=== PATIENT | female | born 1950 | race Caucasian/White ===

== ENCOUNTER → 2016-03-29 | Outpatient (CLI) | payer BC, OTHER ==
[~2016-03-29] MED LIST: ASPI325T39 PO; ATV/1 PO; CHOL200010 PO; CYAN3INJ IM; ERGO500037 PO; ESCI1TAB6 PO; FOLI1TAB7 PO; LANS15CA24 PO; MULTTAB58 PO; SUCR1TAB29 PO; VALS160T58 PO
--- NOTE | 2016-03-29 10:06 | DIAGNOSTIC IMAGING REPORT ---
RIGHT HIP 2 VIEWS CLINICAL HISTORY: Right hip pain. FINDINGS: AP and frog-leg views of the right hip are correlated with pelvic CT dated 05/29/2012. The skeletal structures are osteopenic. No fracture is identified in the right hip or the imaged right hemipelvis. The joint space of the right hip is well maintained. Small enthesophytes arise from the greater trochanter of the right femur. Minimal sclerotic change is noted in the right sacroiliac joint. There are pelvic phleboliths. The soft tissues of the right thigh are normal as visualized. IMPRESSION: No acute bony abnormality is seen in the right hip. Electronically signed by: Matias Monroe M.D. 03/29/2016 10:04 AM Dictated Date/Time: 03/29/2016 10:03 AM
== END | disposition home or self-care (01) ==
LOC: C.RADBC 09:47
PROVIDERS: ATTEND Anesthesiology
DX: M25.551 Pain in right hip (principal)

== ENCOUNTER → 2016-08-29 | Outpatient (CLI) | payer BC, OTHER ==
[~2016-08-29] MED LIST changes: -MULTTAB58 PO; -SUCR1TAB29 PO
--- NOTE | 2016-08-29 12:49 | DIAGNOSTIC IMAGING REPORT ---
RIGHT WRIST 4 VIEWS CLINICAL HISTORY: Cervicalgia. Right wrist pain. FINDINGS: 4 views the right wrist are obtained No prior studies are available for comparison at the time of dictation. The skeletal structures are osteopenic. There is no radiographic evidence of fracture. Mild arthritic change is present the first carpometacarpal articulation. The joint spaces are otherwise preserved. The overlying soft tissues are within normal limits. IMPRESSION: No acute bony abnormality is seen in the right wrist. Electronically signed by: Matias Monroe M.D. 08/29/2016 12:47 PM Dictated Date/Time: 08/29/2016 12:46 PM
--- NOTE | 2016-08-29 13:19 | DIAGNOSTIC IMAGING REPORT ---
CERVICAL SPINE 3 VIEWS CLINICAL HISTORY: Cervicalgia. Right arm pain. FINDINGS: AP, lateral, and odontoid views of the cervical spine are obtained. No prior studies are available for comparison at the time of dictation. Skeletal structures are osteopenic. There is no radiographic evidence of fracture or subluxation. Vertebral body height is maintained throughout the cervical spine. Minimal anterolisthesis is seen at C3-C4 and C4-C5. Minimal retrolisthesis is noted at C5-C6. There is straightening of the cervical lordosis with the reversal centered at C4-C5. The odontoid process and lateral masses are intact on the open-mouth view. The spinolaminar line is preserved. Anterior osteophytes are seen from C4 through C7. The spinous processes appear intact. There is moderate degenerative disc space narrowing at C5-C6. Mild disc space narrowing is seen at C6-C7. A posterior disc osteophyte complex at C5-C6 likely contributes to acquired compromise of the central canal. There is mild endplate sclerosis at this level. Productive degenerative change is noted at the atlantodental articulation with narrowing of the interval. The prevertebral soft tissues are within normal limits. The patient is edentulous. The imaged upper lobe lung parenchyma appears clear. IMPRESSION: 1. No acute bony abnormality is seen involving the cervical spine. 2. Osteopenia and spondylotic change as above, greatest at C5-C6. Dictated: 08/29/2016 12:48 PM Transcribed: 08/29/2016 1:18 PM Christian Electronically signed by: Matias Monroe M.D. 08/29/2016 1:35 PM Dictated Date/Time: 08/29/2016 12:48 PM
== END | disposition home or self-care (01) ==
LOC: C.RADBC 12:12
PROVIDERS: ATTEND Physician Assistant Medical
DX: M54.2 Cervicalgia (principal); M79.603 Pain in arm, unspecified; M85.88 Other specified disorders of bone density and structure, other site

== ENCOUNTER → 2016-09-23 | Outpatient (CLI) | payer BC | END | disposition home or self-care (01) | LOC: C.MAMM 07:46 | PROVIDERS: ATTEND Physician Assistant Medical | DX: M85.851 Other specified disorders of bone density and structure, right thigh (principal); M85.852 Other specified disorders of bone density and structure, left thigh; M85.88 Other specified disorders of bone density and structure, other site ==

== ENCOUNTER → 2017-04-14 | Outpatient (CLI) | payer BC, MEDICARE ==
[~2017-04-14] MED LIST changes: -FOLI1TAB7 PO; +FOLI1TAB8 PO
== END | disposition home or self-care (01) ==
LOC: C.RDSM 14:32
PROVIDERS: ATTEND Physical Medicine & Rehabilitation Sports Medicine
DX: M25.511 Pain in right shoulder (principal)

== ENCOUNTER → 2017-05-12 | Outpatient (CLI) | payer MEDICARE ==
[2017-05-12 10:16] LABS: ALKALINE PHOSPHATASE 117 U/L (45-117); ALT/SGPT 22 U/L (12-78); BLOOD UREA NITROGEN 20 mg/dl (7-18); CALCIUM 8.4 mg/dl (8.5-10.1); CARBON DIOXIDE 27 mmol/L (21-32); CHOLESTEROL 216 mg/dl (0-200); GLUCOSE 99 mg/dl (70-99); POTASSIUM 4.2 mmol/L (3.5-5.1); SODIUM 139 mmol/L (136-145)
[2017-05-12 10:23] LABS: AST/SGOT 21 U/L (15-37); HEMOGLOBIN A1C 6.2 % (4.5-5.6)
== END | disposition home or self-care (01) ==
LOC: C.LAB 09:04
PROVIDERS: ATTEND Internal Medicine
DX: R09.89 Other specified symptoms and signs involving the circulatory and respiratory systems (principal)

== ENCOUNTER → 2017-07-08 | Outpatient (CLI) | payer MEDICARE ==
--- NOTE | 2017-07-08 11:49 | DIAGNOSTIC IMAGING REPORT ---
CHEST 2 VIEWS ROUTINE HISTORY: Cough. COMPARISON: None. FINDINGS: The lungs are clear. Cardiac silhouette is normal in size. No pleural effusions. No pneumothorax. Upper abdominal surgical clips. IMPRESSION: No acute process. Electronically signed by: González Alvarez M.D. 07/08/2017 11:48 AM Dictated Date/Time: 07/08/2017 11:44 AM
== END | disposition home or self-care (01) ==
LOC: C.RADBC 11:16
PROVIDERS: ATTEND Nurse Practitioner Adult Health
DX: R05 Cough (principal); R09.89 Other specified symptoms and signs involving the circulatory and respiratory systems

== ENCOUNTER → 2017-10-17 | Outpatient (CLI) | payer MEDICARE ==
--- NOTE | 2017-10-17 11:31 | DIAGNOSTIC IMAGING REPORT ---
CT LUNG SCREENING CHEST, LOW DOSE WITH COMPUTER-AIDED DETECTION (CAD) CLINICAL HISTORY: 66 years-old Female with CURRENT SMOKER , LOW DOSE SCREENING. Screening study in a patient with history of tobacco abuse COMPARISON STUDY: Chest radiographs 07/08/2017. CT DOSE: 72.52 mGycm TECHNIQUE: Low-dose helical CT was acquired without intravenous contrast from lung apices to bases and reconstructed at 2.5 mm every 2 mm. CAD was utilized for this study. A dose lowering technique was utilized adhering to the principles of ALARA. FINDINGS: Homogeneous appearance of the thyroid. No pathologically enlarged lymph nodes are identified. Heart is normal in size without pericardial effusion. Coronary arterial calcifications are noted. Moderate upper lobe predominant centrilobular emphysema. Minimal subsegmental pleural-parenchymal scarring of the lung apices. No pneumothorax or pleural effusion. No focal airspace consolidation to suggest pneumonia. There are no suspicious pulmonary nodules or masses identified. 2 mm solid nodule of the left upper lobe, image 95 series 3. Central airways are patent. No acute process of the imaged upper abdomen. Postoperative changes about the distal esophagus and proximal stomach. Soft tissues are within normal limits. Bones appear intact. IMPRESSION: 1. No acute intrathoracic abnormality identified. 2. Emphysema. 3. 2 mm solid nodule of the left upper lobe, likely benign. CAD FINDINGS: Overall Lung RADS Category: 1 Lung RADS Management Recommendation: Continue annual lung cancer screening. Lung RADS Follow Up Date: 2018-10-17 The above report was generated using voice recognition software. It may contain grammatical, syntax or spelling errors. Electronically signed by: Jose Armando Penny M.D. 10/17/2017 11:29 AM Dictated Date/Time: 10/17/2017 11:09 AM
== END | disposition home or self-care (01) ==
LOC: C.CTS 09:42
PROVIDERS: ATTEND Internal Medicine
DX: J43.9 Emphysema, unspecified (principal); R91.1 Solitary pulmonary nodule; Z87.891 Personal history of nicotine dependence

== ENCOUNTER 2019-05-19 05:21 | Inpatient (IN) ==
--- NOTE | 2019-05-11 14:00 | PAT Medication Instructions ---
Medication Instructions Date of Service May 11, 2019 Home Medications Medication Instructions Recorded omeprazole 20 mg capsule,delayed 20 mg PO DAILY PRN #30 cap 01/27/19 release cyanocobalamin (vitamin B-12) 1,000 mcg IM MONTHLY aspirin 325 mg tablet 325 mg PO QAM omeprazole 20 mg capsule,delayed release 20 mg PO DAILY PRN prednisone 10 mg tablet 6 mg PO DAILY valsartan 160 mg tablet 80 mg PO DAILY PRN Medical Marijuana Card 1 dose PO UD PRN acetaminophen [Tylenol] 650 mg PO Q4H PRN ezetimibe [Zetia] 10 mg PO QAM ASK your prescriber and surgeon aspirin 325 mg tablet 325 mg PO QAM DO NOT take the morning of surgery cyanocobalamin (vitamin B-12) 1,000 mcg IM MONTHLY valsartan 160 mg tablet 80 mg PO DAILY PRN Medical Marijuana 1 dose PO UD PRN Take morning of surgery With a small sip of water, OTHERWISE NOTHING TO EAT OR DRINK AFTER MIDNIGHT: omeprazole 20 mg capsule,delayed release 20 mg PO DAILY PRN (if needed) prednisone 10 mg tablet 6 mg PO DAILY acetaminophen [Tylenol] 650 mg PO Q4H PRN (okay to take up to 4 hours prior to surgery if needed) ezetimibe [Zetia] 10 mg PO QAM Take evening before surgery omeprazole 20 mg capsule,delayed release 20 mg PO DAILY PRN (if needed) valsartan 160 mg tablet 80 mg PO DAILY PRN (if needed) acetaminophen [Tylenol] 650 mg PO Q4H PRN (if needed) Other Notes If you have any questions please call us at [phone] or [phone] or [phone] or [phone]
--- NOTE | 2019-05-12 09:11 | Anesthesiology Consultation ---
Date of Service May 12, 2019 Assessment & Plan (1) Encounter for pre-operative examination: Chart Review Chart Review: Acceptable Risk for Surgery and Patient seen in Pre Admission Testing Teaching & Discussion Instructed NPO after midnight before surgery, except medications with 15 cc of water. Medication instructions provided according to the PAT guidelines. History Surgery Operation Date: 05/19/19 09:05 Proposed Procedures p Left Carotid to Subclavian Artery Bovine Bypass - Tony Oliveira MD Height/Weight Height: 5 ft 3 in Weight: 64 kg Allergies Allergy/AdvReac Type Severity Reaction Status Date / Time amoxicillin Allergy Unknown HIVES Verified 05/11/19 16:26 atenolol Allergy Unknown GI Verified 05/11/19 16:26 SYMPTOMS/light headed clavulanic acid Allergy Unknown Hives Verified 05/11/19 16:26 [From Augmentin] fluoxetine Allergy Unknown RASH/leg Verified 05/11/19 16:26 cramps lisinopril Allergy Unknown CAUSED BP Verified 05/11/19 16:26 TO DROP TOO LOW propranolol Allergy Unknown HIVES/body Verified 05/11/19 16:26 aches atorvastatin AdvReac Unknown myalgia Verified 05/11/19 16:26 meloxicam AdvReac Unknown Diarrhea Verified 05/11/19 16:26 rosuvastatin [From Crestor] AdvReac Unknown Muscle Pain Verified 05/11/19 16:26 Medications Home Medications Medication Instructions Recorded Confirmed Last Taken cyanocobalamin (vitamin B-12) 1,000 mcg IM MONTHLY 12/07/18 05/11/19 04/26/19 aspirin 325 mg tablet 325 mg PO QAM tab 01/05/19 05/11/19 Unknown omeprazole 20 mg capsule,delayed 20 mg PO DAILY PRN #30 cap 01/27/19 05/11/19 Unknown release prednisone 10 mg tablet 6 mg PO DAILY tab 02/02/19 05/11/19 Unknown valsartan 160 mg tablet 80 mg PO DAILY PRN tab 03/29/19 05/11/19 Unknown Medical Marijuana Card 1 dose PO UD PRN 05/06/19 05/11/19 Unknown acetaminophen [Tylenol] 650 mg PO Q4H PRN 05/06/19 05/11/19 Unknown ezetimibe [Zetia] 10 mg PO QAM 05/06/19 05/11/19 Unknown Past Medical History Medical History Anxiety Elevated sed rate follows with rheumatology (Dr. Fay/[facility]) Generalized pain Medical marijuana prn GERD (gastroesophageal reflux disease) High cholesterol History of blood transfusion History of iron deficiency anemia hx iron infusions (most recent approximately 02/2019) History of migraine headaches History of stomach ulcers History of stroke S/P intracranial aneurysm repair (01/2019)- no residual effects Hypertension (Chronic) per patient, systolic BP goal currently between 150-180 Intracranial aneurysm 01/2019 s/p stent and/or coil (Dr. Simpson/[facility]) Osteoarthritis per records Osteopenia per records Pulmonary nodule Seasonal allergies Social anxiety disorder Subclavian artery stenosis, right (Chronic) Exercise / Class Metabolic Activity III < 4 Walking/Shop/Light housework (+mild SOB with 1 FOS, denies any chest pain, patient is generally inactive) Past Family History Family History Father Acute myocardial infarction Cardiovascular disease Stroke syndrome Mother Hypertension Brother Acute myocardial infarction Other Patient's brother is Stroke Past Surgical History Surgical History Family history of reaction to anesthesia Daughter- "quit breathing" with anesthesia emergence after use of fentanyl- needed to reintubate H/O abdominal surgery STOMACH ULCERS REMOVED (3 TOTAL SURGERIES) History of breast biopsy RT/LEFT (BENIGN) History of cholecystectomy History of colonoscopy History of esophagogastroduodenoscopy (EGD) History of temporal artery biopsy (12/09/18) Left Temporal Artery Biopsy (11/2018) History of tooth extraction Intracranial aneurysm 01/2019 - STENT AND/OR COIL PLACED, SEVERINO PONV (postoperative nausea and vomiting) Past Anesthesia History No Hx of Anesthesia Complications (other than PONV episode) Daughter had possible fentanyl overdose betty-operatively, required reintubation. History of PONV No Hx of Motion Sickness and History of PONV (single episode) Social History Smoking Status: Current every day smoker tobacco type: cigarettes Smoking cigarettes per day: 20 Do You Dip or Chew Tobacco: No Hx Alcohol Use: No Hx Substance Use: No substance use type: other Substance Use Type Other:: MEDICAL MARIJUANA CARD - INSTRUCTED TO BRING CARD DAY OF PAT Review of Systems Pt denies any recent chest pain, shortness of breath, palpitations, fever or URI. +cough/post nasal drip Physical Exam Vital Signs BP: 209/81, rpt manual 10 mins later 190/78 -- pt will take PRN valsartan when she gets home. BP is supposed to be elevated d/t subclavian artery stenosis. P: 78bpm SPO2: 98% RA T: 98.7 F R: 18 ENMT Mouth: + edentulous and + macroglossia Thyromental Distance: < 3.5 Finger Breadths (3) Mallampati Class: I Neck normal visual inspection; neck extension not limited Respiratory normal respiratory effort Auscultation: lungs clear to auscultation bilaterally Cardiovascular Rate/Rhythm: regular rate and regular rhythm Heart Sounds: + murmur (systolic, possibly radiation from bruit) Vessels: + carotid bruit (R>L) Extremities: no edema Testing Laboratory Results 05/12/19 09:12 05/12/19 09:12 PT 9.6 Seconds (9.0-12.0) 05/12/19 09:12 INR 0.9 (0.9-1.1) 05/12/19 09:12 APTT 27.1 Seconds (21.0-31.0) 05/12/19 09:12 Blood Type O Positive 05/12/19 09:12 Antibody Screen NEGATIVE 05/12/19 09:12 Thrombocytosis -- pt was on high dose steroids, taped down gradually, now 6mg daily, for elevated sed rate (temporal artery bx negative) Chronic anemia -- 2/2 peptic ulcer disease, has had Fe infusions, most recently 02/2019. S/P embol[place] of R ICA [place] [facility] [place], req'd 3 units PRBC due to HGB of 6.4. Electrocardiogram Date: 12/07/18 SR @ 74bpm with marked sinus arrhythmia. Otherwise normal EKG. Chest X-Ray Date: 11/26/18 FINDINGS: PA and lateral chest radiographs are compared to study dated 07/08/2017 and correlated with chest CT dated 10/21/2018. The heart is mildly enlarged. The pulmonary vasculature is noncongested. Emphysema and chronic interstitial thickening are similar to previous. No airspace consolidation or pleural effusion is identified. There is no pneumothorax. The skeletal structures are osteopenic. The bony thorax appears intact. Surgical clips are noted in the upper abdomen IMPRESSION: Emphysematous change with no acute cardiopulmonary abnormality. Echocardiogram Date: 04/20/19 EF: 50-55% Normal LV size with low normal systolic function. Basal inferior wall appears mildly hypokinetic. Moderate concentric LVH. Mild left atrial dilation. Sclerotic aortic valve without significant stenosis. Mild to moderate mitral regurgitation.
[2019-05-12 10:55] LABS: Basophils # (auto) 0.02 K/uL (0-0.2); Basophils % (auto) 0.2 %; Eosinophils # (auto) 0.12 K/uL (0-0.5); Eosinophils % (auto) 1.5 %; Hematocrit (blood only) 31.4 % (37-47); Hemoglobin 9.3 g/dL (12.0-16.0); Immature Granulocytes # (auto) 0.02 K/uL (0.00-0.02); Immature Granulocytes % (auto) 0.2 %; Lymphocytes # (auto) 1.82 K/uL (1.2-3.4); Lymphocytes % (auto) 22.6 %; Mean Corpuscular Hemoglobin 28.9 pg (25-34); Mean Corpuscular Hgb Conc 29.6 g/dL (32-36); Mean Corpuscular Volume 97.5 fL (80-100); Mean Platelet Volume 9.2 fL (7.4-10.4); Monocytes % (auto) 6.2 %; Neutrophils # (auto) 5.59 K/uL (1.4-6.5); Neutrophils % (auto) 69.3 %; Platelet Count 596 K/uL (130-400); RDW Coefficient of Variation 16.9 % (11.5-14.5); Red Blood Count 3.22 M/uL (4.2-5.4); White Blood Count 8.07 K/uL (4.8-10.8)
[2019-05-12 11:04] LABS: BUN Creatinine Ratio 14.6 (10-20); Creatinine Clr Calc Pharmacy 51.7 ml/min; Est GFR (African American) 71.8; Potassium 3.5 mmol/L (3.5-5.1)
[2019-05-12 11:06] LABS: INR 0.9 (0.9-1.1); Partial Thromboplastin Time 27.1 Seconds (21.0-31.0); Prothrombin Time 9.6 Seconds (9.0-12.0)
[2019-05-19] MEDS ORDERED: HYDROCORTISONE SOD SUCCINATE 100 MG/2 ML VIAL IV SCH (06:00)
[2019-05-19] MEDS ORDERED: CLINDAMYCIN 600 MG/54 ML BAG IV SCH (06:00)
[2019-05-19] MEDS ORDERED: SODIUM CHLORIDE 0.9% 1000ML IV SCH (06:00)
[2019-05-19 06:28] LABS: BUN Creatinine Ratio 13.2 (10-20); Calcium 8.5 mg/dl (8.5-10.1); Creatinine Clr Calc Pharmacy 58.5 ml/min; Est GFR (African American) 83.4; Est GFR (Non-African American) 71.9; Potassium 3.4 mmol/L (3.5-5.1)
--- NOTE | 2019-05-19 06:29 | History & Physical Report ---
Date of Service May 19, 2019 Assessment & Plan (1) Carotid artery occlusion syndrome: Patient is admitted for a left subclavian to carotid bypass. I have discussed the risks options and benefits of the procedure with the patient. The patient understands the risks options and benefits and agrees to the procedure. History of Present Illness Chief Complaint: Left common carotid artery occlusion Primary Care Provider: Anjel Eid MD Ms. Kilgore is a 68-year-old female who was first seen back in December 2018 regarding her carotid artery disease. The patient had previously been found to have an intracranial right internal carotid artery aneurysm which is being managed by Dr. Attila Simpson at [facility]. Since her visit here in December, the patient had undergone coiling of the distal right ICA aneurysm. Testing done around that time continues to indicate a left common carotid artery occlusion as well as a severely stenotic left vertebral artery and occluded right vertebral artery and stenosis of her right proximal carotid artery as well as an occluded right subclavian. The patient's imaging appears to demonstrate decreased perfusion of the left hemisphere. The patient herself denies any new concerns or symptoms. She states that she is easily fatigued, but that that has been an ongoing problem which is managed by iron infusions performed by her field operations manager. She denies any new symptoms of amaurosis, unilateral extremity weakness, numbness or tingling, difficulty speaking or swallowing, confusion, facial droop or other concerns The patient had an MRA of the head and neck which revealed an occluded left common carotid artery, a severely stenotic left vertebral artery, a patent left subclavian artery, an occluded right subclavian artery, a stenotic proximal right carotid artery and an occluded right vertebral artery. Allergies Allergy/AdvReac Type Severity Reaction Status Date / Time amoxicillin Allergy Unknown HIVES Verified 05/19/19 05:45 atenolol Allergy Unknown GI Verified 05/19/19 05:45 SYMPTOMS/light headed clavulanic acid Allergy Unknown Hives Verified 05/19/19 05:45 [From Augmentin] fluoxetine Allergy Unknown RASH/leg Verified 05/19/19 05:45 cramps lisinopril Allergy Unknown CAUSED BP Verified 05/19/19 05:45 TO DROP TOO LOW propranolol Allergy Unknown HIVES/body Verified 05/19/19 05:45 aches atorvastatin AdvReac Unknown myalgia Verified 05/19/19 05:45 meloxicam AdvReac Unknown Diarrhea Verified 02/26/20 05:45 rosuvastatin [From Crestor] AdvReac Unknown Muscle Pain Verified 05/19/19 05:45 Home Medications Home Medications Medication Instructions Recorded Confirmed Type cyanocobalamin (vitamin B-12) 1,000 mcg IM MONTHLY 12/07/18 05/19/19 History aspirin 325 mg tablet 325 mg PO QAM tab 01/05/19 05/19/19 History omeprazole 20 mg capsule,delayed 20 mg PO DAILY PRN #30 cap 01/27/19 05/19/19 Rx release prednisone 10 mg tablet 6 mg PO DAILY tab 02/02/19 05/19/19 History valsartan 160 mg tablet 80 mg PO DAILY PRN tab 03/29/19 05/19/19 History Medical Marijuana Card 1 dose PO UD PRN 05/06/19 05/19/19 History acetaminophen [Tylenol] 650 mg PO Q4H PRN 05/06/19 05/19/19 History ezetimibe [Zetia] 10 mg PO QAM 05/06/19 05/19/19 History Past Med/Surg History Medical History Anxiety Elevated sed rate follows with rheumatology (Dr. Fay/[facility]) Generalized pain Medical marijuana prn GERD (gastroesophageal reflux disease) High cholesterol History of blood transfusion History of iron deficiency anemia hx iron infusions (most recent approximately 02/2019) History of migraine headaches History of stomach ulcers History of stroke S/P intracranial aneurysm repair (01/2019)- no residual effects Hypertension (Chronic) per patient, systolic BP goal currently between 150-180 Intracranial aneurysm 01/2019 s/p stent and/or coil (Dr. Simpson/[place] [facility]) Osteoarthritis per records Osteopenia per records Pulmonary nodule Seasonal allergies Social anxiety disorder Subclavian artery stenosis, right (Chronic) Surgical History Family history of reaction to anesthesia Daughter- "quit breathing" with anesthesia emergence after use of fentanyl- needed to reintubate H/O abdominal surgery STOMACH ULCERS REMOVED (3 TOTAL SURGERIES) History of breast biopsy RT/LEFT (BENIGN) History of cholecystectomy History of colonoscopy History of esophagogastroduodenoscopy (EGD) History of temporal artery biopsy (12/09/18) Left Temporal Artery Biopsy (11/2018) History of tooth extraction Intracranial aneurysm 01/2019 - STENT AND/OR COIL PLACED, SEVERINO PONV (postoperative nausea and vomiting) Family History Father Acute myocardial infarction Cardiovascular disease Stroke syndrome Mother Hypertension Brother Acute myocardial infarction Other Patient's brother is Stroke Social History Preferred Language: Hebrew Communication Ability: Effective Visual Impairment: No Limitations Hearing Ability: Normal Sql Tech Required: No Beliefs That Will Affect Care: None marital status: Current Living Situation: Spouse current occupation: [employer] Other Information That Helps Us Care for You: No Feels Safe at Home: Yes Smoking Status: Current every day smoker Tobacco Type: cigarettes ; Cigarettes Per Day: 20 ; Do You Dip or Chew Tobacco: No ; Second Hand Exposure: No ; Hx Alcohol Use: No Hx Substance Use: No Childhood Exposure to Second-Hand Smoke: Yes caffeine: No Dental Care, Regularly: No Physical Activity Frequency: Does not Exercise Seatbelt Use: always Sunscreen Use: No Review of Systems All systems reviewed & are unremarkable except as noted in HPI & below Physical Exam Constitutional: WD/WN, vitals as above Neck: trachea midline, no thyromegaly Respiratory: normal respiratory effort, lungs clear to auscultation Cardiovascular: Rate/Rhythm: regular rate and regular rhythm Vessels: femoral pulses present, radial pulses present (none on left) and + temporal artery tenderness (right was biopsied) Extremities: normal capillary refill Gastrointestinal (Abdomen): Inspection/Auscultation: abdomen normal to inspection Percussion/Palpation: abdomen soft; abdomen nontender Skin: no rashes, warm and dry Neurologic: PERRL, EOMI, accommodation nl, no face palsy, no dysarthria CN's II-XI intact bilaterally and moves all extremities; no focal motor deficits Motor/Sensory: no sensory deficit Psychiatric: Orientation: alert and oriented x 3 Results & Data Vital Signs (Past 12 Hours) Vital Signs Temp Pulse Resp BP Pulse Ox 05/19/19 05:54 36.8 C 87 20 209/75 H 96
[2019-05-19] MEDS ORDERED: LARYING-O-JET KIT (LTA) ONE (06:42)
[2019-05-19] MEDS ORDERED: PROPOFOL IV EMULSION 10 MG/ML 20 ML VIAL IV ONE (06:51)
[2019-05-19] MEDS ORDERED: DEXAMETHASONE SOD INJ 4 MG/ML VIAL ONE (06:51)
[2019-05-19] MEDS ORDERED: MIDAZOLAM HCL 1 MG/ML 2ML VIAL ONE (06:51)
[2019-05-19] MEDS ORDERED: LIDOCAINE HCL 2% 2 ML VIAL/AMP(20MG/ML) INFIL ONE (06:51)
[2019-05-19] MEDS ORDERED: ROCURONIUM BROMIDE 10 MG/ML 5 ML VIAL ONE (06:51)
[2019-05-19] MEDS ORDERED: fentaNYL citrate 100 MCG/2 ML VIAL ONE ×2 (06:51→10:08)
[2019-05-19] MEDS ORDERED: HYDROmorphone INJ 2 MG/ML SYR/VIAL ONE (06:51)
[2019-05-19] MEDS ORDERED: ONDANSETRON INJ 2 MG/ML 2 ML VIAL ONE (06:51)
[2019-05-19] MEDS ORDERED: ACETAMINOPHEN 1000 MG/100 ML IV IV ONE (07:01)
[2019-05-19] MEDS ORDERED: ALBUMIN HUMAN 5% 12.5 GM/250 ML VIAL IV ONE (07:01)
[2019-05-19] MEDS ORDERED: LIDOCAINE HCL 1% 20 ML VIAL ONE (07:11)
[2019-05-19] MEDS ORDERED: CEFAZOLIN 250 MG/ML 1 GM VIAL ONE (07:11)
[2019-05-19] MEDS ORDERED: HEPARIN (PORCINE) 1000 UNIT/ML 10 ML (CATH LAB USE ONLY) ONE (07:11)
[2019-05-19] MEDS ORDERED: THROMBIN FOR SOLN 20000 UNIT KIT ONE (07:12)
[2019-05-19] MEDS ORDERED: BUPIVACAINE/EPINEPHRINE 0.5% MPF 1:200,000 10 ML VIAL ONE (07:12)
[2019-05-19] MEDS ORDERED: GELATIN SPONGE SZ 100 ONE (07:12)
--- NOTE | 2019-05-19 07:17 | History & Physical Bridge Note ---
Date of Service May 19, 2019 History & Physical Bridge Note I have examined the patient, reviewed the History & Physical and in the interval since the performance of the History & Physical I have noted the following changes of clinical significance: no changes noted
[2019-05-19] MEDS ORDERED: NITROGLYCERIN 5 MG/ML 10 ML VIAL ONE (08:36)
[2019-05-19] MEDS ORDERED: BACITRACIN INJ 50,000 UNIT VIAL ONE (09:07)
[2019-05-19] MEDS ORDERED: LABETALOL HCL IV 5 MG/ML 20ML IV ONE (09:21)
[2019-05-19] MEDS ORDERED: ePHEDrine sulfate 50 MG/ML SYR ONE (09:45)
[2019-05-19] MEDS ORDERED: raNITIdine HCl 25 MG/ML VIAL IV ONE (09:49)
[2019-05-19] MEDS ORDERED: HYDROmorphone INJ 1 MG/ML SYRINGE IV PRN (10:05)
[2019-05-19] MEDS ORDERED: FLUMAZENIL 0.1 MG/1 ML 10 ML VIAL IV PRN (10:05)
[2019-05-19] MEDS ORDERED: ATROPINE SULFATE 0.1 MG/ML 10ML SYR IV PRN (10:05)
[2019-05-19] MEDS ORDERED: ONDANSETRON INJ 2 MG/ML 2 ML VIAL IV PRN ×2 (10:05→14:40)
[2019-05-19] MEDS ORDERED: PROMETHAZINE HCL 12.5 MG in SODIUM CHLORIDE 0.9% 50 ML IV PRN (10:05)
[2019-05-19] MEDS ORDERED: LABETALOL HCL IV 5 MG/ML 20ML IV PRN (10:05)
[2019-05-19] MEDS ORDERED: ePHEDrine sulfate 50 MG/ML AMP IV PRN (10:05)
[2019-05-19] MEDS ORDERED: fentaNYL citrate 100 MCG/2 ML VIAL IV PRN (10:05)
[2019-05-19] MEDS ORDERED: NALOXONE HCL 0.4 MG/1 ML VIAL/CARP IV PRN (10:05)
--- NOTE | 2019-05-19 10:51 | Post Operative Brief Note ---
Immediate Post Op Note v1 Date of Surgery May 19, 2019 Pre & Post Diagnosis Operation Date: 05/19/19 07:30 Pre-Op Diagnosis: Left Common Carotid Artery Occlusion Post-Op Diagnosis: Left Common Carotid Artery Occlusion I identified the patient and participated in the time-out.: Yes Procedure Operation Date: 05/19/19 07:30 Actual Procedures p Left Subclavian to Carotid Artery Prosthetic Bypass(Left) - Tony Oliveira MD Surgeon Tony Oliveira MD Community Service Aide MD Lyndsay LRituMinarchick,PAC Estimated Blood Loss 80 Findings Consistent with Post-Op Diagnosis Anesthesia Type General Complications none Disposition Accompanied Patient To Recovery: No Disposition: Recovery Room
--- NOTE | 2019-05-19 12:13 | Operative Report ---
Post Operative Report Pre & Post Diagnosis Operation Date: 05/19/19 07:30 Pre-Op Diagnosis: Left Carotid Artery Occlusion Post-Op Diagnosis: Left Carotid Artery Occlusion I identified the patient and participated in the time-out.: Yes Procedure Operation Date: 05/19/19 07:30 Actual Procedures p Left Subclavian Artery to Carotid Prosthetic Bypass(Left) - Tony Oliveira MD Surgeon Dr. Oliveira Dressmaker Garment Fitter MD Alicia UmanaMinarchick,PAC Estimated Blood Loss 80 Findings Consistent with Post-Op Diagnosis Specimens None Anesthesia Type General Complications none Disposition Accompanied Patient To Recovery: No Disposition: Recovery Room Indications 68 year old woman with symptoms of malperfusion secondary to L CCA occlusion Description of Procedure The patient was taken to the operating room and placed in supine position. After general anesthesia was accomplished the left-side of the neck was prepped and draped in a sterile manner. The patient was identified and a timeout performed. A longitudinal neck incision was then made coursing along the medial border of the sternocleidomastoid muscle and 2cm superior to the clavicle, the incision was angled laterally for 5cm. The incision was taken down through the platysmal layer. The external jugular and facial veins was identified, ligated, and divided. The common carotid artery was then seen. The dissection was carried upward until the external carotid artery and superior thyroid artery was seen. The superior thyroid artery was slung with a 2-0 silk suture. The external carotid was slung with a red rubber vessel loop. Next the dissection was carried up along the internal carotid artery. The hypoglossal nerve was not seen. Attention was then turned to the subclavian dissection. The subclavian fat pad was divided and the subclavian vein and thoracic duct not visualized. The anterior scalene was divided carefully to avoid injury to the phrenic nerve. The subclavian artery and its branches were then dissected. The patient was heparinized. After adequate heparinization was accomplished, the subclavian artery was clamped proximally and distally. A longitudinal arteriotomy was made and cut to length of the beveled 6mm Clifton graft. Using a 6-0 prolene, the posterior wall of the graft was parachuted into place and the anastomosis completed in an end-to-side fashion. The clamps were then removed from the subclavian artery. The graft was then tunneled under the sternocleidomastoid and attention was turned to the carotid exposure. The internal and external carotid arteries were clamped. The common carotid artery was transected 1cm proximal to the bifurcation. The graft was then cut to length and sewn end-to-end to the common carotid bifurcation. The common carotid proximally was oversewn with 5-0 prolene. Prior to completing the closure of the bypass, backbleeding and forward bleeding was allowed to occur. The flow surface was irrigated with heparinized saline. The final few sutures were then placed and securely tied. Clamps were then removed off the external and bypass graft. After multiple cardiac cycles, the clamp was then removed the internal carotid artery. Good distal flow was seen and heard with Doppler. Adequate hemostasis was seen. The wound was inspected and adequate hemostasis was obtained. The wound was irrigated with antibiotic solution. It was then closed with a running 2-0 to reapproximate the anterior scalene, 3-0 Vicryl suture for the platysmal layer, and a 4-0 subcuticular Vicryl suture for the skin edges. Dermabond was used for dressing. The patient left the operating room in satisfactory condition and tolerated the procedure well. Dr. Oliveira was present and scrubbed for the entire procedure. Helena Fofana Pac assisted due to lack of resident availability and was necessary for prepping, draping, retraction, wound closure defects, subQ and skin closure and was necessary for the case. I attest to the content of the Intraoperative Record and any orders documented therein. Any exceptions are noted below.
--- NOTE | 2019-05-19 12:47 | CT Scan Report ---
HEAD CT NONCONTRAST CT DOSE: 912.23 mGycm HISTORY: confusion, post carotid endarterectomy TECHNIQUE: Multiaxial CT images of the head were performed without the use of intravenous contrast. A utomated exposure control was utilized for this study. A dose lowering technique was utilized adheri ng to the principles of ALARA. Comparison: None. Findings: Small fluid level within the left maxillary sinus and mild mucosal thickening within the le ft ethmoid air cells. The mastoid air cells are clear. The calvarium and skull base are intact. The v entricles and sulci are within normal limits. There is no mass, hematoma, midline shift, or acute inf arct. A few old small right cerebellar infarcts. Impression: 1. No acute intracranial abnormality. 2. A few old small right cerebellar infarcts. 3. Small fluid level within the left maxillary sinus consistent with acute sinusitis. ACT 112: Negative or not required by law. Electronically signed by: González Alvarez M.D. 05/19/2019 12:46 PM
--- NOTE | 2019-05-19 13:22 | Anesthesiology Progress Note ---
Date of Service May 19, 2019 Anesthesia Post Procedure Vital Signs Vital Signs: Temp Pulse Pulse Resp BP BP BP 05/19/19 13:16 88 15 158/58 H 136/59 L 05/19/19 13:06 36.9 C 87 13 161/59 H 133/58 L 05/19/19 12:56 85 13 166/62 H 160/60 H 05/19/19 12:47 85 14 173/66 H 157/61 H 05/19/19 12:16 85 22 186/73 H 146/69 H 05/19/19 12:10 84 18 178/66 H 146/63 H 05/19/19 12:00 81 14 151/60 H 150/51 H 05/19/19 11:50 80 15 147/61 H 123/58 L 05/19/19 11:44 36.7 C 80 12 165/55 H 05/19/19 05:54 36.8 C 87 20 209/75 H Pulse Ox 05/19/19 13:16 95 05/19/19 13:06 95 05/19/19 12:56 95 05/19/19 12:47 93 05/19/19 12:16 97 05/19/19 12:10 97 05/19/19 12:00 96 05/19/19 11:50 97 05/19/19 11:44 98 05/19/19 05:54 96 Transfer of Care Handoff Completed per policy Notes Mental Status: alert / awake / arousable and participated in evaluation Patient Amnestic to Procedure: Yes Nausea / Vomiting: adequately controlled Pain: adequately controlled Airway Patency, RR, SpO2: stable & adequate BP & HR: stable & adequate Hydration State: stable & adequate Anesthetic Complications: no major complications apparent
[2019-05-19] MEDS ORDERED: SODIUM CHLORIDE 0.9% 1000ML 1,000 ML IV SCH (14:36)
[2019-05-19] MEDS ORDERED: VALSARTAN 80 MG TAB PO PRN (14:36)
[2019-05-19] MEDS ORDERED: MoRPHine SULFATE 4 MG/ML 1 ML CARP\\VIAL IV PRN (14:36)
[2019-05-19] MEDS ORDERED: PANTOprazole 40 MG TAB PO PRN (14:45)
[2019-05-19] MEDS ORDERED: HYDROCORTISONE SOD 100 MG in SYRINGE 0 ML IV ONE (15:00)
[2019-05-19] MEDS: HYDROCODONE/ACETAMOPHEN 5/325MG TAB PO PRN ×3 (15:15→19:45)
[2019-05-19] MEDS: CLINDAMYCIN 600 MG in DEXTROSE 5% 50 ML IV SCH ×2 (15:15→23:34)
[2019-05-19] MEDS: NITROGLYCERIN/D5W 100MCG/ML 250 ML IV PRN ×2 (15:28→21:35)
[2019-05-19] MEDS ORDERED: HydrALAZINE HCL 20 MG/ML VIAL IV STA (17:31)
--- NOTE | 2019-05-19 19:33 | Critical Care Consultation ---
Date of Consultation May 19, 2019 Assessment & Plan (1) Admitted to intensive care unit: Reason Critically Ill: 68-year-old female with significant past medical history of vasculopathic issues requiring close hemodynamic monitoring status post LEFT subclavian to carotid prosthetic bypass grafting. NEURO - * CAM ICU: NEGATIVE * Pain: Morphine, [place], Tylenol * Monitor closely for neurological changes status post carotid intervention in the patient with prior history of CVA as well as repaired cerebral aneurysm. CARDIAC/VASCULAR - * Status post LEFT-sided subclavian to carotid prosthetic bypass secondary to LEFT common carotid artery occlusion: * Judicious blood pressure control. * Monitor for signs symptoms of bleeding. * In discussion with patient, she reports that her neurosurgeon prefers her to remain with permissive hypertension with blood pressures in the 160s to 180s. Will aim for slightly lower than the status post vascular intervention. * Monitor on telemetry. RESPIRATORY - * Saturating well on room air. * Supplemental O2 as needed. GI/NUTRITION - * Progress diet as tolerated. RENAL/LYTES - * Hypokalemia: * Replace as needed. - * No concerns at this time. ENDO - * Prediabetes. * BSGs per unit protocol. ISS --> gtt per unit policy. HEME - * Trend H&H status post vascular intervention. ID - * No concerns for infectious contribution at this time. * Received appropriate perioperative antibiotic dosing. LINES/IV ACCESS - * PIVs x2 * RIGHT femoral arterial line DVT PROPHYLAXIS - * Per vascular service team. * SCDs I have personally spent 35 minutes of critical care time in the direct management of this patient. This is a life/limb threatening event. This includes time spent evaluating patient, direct bedside care, chart review, placing orders, interpretation of diagnostic studies, discussion with consultants, patient, and family members, as well as other required patient management activities. This time is exclusive of all separately billable procedures, and teaching time and separate from and in addition to any other critical care service time. Thank you for allowing us to participate in the care of this patient. Please refer to my attending physician's documentation for any further recommendations. (2) S/P vascular bypass: (3) Left carotid artery occlusion: (4) Cerebral arterial aneurysm: (5) Carotid artery occlusion syndrome: (6) Dyspnea on exertion: (7) Hypertension: History of Present Illness Attending Physician: Tony Oliveira MD History of Present Illness Patient is a 52-year-old female with complicated medical history including hypertension, hyperlipidemia, cerebral artery aneurysm status post coiling, CVA status post neurologic intervention, giant cell arteritis, peripheral arterial disease, amongst others who is postop day 0 status post LEFT subclavian to carotid prosthetic bypass secondary to LEFT common carotid occlusion. No reported intraprocedural issues noted. The patient has been hypertensive postoperatively, however this appears to be the patient's baseline. Upon evaluation in the ICU, the patient is awake, alert, and oriented. She denies any complaints of pain at this time. She denies any headaches, dizziness, lightheadedness, blurry vision, double vision, slurred speech, facial droop, unilateral weakness/numbness, chest pain, palpitations, shortness of breath, nausea, or vomiting. The patient reports that her neurosurgeon at [facility] prefers that her blood pressure remains permissively hypertensive in the 150s to 180s range systolically. Otherwise, patient reports that she has been feeling well and is only complaining of a sore throat after intubation. Allergies Allergy/AdvReac Type Severity Reaction Status Date / Time amoxicillin Allergy Unknown HIVES Verified 05/19/19 05:45 atenolol Allergy Unknown GI Verified 05/19/19 05:45 SYMPTOMS/light headed clavulanic acid Allergy Unknown Hives Verified 05/19/19 05:45 [From Augmentin] fluoxetine Allergy Unknown RASH/leg Verified 05/19/19 05:45 cramps lisinopril Allergy Unknown CAUSED BP Verified 05/19/19 05:45 TO DROP TOO LOW propranolol Allergy Unknown HIVES/body Verified 05/19/19 05:45 aches atorvastatin AdvReac Unknown myalgia Verified 05/19/19 05:45 meloxicam AdvReac Unknown Diarrhea Verified 05/19/19 05:45 rosuvastatin [From Crestor] AdvReac Unknown Muscle Pain Verified 05/19/19 05:45 Home Medications Home Medications Medication Instructions Recorded Confirmed Type cyanocobalamin (vitamin B-12) 1,000 mcg IM MONTHLY 12/07/18 05/19/19 History aspirin 325 mg tablet 325 mg PO QAM tab 01/05/19 05/19/19 History omeprazole 20 mg capsule,delayed 20 mg PO DAILY PRN #30 cap 01/27/19 05/19/19 Rx release prednisone 10 mg tablet 6 mg PO DAILY tab 02/02/19 05/19/19 History valsartan 160 mg tablet 80 mg PO DAILY PRN tab 03/29/19 05/19/19 History Medical Marijuana Card 1 dose PO UD PRN 05/06/19 05/19/19 History acetaminophen [Tylenol] 650 mg PO Q4H PRN 05/06/19 05/19/19 History ezetimibe [Zetia] 10 mg PO QAM 05/06/19 05/19/19 History Patient History Medical History Anxiety CVA (cerebral vascular accident) Elevated sed rate follows with rheumatology (Dr. Fay/[facility]) Generalized pain Medical marijuana prn GERD (gastroesophageal reflux disease) High cholesterol History of blood transfusion History of iron deficiency anemia hx iron infusions (most recent approximately 02/2019) History of migraine headaches History of stomach ulcers History of stroke S/P intracranial aneurysm repair (01/2019)- no residual effects Hypertension (Chronic) per patient, systolic BP goal currently between 150-180 Intracranial aneurysm 01/2019 s/p stent and/or coil (Dr. [facility]) Osteoarthritis per records Osteopenia per records Pulmonary nodule Seasonal allergies Social anxiety disorder Subclavian artery stenosis, right (Chronic) Surgical History Family history of reaction to anesthesia Daughter- "quit breathing" with anesthesia emergence after use of fentanyl- needed to reintubate H/O abdominal surgery STOMACH ULCERS REMOVED (3 TOTAL SURGERIES) History of breast biopsy RT/LEFT (BENIGN) History of cholecystectomy History of colonoscopy History of esophagogastroduodenoscopy (EGD) History of temporal artery biopsy (12/09/18) Left Temporal Artery Biopsy (11/2018) History of tooth extraction Intracranial aneurysm 01/2019 - STENT AND/OR COIL PLACED, JUNE PONV (postoperative nausea and vomiting) Family History Father Acute myocardial infarction Cardiovascular disease Stroke syndrome Mother Hypertension Brother Acute myocardial infarction Other Patient's brother is Stroke Social History Preferred Language: Liberian Communication Ability: Effective Visual Impairment: No Limitations Hearing Ability: Normal Acupressurist Required: No Beliefs That Will Affect Care: Amish Amish Beliefs: DRUZE marital status: Current Living Situation: Spouse 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 Other Information That Helps Us Care for You: No Feels Safe at Home: Yes Safety Concerns: Feels Safe At This Time Smoking Status: Current every day smoker Tobacco Type: cigarettes ; Cigarettes Per Day: 20 ; Do You Dip or Chew Tobacco: No ; Second Hand Exposure: No ; Tobacco Cessation Education Requested by Patient: No Hx Alcohol Use: No Hx Substance Use: No Childhood Exposure to Second-Hand Smoke: Yes caffeine: No Dental Care, Regularly: No Physical Activity Frequency: Does not Exercise Seatbelt Use: always Sunscreen Use: No Review of Systems Review of Systems: A complete 10 point review of systems was reviewed with the patient with pertinent positives and negatives as per history of present illness. All else were negative. Physical Exam Physical Exam: VITAL SIGNS - Vital signs and nursing notes were reviewed. GENERAL - 68-year-old female appearing her stated age who is in no acute distress. Communicates well with provider and answers questions appropriately. SKIN - Without rashes. Surgical scar noted to the LEFT sided neck which is clean, dry, and intact. HEAD - NC/AT. EYES - PERRL with EOMI bilaterally. Sclera anicteric. Palpebral conjunctiva pink and moist with no injection noted. EARS - No deformities of external structures noted on gross examination bilaterally. NOSE - Midline and without cyanosis. No epistaxis or purulent drainage noted. MOUTH/OROPHARYNX - Without perioral cyanosis. Buccal mucosa pink and moist and without leukoplakia. Tongue midline with equal elevation of palate bilaterally. NECK - LEFT sided incision site clean, dry, and intact with mild edema. No ecchymosis or large hematoma noted. Neck with FROM. Supple to palpation. No nuchal rigidity. LUNGS - Chest wall symmetric without accessory muscle use, intercostals retractions, or central cyanosis. Normal vesicular breath sounds CTA B/L. No wheezes, rales, or rhonchi appreciated. CARDIAC - RRR with S1/S2. No murmur, rubs, or gallops appreciated. ABDOMEN - Abdominal contour flat without pulsations or visible masses. BS normoactive all four quadrants. No tenderness, palpable masses, hepatosplenomegaly, or ascites noted. EXTREMITIES - No clubbing or peripheral cyanosis. No pretibial edema present. +5/5 strength noted in UE/LE bilaterally. NEUROLOGIC - Cranial nerves II through XII grossly intact. Sensory intact to light touch throughout. PSYCH - A&Ox3 and cooperates fully with examiner. Pt is very pleasant and interacts well with examiner. Results & Data ([facility]) Vital Signs (Past 12 Hours) Vital Signs Temp Pulse Pulse Resp BP BP BP 05/19/19 17:54 87 17 153/73 H 05/19/19 17:40 80 16 173/72 H 05/19/19 17:30 81 18 05/19/19 17:29 80 16 173/77 H 05/19/19 17:26 81 16 184/74 H 05/19/19 17:24 80 19 192/73 H 05/19/19 17:15 80 24 05/19/19 17:09 79 12 167/81 H 05/19/19 17:08 80 18 179/76 H 05/19/19 17:04 81 18 168/73 H 05/19/19 17:00 79 14 05/19/19 16:45 80 14 165/70 H 05/19/19 16:30 80 22 05/19/19 16:00 36.7 C 80 17 143/61 H 05/19/19 14:45 84 16 05/19/19 14:31 37.1 C 88 17 05/19/19 13:45 89 20 153/53 H 140/57 L 05/19/19 13:35 89 17 154/55 H 151/55 H 05/19/19 13:26 90 16 153/52 H 150/55 H 05/19/19 13:16 88 15 158/58 H 136/59 L 05/19/19 13:06 36.9 C 87 13 161/59 H 133/58 L 05/19/19 12:56 85 13 166/62 H 160/60 H 05/19/19 12:47 85 14 173/66 H 157/61 H 05/19/19 12:16 85 22 186/73 H 146/69 H 05/19/19 12:10 84 18 178/66 H 146/63 H 05/19/19 12:00 81 14 151/60 H 150/51 H 05/19/19 11:50 80 15 147/61 H 123/58 L 05/19/19 11:44 36.7 C 80 12 165/55 H Pulse Ox 05/19/19 17:54 98 05/19/19 17:40 96 05/19/19 17:30 98 05/19/19 17:29 98 05/19/19 17:26 98 05/19/19 17:24 96 05/19/19 17:15 92 05/19/19 17:09 95 05/19/19 17:08 96 05/19/19 17:04 97 05/19/19 17:00 96 05/19/19 16:45 88 L 05/19/19 16:30 90 05/19/19 16:00 95 05/19/19 14:45 99 05/19/19 14:31 98 05/19/19 13:45 97 05/19/19 13:35 95 05/19/19 13:26 95 05/19/19 13:16 95 05/19/19 13:06 95 05/19/19 12:56 95 05/19/19 12:47 93 05/19/19 12:16 97 05/19/19 12:10 97 05/19/19 12:00 96 05/19/19 11:50 97 05/19/19 11:44 98 Coding Level of Care Code Critical Care 1st 30-74 mins Diagnoses Admitted to intensive care unit Z78.9 S/P vascular bypass Z95.828 Left carotid artery occlusion I65.22 Cerebral arterial aneurysm I67.1 Carotid artery occlusion syndrome G45.1 Dyspnea on exertion R06.09 Hypertension I10 Hypertension type: essential hypertension Time Spent (min) 35 (1) Hypertension Hypertension type: essential hypertension Qualified Code(s): I10 - Essential (primary) hypertension
[2019-05-19] MEDS ORDERED: HydrALAZINE HCL 20 MG/ML VIAL IV ONE (19:37)
[2019-05-19] MEDS ORDERED: CHLORASEPTIC 1.4% SOLN 180 ML BTL MT PRN (19:51)
[2019-05-20] MEDS: NITROGLYCERIN/D5W 100MCG/ML 250 ML IV PRN ×5 (01:40→22:37)
[2019-05-20] MEDS: HYDROCODONE/ACETAMOPHEN 5/325MG TAB PO PRN ×4 (01:45→16:59)
[2019-05-20 05:23] LABS: Basophils # (auto) 0.01 K/uL (0-0.2); Basophils % (auto) 0.1 %; Eosinophils # (auto) 0.01 K/uL (0-0.5); Eosinophils % (auto) 0.1 %; Hematocrit (blood only) 23.2 % (37-47); Immature Granulocytes # (auto) 0.03 K/uL (0.00-0.02); Immature Granulocytes % (auto) 0.4 %; Lymphocytes % (auto) 18.5 %; Mean Corpuscular Hemoglobin 28.8 pg (25-34); Mean Corpuscular Hgb Conc 30.2 g/dL (32-36); Mean Corpuscular Volume 95.5 fL (80-100); Mean Platelet Volume 8.4 fL (7.4-10.4); Monocytes # (auto) 0.68 K/uL (0.11-0.59); Monocytes % (auto) 8.4 %; Neutrophils # (auto) 5.89 K/uL (1.4-6.5); Neutrophils % (auto) 72.5 %; Platelet Count 483 K/uL (130-400); RDW Coefficient of Variation 17.7 % (11.5-14.5); RDW Standard Deviation 61.9 fL (36.4-46.3); Red Blood Count 2.43 M/uL (4.2-5.4); White Blood Count 8.12 K/uL (4.8-10.8)
[2019-05-20] MEDS ORDERED: SODIUM CHLORIDE 0.9% 250 ML IV PRN (05:31)
[2019-05-20 05:58] LABS: BUN Creatinine Ratio 16.1 (10-20); Creatinine Clr Calc Pharmacy 63.8 ml/min; Est GFR (African American) 92.6; Est GFR (Non-African American) 79.9; Magnesium 1.8 mg/dl (1.8-2.4)
[2019-05-20 05:59] LABS: Phosphorus 2.9 mg/dl (2.5-4.9)
[2019-05-20 06:15] LABS: Hypochromasia Present; Polychromasia 1+
[2019-05-20] MEDS: EZETIMIBE 10 MG TABLET PO SCH (07:34)
[2019-05-20] MEDS: ASPIRIN 325 MG ECTAB PO SCH (07:34)
[2019-05-20] MEDS: predniSONE 1 MG TAB PO SCH (07:34)
--- NOTE | 2019-05-20 07:56 | Anesthesiology Progress Note ---
Date of Service May 20, 2019 Anesthesia Post Procedure Vital Signs Vital Signs: Temp Pulse Pulse Resp BP BP BP 05/20/19 06:40 99 H 16 157/79 H 05/20/19 06:20 37.0 C 92 H 16 160/82 H 05/20/19 06:05 37.2 C 93 H 16 151/67 H 05/20/19 06:01 97 H 16 155/56 H 156/52 H 05/20/19 05:54 37.2 C 98 H 16 155/56 H 05/20/19 05:00 81 16 165/55 H 05/20/19 04:00 92 H 16 149/62 H 165/55 H 05/20/19 03:00 90 16 156/69 H 168/70 H 05/20/19 02:00 97 H 16 154/65 H 168/62 H 05/20/19 01:00 98 H 16 154/65 H 170/68 H 05/20/19 00:00 36.7 C 96 H 16 163/72 H 164/56 H 05/19/19 20:41 95 H 16 148/62 H 05/19/19 20:40 92 H 17 05/19/19 20:36 98 H 21 146/64 H 05/19/19 20:31 95 H 18 144/61 H 05/19/19 20:30 95 H 18 05/19/19 20:26 95 H 18 148/63 H 05/19/19 20:21 96 H 16 153/61 H 05/19/19 20:16 36.8 C 93 H 19 149/67 H 05/19/19 20:11 97 H 18 145/67 H 05/19/19 20:06 97 H 18 154/59 H 05/19/19 20:00 95 H 20 152/66 H 05/19/19 19:56 97 H 23 153/63 H 05/19/19 19:51 95 H 23 153/66 H 05/19/19 19:46 96 H 21 165/80 H 05/19/19 19:40 90 18 174/71 H 05/19/19 19:36 93 H 15 171/75 H 05/19/19 19:30 90 20 167/83 H 05/19/19 19:26 90 18 172/73 H 05/19/19 19:21 91 H 18 172/74 H 05/19/19 19:16 92 H 18 175/78 H 05/19/19 19:11 91 H 16 175/70 H 05/19/19 19:06 98 H 21 147/67 H 05/19/19 19:00 104 H 19 153/72 H 05/19/19 18:56 91 H 18 163/68 H 05/19/19 18:51 90 20 161/70 H 05/19/19 18:50 91 H 19 05/19/19 18:46 90 16 164/71 H 05/19/19 18:41 87 18 162/68 H 05/19/19 18:36 91 H 17 160/68 H 05/19/19 18:30 90 17 165/64 H 05/19/19 18:24 86 19 164/71 H 05/19/19 18:12 88 17 165/66 H 05/19/19 18:00 85 17 159/73 H 05/19/19 17:54 87 17 153/73 H 05/19/19 17:40 80 16 173/72 H 05/19/19 17:30 81 18 05/19/19 17:29 80 16 173/77 H 05/19/19 17:26 81 16 184/74 H 05/19/19 17:24 80 19 192/73 H 05/19/19 17:15 80 24 05/19/19 17:09 79 12 167/81 H 05/19/19 17:08 80 18 179/76 H 05/19/19 17:04 81 18 168/73 H 05/19/19 17:00 79 14 05/19/19 16:45 80 14 165/70 H 05/19/19 16:30 80 22 05/19/19 16:00 36.7 C 80 17 143/61 H 05/19/19 14:45 84 16 05/19/19 14:31 37.1 C 88 17 05/19/19 13:45 89 20 153/53 H 140/57 L 05/19/19 13:35 89 17 154/55 H 151/55 H 05/19/19 13:26 90 16 153/52 H 150/55 H 05/19/19 13:16 88 15 158/58 H 136/59 L 05/19/19 13:06 36.9 C 87 13 161/59 H 133/58 L 05/19/19 12:56 85 13 166/62 H 160/60 H 05/19/19 12:47 85 14 173/66 H 157/61 H 05/19/19 12:16 85 22 186/73 H 146/69 H 05/19/19 12:10 84 18 178/66 H 146/63 H 05/19/19 12:00 81 14 151/60 H 150/51 H 05/19/19 11:50 80 15 147/61 H 123/58 L 05/19/19 11:44 36.7 C 80 12 165/55 H Pulse Ox 05/20/19 06:40 98 05/20/19 06:20 98 05/20/19 06:05 98 05/20/19 06:01 98 05/20/19 05:54 98 05/20/19 05:00 98 05/20/19 04:00 98 05/20/19 03:00 98 05/20/19 02:00 98 05/20/19 01:00 98 05/20/19 00:00 95 05/19/19 20:41 95 05/19/19 20:40 95 05/19/19 20:36 95 05/19/19 20:31 95 05/19/19 20:30 05/19/19 20:26 96 05/19/19 20:21 96 05/19/19 20:16 96 05/19/19 20:11 96 05/19/19 20:06 96 05/19/19 20:00 96 05/19/19 19:56 96 05/19/19 19:51 95 05/19/19 19:46 97 05/19/19 19:40 96 05/19/19 19:36 95 05/19/19 19:30 05/19/19 19:26 94 05/19/19 19:21 93 05/19/19 19:16 93 05/19/19 19:11 93 05/19/19 19:06 97 05/19/19 19:00 95 05/19/19 18:56 95 05/19/19 18:51 96 05/19/19 18:50 97 05/19/19 18:46 96 05/19/19 18:41 96 05/19/19 18:36 95 05/19/19 18:30 96 05/19/19 18:24 96 02/26/20 18:12 96 05/19/19 18:00 95 05/19/19 17:54 98 05/19/19 17:40 96 05/19/19 17:30 98 05/19/19 17:29 98 05/19/19 17:26 98 05/19/19 17:24 96 05/19/19 17:15 92 05/19/19 17:09 95 05/19/19 17:08 96 05/19/19 17:04 97 05/19/19 17:00 96 05/19/19 16:45 88 L 05/19/19 16:30 90 05/19/19 16:00 95 05/19/19 14:45 99 05/19/19 14:31 98 05/19/19 13:45 97 05/19/19 13:35 95 05/19/19 13:26 95 05/19/19 13:16 95 05/19/19 13:06 95 05/19/19 12:56 95 05/19/19 12:47 93 05/19/19 12:16 97 05/19/19 12:10 97 05/19/19 12:00 96 05/19/19 11:50 97 05/19/19 11:44 98 Pain Intensity Other: Pain Intensity: 10 (c/o stomach pain (nausea)) Notes Mental Status: alert / awake / arousable Patient Amnestic to Procedure: Yes Nausea / Vomiting: see Notes below (pt c/o severe nausea;) Pain: improving with treatment Airway Patency, RR, SpO2: stable & adequate BP & HR: stable & adequate Hydration State: stable & adequate Anesthetic Complications: no major complications apparent
--- NOTE | 2019-05-20 08:23 | Surgery Progress Note ---
Date of Service May 20, 2019 Assessment & Plan (1) S/P vascular bypass: Doing well from carotid bypass. Still hypertensive but she is not well controlled pre op. Will consult hospitalist service for blood pressure management. (2) Acute blood loss anemia: Hgb today was 7. Only lost approximately 80cc of blood yesterday. May be a combination of blood loss and hydration. No evidence of active bleeding. Will re check after unit is in. Subjective Patient claims to be sore all over. Still complains of slight numbness of left hand. No complaints of swallowing problems or extremity weakness. Physical Exam Constitutional: WD/WN, vitals as above ENMT: Mouth: no tongue abnormality Neck: trachea midline Incision dry and clean. Minimal edema of incision Respiratory: normal respiratory effort, lungs clear to auscultation Cardiovascular: Rate/Rhythm: regular rate and regular rhythm Musculoskeletal: Extremities: extremities normal to inspection and strength 5/5 throughout Neurologic: CN's II-XI intact bilaterally and moves all extremities; no focal motor deficits Speech / Cognition: normal speech Results & Data Vital Signs (Past 12 Hours) Vital Signs Temp Pulse Pulse Resp BP BP BP 05/20/19 07:50 36.9 C 102 H 16 170/58 H 05/20/19 06:50 36.9 C 98 H 16 134/56 L 05/20/19 06:40 99 H 16 157/79 H 05/20/19 06:20 37.0 C 92 H 16 160/82 H 05/20/19 06:05 37.2 C 93 H 16 151/67 H 05/20/19 06:01 97 H 16 155/56 H 156/52 H 05/20/19 05:54 37.2 C 98 H 16 155/56 H 05/20/19 05:00 81 16 165/55 H 05/20/19 04:00 92 H 16 149/62 H 165/55 H 05/20/19 03:00 90 16 156/69 H 168/70 H 05/20/19 02:00 97 H 16 154/65 H 168/62 H 05/20/19 01:00 98 H 16 154/65 H 170/68 H 05/20/19 00:00 36.7 C 96 H 16 163/72 H 164/56 H 05/19/19 20:41 95 H 16 148/62 H 05/19/19 20:40 92 H 17 02/26/20 20:36 98 H 21 146/64 H 05/19/19 20:31 95 H 18 144/61 H 05/19/19 20:30 95 H 18 05/19/19 20:26 95 H 18 148/63 H 05/19/19 20:21 96 H 16 153/61 H Pulse Ox 05/20/19 07:50 95 05/20/19 06:50 93 05/20/19 06:40 98 05/20/19 06:20 98 05/20/19 06:05 98 05/20/19 06:01 98 05/20/19 05:54 98 05/20/19 05:00 98 05/20/19 04:00 98 05/20/19 03:00 98 05/20/19 02:00 98 05/20/19 01:00 98 05/20/19 00:00 95 05/19/19 20:41 95 05/19/19 20:40 95 05/19/19 20:36 95 05/19/19 20:31 95 05/19/19 20:30 05/19/19 20:26 96 05/19/19 20:21 96
--- NOTE | 2019-05-20 09:06 | Critical Care Progress Note ---
Date of Service May 20, 2019 Assessment & Plan (1) S/P vascular bypass: Reason Critically Ill: 68-year-old female with significant past medical history of vasculopathic issues, status post left subclavian to carotid prosthetic bypass grafting; in ICU for post-operative hemodynamic and n eurological monitoring. 24 hr events: Patient had some confusion in the post-operative period. Head CT was negative. Her mental status has since returned to baseline. BP has been elevated, with systolics >190. Nitro drip has been turned off and valsartan and amlodipine have been added. Blood pressure currently at goal. Electronic health records from [facility] reviewed via [employer] system. Neuro: [facility] ICU: negative - Analgesia per Surgery team - Post-operative confusion: resolved. Head CT negative for acute intracranial process/bleed. continue neuro checks q4h Cardiac: * S/p Left Carotid Artery bypass graft - surgery indication was L common carotid artery occlusion. subclavian vein was used as bypass graft. 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 Attila Simpson in 01/2019. 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 She will have a catheter angiogram in 3 months at [facility] to surveil residual aneurysm. patient reports neurosurgeon directed her to have target systolic BPs 150-180. However in the setting of acute post-operative vascular surgery, target SBP will be <160. - continue daily aspirin 325mg * Hypertension: BP currently at 147/65. Nitro drop has been turned off. Continue Diovan 80mg qam; start Amlodipine 5mg Qam, and Metoprolol 5mg IV prn for SBP > 160 and DBP > 80. In the acute post-operative setting, goal SBP < 160. * HLD - continue Zetia * Hx of Giant Cell Arteritis - continue prednisone 6mg daily Respiratory: - satting well on 3L via NC; wean O2 as tolerated - incentive spirometry q2h GI: - diet - heart healthy, DM II - continue home pantoprazole RENAL/LYTES: * Hypokalemia- K at 3.0. replacement ordered * Hypocalcemia - Ca at 8.0. replacement ordered -repeat BMP with AM labs (05/21) : * no issues identified ENDO: * Hx prediabetes. ICU protocol for hyperglycemia HEME: * Acute blood loss anemia - hgb dropped from 9.3 on 05/12 to 7.0 today; currently being transfused 1 unit of pRBCs. continue to trend. ID: - Nasal MRSA negative - patient received prophylactic pre-operative clindamycin dose - WBC count normal. Patient afebrile LINES/IV ACCESS: * 3 PIVs * R femoral arterial line CODE STATUS: Full DVT PROPHYLAXIS: per vascular surgery; bilateral SCDs ordered. Thank you for allowing us to participate in the care of this patient. Please refer to my attending physician's documentation for any further recommendations. Admission and Anticipated Discharge Date Admission Date: May 19, 2019 Supervising Physician Co-Signing Physician Notes Dr. Jay was resident physician during care of patient. I separately evaluated patient for sanchez portions of the history and the exam. I was present during the critical portion of medical decision making, and I discussed the case with the resident. I generally agree with the findings and plan. After review of [facility] documentation patient had flow dependent lesion which is now been successfully bypassed. We will slowly introduce antihypertensives goal to decrease by 10 to 20%, will allow permissive hypertension if patient's neuro exam changes. Subjective Patient in ICU. Reports improvement in her general weakness after unit of blood was transfused. no new complaints. Review of Systems Constitutional: + weakness Physical Exam Constitutional: WD/WN, vitals as above Eyes: + anicteric sclerae ENMT: external ear and nose normal, oropharynx normal Neck: trachea midline Incision on L side of neck. No surrounding erythema or warmth. Respiratory: normal respiratory effort, lungs clear to auscultation Auscultation: no crackles, no rales, no rhonchi and no wheezes Cardiovascular: RRR, no murmur, no edema Heart Sounds: normal S1 and normal S2 Extremities: no pedal edema Gastrointestinal (Abdomen): Inspection/Auscultation: abdomen normal to inspection and normal bowel sounds Percussion/Palpation: abdomen soft; abdomen nontender Skin: no rashes, warm and dry Psychiatric: A+Ox3, euthymic affect Results & Data ([facility]) Vital Signs (Past 12 Hours) Vital Signs Temp Pulse Pulse Resp BP BP BP 05/20/19 08:50 36.9 C 96 H 16 193/80 H 05/20/19 07:50 36.9 C 102 H 16 170/58 H 05/20/19 06:50 36.9 C 98 H 16 134/56 L 05/20/19 06:40 99 H 16 157/79 H 05/20/19 06:20 37.0 C 92 H 16 160/82 H 05/20/19 06:05 37.2 C 93 H 16 151/67 H 05/20/19 06:01 97 H 16 155/56 H 156/52 H 05/20/19 05:54 37.2 C 98 H 16 155/56 H 05/20/19 05:00 81 16 165/55 H 05/20/19 04:00 92 H 16 149/62 H 165/55 H 05/20/19 03:00 90 16 156/69 H 168/70 H 05/20/19 02:00 97 H 16 154/65 H 168/62 H 05/20/19 01:00 98 H 16 154/65 H 170/68 H 05/20/19 00:00 36.7 C 96 H 16 163/72 H 164/56 H Pulse Ox 05/20/19 08:50 98 05/20/19 07:50 95 05/20/19 06:50 93 05/20/19 06:40 98 05/20/19 06:20 98 05/20/19 06:05 98 05/20/19 06:01 98 05/20/19 05:54 98 05/20/19 05:00 98 05/20/19 04:00 98 05/20/19 03:00 98 05/20/19 02:00 98 05/20/19 01:00 98 05/20/19 00:00 95 Critical Care Time Critical Care Time: Yes Total Critical Care Time: 40 I have personally spent 40 minutes of critical care time in the direct management of this patient. This is a life/limb threatening event. This includes time spent evaluating patient, direct bedside care, chart review, kalen cing orders, interpretation of diagnostic studies, discussion with consultants, patient, and/or family members regarding treatment decisions, as well as other required patient management activities. This time is exclusive of all separately billable procedures, and teaching time and separate from and in addition to any other critical care service time. Resident Activity Tracking Resident Involvement: Resident Care Provided Care Provided: Adult Hospital Medicine
[2019-05-20] MEDS ORDERED: METOPROLOL TARTRATE 1 MG/ML VIAL IV ONE (10:00)
[2019-05-20] MEDS: POTASSIUM CHLORIDE / WTR 10 MEQ/100 ML PLCT IV SCH ×2 (10:20→11:30)
--- NOTE | 2019-05-20 10:25 | Hospitalist Consultation ---
Date of Consultation May 20, 2019 Assessment & Plan (1) Hypertension: - Medicine was consulted for blood pressure control - Continue diovan 80 mg QAM as scheduled starting today, add amlodipine 5 mg QAM, metoprolol tartrate 5 mg IV prn for SBP > 160 and DBP > 80. - Goal SBP of 160 and more ideally 140 if the patient can tolerate - Hgb dropped to 7 today, compared to baseline of 9, possibly contributing to acute elevation of BP - Wean off nitro gtt per ICU (2) Intracranial aneurysm: - Hx of RMCA aneurysm measuring 3.5 mm on most recent imaging. This appears to be increased in size as per [place] records from Mar 2019 by neurosurgery, Dr. Simpson, on repeat follow up imaging the aneurysm was not seen. Procedure in Jan 2019 was a pipeline embolization, no coil was placed. With increase in size, it is critical that the patients BP be more controlled. She will require close follow up with neurosurgery after her hospitalization here. - BP as above - CM to assist with dc planning (3) S/P vascular bypass: - Dr. Oliveira's team as primary - left carotid was chronically occluded prior to procedure - s/p left subclavian to carotid prosthetic bypass grafting in the ICY for post operative hemodynamic and neurological monitoring (4) Acute blood loss anemia: - 1 PRBCs ordered, monitor H&H, repeat after unit complete today (5) Iron deficiency anemia: (6) Vitamin B12 deficiency: - noted, contributing to anemia (7) Dyslipidemia: - Continue ezetimibe 10 mg QAM Supervising Physician Co-Signing Physician Notes I have seen and examined pt with Susan Marquez PA-C and agree with her asses sment and plan. History of Present Illness Attending Physician: Tony Oliveira MD History of Present Illness This is a 68 yo F with PMHx s/p left subclavian to carotid prosthetic bypass grafting, hx of vasculopathic disease including stroke, s/p RMCA aneurysm s/p embolization of pipeline artery proximally to the aneurysm in January [address] Simpson in [place] (neurosurgery), right subclavian artery stenosis, HTN, HLD, iron deficiency anemia, migraine headaches, stomach ulcers, osteoarthritis, osteopenia, pulmonary nodule, anxiety, generalized pain, rheumatoid arthritis on chronic prednisone 5 mg daily since September 2018, who was admitted to the ICU after vascular intervention by Dr. Oliveira on 05/19/2023 for blood pressure control. The patient had uncontrolled BP prior to surgical procedure, and had been placed on nitroglycerine gtt in the ICU for tightened control after surgery. This morning the gtt is running at 95 mcg. She was administered a dose of Diovan 80 mg last evening as she had this medication at home prn which showed improvement, therefore was started routinely with AM meds today. She has also been started on amlodipine 5 mg QAM, and IV metoprolol prn, with a dose given this morning. Goal SBP = <169, and ideally 140 if she can tolerate. Also noted to have a Hgb of 7 today, compared to baseline of 9 even with iron deficiency anemia preoperatively. The patient notes she had some headaches overnight, but reports no headache currently. She has no appetite, and has not really eaten in the past day. She is able to drink fluids however has been somewhat nauseous. She denies any other acute complaints. Her is present at bedside. Allergies Allergy/AdvReac Type Severity Reaction Status Date / Time amoxicillin Allergy Unknown HIVES Verified 05/19/19 05:45 atenolol Allergy Unknown GI Verified 05/19/19 05:45 SYMPTOMS/light headed clavulanic acid Allergy Unknown Hives Verified 05/19/19 05:45 [From Augmentin] fluoxetine Allergy Unknown RASH/leg Verified 05/19/19 05:45 cramps lisinopril Allergy Unknown CAUSED BP Verified 05/19/19 05:45 TO DROP TOO LOW propranolol Allergy Unknown HIVES/body Verified 05/19/19 05:45 aches atorvastatin AdvReac Unknown myalgia Verified 05/19/19 05:45 meloxicam AdvReac Unknown Diarrhea Verified 05/19/19 05:45 rosuvastatin [From Crestor] AdvReac Unknown Muscle Pain Verified 05/19/19 05:45 Home Medications Home Medications Medication Instructions Recorded Confirmed Type cyanocobalamin (vitamin B-12) 1,000 mcg IM MONTHLY 12/07/18 05/19/19 History aspirin 325 mg tablet 325 mg PO QAM tab 01/05/19 05/19/19 History omeprazole 20 mg capsule,delayed 20 mg PO DAILY PRN #30 cap 01/27/19 05/19/19 Rx release prednisone 10 mg tablet 6 mg PO DAILY tab 02/02/19 05/19/19 History valsartan 160 mg tablet 80 mg PO DAILY PRN tab 03/29/19 05/19/19 History Medical Marijuana Card 1 dose PO UD PRN 05/06/19 05/19/19 History acetaminophen [Tylenol] 650 mg PO Q4H PRN 05/06/19 05/19/19 History ezetimibe [Zetia] 10 mg PO QAM 05/06/19 05/19/19 History Patient History Medical History Anxiety Elevated sed rate follows with rheumatology (Dr. Fay/[facility]) Generalized pain Medical marijuana prn GERD (gastroesophageal reflux disease) High cholesterol History of blood transfusion History of iron deficiency anemia hx iron infusions (most recent approximately 02/2019) History of migraine headaches History of stomach ulcers History of stroke S/P intracranial aneurysm repair (01/2019)- no residual effects Hypertension (Chronic) per patient, systolic BP goal currently between 150-180 Intracranial aneurysm 01/2019 s/p stent and/or coil (Dr. Simpson/[facility]) Osteoarthritis per records Osteopenia per records Pulmonary nodule Seasonal allergies Social anxiety disorder Subclavian artery stenosis, right (Chronic) Surgical History Family history of reaction to anesthesia Daughter- "quit breathing" with anesthesia emergence after use of fentanyl- needed to reintubate H/O abdominal surgery STOMACH ULCERS REMOVED (3 TOTAL SURGERIES) History of breast biopsy RT/LEFT (BENIGN) History of cholecystectomy History of colonoscopy History of esophagogastroduodenoscopy (EGD) History of temporal artery biopsy (12/09/18) Left Temporal Artery Biopsy (11/2018) History of tooth extraction Intracranial aneurysm 01/2019 - STENT AND/OR COIL PLACED, SEVERINO PONV (postoperative nausea and vomiting) Family History Father Acute myocardial infarction Cardiovascular disease Stroke syndrome Mother Hypertension Brother Acute myocardial infarction Other Patient's brother is Stroke Social History Preferred Language: Latvian Communication Ability: Effective Visual Impairment: No Limitations Hearing Ability: Normal Oracle 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 Required: No Beliefs That Will Affect Care: Taoism Taoism Beliefs: BUDDHIST marital status: Current Living Situation: Spouse current occupation: [employer] Other Information That Helps Us Care for You: No Feels Safe at Home: Yes Safety Concerns: Feels Safe At This Time Smoking Status: Current every day smoker Tobacco Type: cigarettes ; Cigarettes Per Day: 20 ; Do You Dip or Chew Tobacco: No ; Second Hand Exposure: No ; Tobacco Cessation Education Requested by Patient: No Hx Alcohol Use: No Hx Substance Use: No Childhood Exposure to Second-Hand Smoke: Yes caffeine: No Dental Care, Regularly: No Physical Activity Frequency: Does not Exercise Seatbelt Use: always Sunscreen Use: No Review of Systems Review of Systems: Constitutional: No fever, sweats or chills Eyes: No diplopia, no worsening or blurred vision, does not have glasses on currently but states no changes otherwise. ENT: normal hearing, no trouble swallowing Respiratory: No cough, sputum, dyspnea at rest or on exertion Cardiovascular: No chest pain, tightness or palpitations Abdomen: No pain, + occasional nausea, no vomiting, diarrhea or constipation. Last BM was two days ago. Musculoskeletal: No joint pain, calf pain, swelling Neurologic: No weakness, numbness/tingling, or balance problems Psychiatric: No anxiety or depression Skin: No rash or itch Physical Exam Physical Exam: General: awake, alert, no apparent distress, sitting up in bed Head: Normocephalic, atraumatic ENT: PERRL, EOMI, no pharyngeal exudate, mucous membranes moist Chest: On 2 L via NC, clear to auscultation, on room air, no adventitious breath sounds Cardiac: + incision overlying left neck c/d/i, NSR, no murmur, no JVD, normal peripheral pulses, good capillary refill Abdominal: NABS x 4 quadrants, soft, nondistended, nontender to palpation, no rebound, guarding or tenderness Extremities: Normal inspection, no peripheral edema or erythema, calfs nontender to palpation Psych: Normal mood and affect Neuro: AAO x 3, strength intact bilaterally and related 5/5, no motor deficits, speech is clear, no peripheral sensory deficits Results & Data ([facility]) Vital Signs (Past 12 Hours) Vital Signs Temp Pulse Pulse Resp BP BP BP 05/20/19 07:50 36.9 C 102 H 16 170/58 H 05/20/19 06:50 36.9 C 98 H 16 134/56 L 05/20/19 06:40 99 H 16 157/79 H 05/20/19 06:20 37.0 C 92 H 16 160/82 H 05/20/19 06:05 37.2 C 93 H 16 151/67 H 05/20/19 06:01 97 H 16 155/56 H 156/52 H 05/20/19 05:54 37.2 C 98 H 16 155/56 H 05/20/19 05:00 81 16 165/55 H 05/20/19 04:00 92 H 16 149/62 H 165/55 H 05/20/19 03:00 90 16 156/69 H 168/70 H 05/20/19 02:00 97 H 16 154/65 H 168/62 H 05/20/19 01:00 98 H 16 154/65 H 170/68 H 05/20/19 00:00 36.7 C 96 H 16 163/72 H 164/56 H Pulse Ox 05/20/19 07:50 95 05/20/19 06:50 93 05/20/19 06:40 98 05/20/19 06:20 98 05/20/19 06:05 98 05/20/19 06:01 98 05/20/19 05:54 98 05/20/19 05:00 98 05/20/19 04:00 98 05/20/19 03:00 98 05/20/19 02:00 98 05/20/19 01:00 98 05/20/19 00:00 95 PG Care Time/CCT Total # of Minutes Spent Total Time Spent with Patient: Total time spent is greater than 50% in coordination of care (as documented) at patient's floor/unit and/or counseling patient: Coding Level of Care Code 94608 Inpt Consult Level 4 Diagnoses Hypertension I10 Hypertension type: essential hypertension Intracranial aneurysm I67.1 S/P vascular bypass Z95.828 Acute blood loss anemia D62 Iron deficiency anemia D50.9 Vitamin B12 deficiency E53.8 Dyslipidemia E78.5 (1) Hypertension Hypertension type: essential hypertension Qualified Code(s): I10 - Essential (primary) hypertension
[2019-05-20] MEDS: AMLODIPINE BESYLATE 5 MG TAB PO SCH (11:30)
[2019-05-20] MEDS ORDERED: METOPROLOL TARTRATE 25 MG TAB PO STA (17:27)
[2019-05-20] MEDS ORDERED: LABETALOL HCL IV 5 MG/ML 20ML IV STA (19:39)
[2019-05-20] MEDS: METOPROLOL TARTRATE 1 MG/ML VIAL IV PRN (20:40)
[2019-05-20] MEDS ORDERED: METOPROLOL TARTRATE 25 MG TAB PO SCH (21:00)
[2019-05-20] MEDS ORDERED: HydrALAZINE HCL 20 MG/ML VIAL IV STA (22:01)
[2019-05-21] MEDS: METOPROLOL TARTRATE 1 MG/ML VIAL IV PRN (00:48)
[2019-05-21] MEDS ORDERED: LABETALOL HCL IV 5 MG/ML 20ML IV STA (01:40)
[2019-05-21] MEDS ORDERED: OPTIRAY 320 125ml IV PRN (03:16)
[2019-05-21 03:43] LABS: Hematocrit (blood only) 28.9 % (37-47); Hemoglobin 8.9 g/dL (12.0-16.0); Mean Corpuscular Hemoglobin 28.8 pg (25-34); Mean Corpuscular Volume 93.5 fL (80-100); Mean Platelet Volume 8.8 fL (7.4-10.4); Platelet Count 413 K/uL (130-400); RDW Coefficient of Variation 17.5 % (11.5-14.5); Red Blood Count 3.09 M/uL (4.2-5.4); White Blood Count 7.09 K/uL (4.8-10.8)
[2019-05-21 03:47] LABS: Mean Corpuscular Hgb Conc 30.8 g/dL (32-36)
[2019-05-21 03:53] LABS: Partial Thromboplastin Time 26.5 Seconds (21.0-31.0); Prothrombin Time 10.2 Seconds (9.0-12.0)
[2019-05-21 04:09] LABS: Calcium 8.1 mg/dl (8.5-10.1); Creatinine Clr Calc Pharmacy 69.1 ml/min; Est GFR (African American) 100.4; Est GFR (Non-African American) 86.7; Phosphorus 2.5 mg/dl (2.5-4.9); Potassium 3.6 mmol/L (3.5-5.1)
--- NOTE | 2019-05-21 04:24 | Communication Note ---
Date of Service: May 21, 2019 It was brought to my attention by the bedside nurse at nv 1:50 AM that the patient was having trouble moving her right upper extremity. I went to the bedside and evaluated the patient who appeared to have expressive aphasia, confusion, right upper extremity weakness and neglect. Code stroke was initiated and Dr. Sin and Dr. Oliveira were contacted. I spoke with the neurologist from [facility] and at that time received the preliminary of the CT head Noncon showed left frontoparietal transcortical infarct. Neurologist recommended CTA of the head and neck to evaluate for LVO, patient not candidate for TPA. The preliminary read on the CTA neck revealed "left common carotid/internal carotid artery occlusion status post left rivera bclavian carotid bypass. The bypass vessel was occluded just beyond the origin and there is attenuated reconstitution of the left external carotid artery". Dr. Oliveira was contacted with these results and will be taking the patient back to the OR. I have personally spent 45 minutes of critical care time in the direct management of this patient. This is a life/limb threatening event. This includes time spent evaluating patient, direct bedside care, chart review, placing orders, interpretation of diagnostic studies, discussion with consultants, patient, and family members, as well as other required patient management activities. This time is exclusive of all separately billable procedures, and teaching time and separate from and in addition to any other critical care service time. Thank you for allowing us to participate in the care of this patient. Please refer to my attending physician's documentation for any further recommendations. I was advised of this patient via telephone. Recommended stroke alert in discussion with stroke neurology who should have access to neurosurgical notes. Ana Luisa ALLEN also notified Tee of events. Please refer to residents documentation for follow-up management. Coding Level of Care Code Critical Care 1st 30-74 mins
--- NOTE | 2019-05-21 06:37 | CT Scan Report ---
CT angio neck with con CLINICAL HISTORY: AMS NUMBNESS. POSSIBLE STROKE. COMPARISON STUDY: MR angiography dated 12/10/2018, TECHNIQUE: CT angiography was performed from the aortic arch to the skull base. MIP imaging was perfo rmed. The patient was scanned in a dynamic helical fashion during intravenous administration of 119 c c of Optiray 320. A dose lowering technique was utilized adhering to the principles of ALARA. CT DOSE: Technique: CT angiogram of the carotid and vertebral arteries was obtained using intravenous contrast and 3-D reconstruction. NASCET criteria was utilized. Findings: Images to the lung apices reveal severe pulmonary emphysema. There are small pleural effusions. There are prominent atheromatous plaques within the aortic arch. There is moderate circumferential plaque within the proximal common carotid. There is moderate plaque at the level of carotid bulb. There is no evidence of hemodynamically significant bifurcation stenos is. There is a moderate atherosclerotic disease the level of the cavernous carotid. There is no disse ction. The left internal carotid artery is occluded at its origin. There is an occluded carotid subclavian g raft. There is reconstitution of the carotid at the level of the distal carotid canal. There is a high-grade stenosis of the right vertebral artery origin. There is a moderate stenosis of the left vertebral artery origin. There is no vertebral artery dissection or occlusion. There is a moderate stenosis of the proximal right subclavian artery. IMPRESSION: 1. Occluded left common and internal carotid artery. 2. Occluded left subclavian carotid artery bypass graft. 3. Extensive atherosclerotic vascular disease 4. Moderate stenosis of the proximal right subclavian artery 5. Severe stenosis of the right vertebral artery origin. 6. Emphysema 6. Moderate stenosis of the left vertebral artery origin ACT 112: Negative or not required by law. Electronically signed by: Harmeet Izquierdo M.D. 05/21/2019 6:36 AM
--- NOTE | 2019-05-21 06:40 | CT Scan Report ---
CT OF THE HEAD WITHOUT CONTRAST CLINICAL HISTORY: Confusion. COMPARISON STUDY: MRI of the brain December 10, 2018. Head CT T May 19, 2019. CT DOSE: 537.48 mGy.cm TECHNIQUE: Helical axial images of the head were obtained without IV contrast. Automated exposure con trol was utilized for the study. A dose lowering technique was utilized adhering to the principles o f ALARA. FINDINGS: Several old lacunar infarcts within the right cerebellar hemisphere are noted. These are un changed. Interval development of a 1.6 cm hypodensity within the left frontoparietal region is noted since head CT of May 19, 2019. Several additional smaller suspected infarcts within the left fro ntal and parietal lobes is noted. Ventricular system is stable. Basilar cisterns are patent. There ar e no extra-axial collections. An old lacunar infarct within the right caudate nucleus is noted. There are no findings to suggest dural sinus thrombosis. There are no significant calvarial abnormalities. Small amount of bubbly secretions within the left maxillary sinus are present. IMPRESSION: 1. Interval development of several small acute infarcts within the left frontal and parietal lobes. N o hemorrhage. No significant mass effect. 2. Multiple old infarcts within the right cerebellar hemisphere and an old infarct within the right c audate nucleus. ACT 112: Negative or not required by law. Electronically signed by: Terrence Kenney M.D. 05/21/2019 6:39 AM
--- NOTE | 2019-05-21 06:45 | CT Scan Report ---
CT angio head w con HISTORY: Mental status change AMS TECHNIQUE: Multiaxial CT angiography of the head was performed IV contrast: 100 cc nonionic Maximu m intensity projection images were also obtained. A dose lowering technique was utilized adhering to the principles of ALARA. COMPARISON: 12/09/2018 FINDINGS: Interval occlusion of the petrous aspect left internal carotid artery. Partial collateral r econstitution within the cavernous and supraclinoid aspects of the left internal carotid artery. There is a right internal carotid artery stent which is patent. The intracranial aspects of the anterior middle and posterior cerebral circulations appear intact. Evaluation of the intracranial vasculature does confirm the presence of multifocal areas of mild athe rosclerotic narrowing. A critical stenosis is not appreciated within limitations of moderate motion a rtifact. Left vertebral artery is dominant. 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 The basilar is within normal limits. IMPRESSION: 1. 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 Collateral reconstitution of the intracranial vasculature, which is patent. 3. Interval placement of a right internal carotid artery stent. This is patent. 4. Scattered atherosclerotic narrowing of the intracranial vasculature considered [id number]. ACT 112: Negative or not required by law. The above report was generated using voice recognition software. It may contain grammatical, syntax or spelling errors. Electronically signed by: Arvin Guillen M.D. 05/21/2019 6:44 AM
--- NOTE | 2019-05-21 08:59 | Communication Note ---
Date of Service: May 21, 2019 April 06, 2019 Name: MELL KILGORE [facility] Number: [id number] : 1950 Date of Service: 04/06/2019 Matias Fay MD [address] [place], [place] [id number] Dr. Fay: This is Dr. Attila Simpson, media relations associate of Neurosurgery at [facility] with subspecialization in cerebrovascular and endovascular neurosurgery. I am writing regarding Mell Kilgore. 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 She did have some symptoms of left hemisphere ischemia during her hospitalization. She was discharged home with instructions to let her blood pressure ride high a nd she has not had any repeat symptoms. She subsequently had a CT perfusion with Diamox challenge, which confirmed that she had borderline adequate flow with no reserve. She has seen Dr. Tony Oliveira of our Vascular Surgery Department who is considering a bypass to provide blood flow to the left internal carotid artery, which is now receiving some retrograde flow through the external. Today, she had routine followup as well as an MRA to look at her treated aneurysm. On physical exam she is awake and alert. She moves all extremities well. RADIOLOGY: The patient had an MRA with contrast today at [facility] with special 4D dynamic sequences to look at flow through the stent. There is no radiology read, but I reviewed these images myself and I feel it shows no sign of the right ICA aneurysm. IMPRESSION: A 68-year-old female status post right pipeline embolization of right ICA aneurysm as well as left carotid occlusion and left cerebral ischemia, so far without infarction. PLAN: I told the patient that I was very encouraged by her MRA. I told her she could stop her Brilinta but continue aspirin. I said that I would like to perform a catheter angiogram in 3 months to confirm that there was no residual aneurysm. I let her know my office would contact her to schedule this. With regard to her ischemia, I let her know the fact that her blood pressure has to be as high as it is and the fact that she has no reserve on her CT perfusion with Diamox challenge and we think that something should be done. We again reviewed the 2 options of bypass in the neck or bypass on the scalp. I let her know that I took the liberty of discussing this with my partner, Dr. Waller, who specializes in intercerebral bypass and we did have some concerns that her external carotid artery branches are quite small and that they already seem to be providing some internal carotid artery flow in a retrograde fashion. Both of these facts made both the potential risk of stroke during a bypass surgery slightly higher than normal as well as the risk of failure of the procedure slightly higher than normal. Therefore, I let her know if Dr. Oliveira was willing to perform a bypass into the internal, I felt this had both a higher chance of success and lower risk of stroke. The patient and her told me that they have an appointment with Dr. Oliveira in a few weeks and I let them know that I would share this information with him which I have done via our instant messaging application. If there are any questions or concerns about Ms. Kilgore or any other patient, please do not hesitate to contact me. Sincerely, Signature Line Electronic Signature on File CC: Matias Fay MD [address] [id number] * CC: Tony Oliveira MD [address] [place] [id number] Attila Simpson MD Author Signature Dt/Tm: 04/07/2019 12:36 PM Department of Neurosurgery SDS /CO Result Type: .Outpt Ltr Date of Service: April 06, 2019 00:00 EST Authorization Status: Final Author or Import Date: MD Simpson Scott D on April 06, 2019 09:52 EST Verified By: MD Simpson Scott D on April 07, 2019 12:36 EST Encounter info: [id number], [facility] HD06, [facility], 04/06/2019 - 04/06/2019 Contributor system: [id number]
[2019-05-21] MEDS ORDERED: VALSARTAN 80 MG TAB PO SCH (09:00)
--- NOTE | 2019-05-21 09:01 | Billing Data ---
Date of Service May 21, 2019 Coding Level of Care Code 38002 Subseq Hosp Care Lvl 3
--- NOTE | 2019-05-21 09:01 | Billing Data ---
Date of Service May 20, 2019 Coding Level of Care Code Critical Care 1st - mins
--- NOTE | 2019-05-21 09:05 | Surgery Progress Note ---
Date of Service May 21, 2019 Assessment & Plan (1) S/P vascular bypass: S/P L subclavian to carotid prosthetic BPG. Now with occluded BPG and improving, but acute, L hemispheric neurological deficits. L hemispheric infarct noted on CT. Continue permissive HTN as previously advised to increase perfusion. Transfer to PCU. Continue to monitor (2) Acute blood loss anemia: Hgb today was 8.9 after transfusion of 1 U PRBC yesterday. No indications for transfusion today. (3) CVA (cerebral vascular accident): Pt with acute L hemispheric CVA after occlusion of BPG. See above. Subjective 68 yo f s/p L subclavian to carotid prosthetic BPG, seen in f/u today. Pt noted by staff to have decreasing strength in RUE as well as increasing confusion over night, so imaging ordered that indicates L hemispheric infarct, as well as occluded bypass. Pt today states she is feeling tired. Denies other new complaints. Per staff, pt with RUE weakness and aphasia/dysarthria last night. This is improved this morning. Review of Systems Review of Systems: All systems reviewed & are unremarkable except as noted in HPI & below Physical Exam Constitutional: WD/WN, vitals as above Neck: trachea midline, no thyromegaly L neck incision C/D/I, mold local edema, tenderness, and soft ecchymosis. Respiratory: normal respiratory effort, lungs clear to auscultation Cardiovascular: RRR, no murmur, no edema Gastrointestinal (Abdomen): normal bowel sounds, soft, nontender, no hepatosplenomegaly Musculoskeletal: Extremities: extremities normal to inspection and + abnormal strength (5/5 except RUE and RLE 4/5) Skin: no rashes, warm and dry Neurologic: moves all extremities, + focal motor deficit (RUE weakness) and awake; not confused Speech / Cognition: normal speech Psychiatric: A+Ox3, euthymic affect Results & Data Vital Signs (Past 12 Hours) Vital Signs Temp Pulse Pulse Resp BP BP BP 05/21/19 06:00 96 H 16 184/81 H 05/21/19 05:00 98 H 19 199/75 H 05/21/19 04:30 92 H 17 05/21/19 04:29 95 H 17 197/82 H 05/21/19 04:19 88 16 200/73 H 05/21/19 04:16 91 H 17 05/21/19 04:09 98 H 19 203/78 H 05/21/19 04:00 105 H 21 05/21/19 03:59 95 H 18 242/82 H 05/21/19 03:49 96 H 17 222/83 H 05/21/19 03:45 94 H 17 05/21/19 03:39 97 H 17 197/85 H 05/21/19 03:30 97 H 17 05/21/19 03:29 99 H 20 176/81 H 05/21/19 03:20 102 H 24 193/81 H 05/21/19 03:15 100 H 17 05/21/19 03:13 100 H 21 05/21/19 02:45 94 H 17 05/21/19 02:39 37.5 C 91 H 19 174/76 H 05/21/19 02:33 05/21/19 02:15 89 17 05/21/19 02:00 89 18 139/48 L 05/21/19 01:00 86 17 169/72 H 05/21/19 00:48 101 H 182/72 H 05/21/19 00:30 100 H 19 187/81 H 05/21/19 00:00 37.8 C H 98 H 17 143/60 H 05/20/19 23:32 98 H 18 143/60 H 05/20/19 23:00 95 H 17 133/59 L 05/20/19 22:30 91 H 20 151/60 H 05/20/19 22:00 85 16 187/79 H 05/20/19 21:30 85 17 164/78 H 05/20/19 21:00 82 17 171/79 H Pulse Ox 05/21/19 06:00 98 05/21/19 05:00 96 05/21/19 04:30 95 05/21/19 04:29 96 05/21/19 04:19 95 05/21/19 04:16 94 05/21/19 04:09 94 05/21/19 04:00 92 05/21/19 03:59 94 05/21/19 03:49 92 05/21/19 03:45 91 05/21/19 03:39 92 05/21/19 03:30 94 05/21/19 03:29 94 05/21/19 03:20 92 05/21/19 03:15 05/21/19 03:13 91 05/21/19 02:45 97 05/21/19 02:39 97 05/21/19 02:33 96 05/21/19 02:15 97 05/21/19 02:00 94 05/21/19 01:00 97 05/21/19 00:48 05/21/19 00:30 95 05/21/19 00:00 98 05/20/19 23:32 97 05/20/19 23:00 97 05/20/19 22:30 96 05/20/19 22:00 96 05/20/19 21:30 97 05/20/19 21:00 98
[2019-05-21] MEDS ORDERED: Nursing to Pharmacy Communication ONE (09:11)
[2019-05-21] MEDS: AMLODIPINE BESYLATE 5 MG TAB PO SCH (10:02)
[2019-05-21] MEDS: predniSONE 1 MG TAB PO SCH (10:10)
[2019-05-21] MEDS: EZETIMIBE 10 MG TABLET PO SCH (10:11)
[2019-05-21] MEDS: ASPIRIN 325 MG ECTAB PO SCH (10:11)
--- NOTE | 2019-05-21 14:16 | Critical Care Progress Note ---
Date of Service May 21, 2019 Assessment & Plan (1) S/P vascular bypass: Reason Critically Ill: 68-year-old female with significant past medical history of vasculopathic issues, status post left subclavian to carotid prosthetic bypass grafting; in ICU for post-operative hemodynamic and n eurological monitoring. 24 hr events: Post-op day 1 after subclavian bypass grafting of L common carotid. Unfortunately, subclavian graft occluded overnight, leading to an ischemic stroke in L frontoparietal region. Vascular surgery informed; risks of hemorrhagic transformation felt to outweigh benefits of thrombectomy. Heparin contraindicated in the setting of recent procedure and risk of hemorrhage. Recommend permissive hypertension, per vascular surgery, sys >160. Right femoral line removed. Stable for downgrade. Neuro: [facility] ICU: negative * Ischemic stroke to L fronto-parietal region secondary to occlusion of recently placed subclavian graft. Permissive HTN, goals outlined by vascular surgery. PT/OT when on medical floor. Cardiac: * S/p Left Carotid Artery bypass graft - surgery indication was L common carotid artery occlusion. complicated by post-operative occlusion of subclavian bypass graft and subsequent ischemic stroke. management per vascular surgery - continue supervisor heading on telemetry floor * Hx of intracranial aneurysm repair: Patient had right ICA pipeline embolization device placed (not a coil) at [facility] by Dr. Attila Simpson in 01/2019. MRA with 4D dynamic sequences done at [facility] 04/06/2019 showed patent stent placement in the R ICA and residual right internal carotid artery ophthalmic segment aneurysm measuring 2.5mm. She will have a catheter angiogram in 3 jennifer hs at [facility] to surveil residual aneurysm. patient reports neurosurgeon directed her to have target systolic BPs 150-180. However in the setting of acute post- operative vascular surgery, target SBP will be <160. - continue daily aspirin 325mg * Hypertension: in the setting of acute ischemic stroke, allow for permissive HTN. Goal Systolic > 160. hold all home anti-hypertensives. 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 replacement ordered * Hypocalcemia - Ca at 8.0. replacement ordered - repeat levels WNL. : * no issues identified ENDO: * Hx prediabetes. ICU protocol for hyperglycemia HEME: * Acute blood loss anemia - hgb dropped from 9.3 on 05/12 to 7.0 today; currently being transfused 1 unit of pRBCs. continue to trend. ID: - Nasal MRSA negative - patient received prophylactic pre-operative clindamycin dose - WBC count normal. Patient afebrile LINES/IV ACCESS: * 3 PIVs CODE STATUS: Full DVT PROPHYLAXIS: per vascular surgery; bilateral SCDs ordered. Thank you for allowing us to participate in the care of this patient. Please refer to my attending physician's documentation for any further recommendations. Admission and Anticipated Discharge Date Admission Date: May 19, 2019 Supervising Physician Co-Signing Physician Notes Dr. Jay was resident physician during care of patient. I separately evaluated patient for sanchez portions of the history and the exam. I was present during the critical portion of medical decision making, and I discussed the case with the resident. I generally agree with the findings and plan. In reviewing prior documents it was noted that the patient had high risk of stroke for potential intracranial bypass, still carried stroke risk with extracranial bypass. Discussed with vascular surgery, no indication for urgent procedures, I have discontinued her antihypertensive medications as indicated in prior documentation the patient has no reserve for decreased blood pressure (hypertensive at baseline) due to intra-and extracranial stenoses. No critical interventions to be undertaken at this time, stable for downgrade out of ICU. Subjective Patient in ICU. present at bedside. Night nurse noted focal deficits in patient - head and neck imaging revealed occlusion of recently placed subclavian graft and L frontoparietal ischemic infarct. Review of Systems Review of Systems: Unobtainable due to cognitive status Physical Exam Constitutional: WD/WN, vitals as above Eyes: + anicteric sclerae ENMT: external ear and nose normal, oropharynx normal Neck: trachea midline Respiratory: normal respiratory effort, lungs clear to auscultation Auscultation: no crackles, no rales, no rhonchi and no wheezes Cardiovascular: RRR, no murmur, no edema Heart Sounds: normal S1 and normal S2 Extremities: no pedal edema Gastrointestinal (Abdomen): Inspection/Auscultation: abdomen normal to inspection and normal bowel sounds Percussion/Palpation: abdomen soft; abdomen nontender Skin: no rashes, warm and dry Neurologic: CN's II-XI intact bilaterally and + focal motor deficit (R upper extremity) Speech / Cognition: + expressive aphasia Motor/Sensory: no tremor Follows one step, but not multi-step commands. Expressive aphasia Psychiatric: A+Ox3, euthymic affect Results & Data ([facility]) Vital Signs (Past 12 Hours) Vital Signs Temp Pulse Pulse Resp BP BP BP 05/21/19 12:40 36.6 C 98 H 19 185/73 H 05/21/19 11:19 95 H 17 170/90 H 05/21/19 10:19 101 H 17 186/85 H 05/21/19 09:19 106 H 17 187/83 H 05/21/19 08:19 95 H 23 189/89 H 05/21/19 08:01 97 H 18 186/91 H 05/21/19 08:00 92 H 05/21/19 07:19 99 H 19 201/80 H 05/21/19 07:15 102 H 24 05/21/19 07:00 36.8 C 98 H 20 05/21/19 06:45 96 H 21 05/21/19 06:41 101 H 29 H 05/21/19 06:00 96 H 16 184/81 H 05/21/19 05:00 98 H 19 199/75 H 05/21/19 04:30 92 H 17 05/21/19 04:29 95 H 17 197/82 H 05/21/19 04:19 88 16 200/73 H 05/21/19 04:16 91 H 17 05/21/19 04:09 98 H 19 203/78 H 05/21/19 04:00 105 H 21 05/21/19 03:59 95 H 18 242/82 H 05/21/19 03:49 96 H 17 222/83 H 05/21/19 03:45 94 H 17 05/21/19 03:39 97 H 17 197/85 H 05/21/19 03:30 97 H 17 05/21/19 03:29 99 H 20 176/81 H 05/21/19 03:20 102 H 24 193/81 H 05/21/19 03:15 100 H 17 05/21/19 03:13 100 H 21 05/21/19 02:45 94 H 17 05/21/19 02:39 37.5 C 91 H 19 174/76 H 05/21/19 02:33 05/21/19 02:15 89 17 Pulse Ox 05/21/19 12:40 94 05/21/19 11:19 95 05/21/19 10:19 95 05/21/19 09:19 93 05/21/19 08:19 94 05/21/19 08:01 94 05/21/19 08:00 05/21/19 07:19 94 05/21/19 07:15 95 05/21/19 07:00 95 05/21/19 06:45 89 L 05/21/19 06:41 96 05/21/19 06:00 98 05/21/19 05:00 96 05/21/19 04:30 95 05/21/19 04:29 96 05/21/19 04:19 95 05/21/19 04:16 94 05/21/19 04:09 94 05/21/19 04:00 92 05/21/19 03:59 94 05/21/19 03:49 92 05/21/19 03:45 91 05/21/19 03:39 92 05/21/19 03:30 94 05/21/19 03:29 94 05/21/19 03:20 92 05/21/19 03:15 05/21/19 03:13 91 05/21/19 02:45 97 05/21/19 02:39 97 05/21/19 02:33 96 05/21/19 02:15 97 Resident Activity Tracking Resident Involvement: Resident Care Provided Care Provided: Adult Hospital Medicine
--- NOTE | 2019-05-21 17:24 | Cardiology Consultation ---
Date of Consultation May 21, 2019 Assessment & Plan (1) Atrial fibrillation: Patient's EKG does confirm atrial fibrillation. Her telemetry is difficult to interpret and she does have frequent atrial ectopy, but there are clearly periods of atrial fibrillation as well. The chronicity of this problem is unclear. It is very possible she has had atrial fibrillation for some time and remained relatively asymptomatic. Overall rate control does not appear to be poor, although she does have periods of higher ventricular rates. Given her known hypertension and significant peripheral vascular disease he would seem reasonable to treat her with a beta-salvador. She has had some reaction to atenolol propranolol in the past, but this appears to been minor. I think his to metoprolol would be a good option for her. The timing of institution can be deferred to her primary team and based primarily on her risk of hypotension in the setting of acute stroke. Additionally, she should undergo systemic anticoagulation for stroke risk reduction. Again, the timing of anticoagulation will need to be deferred to the primary team in the setting of her current stroke, surgery and taking into account the risk of hemorrhagic transition. (2) Mitral regurgitation: Mild to moderate. No clinical concern. This can be followed over time. History of Present Illness Reason for Consultation: Atrial fibrillation Requesting Physician: Tee Attending Physician: Tony Oliveira MD History of Present Illness The patient is a 68-year-old woman with a history stroke who recently underwent left subclavian to left carotid artery bypass. Patient also has a history of cerebral aneurysm status post embolization. In the postoperative period she was noted to have new neurologic deficits consistent with a cerebral vascular accident. She had occlusion of the bypass graft. Postoperative monitoring which included telemetry suggested the presence of atrial fibrillation. Patient states that she has noted some irregular heartbeat on occasion. This has been true for several years. He states that these episodes are infrequent and generally fleeting in nature. There did not appear to be associated with other symptoms. She is not currently aware of any palpitations. She denies symptoms of chest discomfort or pain at the operative site. She is not having breathing difficulty. Prior to surgery she admits to being very sedentary. Lot of her aversion to activity centered around back discomfort. Allergies Allergy/AdvReac Type Severity Reaction Status Date / Time amoxicillin Allergy Unknown HIVES Verified 05/19/19 05:45 atenolol Allergy Unknown GI Verified 05/19/19 05:45 SYMPTOMS/light headed clavulanic acid Allergy Unknown Hives Verified 05/19/19 05:45 [From Augmentin] fluoxetine Allergy Unknown RASH/leg Verified 05/19/19 05:45 cramps lisinopril Allergy Unknown CAUSED BP Verified 05/19/19 05:45 TO DROP TOO LOW propranolol Allergy Unknown HIVES/body Verified 05/19/19 05:45 aches atorvastatin AdvReac Unknown myalgia Verified 05/19/19 05:45 meloxicam AdvReac Unknown Diarrhea Verified 05/19/19 05:45 rosuvastatin [From Crestor] AdvReac Unknown Muscle Pain Verified 05/19/19 05:45 Home Medications Home Medications Medication Instructions Recorded Confirmed Type cyanocobalamin (vitamin B-12) 1,000 mcg IM MONTHLY 12/07/18 05/19/19 History aspirin 325 mg tablet 325 mg PO QAM tab 01/05/19 05/19/19 History omeprazole 20 mg capsule,delayed 20 mg PO DAILY PRN #30 cap 01/27/19 05/19/19 Rx release prednisone 10 mg tablet 6 mg PO DAILY tab 02/02/19 05/19/19 History valsartan 160 mg tablet 80 mg PO DAILY PRN tab 03/29/19 05/19/19 History Medical Marijuana Card 1 dose PO UD PRN 05/06/19 05/19/19 History acetaminophen [Tylenol] 650 mg PO Q4H PRN 05/06/19 05/19/19 History ezetimibe [Zetia] 10 mg PO QAM 05/06/19 05/19/19 History Patient History Medical History Anxiety CVA (cerebral vascular accident) Elevated sed rate follows with rheumatology (Dr. Fay/[facility]) Generalized pain Medical marijuana prn GERD (gastroesophageal reflux disease) High cholesterol History of blood transfusion History of iron deficiency anemia hx iron infusions (most recent approximately 02/2019) History of migraine headaches History of stomach ulcers History of stroke S/P intracranial aneurysm repair (01/2019)- no residual effects Hypertension (Chronic) per patient, systolic BP goal currently between 150-180 Intracranial aneurysm 01/2019 s/p stent and/or coil (Dr. Simpson/[place]) Osteoarthritis per records Osteopenia per records Pulmonary nodule Seasonal allergies Social anxiety disorder Subclavian artery stenosis, right (Chronic) Surgical History Family history of reaction to anesthesia Daughter- "quit breathing" with anesthesia emergence after use of fentanyl- needed to reintubate H/O abdominal surgery STOMACH ULCERS REMOVED (3 TOTAL SURGERIES) History of breast biopsy RT/LEFT (BENIGN) History of cholecystectomy History of colonoscopy History of esophagogastroduodenoscopy (EGD) History of temporal artery biopsy (12/09/18) Left Temporal Artery Biopsy (11/2018) History of tooth extraction Intracranial aneurysm 01/2019 - STENT AND/OR COIL PLACED, SEVERINO PONV (postoperative nausea and vomiting) Family History Father Acute myocardial infarction Cardiovascular disease Stroke syndrome Mother Hypertension Brother Acute myocardial infarction Other Patient's brother is Stroke Social History Preferred Language: Maori Communication Ability: Effective Visual Impairment: No Limitations Hearing Ability: Normal Brush Machine Setter Required: No Beliefs That Will Affect Care: Druze Druze Beliefs: CONFUCIANIST marital status: Current Living Situation: Spouse current occupation: [employer] Other Information That Helps Us Care for You: No Feels Safe at Home: Yes Safety Concerns: Feels Safe At This Time Smoking Status: Current every day smoker Tobacco Type: cigarettes ; Cigarettes Per Day: 20 ; Do You Dip or Chew Tobacco: No ; Second Hand Exposure: No ; Tobacco Cessation Education Requested by Patient: No Hx Alcohol Use: No Hx Substance Use: No Childhood Exposure to Second-Hand Smoke: Yes caffeine: No Dental Care, Regularly: No Physical Activity Frequency: Does not Exercise Seatbelt Use: always Sunscreen Use: No Review of Systems Review of Systems: All systems reviewed & are unremarkable except as noted in HPI & below Per HPI. Some weakness in the right arm. Physical Exam Physical Exam: She is alert and oriented x3. Mood affect appear normal. She answered all questions appropriately. HEENT: Sclerae are anicteric. Neuro: Mild right facial droop. Weakness and ataxia involving the right upper extremity. Neck: Some erythema around the left subclavian and neck operative site. Lungs: Poor air movement overall. Some expiratory wheezing in upper respiratory sounds. Cardiac: The rhythm was regular occasional ectopy. S1 and S2 were normal. There are no murmurs on examination. The PMI was not markedly displaced on palpation. Abdomen: The abdomen was soft and nontender. Extremities: Patient has bilateral radial pulses that are equal in intensity. There is no evidence cyanosis. There was no evidence of significant peripheral edema bilaterally. Skin: There are no rashes noted on examination today. Results & Data ([facility]) Vital Signs (Past 12 Hours) Vital Signs Temp Pulse Pulse Resp BP BP Pulse Ox 05/21/19 15:37 36.4 C L 120 H 20 183/75 H 91 05/21/19 12:40 36.6 C 98 H 19 185/73 H 94 05/21/19 11:19 95 H 17 170/90 H 95 05/21/19 10:19 101 H 17 186/85 H 95 05/21/19 09:19 106 H 17 187/83 H 93 05/21/19 08:19 95 H 23 189/89 H 94 05/21/19 08:01 97 H 18 186/91 H 94 05/21/19 08:00 92 H 05/21/19 07:19 99 H 19 201/80 H 94 05/21/19 07:15 102 H 24 95 05/21/19 07:00 36.8 C 98 H 20 95 05/21/19 06:45 96 H 21 89 L 05/21/19 06:41 101 H 29 H 96 05/21/19 06:00 96 H 16 184/81 H 98 Laboratory Results Abnormal Lab Results 05/20/19 05/21/19 05/21/19 20:03 02:20 03:21 WBC 7.09 RBC 3.09 L Hgb 8.9 L Hct 28.9 L MCV 93.5 MCH 28.8 MCHC 30.8 L RDW Std Deviation 60.0 H RDW Coeff of Sly 17.5 H Plt Count 413 H MPV 8.8 PT INR APTT PTT Ratio Sodium Potassium Chloride Carbon Dioxide Anion Gap BUN Creatinine Est Cr Clr Drug Dosing Est GFR ( Amer) Est GFR (Non-Af Amer) BUN/Creatinine Ratio Glucose POC Glucose 125 H 134 H Calcium Phosphorus Magnesium 05/21/19 05/21/19 03:21 03:21 WBC RBC Hgb Hct MCV MCH MCHC RDW Std Deviation RDW Coeff of Sly Plt Count MPV PT 10.2 INR 1.0 APTT 26.5 PTT Ratio 1.0 Sodium 135 L Potassium 3.6 D Chloride 103 Carbon Dioxide 29 Anion Gap 3.0 BUN 9 Creatinine 0.72 Est Cr Clr Drug Dosing 69.1 Est GFR ( Amer) 100.4 Est GFR (Non-Af Amer) 86.7 BUN/Creatinine Ratio 13.0 Glucose 123 H POC Glucose Calcium 8.1 L Phosphorus 2.5 Magnesium 2.0 Diagnostic Findings Echocardiogram performed 04/12/2019: Normal LV systolic function a possible basal inferior wall motion abnormality. Mild left atrial dilation. Mild to moderate mitral regurgitation. ECG Additional Comments: Atrial fibrillation controlled ventricular response. PG Care Time/CCT Total # of Minutes Spent Total Time Spent with Patient: Total time spent is greater than 50% in coordination of care (as documented) at patient's floor/unit and/or counseling patient: Coding Level of Care Code 64771 Initial Inpt Care Lvl 3 Diagnoses Atrial fibrillation I48.91 Mitral regurgitation I34.0
--- NOTE | 2019-05-21 18:36 | Electrocardiogram Report ---
Test Reason : Blood Pressure : / mmHG Vent. Rate : 098 BPM Atrial Rate : 000 BPM P-R Int : 000 ms QRS Dur : 082 ms QT Int : 360 ms P-R-T Axes : 000 050 043 degrees QTc Int : 459 ms Atrial fibrillation Abnormal ECG When compared with ECG of 07-DEC-2018 14:00, Atrial fibrillation has replaced Sinus rhythm Confirmed by Lenard Schafer ([id number]) on 05/21/2019 6:36:45 PM Referred By: Tony Oliveira Confirmed By:Leland Schafer
[2019-05-21] MEDS: ACETAMINOPHEN 325 MG TAB PO PRN (20:49)
--- NOTE | 2019-05-22 06:59 | Hospitalist Progress Note ---
Date of Service May 22, 2019 Assessment & Plan (1) Hypertension: - Medicine was consulted for blood pressure control - Patient had a occlusion of recently placed subclavian graft and L frontoparietal ischemic infarct noted on 05/21. -Will cut back on BP medicine. Will place one time dose of amlodpione as BP is above 200 systolic. Will contiue with permisive hypertension for now. Cardio is also on board. (2) Intracranial aneurysm: - Hx of RMCA aneurysm measuring 3.5 mm on most recent imaging. This appears to be increased in size as per [place] records from Mar 2019 by neurosurgery, Dr. Simpson, on repeat follow up imaging the aneurysm was not seen. Procedure in Jan 2019 was a pipeline embolization, no coil was placed. With increase in size, it is critical that the patients BP be more controlled. She will require close follow up with neurosurgery after her hospitalization here. - BP as above - CM to assist with dc planning (3) S/P vascular bypass: - Dr. Oliveira's team as primary - left carotid was chronically occluded prior to procedure - s/p left subclavian to carotid prosthetic bypass grafting in the [facility] for post operative hemodynamic and neurological monitoring (4) Acute blood loss anemia: - 1 PRBCs ordered, hemoglobin improved. (5) Iron deficiency anemia: (6) Vitamin B12 deficiency: - noted, contributing to anemia (7) Dyslipidemia: - Continue ezetimibe 10 mg QAM Admission and Anticipated Discharge Date Admission Date: May 19, 2019 Subjective Patient reports that her symptoms of weakness on her right side has improved. She does state feelign "depressed" about having a stroke due to her vascular compromise. Patient denies any nausea, or vomiting, chest pain, palpitations. Review of Systems Review of Systems: Constitutional: No fever, sweats or chills Eyes: No diplopia, no worsening or blurred vision, does not have glasses on currently but states no changes otherwise. ENT: normal hearing, no trouble swallowing Respiratory: No cough, sputum, dyspnea at rest or on exertion Cardiovascular: No chest pain, tightness or palpitations Abdomen: No pain, + occasional nausea, no vomiting, diarrhea or constipation. Last BM was two days ago. Musculoskeletal: No joint pain, calf pain, swelling Neurologic: No weakness, numbness/tingling, or balance problems Psychiatric: No anxiety or depression Skin: No rash or itch Physical Exam Physical Exam: General: awake, alert, no apparent distress, sitting up in bed Head: Normocephalic, atraumatic ENT: PERRL, EOMI, no pharyngeal exudate, mucous membranes moist Chest: On 2 L via NC, clear to auscultation, on room air, no adventitious breath sounds Cardiac: + incision overlying left neck c/d/i, NSR, no murmur, no JVD, normal peripheral pulses, good capillary refill Abdominal: NABS x 4 quadrants, soft, nondistended, nontender to palpation, no rebound, guarding or tenderness Extremities: Normal inspection, no peripheral edema or erythema, calfs nontender to palpation Psych: Normal mood and affect Neuro: AAO x 3, strength intact bilaterally: 5/5, speech is clear, no peripheral sensory deficits except for sensory defect on right hand Results & Data ([facility]) Vital Signs (Past 12 Hours) Vital Signs Temp Pulse Pulse Resp BP Pulse Ox 05/22/19 02:57 36.6 C 90 20 150/81 H 97 05/22/19 00:00 90 05/21/19 23:32 37 C 96 H 16 143/70 H 98 PG Care Time/CCT Total # of Minutes Spent Total Time Spent with Patient: Total time spent is greater than 50% in coordination of care (as documented) at patient's floor/unit and/or counseling patient: Coding Level of Care Code 75595 Subseq Hosp Care Lvl 3 Diagnoses Hypertension I10 Hypertension type: essential hypertension Intracranial aneurysm I67.1 S/P vascular bypass Z95.828 Acute blood loss anemia D62 Iron deficiency anemia D50.9 Vitamin B12 deficiency E53.8 Dyslipidemia E78.5 Time Spent (min) 35 (1) Hypertension Hypertension type: essential hypertension Qualified Code(s): I10 - Essential (primary) hypertension
[2019-05-22] MEDS: EZETIMIBE 10 MG TABLET PO SCH (07:27)
[2019-05-22] MEDS: predniSONE 1 MG TAB PO SCH (07:27)
[2019-05-22] MEDS: ASPIRIN 325 MG ECTAB PO SCH (07:28)
[2019-05-22] MEDS ORDERED: AMLODIPINE BESYLATE 5 MG TAB PO SCH (09:00)
--- NOTE | 2019-05-22 09:37 | Surgery Progress Note ---
Date of Service May 22, 2019 Assessment & Plan (1) S/P vascular bypass: S/P L subclavian to carotid prosthetic BPG which has occluded. She is recovering nicely. Symptoms that she had when the graft occluded were similar with the symptoms she had at [facility] when she was admitted there for her stroke and cerebral aneurysm. At this point she is my opinion ready for rehab. (2) Atrial fibrillation: She has been found to have atrial fibrillation. This may or may not be new. Her rate is fairly well controlled on its own. Cardiology recommended to add a beta-salvador however we need to keep her systolic pressures in the 180 r tolu due to the need for cerebral perfusion. Subjective Patient in PCU. present at bedside. She is sitting up in bed at this time. She has no complaints she does claim that her hand still slightly numb but otherwise everything is back to baseline. Physical Exam Constitutional: WD/WN, vitals as above Neck: trachea midline Respiratory: normal respiratory effort, lungs clear to auscultation Cardiovascular: At this point she has a regular rate and rhythm. But she does have more runs of atrial fibrillation. Musculoskeletal: Extremities: extremities normal to inspection and strength 5/5 throughout Neurologic: PERRL, EOMI, accommodation nl, no face palsy, no dysarthria CN's II-XI intact bilaterally and moves all extremities Speech / Cognition: normal speech (slightly sluggish) Motor/Sensory: + sensory deficit (slight numb feeling of right hand) Psychiatric: Orientation: alert and oriented x 3 Results & Data Vital Signs (Past 12 Hours) Vital Signs Temp Pulse Pulse Pulse Resp BP Pulse Ox 05/22/19 07:17 36.7 C 94 H 20 186/69 H 95 05/22/19 02:57 36.6 C 90 20 150/81 H 97 05/22/19 00:00 90 05/21/19 23:32 37 C 96 H 16 143/70 H 98
[2019-05-22] MEDS: ACETAMINOPHEN 325 MG TAB PO PRN (14:56)
[2019-05-22] MEDS ORDERED: AMLODIPINE BESYLATE 5 MG TAB PO ONE (15:59)
[2019-05-22] MEDS ORDERED: METOPROLOL SUCC 50MG EXT REL TAB PO STA (16:00)
[2019-05-23] MEDS: ACETAMINOPHEN 325 MG TAB PO PRN ×2 (06:03→12:15)
[2019-05-23] MEDS: ASPIRIN 325 MG ECTAB PO SCH (08:51)
[2019-05-23] MEDS: EZETIMIBE 10 MG TABLET PO SCH (08:51)
[2019-05-23] MEDS: predniSONE 1 MG TAB PO SCH (08:51)
--- NOTE | 2019-05-23 09:50 | Surgery Progress Note ---
Date of Service May 23, 2019 Assessment & Plan (1) S/P vascular bypass: S/P L subclavian to carotid prosthetic BPG which has occluded. Neurologic condition markedly improved. Patient is ready for rehab. (2) Atrial fibrillation: Cardiology note appreciated. From vascular standpoint can start anticoagulation at this time. Can also start beta blockers but need to keep systolic above 170 systolic in left arm Subjective Patient in PCU. She claims to be feeling much better today. She is talking more fluently without any hesitation. She also claims that her hand is starting to feel much better. Physical Exam Constitutional: WD/WN, vitals as above Neck: Neck incision is dry and clean. Cardiovascular: Rate/Rhythm: regular rate and regular rhythm Gastrointestinal (Abdomen): Percussion/Palpation: abdomen soft; abdomen nontender Musculoskeletal: Extremities: strength 5/5 throughout Skin: no rashes, warm and dry Neurologic: PERRL, EOMI, accommodation nl, no face palsy, no dysarthria CN's II-XI intact bilaterally and moves all extremities Speech / Cognition: normal speech Motor/Sensory: + sensory deficit (numbness of right hand improving) Psychiatric: Orientation: alert and oriented x 3 Results & Data Vital Signs (Past 12 Hours) Vital Signs Temp Pulse Pulse Pulse Resp BP Pulse Ox 05/23/19 07:20 36.9 C 79 16 173/74 H 94 05/23/19 03:26 36.7 C 85 16 187/68 H 92 05/22/19 23:15 36.6 C 88 16 193/70 H 98 05/22/19 23:06 83
--- NOTE | 2019-05-23 13:40 | Psychiatric Consultation ---
Date of Consultation May 23, 2019 Impression / Recommendations Impression 68 yo female with multiple medical problems overlapping symptoms with possible depression, mainly adjustment disorder with depressed mood on top of longstanding social anxiety. There is no indication of SI or need for inpatient mental health treatment. Continue to address medical/anemia/etc and is providing support. She does not want medication at this time and reviewed that given past reaction to SSRI and risk of bleeding with SSRIs, if wanted to try an agent in the future would likely recommend an SRNI such as Cymbalta. They are not interested in therapy services at this time and I feel that is appropriate given taxing nature of her medical recovery. Reviewed symptoms that would suggest need for medication (depressive symptoms clearly interfering with rehab/eating, etc). and were thankful for the visit. Risk Factors Assessment Do You Have Access To A Gun?: Yes ( has in home, she doesn't use, never been suicidal or a concern) Psych History Identifying Data 68 yo female from [place], seen with at bedside. Admit 05/19 for left subclavian carotid bypass. Consult is by Dr. Chaudhary for new onset depression. Chief Complaint "I don't think I need medication". states that he asked for her to be seen as worries about her. History of Present Illness History of anxiety with occasional panic since age 31, mostly in social situations. Feels that "manageable". Tried Prozac at some time in past and had allergic reaction (rash/leg cramps) and hasn't really wanted to retry anything. She reports decrease in sleep, energy, concentration, appetite recently as in/out of appointments and medical problems for a few weeks. Complicated post op course here with worsening of dexterity in right hand and expressive aphasia, s/p CVA. Fatigue likely factor of anemia. Past Psychiatric History Previous Psych History: none Previous Psych Admissions: none Do You Have Access To A Gun?: Yes ( has in home, she doesn't use, never been suicidal or a concern) History of Previous Suicide Attempt: No Past Medication Trials: Prozac Allergies Allergy/AdvReac Type Severity Reaction Status Date / Time amoxicillin Allergy Unknown HIVES Verified 05/19/19 05:45 atenolol Allergy Unknown GI Verified 05/19/19 05:45 SYMPTOMS/light headed clavulanic acid Allergy Unknown Hives Verified 05/19/19 05:45 [From Augmentin] fluoxetine Allergy Unknown RASH/leg Verified 05/19/19 05:45 cramps lisinopril Allergy Unknown CAUSED BP Verified 05/19/19 05:45 TO DROP TOO LOW propranolol Allergy Unknown HIVES/body Verified 05/19/19 05:45 aches atorvastatin AdvReac Unknown myalgia Verified 05/19/19 05:45 meloxicam AdvReac Unknown Diarrhea Verified 05/19/19 05:45 rosuvastatin [From Crestor] AdvReac Unknown Muscle Pain Verified 05/19/19 05:45 Home Medications Home Medications Medication Instructions Recorded Confirmed Type cyanocobalamin (vitamin B-12) 1,000 mcg IM MONTHLY 12/07/18 05/19/19 History aspirin 325 mg tablet 325 mg PO QAM tab 01/05/19 05/19/19 History omeprazole 20 mg capsule,delayed 20 mg PO DAILY PRN #30 cap 01/27/19 05/19/19 Rx release prednisone 10 mg tablet 6 mg PO DAILY tab 02/02/19 05/19/19 History valsartan 160 mg tablet 80 mg PO DAILY PRN tab 03/29/19 05/19/19 History Medical Marijuana Card 1 dose PO UD PRN 05/06/19 05/19/19 History acetaminophen [Tylenol] 650 mg PO Q4H PRN 05/06/19 05/19/19 History ezetimibe [Zetia] 10 mg PO QAM 05/06/19 05/19/19 History Family History brother with depression, father with ETOHism Substance Abuse History none Personal History Living Arrangements: Home (with ) Highest Grade Completed: G.E.D. 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 Fay/[facility]) Generalized pain Medical marijuana prn GERD (gastroesophageal reflux disease) High cholesterol History of blood transfusion History of iron deficiency anemia hx iron infusions (most recent approximately 02/2019) History of migraine headaches History of stomach ulcers History of stroke S/P intracranial aneurysm repair (01/2019)- no residual effects Hypertension (Chronic) per patient, systolic BP goal currently between 150-180 Intracranial aneurysm 01/2019 s/p stent and/or coil (Dr. Simpson/[facility]) Osteoarthritis per records Osteopenia per records Pulmonary nodule Seasonal allergies Social anxiety disorder Subclavian artery stenosis, right (Chronic) Surgical History Family history of reaction to anesthesia Daughter- "quit breathing" with anesthesia emergence after use of fentanyl- needed to reintubate H/O abdominal surgery STOMACH ULCERS REMOVED (3 TOTAL SURGERIES) History of breast biopsy RT/LEFT (BENIGN) History of cholecystectomy History of colonoscopy History of esophagogastroduodenoscopy (EGD) History of temporal artery biopsy (12/09/18) Left Temporal Artery Biopsy (11/2018) History of tooth extraction Intracranial aneurysm 01/2019 - STENT AND/OR COIL PLACED, SEVERINO PONV (postoperative nausea and vomiting) Family History Father Acute myocardial infarction Cardiovascular disease Stroke syndrome Mother Hypertension Brother Acute myocardial infarction Other Patient's brother is Stroke Social History Preferred Language: Greek Communication Ability: Effective Visual Impairment: No Limitations Hearing Ability: Normal Smoking Pipe Driller And Threader Required: No Beliefs That Will Affect Care: Mu-Ism Mu-Ism Beliefs: CATHOLIC marital status: Current Living Situation: Spouse 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 Other Information That Helps Us Care for You: No Feels Safe at Home: Yes Safety Concerns: Feels Safe At This Time Smoking Status: Current every day smoker Tobacco Type: cigarettes ; Cigarettes Per Day: 20 ; Do You Dip or Chew Tobacco: No ; Second Hand Exposure: No ; Tobacco Cessation Education Requested by Patient: No Hx Alcohol Use: No Hx Substance Use: No Childhood Exposure to Second-Hand Smoke: Yes caffeine: No Dental Care, Regularly: No Physical Activity Frequency: Does not Exercise Seatbelt Use: always Sunscreen Use: No Physical Exam Psychiatric: Orientation: alert Apperance: appropriately groomed Eye Contact: good eye contact Motor Behavior: no abnormal motor movements one word answers, non-spontaneous but good receptive language Affect: euthymic affect "I'm fine" Thought Process: + concrete thought process Thought Content: no delusions Suicidal Thoughts: denies suicidal thoughts Homicidal Thoughts: denies homicidal thoughts Hallucinations: no auditory hallucinations and no visual hallucinations Cognition: attention grossly intact Insight: + fair insight Judgement: + fair judgement Vital Signs (Past 24 Hours): Last Vital Signs Temp 36.7 C 05/23/19 11:08 Pulse 86 05/23/19 11:52 Resp 16 05/23/19 11:08 BP 189/67 H 05/23/19 11:08 Pulse Ox 91 05/23/19 11:08 Review of Systems All systems reviewed & are unremarkable except as noted in HPI & below Results & Data (PSY) Medications Administered Acetaminophen (Tylenol) 650 mg PO Q4H PRN PRN Reason: Pain Stop: 06/18/19 14:35 Last Admin: 05/23/19 12:15 Dose: 650 mg Documented by: [id number] Admin: 05/23/19 06:03 Dose: 650 mg Documented by: [id number] Admin: 05/22/19 14:56 Dose: 650 mg Documented by: [id number] Admin: 05/21/19 20:49 Dose: 650 mg Documented by: [id number] Hydrocodone Bitart/Acetaminophen ([place] 5/325) 1 - 2 tab PO Q4H PRN PRN Reason: Moderate Pain Stop: 06/02/19 14:35 Last Admin: 05/20/19 16:59 Dose: 2 tab Documented by: [id number] Admin: 05/20/19 12:12 Dose: 2 tab Documented by: [id number] Admin: 05/20/19 07:32 Dose: 2 tab Documented by: [id number] Admin: 05/20/19 01:45 Dose: 2 tab Documented by: [id number] Admin: 05/19/19 19:45 Dose: 2 tab Documented by: [id number] Admin: 05/19/19 15:22 Dose: 1 tab Documented by: [id number] Aspirin (Ecotrin) 325 mg PO QAM [facility] Stop: 06/19/19 08:59 Last Admin: 05/23/19 08:51 Dose: 325 mg Documented by: [id number] Cosigned by: [id number] Admin: 05/22/19 07:28 Dose: 325 mg Documented by: [id number] Admin: 05/21/19 10:11 Dose: 325 mg Documented by: [id number] Admin: 05/20/19 07:34 Dose: 325 mg Documented by: [id number] Ezetimibe (Zetia) 10 mg PO QAM [facility] Stop: 06/19/19 08:59 Last Admin: 05/23/19 08:51 Dose: 10 mg Documented by: [id number] Cosigned by: [id number] Admin: 05/22/19 07:27 Dose: 10 mg Documented by: [id number] Admin: 05/21/19 10:11 Dose: 10 mg Documented by: [id number] Admin: 05/20/19 07:34 Dose: 10 mg Documented by: [id number] Ioversol (Optiray 320 125ml) 125 ml IV ONCE PRN PRN Reason: Interaction Checking Stop: 05/25/19 03:15 Last Admin: 05/21/19 03:17 Dose: 119 ml Documented by: [id number] Ondansetron HCl (Zofran) 4 mg IV Q6H PRN PRN Reason: Nausea Stop: 06/18/19 14:39 Last Admin: 05/19/19 15:15 Dose: 4 mg Documented by: [id number] Prednisone (Prednisone) 6 mg PO DAILY [facility] Stop: 06/19/19 08:59 Last Admin: 05/23/19 08:51 Dose: 6 mg Documented by: [id number] Cosigned by: [id number] Admin: 05/22/19 07:27 Dose: 6 mg Documented by: [id number] Admin: 05/21/19 10:10 Dose: 6 mg Documented by: [id number] Admin: 05/20/19 07:34 Dose: 6 mg Documented by: [id number] Coding Level of Care Code 95722 [facility] Intl Hosp Care Lvl 2
[2019-05-23] MEDS ORDERED: TRAMADOL HCL 50 MG TABLET PO STA (17:08)
[2019-05-23] MEDS: METOPROLOL TARTRATE 25 MG TAB PO SCH (21:37)
--- NOTE | 2019-05-23 22:27 | Hospitalist Progress Note ---
Date of Service May 23, 2019 Assessment & Plan (1) Hypertension: - Medicine was consulted for blood pressure control - Patient had an occlusion of recently placed subclavian graft and L frontoparietal ischemic infarct noted on 05/21. -Will need to maintain permissive hypertension with a sytolic goal at the moment of 180 systolic -BP meds will need to be cut back due to the above occlusion. -Received a one time dose of amlodipine on ; transitioned to metoprolol tartrate in 05/22 12.5mg PO BID -Can titrate up as needed. Will continue with permissive hypertension for now. Clinically patient is also doing better Cardio is also on board. (2) Intracranial aneurysm: - Hx of RMCA aneurysm measuring 3.5 mm on most recent imaging. This appears to be increased in size as per [facility] records from Mar 2019 by neurosurgery, Dr. Simpson, on repeat follow up imaging the aneurysm was not seen. Procedure in Jan 2019 was a pipeline embolization, no coil was placed. With increase in size, it is critical that the patients BP be more controlled. She will require close follow up with neurosurgery after her hospitalization here. - BP as above - CM to assist with dc planning (3) S/P vascular bypass: - Dr. Oliveira's team as primary - left carotid was chronically occluded prior to procedure - s/p left subclavian to carotid prosthetic bypass grafting in the [facility] for post operative hemodynamic and neurological monitoring (4) Acute blood loss anemia: - 1 PRBCs ordered, hemoglobin improved. (5) Iron deficiency anemia: (6) Vitamin B12 deficiency: - noted, contributing to anemia (7) Dyslipidemia: - Continue ezetimibe 10 mg QAM Admission and Anticipated Discharge Date Admission Date: May 19, 2019 Subjective Patient reports feeling well. Her hand feels better today. She has no new complaints. Review of Systems Review of Systems: All systems reviewed & are unremarkable except as noted in HPI & below Physical Exam Physical Exam: General: awake, alert, no apparent distress, sitting up in bed, holding a sandwich in both hands Head: Normocephalic, atraumatic ENT: PERRL, EOMI, no pharyngeal exudate, mucous membranes moist Chest: On room air, clear to auscultation, no adventitious breath sounds Cardiac: + incision overlying left neck c/d/i, NSR, no murmur, no JVD, normal peripheral pulses, good capillary refill Abdominal: NABS x 4 quadrants, soft, nondistended, nontender to palpation, no rebound, guarding or tenderness Extremities: Normal inspection, no peripheral edema or erythema, calfs nontender to palpation Psych: Normal mood and affect Neuro: AAO x 3, strength intact bilaterally: 5/5, speech is clear, no peripheral sensory deficits except for mild sensory defect on right hand Results & Data ([facility]) Vital Signs (Past 12 Hours) Vital Signs Temp Pulse Pulse Resp BP BP Pulse Ox 05/23/19 18:09 36.6 C 82 20 204/73 H 91 05/23/19 15:52 88 05/23/19 15:22 37.1 C 86 20 187/74 H 91 05/23/19 11:52 86 05/23/19 11:08 36.7 C 83 16 189/67 H 91 PG Care Time/CCT Total # of Minutes Spent Total Time Spent with Patient: Total time spent is greater than 50% in coordination of care (as documented) at patient's floor/unit and/or counseling patient: Coding Level of Care Code 15953 Subseq Hosp Care Lvl 2 Diagnoses Hypertension I10 Hypertension type: essential hypertension Intracranial aneurysm I67.1 S/P vascular bypass Z95.828 Acute blood loss anemia D62 Iron deficiency anemia D50.9 Vitamin B12 deficiency E53.8 Dyslipidemia E78.5 Time Spent (min) 25 (1) Hypertension Hypertension type: essential hypertension Qualified Code(s): I10 - Essential (primary) hypertension
[2019-05-24] MEDS: ACETAMINOPHEN 325 MG TAB PO PRN ×2 (03:03→20:48)
[2019-05-24 07:35] LABS: Hematocrit (blood only) 36.6 % (37-47); Hemoglobin 11.3 g/dL (12.0-16.0); Mean Corpuscular Hemoglobin 28.7 pg (25-34); Mean Corpuscular Hgb Conc 30.9 g/dL (32-36); Mean Corpuscular Volume 92.9 fL (80-100); Mean Platelet Volume 8.9 fL (7.4-10.4); Platelet Count 603 K/uL (130-400); RDW Coefficient of Variation 16.3 % (11.5-14.5); RDW Standard Deviation 55.5 fL (36.4-46.3); Red Blood Count 3.94 M/uL (4.2-5.4); White Blood Count 7.73 K/uL (4.8-10.8)
[2019-05-24 08:05] LABS: BUN Creatinine Ratio 22.4 (10-20); Calcium 9.6 mg/dl (8.5-10.1); Creatinine Clr Calc Pharmacy 59.4 ml/min; Est GFR (African American) 94.1; Est GFR (Non-African American) 81.2; Potassium 3.7 mmol/L (3.5-5.1)
--- NOTE | 2019-05-24 09:01 | Surgery Progress Note ---
Date of Service May 24, 2019 Assessment & Plan (1) S/P vascular bypass: S/P L subclavian to carotid prosthetic BPG which has occluded. Neurologic condition markedly improved. From vascular standpoint, patient is ready for rehab. (2) Atrial fibrillation: Cardiology note appreciated. From vascular standpoint can start anticoagulation at this time. Can also start beta blockers but need to keep systolic above 170 systolic in left arm (3) CVA (cerebral vascular accident): Pt with acute CVA as of 05/[address] Had RUE and RLE weakness and dysarthria, now resolved. Per pt, has appt with her neurologist, Dr Simpson, on 06/02 at [facility]. Subjective 68 yo f s/p L subclavian-carotid prosthetic BPG, seen in f/u today. Pt states feeling better overall. No new sx. Review of Systems Review of Systems: All systems reviewed & are unremarkable except as noted in HPI & below Physical Exam Constitutional: WD/WN, vitals as above Neck: trachea midline, no thyromegaly Respiratory: normal respiratory effort, lungs clear to auscultation Cardiovascular: RRR, no murmur, no edema Gastrointestinal (Abdomen): normal bowel sounds, soft, nontender, no hepatosplenomegaly Musculoskeletal: Extremities: extremities normal to inspection and strength 5/5 throughout Skin: no rashes, warm and dry + incision (L neck incision C/D/I, minally tender, no swelling. ) Neurologic: moves all extremities and awake; no focal motor deficits and not confused Speech / Cognition: normal speech Psychiatric: A+Ox3, euthymic affect Results & Data Vital Signs (Past 12 Hours) Vital Signs Temp Pulse Pulse Pulse Resp BP Pulse Ox 05/24/19 07:56 37.2 C 82 18 153/65 H 90 05/24/19 04:00 37.1 C 81 16 157/69 H 96 05/24/19 00:00 84 05/23/19 23:01 37 C 80 16 186/72 H 92
[2019-05-24] MEDS: METOPROLOL TARTRATE 25 MG TAB PO SCH ×2 (09:15→20:53)
[2019-05-24] MEDS: predniSONE 1 MG TAB PO SCH (09:16)
[2019-05-24] MEDS: EZETIMIBE 10 MG TABLET PO SCH (09:16)
[2019-05-24] MEDS: APIXABAN 5 MG TABLET PO SCH ×2 (09:19→20:52)
[2019-05-24 09:25] LABS: Chol HDL Ratio 7; Cholesterol 200 mg/dl (0-200); HDL Cholesterol 29 mg/dl; Iron 23 mcg/dl (35-150); LDL Cholesterol Calculated 108 mg/dl; Transferrin 206 mg/dl (200-360); Transferrin Percent Saturation 8 % (15-50); Triglycerides 316 mg/dl (0-150); VLDL Cholesterol 63 mg/dl
[2019-05-24 10:02] LABS: Estimated Average Glucose 120 mg/dl; Hemoglobin A1C 5.8 % (4.5-5.6)
[2019-05-24] MEDS: DOCUSATE SODIUM 100 MG CAP PO SCH ×2 (10:25→20:52)
[2019-05-24] MEDS: POLYETHYLENE (MIRALAX) 17 GM PACK PO SCH (10:25)
--- NOTE | 2019-05-24 10:29 | Hospitalist Progress Note ---
Date of Service May 24, 2019 Assessment & Plan (1) Left carotid artery occlusion: Main reason for admission for bypass of chronic occlusion s/p left subclavian-carotid prosthetic graft on 05/20, occluded post operatively but not for further intervention at this time as per vascular surgery. (2) S/P vascular bypass: as above (3) CVA (cerebral vascular accident): Acute CVA on this admission as confirmed on serial CT heads. MRI would not global director air and climate change. Several small strokes therefore risk of hemorrhagic transformation very small. Initially consulted Dr Gomes however on discussion with Dr Oliveira I understand this is not recommended by the primary vascular team therefore cancelled. Expressive aphasia no longer appears to be an issue and patient notes no choking/coughing with eating therefore will defer speech consult at this stage since she is now three days out without issues. Likely secondary to bypass surgery vs. less likely atrial fibrillation. Will change ASA to 325mg -> 81mg and add Eliquis for anticoagulation. Ok for anticoagulation from vascular op standpoint. Pt to continue on Eliquis indefinitely. Aim BP as below. Lipids as below. (4) Paroxysmal atrial fibrillation: Noted post operatively. Currently in NSR. Reviewed by cardiology. Ok to start anticoagulation from vascular and neurology standpoint. Eliquis called into her pharmacy and costs $19.50/month. Continue metoprolol 12.5mg PO BID as per cardio recommendations as BP stable. (5) Hypertension: Medicine mainly consulted for BP control, which is currently acceptable: now aiming for chronic goal of sBP 150-180. Continue on metoprolol 12.5mg BID (rate and BP control) (6) Dyslipidemia: Continue ezetimibe 10 mg QAM Intolerant to atorvastatin and rosuvastatin. Will defer PCSK-9 inhibitor to her [place] neurologist (7) Acute blood loss anemia: Hgb 7.0 post operatively. Possibly contributed towards stroke symptoms. Currently 11.2 s/p 1 units PRBCs this admission. (Noted transfused 2 units during [place] hospitalization in + iron transfusion at that time) (8) Iron deficiency anemia: Iron sats 8%. Will defer starting iron supplementation to PCP given current lack of BM and non-urgent to start this. No prior GI bleeds as per patient but apparently had right leg hematoma on Brilinta previously. CBC 1 week after discharge given we are starting Eliquis 05/23. (9) Intracranial aneurysm: Hx of RMCA aneurysm measuring 3.5 mm on most recent imaging. This appears to be increased in size as per June records from Mar 2019 by neurosurgery, Dr. Simpson, on repeat follow up imaging the aneurysm was not seen. Procedure in Jan 2019 was a pipeline embolization, no coil was placed. With increase in size, it is critical that the patients BP be more controlled. She will require close follow up with neurosurgery after her hospitalization here. (10) Vitamin B12 deficiency: Continue supplementation as outpatient. B12 WNL in August 2018. (11) Chronic steroid use: (12) Giant cell arteritis: I presume this is the reason for her chronic prednisone use. Patient notes she is on it for elevated sedimentation rate. Noted prior biopsies inconclusive/negative. No PMR noted by patient or chart review but she does have myalgias to atorvastatin and rosuvastatin therefore unclear if these episode were PMR rather than statin-induced myalgias. ESR post operatively not reflective of underlying disease. Admission and Anticipated Discharge Date Admission Date: May 19, 2019 She is medically stable for discharge at this time. Subjective Patient reports improving strength since Friday. No concerns or questions at this time. She still feels her right upper extremity weaker than left upper extremity. Educated patient about atrial fibrillation as additional risk factor for her already high risks of strokes. Reports on chronic prednisone for elevated sedimentation rate. No prior GI bleed as per patient but she notes prior right thigh hematoma/bruising on Brilinta - I assume this was from the groin sheath for her right ICA aneurysm pipeline embolization. Review of Systems Review of Systems: All systems reviewed & are unremarkable except as noted in HPI & below Physical Exam Constitutional: WD/WN, vitals as above Eyes: PERRL, conjunctivae normal, anicteric sclerae ENMT: external ear and nose normal, oropharynx normal Neck: trachea midline, no thyromegaly Respiratory: normal respiratory effort, lungs clear to auscultation Cardiovascular: RRR, no murmur, no edema Gastrointestinal (Abdomen): normal bowel sounds, soft, nontender, no hepatosplenomegaly Skin: no rashes, warm and dry Neurologic: moves all extremities, + focal motor deficit (mild facial droop on right at rest) and awake; not confused Speech / Cognition: normal speech, no expressive aphasia and no receptive aphasia Motor/Sensory: no tremor, no pronator drift and no sensory deficit Coordination: normal [id number]-[id number] test Results & Data ([facility]) Vital Signs (Past 12 Hours) Vital Signs Temp Pulse Pulse Pulse Resp BP Pulse Ox 05/24/19 07:56 37.2 C 82 18 153/65 H 90 05/24/19 04:00 37.1 C 81 16 157/69 H 96 05/24/19 00:00 84 05/23/19 23:01 37 C 80 16 186/72 H 92 PG Care Time/CCT Total # of Minutes Spent Total Time Spent with Patient: Total time spent is greater than 50% in coordination of care (as documented) at patient's floor/unit and/or counseling patient: Coding Level of Care Code 89651 Subseq Hosp Care Lvl 3 Diagnoses Left carotid artery occlusion I65.22 S/P vascular bypass Z95.828 CVA (cerebral vascular accident) I63.10 CVA mechanism: embolism Precerebral and cerebral artery: unspecified precerebral artery Paroxysmal atrial fibrillation I48.0 Hypertension I10 Hypertension type: essential hypertension Dyslipidemia E78.5 Acute blood loss anemia D62 Iron deficiency anemia D50.9 Iron deficiency anemia type: unspecified iron deficiency Intracranial aneurysm I67.1 Vitamin B12 deficiency E53.8 Chronic steroid use Giant cell arteritis M31.6 (1) Iron deficiency anemia Iron deficiency anemia type: unspecified iron deficiency Qualified Code(s): D50.9 - Iron deficiency anemia, unspecified (2) Hypertension Hypertension type: essential hypertension Qualified Code(s): I10 - Essential (primary) hypertension (3) CVA (cerebral vascular accident) CVA mechanism: embolism Precerebral and cerebral artery: unspecified precerebral artery Qualified Code(s): I63.10 - Cerebral infarction due to embolism of unspecified precerebral artery
[2019-05-24] MEDS: ASPIRIN 81 MG ECTAB PO SCH (11:07)
[2019-05-24] MEDS ORDERED: VALSARTAN 80 MG TAB PO PRN (22:41)
[2019-05-25] MEDS: ACETAMINOPHEN 325 MG TAB PO PRN ×2 (07:11→13:27)
[2019-05-25 08:04] LABS: Hematocrit (blood only) 37.8 % (37-47); Hemoglobin 11.5 g/dL (12.0-16.0); Mean Corpuscular Hemoglobin 27.7 pg (25-34); Mean Corpuscular Hgb Conc 30.4 g/dL (32-36); Mean Corpuscular Volume 91.1 fL (80-100); Mean Platelet Volume 9.2 fL (7.4-10.4); Platelet Count 546 K/uL (130-400); RDW Coefficient of Variation 16.3 % (11.5-14.5); RDW Standard Deviation 54.3 fL (36.4-46.3); Red Blood Count 4.15 M/uL (4.2-5.4); White Blood Count 7.49 K/uL (4.8-10.8)
[2019-05-25 08:39] LABS: BUN Creatinine Ratio 21.5 (10-20); Calcium 9.1 mg/dl (8.5-10.1); Creatinine Clr Calc Pharmacy 54.4 ml/min; Est GFR (African American) 84.6; Potassium 3.2 mmol/L (3.5-5.1)
[2019-05-25] MEDS: ASPIRIN 81 MG ECTAB PO SCH (09:16)
[2019-05-25] MEDS: DOCUSATE SODIUM 100 MG CAP PO SCH ×2 (09:16→09:28)
[2019-05-25] MEDS: METOPROLOL TARTRATE 25 MG TAB PO SCH (09:16)
[2019-05-25] MEDS: predniSONE 1 MG TAB PO SCH (09:16)
[2019-05-25] MEDS: APIXABAN 5 MG TABLET PO SCH (09:16)
[2019-05-25] MEDS: EZETIMIBE 10 MG TABLET PO SCH (09:16)
[2019-05-25] MEDS: POLYETHYLENE (MIRALAX) 17 GM PACK PO SCH ×2 (09:17→09:28)
[2019-05-25] MEDS ORDERED: POTASSIUM CHLORIDE 20 MEQ TABCR PO STA (09:38)
--- NOTE | 2019-05-25 09:41 | Surgery Progress Note ---
Date of Service May 25, 2019 Assessment & Plan (1) S/P vascular bypass: S/P L subclavian to carotid prosthetic BPG which has occluded. Neurologic condition markedly improved. From vascular standpoint, patient is ready for rehab vs home with PT. (2) Atrial fibrillation: Cardiology note appreciated. From vascular standpoint can start anticoagulation at this time. Can also start beta blockers but need to keep systolic above 170 systolic in left arm (3) CVA (cerebral vascular accident): Pt with acute CVA as of 05/[address] Had RUE and RLE weakness and dysarthria, now resolved. Per pt, has appt with her neurologist, Dr Simpson, on 06/02 at [facility]. Subjective 68 yo f s/p L subclavian to carotid art BPG(now occluded), seen in f/u today. Pt states overall feeling just tired. Was a little dizzy when standing to do PT this AM and noted blurry vision in L eye only which has resolved. Denies any other new complaints. Review of Systems Review of Systems: All systems reviewed & are unremarkable except as noted in HPI & below Physical Exam Constitutional: WD/WN, vitals as above Neck: trachea midline, no thyromegaly Respiratory: normal respiratory effort, lungs clear to auscultation Cardiovascular: RRR, no murmur, no edema Gastrointestinal (Abdomen): normal bowel sounds, soft, nontender, no hepatosplenomegaly Musculoskeletal: Extremities: extremities normal to inspection and strength 5/5 throughout Skin: no rashes, warm and dry + incision (L neck incision C/D/I, minally tender, no swelling. ) Neurologic: moves all extremities and awake; no focal motor deficits and not confused Speech / Cognition: normal speech Psychiatric: A+Ox3, euthymic affect Results & Data Vital Signs (Past 12 Hours) Vital Signs Temp Pulse Pulse Pulse Resp BP BP 05/25/19 07:31 36.9 C 76 18 161/71 H 05/25/19 04:24 37.1 C 79 16 136/69 05/25/19 00:17 37.0 C 75 16 172/77 H 05/25/19 00:00 79 05/24/19 23:51 168/74 H 05/24/19 22:58 36.8 C 74 16 177/71 H Pulse Ox 05/25/19 07:31 92 05/25/19 04:24 92 05/25/19 00:17 92 05/25/19 00:00 05/24/19 23:51 05/24/19 22:58 92 (1) CVA (cerebral vascular accident) CVA mechanism: embolism Precerebral and cerebral artery: unspecified precerebral artery Qualified Code(s): I63.10 - Cerebral infarction due to embolism of unspecified precerebral artery
[2019-05-25 11:01] VITALS: BP 156/67; PULSE 77; TEMP 98.1; O2SAT 93
--- NOTE | 2019-05-26 11:21 | Discharge Summary ---
Date of Service May 26, 2019 Admission HPI Per Admitting Provider Ms. Kilgore is a 68-year-old female who was first seen back in December 2018 regarding her carotid artery disease. The patient had previously been found to have an intracranial right internal carotid artery aneurysm which is being managed by Dr. Attila Simpson at [facility]. Since her visit here in December, the patient had undergone coiling of the distal right ICA aneurysm. Testing done around that time continues to indicate a left common carotid artery occlusion as well as a severely stenotic left vertebral artery and occluded right vertebral artery and stenosis of her right proximal carotid artery as well as an occluded right subclavian. The patient's imaging appears to demonstrate decreased perfusion of the left hemisphere. The patient herself denies any new concerns or symptoms. She states that she is easily fatigued, but that that has been an ongoing problem which is managed by iron infusions performed by her db2 systems programmer. She denies any new symptoms of amaurosis, unilateral extremity w eakness, numbness or tingling, difficulty speaking or swallowing, confusion, facial droop or other concerns The patient had an MRA of the head and neck which revealed an occluded left common carotid artery, a severely stenotic left vertebral artery, a patent left subclavian artery, an occluded right subclavian artery, a stenotic proximal right carotid artery and an occluded right vertebral artery. Admission Exam Per Admitting Provider Constitutional: WD/WN, vitals as above Neck: trachea midline, no thyromegaly Respiratory: normal respiratory effort, lungs clear to auscultation Cardiovascular: Rate/Rhythm: regular rate and regular rhythm Vessels: femoral pulses present, radial pulses present (none on left) and + temporal artery tenderness (right was biopsied) Extremities: normal capillary refill Gastrointestinal (Abdomen): Inspection/Auscultation: abdomen normal to inspection Percussion/Palpation: abdomen soft; abdomen nontender Skin: no rashes, warm and dry Neurologic: PERRL, EOMI, accommodation nl, no face palsy, no dysarthria CN's II-XI intact bilaterally and moves all extremities; no focal motor deficits Motor/Sensory: no sensory deficit Psychiatric: Orientation: alert and oriente Principal Diagnosis 1. s/p L subclavian to carotid artery prosthetic bypass, occluded 2. Acute L hemispheric CVA 3. New onset atrial fibrillation 4. Cerebral ischemia Discharge Exam Constitutional WD/WN, vitals as above Neck trachea midline, no thyromegaly Respiratory normal respiratory effort, lungs clear to auscultation Cardiovascular RRR, no murmur, no edema Gastrointestinal (Abdomen) normal bowel sounds, soft, nontender, no hepatosplenomegaly Musculoskeletal Extremities: extremities normal to inspection and strength 5/5 throughout Skin no rashes, warm and dry + incision (L neck incision C/D/I, minally tender, no swelling. ) Neurologic moves all extremities and awake; no focal motor deficits and not confused Speech / Cognition: normal speech Psychiatric A+Ox3, euthymic affect Discharge Data Allergies Allergy/AdvReac Type Severity Reaction Status Date / Time amoxicillin Allergy Unknown HIVES Verified 05/19/19 05:45 atenolol Allergy Unknown GI Verified 05/19/19 05:45 SYMPTOMS/light headed clavulanic acid Allergy Unknown Hives Verified 05/19/19 05:45 [From Augmentin] fluoxetine Allergy Unknown RASH/leg Verified 05/19/19 05:45 cramps lisinopril Allergy Unknown CAUSED BP Verified 05/19/19 05:45 TO DROP TOO LOW propranolol Allergy Unknown HIVES/body Verified 05/19/19 05:45 aches atorvastatin AdvReac Unknown myalgia Verified 05/19/19 05:45 meloxicam AdvReac Unknown Diarrhea Verified 05/19/19 05:45 rosuvastatin [From Crestor] AdvReac Unknown Muscle Pain Verified 05/19/19 05:45 Consultations 05/20/19 08:14 Consult Hospitalist Routine 05/21/19 07:40 Consult Wire Rope Fabrication Supervisor Routine 05/21/19 07:42 Consult Case Management - Discharge Planning Routine 05/21/19 12:36 Consult Case Management - Discharge Planning Routine 05/21/19 13:36 Consult Cardiology Routine 05/22/19 15:54 Consult Psychiatry Routine Procedures Performed Operation Date: 05/19/19 07:30 Actual Procedures p Left Subclavian Artery to Carotid Prosthetic Bypass(Left) - Tony Oliveira MD Ordered Studies 05/19/19 12:18 CT head/brain wo con Stat 05/21/19 02:12 CT head/brain wo con Urgent 05/21/19 02:45 CT angio head w con Urgent CT angio neck with con Urgent Hospital Course (1) S/P vascular bypass: S/P L subclavian to carotid prosthetic BPG which occluded within 48 hrs post op. Neurologic condition markedly improved. From vascular standpoint, patient is ready for discharge home with PT. (2) Atrial fibrillation: Pt seen by Cardiology. From vascular standpoint can start anticoagulation at this time. Recommend keep systolic above 170 systolic in left arm d/t severe R subclavian stenosis vs occlusion. (3) CVA (cerebral vascular accident): Pt with acute CVA as of 05/[address] Had RUE and RLE weakness and dysarthria, now resolved. Per pt, has appt with her neurologist, Dr Simpson, on 06/02 at [facility] [place]. Total Time Total Time Spent Total Time Spent (In Minutes): 0 Discharge Plan Discharge Items Patient Disposition: Home - Self-Care Reason For Visit: Cerebral Ischemia Discharge Diagnosis: 1. s/p Left subclavian to carotid artery prosthetic bypass graft - occluded 2. Acute ischemic stroke 3. Paroxysmal atrial fibrillation 4. Cerebral Ischemia Condition on Discharge: Good Activity: Per Instructions section Non-emergency contact: Primary Care Provider and Surgeon Call non-emergency contact if: you have any medication questions, your pain is not controlled, your pain is concerning for you, your temperature is above 101, your wound has increased redness and your wound has increased drainage Follow-up/Referrals: Anjel Eid MD [Primary Care Provider] - 05/27/19 2:00 pm (APPT WITH [facility]. IF YOU NEED TO CHANGE PLEASE CALL [phone]) Tony Oliveira MD [Physician] - 06/03/19 1:15 pm (Pt needs follow up appt with Dr Oliveira or Helena Fofana PA-C in 2 weeks.) Diet: Heart Healthy Ambulatory Orders: Complete Blood Count no Diff (Routine) Timeframe: 1 Week Location: Determined by Patient Ordered By: Zenon Vaz Attending Provider Instructions: 1. Keep your appt with Dr Simpson at [facility] [place] as scheduled. 2. No lifting more than 10 lbs x 2 weeks for left arm, then activity as tolerated. 3. May shower and dry wound gently. 4. Call [phone] for a follow up appt with Dr Oliveira or Helena Vaz Commercial Producer Provider Instructions: Medicine consult: Atrial fibrillation: During your admission you were noted to have paroxysmal atrial fibrillation post operatively on campus monitor. For this you were started on low dose metoprolol for rate control and Eliquis (apixaban) to reduce your risk of a further stroke. Acute ischemic stroke: you were also noted to have expressive aphasia (difficulty talking) and right hemiparesis (right sided weakness) the night after the operation. CT head showed several left sided small acute infarcts which explain your exam findings and confirming an acute stroke. Subsequent imaging confirmed occluded subclavian to carotid bypass. Post operative anemia: your hemoglobin was 7.0 post operatively. This may have contributed towards your stroke symptoms. Your iron saturations were 8% and recommend discussing starting iron supplementation with your primary care pro vider. Not started during your hospitalization due to constipation. Constipation: take docusate as needed to aim for a bowel movement at least every other day. Pending Studies at Discharge: No Stand-Alone Forms: My [facility], Smoking Cessation Medications and DC Order Prescriptions: New aspirin 81 mg tablet,delayed release (DR/EC) 81 mg PO DAILY Qty: 30 RF: 0 apixaban 5 mg tablet 5 mg PO BID Qty: 60 RF: 0 metoprolol tartrate 25 mg Tablet 12.5 mg PO BID Qty: 30 RF: 0 docusate sodium 100 mg Capsule 100 mg PO BID Qty: 60 RF: 0 Continued valsartan 160 mg tablet 80 mg PO DAILY PRN (Reason: SBP > 180) RF: 0 prednisone 10 mg tablet 6 mg PO DAILY RF: 0 omeprazole 20 mg capsule,delayed release(DR/EC) 20 mg PO DAILY PRN (Reason: gerd) Qty: 30 RF: 2 cyanocobalamin (vitamin B-12) 1,000 mcg/mL Kit 1,000 mcg IM MONTHLY RF: 0 acetaminophen [Tylenol] 325 mg tablet 650 mg PO Q4H PRN (Reason: Pain) RF: 0 ezetimibe [Zetia] 10 mg tablet 10 mg PO QAM RF: 0 Medical Marijuana Card 1 dose PO UD PRN (Reason: Pain) RF: 0 Discontinued aspirin 325 mg tablet 325 mg PO QAM RF: 0 Discharge Orders: Discharge Order (Routine); Ordered 05/25/19 Ordered By: Helena Lan/Other Patient Handouts: Stroke Sx, Blockage Carotid Artery Admission Data Admit Date/Time: 05/19/19 07:17 Attending Provider: Tony Oliveira Admit Provider: Tony Oliveira Primary Care Provider: Anjel Eid Other Providers: Reggie Pope ; Jasmin Ag ; Annie Burns ; Zenon Quach Robert R. ; Lisa Colon ; Hayder Rangel ; Walker Quevedo ; Buck Singletary ; Idania Abdalla ; Lacey Mathias ; Kina Marquez ; Eliseo Aleman ; Sandra Portillo ; Remi Urban ; Bert Alanis ; Jasmin Jiang ; Enrike Case ; Jessica Eid ; Vito Cassidy ; Basim Bruce ; Zenon Rahman ; Anand Noland ; Tabby Monge ; Mahesh Chaudhary ; Keyur Alvarado ; Deanna Pugh ; Tommy Ann ; Ab Abebe ; Valerie Peck ; Donell Castro ; Matias Hu ; Curt Sin ; Roland Fulton ; Kee Barriga ; Larry Webster ; Luis Kurtz ; Bigg Yu ; Pavel Yost ; He [place] ; Royce Wiley ; Narinder Forbes ; Chavez Bai ; Antonio Hou Jr ; Pablito Lynch ; Shy Garsia ; Josefina Avila ; Basim Loco ; Basim Schafer ; Jeffrey Ayala ; Iker Asencio ; Lori Gaston ; Kelsi Hills ; Demetris Lay ; Lita Rodriguez Other Interventions: Discharge Summary Assessment (RN) Last Done: 05/25/19 14:31 DC Date/Time DO NOT enter until pt leaves facility: 05/25/19 15:30
[2019-05-29] MEDS ORDERED: CYANOCOBALAMIN 1000 MCG/ML VIAL IM SCH (09:00)
== END 2019-05-25 15:30 | disposition home or self-care (01) | DRG 981 ==
LOC: ASU 05:21 → 1E 07:17 → 2S 05-21 12:35 → 3N 05-25 00:16

== ENCOUNTER 2020-07-15 19:52 | Inpatient (IN) ==
[2020-07-15] MEDS ORDERED: diphenhydrAMINE 50 MG/ML VIAL IV STA (20:13)
[2020-07-15] MEDS ORDERED: METOCLOPRAMIDE HCL INJ 5 MG/ML 2 ML VIAL IV ONE (20:13)
[2020-07-15] MEDS ORDERED: SODIUM CHLORIDE 0.9% 1000ML 1,000 ML IV ONE (20:13)
--- NOTE | 2020-07-15 20:24 | Emergency Department Note ---
History of Present Illness General Chief Complaint: Nausea Stated Complaint: NAUSEA,VOMITING Time Seen by Provider: 07/15/20 20:05 History of Present Illness Provider Complaint: abdominal pain Onset (ago): 2 week(s) Pain Consistency: intermittent Location: epigastric Radiation: none Migration to: no migration Severity: moderate Maximum Pain Intensity: 8 Current Pain Intensity: 8 Quality: + aching Relieved By: + nothing Exacerbated By: + nothing Context: no foreign travel, no possible food poisoning, no sick contacts, no recent antibiotic use, no recent surgery/procedure and no recent injury Associated Symptoms: + nausea and + vomiting; no diarrhea, no fever, no chills, no constipation, no dysuria, no hematemesis, no hematochezia, no melena, no hematuria, no syncope, no headache, no neck pain, no back pain, no chest pain, no weakness and no numbness Home Medications Medication Instructions Recorded Confirmed Type cyanocobalamin (vitamin B-12) 1,000 mcg IM MONTHLY 12/07/18 07/15/20 History acetaminophen [Tylenol] 1,000 mg PO Q4H PRN 05/06/19 07/15/20 History aspirin 325 mg tablet 325 mg PO QAM 08/26/19 07/15/20 History iron dextran 50 mg/mL injection 50 mg IM PRN ml 06/06/20 07/15/20 History solution budesonide-formoterol HFA 160 2 puff INHALATION BID #10.2 g 06/29/20 07/15/20 Rx mcg-4.5 mcg/actuation aerosol inhaler inhalational spacing device #1 ea 06/29/20 07/04/20 Rx Allergies Allergy/AdvReac Type Severity Reaction Status Date / Time amoxicillin Allergy Intermediate HIVES Verified 07/15/20 21:04 clavulanic acid Allergy Intermediate Hives Verified 07/15/20 21:04 [From Augmentin] lisinopril Allergy Intermediate CAUSED BP Verified 07/15/20 21:04 TO DROP TOO LOW atenolol Allergy Mild GI Verified 07/15/20 21:04 SYMPTOMS/light headed atorvastatin Allergy Mild myalgia Verified 07/15/20 21:04 fluoxetine Allergy Mild RASH/leg Verified 07/15/20 21:04 cramps propranolol Allergy Mild HIVES/body Verified 07/15/20 21:04 aches meloxicam AdvReac Mild Diarrhea Verified 07/15/20 21:04 rosuvastatin [From Crestor] AdvReac Mild Muscle Pain Verified 07/15/20 21:04 Past Med/Surg History Medical History Anxiety Elevated sed rate follows with rheumatology (Dr. Fay/[facility]) Generalized pain Medical marijuana prn GERD (gastroesophageal reflux disease) High cholesterol History of anemia Hx of blood transfusion 11/2019 Iron deficient- most recent iron infusion 02/2019 History of migraine headaches History of stroke last one was 04/2019 after left subclavian artery bypass--no deficits afterwards, no neurologist S/P intracranial aneurysm repair (01/2019)- no residual effects Hypertension per patient, systolic BP goal currently between 150-180 Intracranial aneurysm 01/2019 s/p stent and/or coil (Dr. Simpson/[facility]) Left carotid artery occlusion S/p left subclavian/left carotid bypass 04/2019 - graft occluded 48 hours post op PAD (peripheral artery disease) Paroxysmal atrial fibrillation F/U DR MCALLISTER Pulmonary nodule Seasonal allergies Surgical History H/O abdominal surgery STOMACH ULCERS REMOVED (3 TOTAL SURGERIES) History of brain surgery indirect bypass History of breast biopsy RT/LEFT (BENIGN) History of cholecystectomy History of colonoscopy History of esophagogastroduodenoscopy (EGD) MULTIPLE History of temporal artery biopsy (12/09/18) Left Temporal Artery Biopsy (11/2018) and right History of tooth extraction Intracranial aneurysm 01/2019 - STENT AND/OR COIL PLACED, [facility] S/P cholecystectomy S/P vascular bypass left subclavian carotid artery bypass 05/19/2019 Family History Father Acute myocardial infarction Cardiovascular disease Stroke syndrome Myocardial infarction Mother Hypertension Brother Acute myocardial infarction Daughter Family history of reaction to anesthesia Daughter- "quit breathing" with anesthesia emergence after use of fentanyl- needed to reintubate Other Patient's brother is Stroke Denies family history of Ovarian cancer Prostate cancer Breast cancer Lung cancer Colorectal cancer Social History Smoking Status: Current every day smoker Tobacco Type: Cigarettes Cigarettes Per Day: 10; Second Hand Exposure: Yes (FATHER SMOKED); Hx Alcohol Use: No Hx Substance Use: No Preferred Language: Peruvian Communication Ability: Effective Visual Impairment: No Limitations Hearing Ability: Normal Staff Psychologist Required: No Beliefs That Will Affect Care: None marital status: Current Living Situation: Spouse and Family Current Living Situation Comment: Lives with and daughter 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 Feels Safe at Home: Yes Childhood Exposure to Second-Hand Smoke: Yes caffeine: No Dental Care, Regularly: No Physical Activity Frequency: Does not Exercise Seatbelt Use: always Sunscreen Use: No Assistive Devices: Glasses Review of Systems A total of 10 systems reviewed and were otherwise negative Physical Exam Vital Signs: Vital Signs - 24 hr 07/15/20 19:52 07/15/20 20:30 07/15/20 20:38 Temperature 36.7 C Temperature Source Temporal Artery Sc an Pulse Rate 98 H 101 H 100 H Pulse Rate from Sp O2 Sensor 102 H 100 H Pulse Rhythm Regular Respiratory Rate 18 19 18 Respiratory Effort / Characteristics Non-Labored Sponta neous Respiratory Depth Normal Respiratory Patter n Regular Blood Pressure 148/91 H 186/114 H Blood Pressure Roxi n 110 138 Blood Pressure Pos ition Sitting Pulse Oximetry 95 98 96 Oxygen Delivery Me thod Room Air Sepsis Recent Feve r Within 48 Hours No Sepsis New/Unexpla ined Change in Men lenan Status No Sepsis Action Take n by Nursing No Action Required 07/15/20 20:49 07/15/20 21:00 07/15/20 21:30 Temperature Temperature Source Pulse Rate 101 H 97 H Pulse Rate from Sp O2 Sensor 100 H 99 H Pulse Rhythm Respiratory Rate 23 19 Respiratory Effort / Characteristics Respiratory Depth Respiratory Patter n Blood Pressure 170/108 H Blood Pressure Roxi n 128 Blood Pressure Pos ition Pulse Oximetry 94 85 L 96 Oxygen Delivery Me thod Room Air Sepsis Recent Feve r Within 48 Hours Sepsis New/Unexpla ined Change in Men leann Status Sepsis Action Take n by Nursing 07/15/20 22:00 07/15/20 22:36 07/15/20 22:48 Temperature Temperature Source Pulse Rate 96 H 94 H Pulse Rate from Sp O2 Sensor 97 H 94 H Pulse Rhythm Respiratory Rate 19 16 Respiratory Effort / Characteristics Respiratory Depth Respiratory Patter n Blood Pressure 184/110 H 176/123 H Blood Pressure Roxi n 134 140 Blood Pressure Pos ition Pulse Oximetry 98 97 Oxygen Delivery Me thod Sepsis Recent Feve r Within 48 Hours Sepsis New/Unexpla ined Change in Men leann Status Sepsis Action Take n by Nursing 07/15/20 23:00 07/15/20 23:30 07/15/20 23:31 Temperature Temperature Source Pulse Rate 95 H 93 H 95 H Pulse Rate from Sp O2 Sensor 95 H 94 H 96 H Pulse Rhythm Respiratory Rate 19 17 15 Respiratory Effort / Characteristics Respiratory Depth Respiratory Patter n Blood Pressure 185/123 H Blood Pressure Roxi n 143 Blood Pressure Pos ition Pulse Oximetry 97 99 97 Oxygen Delivery Me thod Sepsis Recent Feve r Within 48 Hours Sepsis New/Unexpla ined Change in Men leann Status Sepsis Action Take n by Nursing Physical Exam: Physical Exam GENERAL: She is oriented to person, place, and time. She appears well-developed and well-nourished. She does not appear distressed. HENT: Exam performed. -Head: Normocephalic and atraumatic. -Right Ear: External ear normal. No mastoid tenderness. -Left Ear: External ear normal. No mastoid tenderness. -Mouth/Throat: The oropharynx is clear and moist. No trismus in the jaw. No dental abscesses or uvula swelling. No oropharyngeal exudate or tonsillar abscesses. EYES: Conjunctivae and EOM are normal. Pupils are equal, round, and reactive to light. Right eye exhibits no discharge. Left eye exhibits no discharge. No scleral icterus. NECK: Normal range of motion. Neck supple. No JVD present. No spinous process tenderness present. No carotid bruit present. No rigidity. No tracheal deviation and normal range of motion present. No Brudzinski's sign and no Kernig's sign noted. CV: Normal rate, regular rhythm, normal heart sounds and intact distal pulses. There is no peripheral edema. Palpable radial pulses bue. PULM/CHEST: Effort normal and breath sounds normal. No respiratory distress. No stridor. She has no wheezes. She has no rales. -Chest Wall: She exhibits no tenderness. ABD: The abdomen is soft. Bowel sounds are normal. She has no distension. No mass is present. There is tenderness to palpation of the epigastric area. There is no rebound, no guarding, no Carlos's sign and no tenderness at McBurney's point. Rovsig negative MUSC/SKEL: Normal range of motion. There is no peripheral edema, tenderness or deformity. LYMPH: No cervical adenopathy. NEURO: She is alert and oriented to person, place, and time. She has normal strength. No cranial nerve deficit or sensory deficit. Coordination and gait normal. GCS eye subscore is 4. GCS verbal subscore is 5. GCS motor subscore is 6. Cerebellar tests wnl. SKIN: Skin is warm and dry. She is not diaphoretic. PSYCH: She has a normal mood and affect. Behavior is normal. Judgment and thought content normal. Course Course 2005: The patient was evaluated in room B3. A complete history and physical exam was performed Cardiac monitoring: An order was placed for continuous cardiac monitoring. The monitor shows a rate of 90 with sinus rhythm 2352: Vital signs stable. Labs show platelets of 129. Lactic acid of 3.1, improved to 2.2 status post fluids. Total bilirubin is 1.5. Last month her total bilirubin was 0.2. AST and ALT are 267 and 339 respectively last month they were 8 and 13 respectively late. Alkaline phosphatase elevated 519. T roponin elevated 0.089. Patient reports no chest pain. Lipase is 80. Covid negative. Imaging of the brain is within normal limits.chest x-ray shows cardiomegaly with congestive failure. Patient not reporting any chest pain difficulty breathing at this time. CT of the abdomen shows periportal edema and engorgement of the IVC and hepatic veins. Pancreas is atrophied and there is nonspecific peripancreatic fluid. Given the patient's elevated liver enzymes, elevated bilirubin level, lactic acidemia, and elevated troponin [facility] Portillo has been notified. Administered Medications Discontinued Medications Diphenhydramine HCl (Diphenhydramine 50 Mg/Ml Vial) 25 mg IV NOW STA Stop: 07/15/20 20:14 Last Admin: 07/15/20 20:27 Dose: 25 mg Documented by: [id number] Sodium Chloride (Nss 1000ml) 1,000 mls @ 999 mls/hr IV .Q1H1M ONE Stop: 07/15/20 21:13 Last Infusion: 07/15/20 21:34 Dose: 0 mls/hr Documented by: [id number] Admin: 07/15/20 20:26 Dose: 999 mls/hr Documented by: [id number] Ioversol (Optiray 350 500ml) 119 ml IV ONCE ONE Stop: 07/15/20 22:24 Last Admin: 07/15/20 22:24 Dose: 119 ml Documented by: [id number] Metoclopramide HCl (Metoclopramide Hcl Inj 5 Mg/Ml 2 Ml Vial) 5 mg IV ONE ONE Stop: 07/15/20 20:14 Last Admin: 07/15/20 20:26 Dose: 5 mg Documented by: [id number] Medical Decision Making Laboratory Data Result diagrams: 07/15/20 Unknown 07/15/20 Unknown Lab Results 07/15/20 07/15/20 07/15/20 Range/Units 22:54 Unknown Unknown WBC 5.71 (4.8-10.8) K/uL RBC 3.84 L (4.2-5.4) M/uL Hgb 11.6 L (12.0-16.0) g/dL Hct 35.6 L (37-47) % MCV 92.7 (80-100) fL MCH 30.2 (25-34) pg MCHC 32.6 (32-36) g/dL RDW Std Deviation 77.8 H (36.4-46.3) fL RDW Coeff of Sly 23.9 H (11.5-14.5) % Plt Count 129 L (130-400) K/uL MPV 11.0 H (7.4-10.4) fL Immature Gran % (Auto) 0.2 % Neut % (Auto) 66.0 % Lymph % (Auto) 22.9 % [place] % (Auto) 10.7 % Eos % (Auto) 0.2 % Baso % (Auto) 0.0 % Neut # (Auto) 3.77 (1.4-6.5) K/uL Lymph # (Auto) 1.31 (1.2-3.4) K/uL [place] # (Auto) 0.61 H (0.11-0.59) K/uL Eos # (Auto) 0.01 (0-0.5) K/uL Baso # (Auto) 0.00 (0-0.2) K/uL Immature Gran # (Auto) 0.01 (0.00-0.02) K/uL Absolute Nucleated RBC 0.03 H (0-0) K/uL Nucleated RBC % (auto) 0.5 % Platelet Estimate Decreased L (Normal) Anisocytosis Present Target Cells 1+ [place] Bodies 1+ Echinocytes 1+ Acanthocytes (Spur) 1+ Schistocytes 1+ PT (9.0-12.0) Seconds INR (0.9-1.1) APTT (21.0-31.0) Seconds PTT Ratio Sodium 133 L (136-145) mmol/L Potassium 4.0 (3.5-5.1) mmol/L Chloride 105 (98-107) mmol/L Carbon Dioxide 18 L (21-32) mmol/L Anion Gap 10.0 (3-11) BUN 29 H (7-18) mg/dl Creatinine 1.33 H (0.6-1.2) mg/dl Est Cr Clr Drug Dosing 32.0 ml/min Est GFR ( Amer) 47.5 Est GFR (Non-Af Amer) 41.0 BUN/Creatinine Ratio 21.7 H (10-20) Glucose 122 H (70-99) mg/dl Lactate 3.1 H* (0.4-2.0) mmol/L Calcium 8.2 L (8.5-10.1) mg/dl Magnesium 2.3 (1.8-2.4) mg/dl Total Bilirubin 1.5 H (0.2-1) mg/dl Direct Bilirubin 0.8 H (0-0.2) mg/dl AST 267 H (15-37) U/L ALT 339 H (12-78) U/L Alkaline Phosphatase 519 H (45-117) U/L Troponin I 0.089 H* (0-0.045) ng/ml Total Protein 6.6 (6.4-8.2) gm/dl Albumin 2.8 L (3.4-5.0) gm/dl Lipase 80 (73-393) U/L COVID-19 Eval Order SARS-CoV-2 (PCR) (Negative) Influenza Type A (PCR) (Neg) Influenza Type B (PCR) (Neg) RSV (RT-PCR) (Neg) 07/15/20 07/15/20 07/15/20 Range/Units Unknown Unknown Unknown WBC (4.8-10.8) K/uL RBC (4.2-5.4) M/uL Hgb (12.0-16.0) g/dL Hct (37-47) % MCV (80-100) fL MCH (25-34) pg MCHC (32-36) g/dL RDW Std Deviation (36.4-46.3) fL RDW Coeff of Sly (11.5-14.5) % Plt Count (130-400) K/uL MPV (7.4-10.4) fL Immature Gran % (Auto) % Neut % (Auto) % Lymph % (Auto) % [place] % (Auto) % Eos % (Auto) % Baso % (Auto) % Neut # (Auto) (1.4-6.5) K/uL Lymph # (Auto) (1.2-3.4) K/uL [place] # (Auto) (0.11-0.59) K/uL Eos # (Auto) (0-0.5) K/uL Baso # (Auto) (0-0.2) K/uL Immature Gran # (Auto) (0.00-0.02) K/uL Absolute Nucleated RBC (0-0) K/uL Nucleated RBC % (auto) % Platelet Estimate (Normal) Anisocytosis Target Cells [place] Bodies Echinocytes Acanthocytes (Spur) Schistocytes PT 13.3 H (9.0-12.0) Seconds INR 1.3 H (0.9-1.1) APTT 29.5 (21.0-31.0) Seconds PTT Ratio 1.1 Sodium (136-145) mmol/L Potassium (3.5-5.1) mmol/L Chloride (98-107) mmol/L Carbon Dioxide (21-32) mmol/L Anion Gap (3-11) BUN (7-18) mg/dl Creatinine (0.6-1.2) mg/dl Est Cr Clr Drug Dosing ml/min Est GFR ( Amer) Est GFR (Non-Af Amer) BUN/Creatinine Ratio (10-20) Glucose (70-99) mg/dl Lactate 2.2 H* (0.4-2.0) mmol/L Calcium (8.5-10.1) mg/dl Magnesium (1.8-2.4) mg/dl Total Bilirubin (0.2-1) mg/dl Direct Bilirubin (0-0.2) mg/dl AST (15-37) U/L ALT (12-78) U/L Alkaline Phosphatase (45-117) U/L Troponin I (0-0.045) ng/ml Total Protein (6.4-8.2) gm/dl Albumin (3.4-5.0) gm/dl Lipase (73-393) U/L COVID-19 Eval Order [facility]FluRsv at [facility] SARS-CoV-2 (PCR) (Negative) Influenza Type A (PCR) (Neg) Influenza Type B (PCR) (Neg) RSV (RT-PCR) (Neg) 07/15/20 Range/Units Unknown WBC (4.8-10.8) K/uL RBC (4.2-5.4) M/uL Hgb (12.0-16.0) g/dL Hct (37-47) % MCV (80-100) fL MCH (25-34) pg MCHC (32-36) g/dL RDW Std Deviation (36.4-46.3) fL RDW Coeff of Sly (11.5-14.5) % Plt Count (130-400) K/uL MPV (7.4-10.4) fL Immature Gran % (Auto) % Neut % (Auto) % Lymph % (Auto) % [place] % (Auto) % Eos % (Auto) % Baso % (Auto) % Neut # (Auto) (1.4-6.5) K/uL Lymph # (Auto) (1.2-3.4) K/uL [place] # (Auto) (0.11-0.59) K/uL Eos # (Auto) (0-0.5) K/uL Baso # (Auto) (0-0.2) K/uL Immature Gran # (Auto) (0.00-0.02) K/uL Absolute Nucleated RBC (0-0) K/uL Nucleated RBC % (auto) % Platelet Estimate (Normal) Anisocytosis Target Cells [place] Bodies Echinocytes Acanthocytes (Spur) Schistocytes PT (9.0-12.0) Seconds INR (0.9-1.1) APTT (21.0-31.0) Seconds PTT Ratio Sodium (136-145) mmol/L Potassium (3.5-5.1) mmol/L Chloride (98-107) mmol/L Carbon Dioxide (21-32) mmol/L Anion Gap (3-11) BUN (7-18) mg/dl Creatinine (0.6-1.2) mg/dl Est Cr Clr Drug Dosing ml/min Est GFR ( Amer) Est GFR (Non-Af Amer) BUN/Creatinine Ratio (10-20) Glucose (70-99) mg/dl Lactate (0.4-2.0) mmol/L Calcium (8.5-10.1) mg/dl Magnesium (1.8-2.4) mg/dl Total Bilirubin (0.2-1) mg/dl Direct Bilirubin (0-0.2) mg/dl AST (15-37) U/L ALT (12-78) U/L Alkaline Phosphatase (45-117) U/L Troponin I (0-0.045) ng/ml Total Protein (6.4-8.2) gm/dl Albumin (3.4-5.0) gm/dl Lipase (73-393) U/L COVID-19 Eval Order SARS-CoV-2 (PCR) NEGATIVE (Negative) Influenza Type A (PCR) Negative (Neg) Influenza Type B (PCR) Negative (Neg) RSV (RT-PCR) Negative (Neg) Imaging Data Radiologist's Impression: Abdomen/Pelvis CT 07/15/20 20:13 CT SCAN OF THE ABDOMEN AND PELVIS WITH IV CONTRAST CLINICAL HISTORY: Vomiting. COMPARISON STUDY: Abdominal CT dated 05/29/2012. TECHNIQUE: Following the IV administration of 119 cc of Optiray 350, CT scan of the abdomen and pelvis is performed from the lung bases to the proximal femora. Images are reviewed in the axial, sagittal, and coronal planes. IV contrast was administered without complication. A dose lowering technique was utilized adhering to the principles of ALARA. FINDINGS: Lung bases: The heart is enlarged and and without pericardial effusion. Emphysematous change is noted. There are left larger than right pleural effusions with bibasilar atelectasis. Liver: The contrast-enhanced liver is enlarged, measuring 21.6 cm in length. The liver is markedly heterogeneous in attenuation. There is no intrahepatic biliary ductal dilatation. The hepatic veins and portal veins are patent. There is periportal edema. Engorgement of the IVC and hepatic veins suggests right-sided heart failure. Gallbladder: Not identified and presumed surgically absent. Spleen: Diminutive. Pancreas: Unenhanced pancreas is atrophic and heterogeneous. There is nonspecific peripancreatic fluid. Adrenal glands: The adrenal glands appear hyperemic. Kidneys: The contrast enhanced kidneys are atrophic and without hydronephrosis. The kidneys enhance symmetrically. Foci of cortical scarring are noted in both kidneys, left greater than right. Scattered subcentimeter cortical hypodensities likely represent cysts but are too small for definitive characterization. Abdominal vasculature: The abdominal aorta is normal in course and caliber noting advanced atherosclerotic plaque and irregularity. Stomach and bowel: Postoperative change is noted involving the stomach, consis tent with distal gastrectomy and gastrojejunostomy. There is moderate sigmoid diverticulosis without CT evidence of acute diverticulitis. No bowel obstruction is seen. The appendix is not visualized. Peritoneum: There is a small volume of abdominopelvic ascites. No intraperitoneal free air is seen. Lymphadenopathy: None. Pelvic viscera: The bladder, uterus, and adnexa are normal as visualized. Skeletal structures: The skeletal structures are osteopenic. There is mild lumbosacral spondylosis. No lytic or blastic lesions are seen. Soft tissues: There is body wall edema. IMPRESSION: 1. Cardiomegaly and emphysema. 2. Bilateral pleural effusions, a small volume of abdominopelvic ascites, and body wall edema indicate fluid overload. 3. The liver is enlarged and heterogeneous. There is periportal edema as well as engorgement of the IVC and hepatic veins. These findings are nonspecific and could represent congestive hepatopathy. 4. The pancreas is atrophic and there is nonspecific peripancreatic fluid. This may simply represent abdominal ascites. Correlate clinically and with serum lipase levels for evidence of superimposed pancreatitis. 5. Postoperative change is noted involving the stomach. No bowel obstruction is identified. 6. Colonic diverticulosis without CT evidence of acute diverticulitis. 7. The adrenal glands appear hyperemic, which is nonspecific and can be seen with hypotension. Correlate clinically. 8. Additional findings as above. ACT 112: Negative or not required by law. Electronically signed by: Matias Monroe M.D. 07/15/2020 11:21 PM Chest X-Ray 07/15/20 20:13 SINGLE VIEW CHEST CLINICAL HISTORY: Vomiting FINDINGS: An AP, portable, upright chest radiograph is compared to study dated 11/26/2018 and correlated with chest CT dated 04/21/2020. The heart is enlarged noting atherosclerotic calcification of the thoracic aorta. The pulmonary vasculature is noncongested. Emphysema and chronic interstitial thickening are similar to previous. There is a small left pleural effusion with left basilar consolidation. The right lung appears clear. No pneumothorax is seen. The skeletal structures are osteopenic. The bony thorax is grossly intact. IMPRESSION: 1. Cardiomegaly and emphysema without radiographic evidence of congestive failure. 2. Left pleural effusion with associated left basilar consolidation. Correlate clinically for evidence of pneumonia/aspiration pneumonitis. Radiographic follow-up to resolution is recommended. ACT 112: Negative or not required by law. Electronically signed by: Matias Monroe M.D. 07/15/2020 8:[address] 07/15/20 20:[address] OF THE BRAIN; CT ANGIOGRAM OF THE BRAIN; CT ANGIOGRAM OF THE NECK CLINICAL HISTORY: Vomiting. COMPARISON STUDY: CT angiogram of the head and neck dated 05/21/2019. TECHNIQUE: Unenhanced axial CT scan of the brain is performed. Subsequently, following the IV administration of 119 of Optiray 350, CT angiogram of the head and neck was performed from the aortic arch to the vertex. Images are reviewed in the axial, sagittal, and coronal planes. 3-D MIPS images are created and assessed. IV contrast was administered without complication. All measurements were calculated based on NASCET criteria. A dose lowering technique was utilized adhering to the principles of ALARA. CT DOSE: 1240.97 mGy.cm FINDINGS: Brain parenchyma: Foci of left frontal, parietal, and occipital encephalomalacia as well as right cerebellar encephalomalacia are unchanged and consistent with remote insult. The brain parenchyma is normal in appearance. There is no hemorrhage, mass effect, or evidence of acute territorial ischemia by CT criteria. A chronic lacunar infarct is noted in the right caudate head. There is minimal microangiopathic change. There is no evidence of enhancing mass lesion on the angiogram phase images. The ventricles, sulci, and cisterns prominent secondary to involutional change. Blood-white matter differentiation is preserved. No extra-axial fluid collection is seen. Thoracic aorta: There is advanced atherosclerotic calcification of the thoracic aorta. Visualized portions of the thoracic aorta are normal in caliber. Right carotid arterial system: There is atherosclerotic plaque with less than 50% stenosis of the right innominate artery. The right common carotid artery is patent. Atherosclerotic plaque causes less than 50% luminal narrowing distally. Atherosclerotic plaque in the carotid bulb and proximal internal carotid artery contributing less than 50% luminal narrowing. The distal right internal carotid artery demonstrate a beaded appearance suggesting fibromuscular dysplasia. The right external carotid artery is patent. 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 There is an occluded left subclavian to internal carotid artery bypass graft. The left internal carotid artery in the neck is occluded. There is reconstitution of flow within the external carotid artery seen on image #[id number]. Vertebral arteries: There is high-grade stenosis at the origin of the right vertebral artery. The vertebral arteries are otherwise patent in the neck noting left-sided dominance. Subclavian arteries: There is atherosclerotic plaque with minimal luminal narrowing of the left subclavian artery. The right subclavian artery is widely patent. Intracranial vasculature: There is atherosclerotic calcification of the cavernous carotid arteries. A stent is noted in the right cavernous carotid artery. The right internal carotid artery is patent at the skull base. A right internal carotid artery stent is patent. The left internal carotid artery is occluded at the skull base. The anterior and middle cerebral arteries are patent bilaterally. The left middle cervical artery is smaller than the right. There is a right posterior communicating artery. The right P1 segment is diminutive. The vertebrobasilar system and posterior cerebral arteries are widely patent. The left vertebral artery is dominant. The right vertebral artery is diminutive. No aneurysm is seen. Jugular veins: Patent bilaterally. Dural sinuses: Patent. Lung apices: Advanced emphysematous change is noted. Moderate left and small right pleural effusions are partially visualized with associated atelectasis. Soft tissues: The visualized pharyngeal soft tissues are normal in appearance noting angiographic phase technique. The oropharyngeal airway appears widely patent. A 5 mm low-attenuation nodule is noted in the left lobe of the thyroid gland. The thyroid is otherwise normal in appearance. The salivary glands are unremarkable. No cervical lymphadenopathy is seen. Skeletal structures: The skeletal structures are osteopenic. There is postoperative change from previous left-sided craniotomy. No destructive calvarial lesion is identified. The cervical spine is maintained noting multilevel spondylosis. No lytic or blastic lesion is seen. Orbits: The bony orbits are intact. Orbital contents are normal as visualized. Sinuses and mastoids: The paranasal sinuses are clear. The mastoid air cells are well pneumatized. IMPRESSION: 1. Chronic and postoperative changes as above with no hemorrhage, mass effect, or evidence of acute territorial ischemia by CT criteria. 2. 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 This is unchanged from 05/21/2019. 3. The right carotid arterial system is patent. Atherosclerotic plaque causes less than 50% narrowing of the distal common carotid and the proximal internal carotid artery in the right. 4. The right internal carotid artery demonstrate a beaded appearance suggesting fibromuscular dysplasia. 5. There is high-grade stenosis at the origin of the right vertebral artery. The vertebral arteries are otherwise clear. 6. The intracranial vessels are patent, including a stent within the right cavernous carotid artery. 7. Left larger than right pleural effusions. 8. Advanced emphysema. 9. Additional findings as above. ACT 112: Negative or not required by law. Electronically signed by: Matias Monroe M.D. 07/15/2020 11:02 PM Head CTA 07/15/20 20:[address] OF THE BRAIN; CT ANGIOGRAM OF THE BRAIN; CT ANGIOGRAM OF THE NECK CLINICAL HISTORY: Vomiting. COMPARISON STUDY: CT angiogram of the head and neck dated 05/21/2019. TECHNIQUE: Unenhanced axial CT scan of the brain is performed. Subsequently, following the IV administration of 119 of Optiray 350, CT angiogram of the head and neck was performed from the aortic arch to the vertex. Images are reviewed in the axial, sagittal, and coronal planes. 3-D MIPS images are created and assessed. IV contrast was administered without complication. All measurements were calculated based on NASCET criteria. A dose lowering technique was utilized adhering to the principles of ALARA. CT DOSE: 1240.97 mGy.cm FINDINGS: Brain parenchyma: Foci of left frontal, parietal, and occipital encephalomalacia as well as right cerebellar encephalomalacia are unchanged and consistent with remote insult. The brain parenchyma is normal in appearance. There is no hemorrhage, mass effect, or evidence of acute territorial ischemia by CT criteria. A chronic lacunar infarct is noted in the right caudate head. There is minimal microangiopathic change. There is no evidence of enhancing mass lesion on the angiogram phase images. The ventricles, sulci, and cisterns prominent secondary to involutional change. Blood-white matter differentiation is preserved. No extra-axial fluid collection is seen. Thoracic aorta: There is advanced atherosclerotic calcification of the thoracic aorta. Visualized portions of the thoracic aorta are normal in caliber. Right carotid arterial system: There is atherosclerotic plaque with less than 50% stenosis of the right innominate artery. The right common carotid artery is patent. Atherosclerotic plaque causes less than 50% luminal narrowing distally. Atherosclerotic plaque in the carotid bulb and proximal internal carotid artery contributing less than 50% luminal narrowing. The distal right internal carotid artery demonstrate a beaded appearance suggesting fibromuscular dysplasia. The right external carotid artery is patent. 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 There is an occluded left subclavian to internal carotid artery bypass graft. The left internal carotid artery in the neck is occluded. There is reconstitution of flow within the external carotid artery seen on image #172. Vertebral arteries: There is high-grade stenosis at the origin of the right vertebral artery. The vertebral arteries are otherwise patent in the neck noting left-sided dominance. Subclavian arteries: There is atherosclerotic plaque with minimal luminal narrowing of the left subclavian artery. The right subclavian artery is widely patent. Intracranial vasculature: There is atherosclerotic calcification of the cavernous carotid arteries. A stent is noted in the right cavernous carotid artery. The right internal carotid artery is patent at the skull base. A right internal carotid artery stent is patent. The left internal carotid artery is occluded at the skull base. The anterior and middle cerebral arteries are patent bilaterally. The left middle cervical artery is smaller than the right. There is a right posterior communicating artery. The right P1 segment is diminutive. The vertebrobasilar system and posterior cerebral arteries are widely patent. The left vertebral artery is dominant. The right vertebral artery is diminutive. No aneurysm is seen. Jugular veins: Patent bilaterally. Dural sinuses: Patent. Lung apices: Advanced emphysematous change is noted. Moderate left and small right pleural effusions are partially visualized with associated atelectasis. Soft tissues: The visualized pharyngeal soft tissues are normal in appearance noting angiographic phase technique. The oropharyngeal airway appears widely patent. A 5 mm low-attenuation nodule is noted in the left lobe of the thyroid gland. The thyroid is otherwise normal in appearance. The salivary glands are unremarkable. No cervical lymphadenopathy is seen. Skeletal structures: The skeletal structures are osteopenic. There is postoperative change from previous left-sided craniotomy. No destructive calvarial lesion is identified. The cervical spine is maintained noting multilevel spondylosis. No lytic or blastic lesion is seen. Orbits: The bony orbits are intact. Orbital contents are normal as visualized. Sinuses and mastoids: The paranasal sinuses are clear. The mastoid air cells are well pneumatized. IMPRESSION: 1. Chronic and postoperative changes as above with no hemorrhage, mass effect, or evidence of acute territorial ischemia by CT criteria. 2. 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 This is unchanged from 05/21/2019. 3. The right carotid arterial system is patent. Atherosclerotic plaque causes less than 50% narrowing of the distal common carotid and the proximal internal carotid artery in the right. 4. The right internal carotid artery demonstrate a beaded appearance suggesting fibromuscular dysplasia. 5. There is high-grade stenosis at the origin of the right vertebral artery. The vertebral arteries are otherwise clear. 6. The intracranial vessels are patent, including a stent within the right cavernous carotid artery. 7. Left larger than right pleural effusions. 8. Advanced emphysema. 9. Additional findings as above. ACT 112: Negative or not required by law. Electronically signed by: Matias Monroe M.D. 07/15/2020 11:02 PM Neck CTA 07/15/20 20:[address] OF THE BRAIN; CT ANGIOGRAM OF THE BRAIN; CT ANGIOGRAM OF THE NECK CLINICAL HISTORY: Vomiting. COMPARISON STUDY: CT angiogram of the head and neck dated 05/21/2019. TECHNIQUE: Unenhanced axial CT scan of the brain is performed. Subsequently, following the IV administration of 119 of Optiray 350, CT angiogram of the head and neck was performed from the aortic arch to the vertex. Images are reviewed in the axial, sagittal, and coronal planes. 3-D MIPS images are created and assessed. IV contrast was administered without complication. All measurements w ere calculated based on NASCET criteria. A dose lowering technique was utilized adhering to the principles of ALARA. CT DOSE: 1240.97 mGy.cm FINDINGS: Brain parenchyma: Foci of left frontal, parietal, and occipital encephalomalacia as well as right cerebellar encephalomalacia are unchanged and consistent with remote insult. The brain parenchyma is normal in appearance. There is no hemorrhage, mass effect, or evidence of acute territorial ischemia by CT criteria. A chronic lacunar infarct is noted in the right caudate head. There is minimal microangiopathic change. There is no evidence of enhancing mass lesion on the angiogram phase images. The ventricles, sulci, and cisterns prominent secondary to involutional change. Blood-white matter differentiation is preserved. No extra-axial fluid collection is seen. Thoracic aorta: There is advanced atherosclerotic calcification of the thoracic aorta. Visualized portions of the thoracic aorta are normal in caliber. Right carotid arterial system: There is atherosclerotic plaque with less than 50% stenosis of the right innominate artery. The right common carotid artery is patent. Atherosclerotic plaque causes less than 50% luminal narrowing distally. Atherosclerotic plaque in the carotid bulb and proximal internal carotid artery contributing less than 50% luminal narrowing. The distal right internal carotid artery demonstrate a beaded appearance suggesting fibromuscular dysplasia. The right external carotid artery is patent. 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 There is an occluded left subclavian to internal carotid artery bypass graft. The left internal carotid artery in the neck is occluded. There is reconstitution of flow within the external carotid artery seen on image #172. Vertebral arteries: There is high-grade stenosis at the origin of the right no tebral artery. The vertebral arteries are otherwise patent in the neck noting left-sided dominance. Subclavian arteries: There is atherosclerotic plaque with minimal luminal narrowing of the left subclavian artery. The right subclavian artery is widely patent. Intracranial vasculature: There is atherosclerotic calcification of the cavernous carotid arteries. A stent is noted in the right cavernous carotid artery. The right internal carotid artery is patent at the skull base. A right internal carotid artery stent is patent. The left internal carotid artery is occluded at the skull base. The anterior and middle cerebral arteries are patent bilaterally. The left middle cervical artery is smaller than the right. There is a right posterior communicating artery. The right P1 segment is diminutive. The vertebrobasilar system and posterior cerebral arteries are widely patent. The left vertebral artery is dominant. The right vertebral artery is diminutive. No aneurysm is seen. Jugular veins: Patent bilaterally. Dural sinuses: Patent. Lung apices: Advanced emphysematous change is noted. Moderate left and small right pleural effusions are partially visualized with associated atelectasis. Soft tissues: The visualized pharyngeal soft tissues are normal in appearance noting angiographic phase technique. The oropharyngeal airway appears widely patent. A 5 mm low-attenuation nodule is noted in the left lobe of the thyroid gland. The thyroid is otherwise normal in appearance. The salivary glands are unremarkable. No cervical lymphadenopathy is seen. Skeletal structures: The skeletal structures are osteopenic. There is postoperative change from previous left-sided craniotomy. No destructive calvarial lesion is identified. The cervical spine is maintained noting multilevel spondylosis. No lytic or blastic lesion is seen. Orbits: The bony orbits are intact. Orbital contents are normal as visualized. Sinuses and mastoids: The paranasal sinuses are clear. The mastoid air cells are well pneumatized. IMPRESSION: 1. Chronic and postoperative changes as above with no hemorrhage, mass effect, or evidence of acute territorial ischemia by CT criteria. 2. 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 This is unchanged from 05/21/2019. 3. The right carotid arterial system is patent. Atherosclerotic plaque causes less than 50% narrowing of the distal common carotid and the proximal internal carotid artery in the right. 4. The right internal carotid artery demonstrate a beaded appearance suggesting fibromuscular dysplasia. 5. There is high-grade stenosis at the origin of the right vertebral artery. The vertebral arteries are otherwise clear. 6. The intracranial vessels are patent, including a stent within the right cavernous carotid artery. 7. Left larger than right pleural effusions. 8. Advanced emphysema. 9. Additional findings as above. ACT 112: Negative or not required by law. Electronically signed by: Matias Monroe M.D. 07/15/2020 11:02 PM ECG Data Indication: abdominal pain Rate (beats per minute): 95 Rhythm: normal sinus Findings: no ST depression, no ST elevation and no prolonged QT MDM Narrative 2005: The patient was evaluated in room B3. A complete history and physical exam was performed Cardiac monitoring: An order was placed for continuous cardiac monitoring. The monitor shows a rate of 90 with sinus rhythm 2352: Vital signs stable. Labs show platelets of 129. Lactic acid of 3.1, improved to 2.2 status post fluids. Total bilirubin is 1.5. Last month her total bilirubin was 0.2. AST and ALT are 267 and 339 respectively last month they were 8 and 13 respectively late. Alkaline phosphatase elevated 519. Troponin elevated 0.089. Patient reports no chest pain. Lipase is 80. Covid negative. Imaging of the brain is within normal limits.chest x-ray shows cardiomegaly with congestive failure. Patient not reporting any chest pain di fficulty breathing at this time. CT of the abdomen shows periportal edema and engorgement of the IVC and hepatic veins. Pancreas is atrophied and there is nonspecific peripancreatic fluid. Given the patient's elevated liver enzymes, elevated bilirubin level, lactic acidemia, and elevated troponin the patient will be admitted to the [facility] hospitalist team. Dr. Portillo has been notified. Impression & Plan Transaminitis, Lactic acidemia, Elevated troponin, Jaundice Discharge Plan Visit Data Chief Complaint: Nausea Stated Complaint: NAUSEA,VOMITING ED Provider: Joseph Graff Discharge Problem: Transaminitis, Lactic acidemia, Elevated troponin, Jaundice Patient Disposition: Admitted As Inpatient Forms Stand Alone Forms: My [facility] [address] Prescriptions Prescriptions: No Action iron dextran 50 mg/mL solution 50 mg IM PRN RF: 0 budesonide-formoterol 160-4.5 mcg/actuation HFA aerosol inhaler 2 puff inhalation BID Qty: 10.2 RF: 3 (DME) Aerochamber Plus Z Stat Spacer See Rx Instructions .ROUTE .MEDSUPPLY Qty: 1 RF: 0 aspirin 325 mg tablet 325 mg PO QAM RF: 0 cyanocobalamin (vitamin B-12) 1,000 mcg/mL Kit 1,000 mcg IM MONTHLY RF: 0 acetaminophen [Tylenol] 325 mg tablet 1,000 mg PO Q4H PRN (Reason: Pain) RF: 0 Referrals Referrals: Anjel Eid MD [Primary Care Provider] -
[2020-07-15 20:50] LABS: Mean Corpuscular Hgb Conc 32.6 g/dL (32-36); Nucleated RBC # (auto) 0.03 K/uL (0-0); Nucleated RBC % (auto) 0.5 %
[2020-07-15 20:56] LABS: INR 1.3 (0.9-1.1); Partial Thromboplastin Ratio 1.1; Partial Thromboplastin Time 29.5 Seconds (21.0-31.0); Prothrombin Time 13.3 Seconds (9.0-12.0)
--- NOTE | 2020-07-15 20:57 | XRay Report ---
SINGLE VIEW CHEST CLINICAL HISTORY: Vomiting FINDINGS: An AP, portable, upright chest radiograph is compared to study dated 11/26/2018 and correlate d with chest CT dated 04/21/2020. The heart is enlarged noting atherosclerotic calcification of the th oracic aorta. The pulmonary vasculature is noncongested. Emphysema and chronic interstitial thickenin g are similar to previous. There is a small left pleural effusion with left basilar consolidation. Th e right lung appears clear. No pneumothorax is seen. The skeletal structures are osteopenic. The bony thorax is grossly intact. IMPRESSION: 1. Cardiomegaly and emphysema without radiographic evidence of congestive failure. 2. Left pleural effusion with associated left basilar consolidation. Correlate clinically for evidenc e of pneumonia/aspiration pneumonitis. Radiographic follow-up to resolution is recommended. ACT 112: Negative or not required by law. Electronically signed by: Matias Monroe M.D. 07/15/2020 8:56 PM
[2020-07-15 21:03] LABS: Albumin Level 2.8 gm/dl (3.4-5.0); BUN Creatinine Ratio 21.7 (10-20); Bilirubin Direct 0.8 mg/dl (0-0.2); Calcium 8.2 mg/dl (8.5-10.1); Est GFR (African American) 47.5; Magnesium 2.3 mg/dl (1.8-2.4)
[2020-07-15 21:11] LABS: Bilirubin,Total 1.5 mg/dl (0.2-1); Total Protein 6.6 gm/dl (6.4-8.2); Troponin I 0.089 ng/ml (0-0.045)
[2020-07-15 21:20] LABS: Acanthocytes 1+; Anisocytosis Present; Echinocytes 1+; Eosinophils # (auto) 0.01 K/uL (0-0.5); Eosinophils % (auto) 0.2 %; Hematocrit (blood only) 35.6 % (37-47); Hemoglobin 11.6 g/dL (12.0-16.0); Howell-Jolly Bodies 1+; Immature Granulocytes # (auto) 0.01 K/uL (0.00-0.02); Immature Granulocytes % (auto) 0.2 %; Lymphocytes # (auto) 1.31 K/uL (1.2-3.4); Lymphocytes % (auto) 22.9 %; Mean Corpuscular Hemoglobin 30.2 pg (25-34); Mean Corpuscular Volume 92.7 fL (80-100); Monocytes # (auto) 0.61 K/uL (0.11-0.59); Monocytes % (auto) 10.7 %; Neutrophils # (auto) 3.77 K/uL (1.4-6.5); Platelet Count 129 K/uL (130-400); Platelet Estimate Decreased (Normal); RDW Coefficient of Variation 23.9 % (11.5-14.5); RDW Standard Deviation 77.8 fL (36.4-46.3); Red Blood Count 3.84 M/uL (4.2-5.4); Schistocytes 1+; Target Cells 1+; White Blood Count 5.71 K/uL (4.8-10.8)
[2020-07-15 21:37] LABS: Influenza A virus by PCR Negative (Neg); Influenza B virus by PCR Negative (Neg); RSV by PCR Negative (Neg); SARS CoV2 RNA(COVID-19) InHosp NEGATIVE (Negative)
[2020-07-15] MEDS ORDERED: OPTIRAY 350 500ml IV ONE (22:23)
--- NOTE | 2020-07-15 23:04 | CT Scan Report ---
UNENHANCED CT OF THE BRAIN; CT ANGIOGRAM OF THE BRAIN; CT ANGIOGRAM OF THE NECK CLINICAL HISTORY: Vomiting. COMPARISON STUDY: CT angiogram of the head and neck dated 05/21/2019. TECHNIQUE: Unenhanced axial CT scan of the brain is performed. Subsequently, following the IV adminis tration of 119 of Optiray 350, CT angiogram of the head and neck was performed from the aortic arch t o the vertex. Images are reviewed in the axial, sagittal, and coronal planes. 3-D MIPS images are cre ated and assessed. IV contrast was administered without complication. All measurements were calculate d based on NASCET criteria. A dose lowering technique was utilized adhering to the principles of ALA RA. CT DOSE: 1240.97 mGy.cm FINDINGS: Brain parenchyma: Foci of left frontal, parietal, and occipital encephalomalacia as well as right cer ebellar encephalomalacia are unchanged and consistent with remote insult. The brain parenchyma is nor mal in appearance. There is no hemorrhage, mass effect, or evidence of acute territorial ischemia by CT criteria. A chronic lacunar infarct is noted in the right caudate head. There is minimal microangi opathic change. There is no evidence of enhancing mass lesion on the angiogram phase images. The vent ricles, sulci, and cisterns prominent secondary to involutional change. Blood-white matter differentia tion is preserved. No extra-axial fluid collection is seen. Thoracic aorta: There is advanced atherosclerotic calcification of the thoracic aorta. Visualized por tions of the thoracic aorta are normal in caliber. Right carotid arterial system: There is atherosclerotic plaque with less than 50% stenosis of the rig ht innominate artery. The right common carotid artery is patent. Atherosclerotic plaque causes less t welch 50% luminal narrowing distally. Atherosclerotic plaque in the carotid bulb and proximal internal carotid artery contributing less than 50% luminal narrowing. The distal right internal carotid artery demonstrate a beaded appearance suggesting fibromuscular dysplasia. The right external carotid arter y is patent. 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 There i s an occluded left subclavian to internal carotid artery bypass graft. The left internal carotid adelia ry in the neck is occluded. There is reconstitution of flow within the external carotid artery seen o n image #172. Vertebral arteries: There is high-grade stenosis at the origin of the right vertebral artery. The no tebral arteries are otherwise patent in the neck noting left-sided dominance. Subclavian arteries: There is atherosclerotic plaque with minimal luminal narrowing of the left subcl emerson artery. The right subclavian artery is widely patent. Intracranial vasculature: There is atherosclerotic calcification of the cavernous carotid arteries. A stent is noted in the right cavernous carotid artery. The right internal carotid artery is patent at the skull base. A right internal carotid artery stent is patent. The left internal carotid artery is occluded at the skull base. The anterior and middle cerebral arteries are patent bilaterally. The le ft middle cervical artery is smaller than the right. There is a right posterior communicating artery. The right P1 segment is diminutive. The vertebrobasilar system and posterior cerebral arteries are w idely patent. The left vertebral artery is dominant. The right vertebral artery is diminutive. No ane urysm is seen. Jugular veins: Patent bilaterally. Dural sinuses: Patent. Lung apices: Advanced emphysematous change is noted. Moderate left and small right pleural effusions are partially visualized with associated atelectasis. Soft tissues: The visualized pharyngeal soft tissues are normal in appearance noting angiographic pha se technique. The oropharyngeal airway appears widely patent. A 5 mm low-attenuation nodule is noted in the left lobe of the thyroid gland. The thyroid is otherwise normal in appearance. The salivary gl ands are unremarkable. No cervical lymphadenopathy is seen. Skeletal structures: The skeletal structures are osteopenic. There is postoperative change from previ ous left-sided craniotomy. No destructive calvarial lesion is identified. The cervical spine is maint ained noting multilevel spondylosis. No lytic or blastic lesion is seen. Orbits: The bony orbits are intact. Orbital contents are normal as visualized. Sinuses and mastoids: The paranasal sinuses are clear. The mastoid air cells are well pneumatized. IMPRESSION: 1. Chronic and postoperative changes as above with no hemorrhage, mass effect, or evidence of acute t erritorial ischemia by CT criteria. 2. 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 This is unchanged from 05/21/2019. 3. The right carotid arterial system is patent. Atherosclerotic plaque causes less than 50% narrowing of the distal common carotid and the proximal internal carotid artery in the right. 4. The right internal carotid artery demonstrate a beaded appearance suggesting fibromuscular dysplas ia. 5. There is high-grade stenosis at the origin of the right vertebral artery. The vertebral arteries a re otherwise clear. 6. The intracranial vessels are patent, including a stent within the right cavernous carotid artery. 7. Left larger than right pleural effusions. 8. Advanced emphysema. 9. Additional findings as above. ACT 112: Negative or not required by law. Electronically signed by: Matias Monroe M.D. 07/15/2020 11:02 PM
--- NOTE | 2020-07-15 23:22 | CT Scan Report ---
CT SCAN OF THE ABDOMEN AND PELVIS WITH IV CONTRAST CLINICAL HISTORY: Vomiting. COMPARISON STUDY: Abdominal CT dated 05/29/2012. TECHNIQUE: Following the IV administration of 119 cc of Optiray 350, CT scan of the abdomen and pelv is is performed from the lung bases to the proximal femora. Images are reviewed in the axial, sagitta l, and coronal planes. IV contrast was administered without complication. A dose lowering technique w as utilized adhering to the principles of ALARA. FINDINGS: Lung bases: The heart is enlarged and and without pericardial effusion. Emphysematous change is noted . There are left larger than right pleural effusions with bibasilar atelectasis. Liver: The contrast-enhanced liver is enlarged, measuring 21.6 cm in length. The liver is markedly he terogeneous in attenuation. There is no intrahepatic biliary ductal dilatation. The hepatic veins and portal veins are patent. There is periportal edema. Engorgement of the IVC and hepatic veins suggest s right-sided heart failure. Gallbladder: Not identified and presumed surgically absent. Spleen: Diminutive. Pancreas: Unenhanced pancreas is atrophic and heterogeneous. There is nonspecific peripancreatic flui d. Adrenal glands: The adrenal glands appear hyperemic. Kidneys: The contrast enhanced kidneys are atrophic and without hydronephrosis. The kidneys enhance s ymmetrically. Foci of cortical scarring are noted in both kidneys, left greater than right. Scattered subcentimeter cortical hypodensities likely represent cysts but are too small for definitive charact erization. Abdominal vasculature: The abdominal aorta is normal in course and caliber noting advanced atheroscle rotic plaque and irregularity. Stomach and bowel: Postoperative change is noted involving the stomach, consistent with distal gastre ctomy and gastrojejunostomy. There is moderate sigmoid diverticulosis without CT evidence of acute di verticulitis. No bowel obstruction is seen. The appendix is not visualized. Peritoneum: There is a small volume of abdominopelvic ascites. No intraperitoneal free air is seen. Lymphadenopathy: None. Pelvic viscera: The bladder, uterus, and adnexa are normal as visualized. Skeletal structures: The skeletal structures are osteopenic. There is mild lumbosacral spondylosis. N o lytic or blastic lesions are seen. Soft tissues: There is body wall edema. IMPRESSION: 1. Cardiomegaly and emphysema. 2. Bilateral pleural effusions, a small volume of abdominopelvic ascites, and body wall edema indicat e fluid overload. 3. The liver is enlarged and heterogeneous. There is periportal edema as well as engorgement of the I VC and hepatic veins. These findings are nonspecific and could represent congestive hepatopathy. 4. The pancreas is atrophic and there is nonspecific peripancreatic fluid. This may simply represent abdominal ascites. Correlate clinically and with serum lipase levels for evidence of superimposed vora creatitis. 5. Postoperative change is noted involving the stomach. No bowel obstruction is identified. 6. Colonic diverticulosis without CT evidence of acute diverticulitis. 7. The adrenal glands appear hyperemic, which is nonspecific and can be seen with hypotension. Correl ate clinically. 8. Additional findings as above. ACT 112: Negative or not required by law. Electronically signed by: Matias Monroe M.D. 07/15/2020 11:21 PM
[2020-07-16 00:22] LABS: Appearance Urine Clear (Clear); Bacteria Urine Automated Negative (Negative); Bilirubin Urine Negative (Negative); Blood Urine 1+ (Negative); Color Urine Yellow; Glucose Urine UA Negative (Negative); Ketones Urine Negative (Negative); Leukocyte Esterase Urine Negative (Negative); Nitrite Urine Negative (Negative); Protein Urine 2+ (Negative); RBC Urine Automated 0-4 /hpf (0-4); Specific Gravity Urine > 1.045 (1.000-1.030); Urobilinogen Urine Negative (Negative); pH Urine 5.5 (4.5-7.5)
--- NOTE | 2020-07-16 00:44 | History & Physical Report ---
Date of Service July 16, 2020 Assessment & Plan (1) Nausea: Patient presents with 3 weeks of nausea found with abnormal LFTs -Zofran PRN -IVF and electrolyte repletion Present on Admission?: Yes (2) Transaminitis: Elevated liver enzymes in mixed pattern. SV=160 and TBili=1.5. Some suggestion of synthetic dysfunction, INR=1.3 and Iih=020 (has previously had thrombocytosis) -Check Acetaminophen level - patient takes medication as prescribed but takes it every day -Check Ferritin -Check acute hepatitis panel -Check ammonia level -MRCP - patient is s/p cholecystectomy -Consider GI consultation Present on Admission?: Yes (3) Elevated troponin: Patient denies chest pain. EKG with some nonspecific changes, no obvious signs of ischemia -Continue ASA Present on Admission?: Yes (4) History of brain surgery: Patient with intracranial revascularization performed at [facility] on 05/31/20 - well tolerated with no issues Present on Admission?: Yes (5) Dyslipidemia: Uncertain why patient is not currently on medication. Her last lipid panel was 05/2019 with elevated TG of 316. Total Ycki=586, BOI=880, HDL=29 -Monitor Present on Admission?: Yes (6) Hypertension: Was told by Neurosurgery to maintain BP of 150-170. Currently not on any antihypertensive agents -Continue to monitor BP Present on Admission?: Yes (7) Paroxysmal atrial fibrillation: Patient with history of PAF in post-procedure/post-op setting. She had been on Eliquis in the past but was unable to tolerate it. She has been having anemia requiring blood transfusions therefore is not currently on anticoa gulation. She was on beta-salvador therapy in the past as well which she discontinued. -Continue to monitor Present on Admission?: Yes History of Present Illness Primary Care Provider: Anjel Eid MD 69yo female presenting with 2 weeks of nausea, vomiting and abdominal discomfort, mostly in RUQ. 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 She had direct left sided cerebral bypass surgery performed at [facility] on 05/31/20. Patient did well with the surgery with no complications identified. She developed upper abdominal pain 3 weeks ago as well as nausea and dry heaving. Pain is constant, 7/10 in severity, non- radiating and not associated with meals. She has been itching as well and more short of breath. And has had diminished appetite and decreased PO intake. Constipation lately for which she has been taking Miralax. She denies fever/chills/cough/chest pain/diarrhea. She denies jaundice/icterus. Has had some light colored stools. Patient takes Tylenol every 4 hours at recommended dosage. She does not drink EtOH. No prior tattoos or history of IVDU. She has had blood transfusions in the past. Allergies Allergy/AdvReac Type Severity Reaction Status Date / Time amoxicillin Allergy Intermediate HIVES Verified 07/15/20 21:04 clavulanic acid Allergy Intermediate Hives Verified 07/15/20 21:04 [From Augmentin] lisinopril Allergy Intermediate CAUSED BP Verified 07/15/20 21:04 TO DROP TOO LOW atenolol Allergy Mild GI Verified 07/15/20 21:04 SYMPTOMS/light headed atorvastatin Allergy Mild myalgia Verified 07/15/20 21:04 fluoxetine Allergy Mild RASH/leg Verified 07/15/20 21:04 cramps propranolol Allergy Mild HIVES/body Verified 07/15/20 21:04 aches meloxicam AdvReac Mild Diarrhea Verified 07/15/20 21:04 rosuvastatin [From Crestor] AdvReac Mild Muscle Pain Verified 07/15/20 21:04 Home Medications Medication Instructions Recorded Confirmed Type cyanocobalamin (vitamin B-12) 1,000 mcg IM MONTHLY 12/07/18 07/15/20 History acetaminophen [Tylenol] 1,000 mg PO Q4H PRN 05/06/19 07/15/20 History aspirin 325 mg tablet 325 mg PO QAM 08/26/19 07/15/20 History iron dextran 50 mg/mL injection 50 mg IM PRN ml 06/06/20 07/15/20 History solution budesonide-formoterol HFA 160 2 puff INHALATION BID #10.2 g 06/29/20 07/15/20 Rx mcg-4.5 mcg/actuation aerosol inhaler inhalational spacing device #1 ea 06/29/20 07/04/20 Rx Past Med/Surg History Medical History Anxiety Elevated sed rate follows with rheumatology (Dr. Fay/[facility]) Generalized pain Medical marijuana prn GERD (gastroesophageal reflux disease) High cholesterol History of anemia Hx of blood transfusion 11/2019 Iron deficient- most recent iron infusion 02/2019 History of migraine headaches History of stroke last one was 04/2019 after left subclavian artery bypass--no deficits afterwards, no neurologist S/P intracranial aneurysm repair (01/2019)- no residual effects Hypertension per patient, systolic BP goal currently between 150-180 Intracranial aneurysm 01/2019 s/p stent and/or coil (Dr. Simpson/[facility]) Left carotid artery occlusion S/p left subclavian/left carotid bypass 04/2019 - graft occluded 48 hours post op PAD (peripheral artery disease) Paroxysmal atrial fibrillation F/U DR MCALLISTER Pulmonary nodule Seasonal allergies Surgical History H/O abdominal surgery STOMACH ULCERS REMOVED (3 TOTAL SURGERIES) History of brain surgery indirect bypass History of breast biopsy RT/LEFT (BENIGN) History of cholecystectomy History of colonoscopy History of esophagogastroduodenoscopy (EGD) MULTIPLE History of temporal artery biopsy (12/09/18) Left Temporal Artery Biopsy (11/2018) and right History of tooth extraction Intracranial aneurysm 01/2019 - STENT AND/OR COIL PLACED, [facility] S/P cholecystectomy S/P vascular bypass left subclavian carotid artery bypass 05/19/2019 Family History Father Acute myocardial infarction Cardiovascular disease Stroke syndrome Myocardial infarction Mother Hypertension Brother Acute myocardial infarction Daughter Family history of reaction to anesthesia Daughter- "quit breathing" with anesthesia emergence after use of fentanyl- needed to reintubate Other Patient's brother is Stroke Denies family history of Ovarian cancer Prostate cancer Breast cancer Lung cancer Colorectal cancer Social History Smoking Status: Current every day smoker Tobacco Type: Cigarettes Cigarettes Per Day: 10; Second Hand Exposure: Yes (FATHER SMOKED); Hx Alcohol Use: No Hx Substance Use: No Preferred Language: Guatemalan Communication Ability: Effective Visual Impairment: No Limitations Hearing Ability: Normal Trade Embalmer Required: No Beliefs That Will Affect Care: None marital status: Current Living Situation: Spouse and Family Current Living Situation Comment: Lives with and daughter 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 Feels Safe at Home: Yes Childhood Exposure to Second-Hand Smoke: Yes caffeine: No Dental Care, Regularly: No Physical Activity Frequency: Does not Exercise Seatbelt Use: always Sunscreen Use: No Assistive Devices: Glasses Review of Systems Review of Systems: All systems reviewed & are unremarkable except as noted in HPI & below Physical Exam Physical Exam: General: patient resting comfortably, NAD, chronically ill in appearance, AA&O x 4 Skin: warm, dry, flaking, intact, areas of excoriation on arms and legs from scratching HEENT: NC/AT, PERRL, EOMI, anicteric sclera, conjunctiva without injection, external ear normal to inspection and nontender, nares patent, moist mucus membranes, dentition intact, no oropharyngeal lesions, neck supple, trachea midline, no LAD, no thyromegaly, no JVD Heart: +S1/S2, regular, 3/6 blowing murmur over mitral valve Lungs: equal air entry bilaterally, no rales/rhonchi/wheezes, diminished in right base Abd: +BS, soft, tender in RUQ, no masses/organomegaly/ascites Ext: warm, 2+ pulses in UE/LE bilaterally, no clubbing/cyanosis or edema Neuro: nonfocal, patient AA&O x 4, speech intact, no facial droop, moving all extremities on command with equal strength 5/5 Results & Data Results & Data ([facility]) Vital Signs (Past 12 Hours) Vital Signs Temp Pulse Resp BP Pulse Ox 07/15/20 23:31 95 H 15 185/123 H 97 07/15/20 23:30 93 H 17 99 07/15/20 23:00 95 H 19 97 07/15/20 22:48 94 H 16 176/123 H 07/15/20 22:36 97 07/15/20 22:00 96 H 19 184/110 H 98 07/15/20 21:30 97 H 19 170/108 H 96 07/15/20 21:00 101 H 23 85 L 07/15/20 20:49 94 07/15/20 20:38 100 H 18 96 07/15/20 20:30 101 H 19 186/114 H 98 07/15/20 19:52 36.7 C 98 H 18 148/91 H 95 Laboratory Results Lab Results 07/15/20 07/15/20 07/15/20 Range/Units 22:54 Unknown Unknown WBC 5.71 (4.8-10.8) K/uL RBC 3.84 L (4.2-5.4) M/uL Hgb 11.6 L (12.0-16.0) g/dL Hct 35.6 L (37-47) % MCV 92.7 (80-100) fL MCH 30.2 (25-34) pg MCHC 32.6 (32-36) g/dL RDW Std Deviation 77.8 H (36.4-46.3) fL RDW Coeff of Sly 23.9 H (11.5-14.5) % Plt Count 129 L (130-400) K/uL MPV 11.0 H (7.4-10.4) fL Immature Gran % (Auto) 0.2 % Neut % (Auto) 66.0 % Lymph % (Auto) 22.9 % [place] % (Auto) 10.7 % Eos % (Auto) 0.2 % Baso % (Auto) 0.0 % Neut # (Auto) 3.77 (1.4-6.5) K/uL Lymph # (Auto) 1.31 (1.2-3.4) K/uL [place] # (Auto) 0.61 H (0.11-0.59) K/uL Eos # (Auto) 0.01 (0-0.5) K/uL Baso # (Auto) 0.00 (0-0.2) K/uL Immature Gran # (Auto) 0.01 (0.00-0.02) K/uL Absolute Nucleated RBC 0.03 H (0-0) K/uL Nucleated RBC % (auto) 0.5 % Platelet Estimate Decreased L (Normal) Anisocytosis Present Target Cells 1+ [place] Bodies 1+ Echinocytes 1+ Acanthocytes (Spur) 1+ Schistocytes 1+ PT (9.0-12.0) Seconds INR (0.9-1.1) APTT (21.0-31.0) Seconds PTT Ratio Sodium 133 L (136-145) mmol/L Potassium 4.0 (3.5-5.1) mmol/L Chloride 105 (98-107) mmol/L Carbon Dioxide 18 L (21-32) mmol/L Anion Gap 10.0 (3-11) BUN 29 H (7-18) mg/dl Creatinine 1.33 H (0.6-1.2) mg/dl Est Cr Clr Drug Dosing 32.0 ml/min Est GFR ( Amer) 47.5 Est GFR (Non-Af Amer) 41.0 BUN/Creatinine Ratio 21.7 H (10-20) Glucose 122 H (70-99) mg/dl Lactate 3.1 H* (0.4-2.0) mmol/L Calcium 8.2 L (8.5-10.1) mg/dl Magnesium 2.3 (1.8-2.4) mg/dl Total Bilirubin 1.5 H (0.2-1) mg/dl Direct Bilirubin 0.8 H (0-0.2) mg/dl AST 267 H (15-37) U/L ALT 339 H (12-78) U/L Alkaline Phosphatase 519 H (45-117) U/L Troponin I 0.089 H* (0-0.045) ng/ml Total Protein 6.6 (6.4-8.2) gm/dl Albumin 2.8 L (3.4-5.0) gm/dl Lipase 80 (73-393) U/L Urine Color Urine Appearance (Clear) Urine pH (4.5-7.5) Ur Specific [place] (1.000-1.030) Urine Protein (Negative) Urine Glucose (UA) (Negative) Urine Ketones (Negative) Urine Blood (Negative) Urine Nitrite (Negative) Urine Bilirubin (Negative) Urine Urobilinogen (Negative) Ur Leukocyte Esterase (Negative) Urine WBC (Auto) (0-5) /hpf Urine RBC (Auto) (0-4) /hpf U Hyaline Cast (Auto) (0-5) /lpf U Epithel Cells (Auto) (0-5) /lpf Urine Bacteria (Auto) (Negative) COVID-19 Eval Order SARS-CoV-2 (PCR) (Negative) Influenza Type A (PCR) (Neg) Influenza Type B (PCR) (Neg) RSV (RT-PCR) (Neg) 07/15/20 07/15/20 07/15/20 Range/Units Unknown Unknown Unknown WBC (4.8-10.8) K/uL RBC (4.2-5.4) M/uL Hgb (12.0-16.0) g/dL Hct (37-47) % MCV (80-100) fL MCH (25-34) pg MCHC (32-36) g/dL RDW Std Deviation (36.4-46.3) fL RDW Coeff of Sly (11.5-14.5) % Plt Count (130-400) K/uL MPV (7.4-10.4) fL Immature Gran % (Auto) % Neut % (Auto) % Lymph % (Auto) % [place] % (Auto) % Eos % (Auto) % Baso % (Auto) % Neut # (Auto) (1.4-6.5) K/uL Lymph # (Auto) (1.2-3.4) K/uL [place] # (Auto) (0.11-0.59) K/uL Eos # (Auto) (0-0.5) K/uL Baso # (Auto) (0-0.2) K/uL Immature Gran # (Auto) (0.00-0.02) K/uL Absolute Nucleated RBC (0-0) K/uL Nucleated RBC % (auto) % Platelet Estimate (Normal) Anisocytosis Target Cells [place] Bodies Echinocytes Acanthocytes (Spur) Schistocytes PT 13.3 H (9.0-12.0) Seconds INR 1.3 H (0.9-1.1) APTT 29.5 (21.0-31.0) Seconds PTT Ratio 1.1 Sodium (136-145) mmol/L Potassium (3.5-5.1) mmol/L Chloride (98-107) mmol/L Carbon Dioxide (21-32) mmol/L Anion Gap (3-11) BUN (7-18) mg/dl Creatinine (0.6-1.2) mg/dl Est Cr Clr Drug Dosing ml/min Est GFR ( Amer) Est GFR (Non-Af Amer) BUN/Creatinine Ratio (10-20) Glucose (70-99) mg/dl Lactate 2.2 H* (0.4-2.0) mmol/L Calcium (8.5-10.1) mg/dl Magnesium (1.8-2.4) mg/dl Total Bilirubin (0.2-1) mg/dl Direct Bilirubin (0-0.2) mg/dl AST (15-37) U/L ALT (12-78) U/L Alkaline Phosphatase (45-117) U/L Troponin I (0-0.045) ng/ml Total Protein (6.4-8.2) gm/dl Albumin (3.4-5.0) gm/dl Lipase (73-393) U/L Urine Color Urine Appearance (Clear) Urine pH (4.5-7.5) Ur Specific [place] (1.000-1.030) Urine Protein (Negative) Urine Glucose (UA) (Negative) Urine Ketones (Negative) Urine Blood (Negative) Urine Nitrite (Negative) Urine Bilirubin (Negative) Urine Urobilinogen (Negative) Ur Leukocyte Esterase (Negative) Urine WBC (Auto) (0-5) /hpf Urine RBC (Auto) (0-4) /hpf U Hyaline Cast (Auto) (0-5) /lpf U Epithel Cells (Auto) (0-5) /lpf Urine Bacteria (Auto) (Negative) COVID-19 Eval Order CovFluRsv at [facility] SARS-CoV-2 (PCR) (Negative) Influenza Type A (PCR) (Neg) Influenza Type B (PCR) (Neg) RSV (RT-PCR) (Neg) 07/15/20 07/16/20 Range/Units Unknown Unknown WBC (4.8-10.8) K/uL RBC (4.2-5.4) M/uL Hgb (12.0-16.0) g/dL Hct (37-47) % MCV (80-100) fL MCH (25-34) pg MCHC (32-36) g/dL RDW Std Deviation (36.4-46.3) fL RDW Coeff of Sly (11.5-14.5) % Plt Count (130-400) K/uL MPV (7.4-10.4) fL Immature Gran % (Auto) % Neut % (Auto) % Lymph % (Auto) % [place] % (Auto) % Eos % (Auto) % Baso % (Auto) % Neut # (Auto) (1.4-6.5) K/uL Lymph # (Auto) (1.2-3.4) K/uL [place] # (Auto) (0.11-0.59) K/uL Eos # (Auto) (0-0.5) K/uL Baso # (Auto) (0-0.2) K/uL Immature Gran # (Auto) (0.00-0.02) K/uL Absolute Nucleated RBC (0-0) K/uL Nucleated RBC % (auto) % Platelet Estimate (Normal) Anisocytosis Target Cells [place] Bodies Echinocytes Acanthocytes (Spur) Schistocytes PT (9.0-12.0) Seconds INR (0.9-1.1) APTT (21.0-31.0) Seconds PTT Ratio Sodium (136-145) mmol/L Potassium (3.5-5.1) mmol/L Chloride (98-107) mmol/L Carbon Dioxide (21-32) mmol/L Anion Gap (3-11) BUN (7-18) mg/dl Creatinine (0.6-1.2) mg/dl Est Cr Clr Drug Dosing ml/min Est GFR ( Amer) Est GFR (Non-Af Amer) BUN/Creatinine Ratio (10-20) Glucose (70-99) mg/dl Lactate (0.4-2.0) mmol/L Calcium (8.5-10.1) mg/dl Magnesium (1.8-2.4) mg/dl Total Bilirubin (0.2-1) mg/dl Direct Bilirubin (0-0.2) mg/dl AST (15-37) U/L ALT (12-78) U/L Alkaline Phosphatase (45-117) U/L Troponin I (0-0.045) ng/ml Total Protein (6.4-8.2) gm/dl Albumin (3.4-5.0) gm/dl Lipase (73-393) U/L Urine Color Yellow Urine Appearance Clear (Clear) Urine pH 5.5 (4.5-7.5) Ur Specific [place] > 1.045 H (1.000-1.030) Urine Protein 2+ H (Negative) Urine Glucose (UA) Negative (Negative) Urine Ketones Negative (Negative) Urine Blood 1+ H (Negative) Urine Nitrite Negative (Negative) Urine Bilirubin Negative (Negative) Urine Urobilinogen Negative (Negative) Ur Leukocyte Esterase Negative (Negative) Urine WBC (Auto) 1-5 (0-5) /hpf Urine RBC (Auto) 0-4 (0-4) /hpf U Hyaline Cast (Auto) 5-10 H (0-5) /lpf U Epithel Cells (Auto) 10-20 H (0-5) /lpf Urine Bacteria (Auto) Negative (Negative) COVID-19 Eval Order SARS-CoV-2 (PCR) NEGATIVE (Negative) Influenza Type A (PCR) Negative (Neg) Influenza Type B (PCR) Negative (Neg) RSV (RT-PCR) Negative (Neg) PG Care Time/CCT Total # of Minutes Spent Total Time Spent with Patient: Total time spent is greater than 50% in coordination of care (as documented) at patient's floor/unit and/or counseling patient: Coding Level of Care Code 80392 Initial Inpt Care Lvl 3 Diagnoses Nausea R11.0 Transaminitis R74.01 Elevated troponin R77.8 History of brain surgery Z98.890 Dyslipidemia E78.5 Hypertension I10 Hypertension type: essential hypertension Paroxysmal atrial fibrillation I48.0 (1) Hypertension Hypertension type: essential hypertension Qualified Code(s): I10 - Essential (primary) hypertension
[2020-07-16] MEDS ORDERED: fentaNYL citrate 100 MCG/2 ML VIAL IV ONE (03:19)
[2020-07-16] MEDS: MoRPHine SULFATE 2 MG/ML CARP IV PRN ×2 (04:18→14:03)
[2020-07-16 04:37] LABS: Ferritin 870.6 ng/ml (8-388)
--- NOTE | 2020-07-16 09:42 | Electrocardiogram Report ---
Test Reason : Blood Pressure : / mmHG Vent. Rate : 095 BPM Atrial Rate : 095 BPM P-R Int : 146 ms QRS Dur : 106 ms QT Int : 388 ms P-R-T Axes : 046 061 000 degrees QTc Int : 487 ms Normal sinus rhythm Possible Left atrial enlargement Poor R wave progression, consider anterior DC vs. lead placement vs. LVH Nonspecific ST abnormality Abnormal ECG When compared with ECG of 21-MAY-2019 13:03, Sinus rhythm has replaced Atrial fibrillation Confirmed by Keyur Melton ([id number]) on 07/16/2020 9:42:05 AM Referred By: REFERRED SELF Confirmed By:Keyur Melton
[2020-07-16] MEDS: FLUTICASONE/VILANTEROL 200/25MCG 14 PUFFS/INHALER INH SCH (09:49)
[2020-07-16] MEDS: ONDANSETRON INJ 2 MG/ML 2 ML VIAL IV PRN ×2 (09:49→21:37)
--- NOTE | 2020-07-16 09:55 | Hospitalist Progress Note ---
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 HFrEF Dyspnea on exertion and orthopnea x several weeks (following surgery in May). BNP 31,000. CXR with cardiomegaly, CT with bilaterally pleural effusions/ascites/body wall edema, TTE showing EF 35-40% with severe MR, elevated RVSP, right heart dysfunction - acute HFrEF. - received Lasix 40mg IV x1 in the ED, patient without SOB in the hospital and does not appear overtly volume overloaded - Cardiology consulted - appreciate recs - started Entresto 24/26mg PO BID - will hold off on Lasix and further med optimization for now, as patient recently stopped taking Fludrocortisone 3 weeks ago to maintain high BPs after cerebral bypass surgery 1.5 months ago - contacted Dr. Waller ([facility] Neurosurgeon) via PowerChart for further recs - pending response - daily weights, strict I/Os, heart-healthy diet S/p Intracranial Revascularization (05/31/2020) - well-tolerated without post-operative complications, finished Fludrocortisone taper 3 weeks ago - f/u on Powerchart communication with Dr. Waller, as mentioned above Elevated Troponin No chest pain. EKG yesterday and today without ST/T wave changes. Troponin peaked at .102 - suspect demand ischemia 2/2 acute HFrEF. - Cardiology consulted as mentioned above - continue Aspirin - A1c in AM Transaminitis/Thrombocytopenia/Elevated INR CT abd/pelv and MRCP showing enlarged liver, periportal edema, IVC/hepatic venous engorgement. No hepatobiliary/pancreatic masses or intra/extra-biliary obstruction. Suspect severe back-flow due to HFrEF caused vascular engorgement and resultant pseudo-obstruction of biliary tree as well as intra-hepatic vascular pseudo-obstruction. Suspect will improve with treatment of HFrEF. - trend PT/INR/CMP Generalized Pruritus Occurring for 3 weeks. Suspect 2/2 pseudo-obstruction due to HFrEF as stated above - started Cholestyramine - continue to monitor Weight Loss 40-lb weight loss over course of 1 year, with 10-pound weight loss in last fri. Suspect cardiac cachexia. - encourage PO intake Elevated Lactate Lactate 2.2 in context of above - suspect 2/2 poor end-organ perfusion. IRIS Cr 1.33, baseline 1-1.1. BUN:Cr ratio > 20:1. Suspect pre-renal injury 2/2 poor perfusion (see above). Suspect will improve once acute HFrEF treated. - trend BMP daily Hyponatremia Na 133. Suspect 2/2 hypervolemia. Suspect will improve with treatment. HTN Was told by Neurosurgery to maintain BP of 150-170. Message sent to Dr. Waller as stated above. - Entresto started as stated above, will hold on further med optimization for now Paroxysmal Atrial Fibrillation First appearance after surgery, has been in NSR on repeat checks since then. Initially was on Eliquis but stopped. Did not tolerate BB due to rash/hives. Currently in NSR in the hospital. - continue tele monitoring HLD Last lipid panel was 05/2019 with elevated TG of 316. Total Dzmr=617, TNU=126, HDL=29. Had myalgias with rosuvastatin and atorvastatin - repeat lipid profile in AM FEN/GI: heart-healthy diet DVT Prophylaxis: SCDs Code Status: Full code Disposition: med/surg with tele (2) Transaminitis: (3) Elevated troponin: (4) History of brain surgery: (5) Dyslipidemia: (6) Hypertension: (7) Paroxysmal atrial fibrillation: Admission and Anticipated Discharge Date Admission Date: July 16, 2020 Supervising Physician Co-Signing Physician Notes I also saw the patient with the resident physician and confirmed sanchez portions of the history and physical examination. I agree with the impression and plan as noted in the resident documentation. Briefly, this 69-year-old female presented to the hospital and was admitted earlier this morning after noting 2 weeks of nausea, vomiting, and abdominal discomfort. Patient's family had suggested that she looked a little bit "yellow" although patient did not note this herself. Patient has a history of left carotid occlusion with multiple left hemispheric strokes and she had a left sided cerebral bypass surgery performed at [facility] in May of this year. Her only complaint this afternoon is whole body itching. Exam 169/91, 78, 18, 36.7, 96% on room air She is pleasant. She is actually lying fairly close to supine without respiratory distress. Heart is regular. Systolic murmur appreciated apically. Lungs are clear Data Hemoglobin 11.6, WBC 5.71 PT is elevated at 13.3, INR 1.3 Sodium 133, BUN 29, creatinine 1.33 Lactate 2.2 Ferritin 870 Total bili 1.5 AST 267, ALT 339, alkaline phosphatase 519 BNP 31,022 Echocardiogram completed today shows left ventricular dysfunction with EF 35 to 40%, the basal to mid inferior and basal to mid inferior septum are severely hypokinetic. Severe tricuspid regurgitation, moderate to severe pulmonary hypertension. Severe mitral regurgitation CT/MRCP demonstrates bilateral pleural effusion, ascites, and suggest hepatic congestion. There is no evidence of a hepatic vein thrombosis. Impression and plan Biventricular failure, severe tricuspid regurgitation, severe mitral regurgitation, moderate severe pulmonary hypertension Transaminitis, suspect secondary to hepatic congestion secondary to heart failure Hypertension Paroxysmal atrial fibrillation (not on anticoagulation) Continue diureses Trend hepatic markers Add Entresto Add Questran for her itching Consult cardiology Subjective Patient reports 40 pound weight loss over the last year, with 10 pound weight loss in last 3 weeks. Also reports generalized pruritus x3 weeks with N/V, epigastric abdominal pain, and loose derrick-colored stools. Also reports orthopnea and mild [place] x2-3 weeks. No SOB while seated. Denies fever/chills, chest pain, palpitations, urinary symptoms. Please see HPI of today's H&P for more details. Review of Systems Review of Systems: Pertinent positives and negatives mentioned in HPI. Physical Exam Physical Exam: Stable exam from today's PE with one addition - skin is jaundiced. Results & Data Results & Data ([facility]) Vital Signs (Past 12 Hours) Vital Signs Pulse Pulse Resp BP BP Pulse Ox 07/16/20 08:00 94 H 17 172/89 H 95 07/16/20 04:16 97 H 16 178/102 H 98 07/16/20 02:01 94 H 17 07/16/20 02:00 95 H 19 188/111 H 07/16/20 01:31 96 H 19 07/16/20 01:30 97 H 18 185/130 H 07/16/20 01:00 93 H 17 163/119 H 98 04/25/21 00:31 100 H 18 98 04/25/21 00:30 100 H 17 192/122 H 97 07/16/20 00:01 100 H 23 93 07/16/20 00:00 100 H 18 182/120 H 07/15/20 23:32 96 H 22 98 07/15/20 23:31 95 H 15 185/123 H 97 07/15/20 23:30 93 H 17 99 07/15/20 23:00 95 H 19 97 07/15/20 22:48 94 H 16 176/123 H 07/15/20 22:36 97 07/15/20 22:00 96 H 19 184/110 H 98 Resident Activity Tracking Resident Involvement: Resident Care Provided Care Provided: Adult Hospital Medicine (1) Hypertension Hypertension type: essential hypertension Qualified Code(s): I10 - Essential (primary) hypertension
[2020-07-16 10:25] LABS: Hepatitis B Surf Ag Rflx Conf Neg (Neg)
[2020-07-16 10:54] LABS: Hepatitis C IgG 13Yrs+Old_Rflx Neg (Neg)
--- NOTE | 2020-07-16 11:35 | Magnetic Resonance Report ---
MRCP CLINICAL HISTORY: Abnormal LFTs TECHNIQUE: Utilizing a 1.5 Leanna magnet and dedicated coil, multiplanar, multiecho imaging of the [facility] abdomen was performed utilizing heavily T2 weighted pulsing sequences without IV contrast. COMPARISON STUDY: Abdominal ultrasound July 10, 2015. CT of the abdomen and pelvis July 15, 2020. FINDINGS: Note is made of evidence for volume overload with small to moderate bilateral pleural effus ions, anasarca and a small amount of ascites. Ascites has mildly increased since prior CT. The liver is enlarged. The IVC and hepatic veins are mildly dilated. Periportal edema is again noted. No hepati c lesions are identified on this unenhanced examination. The liver is mildly enlarged, measuring 20.6 cm in craniocaudal dimension. No biliary ductal dilatation is identified although the proximal to mi d common bile duct is not well visualized on this exam. This could be due to postsurgical change. Becca ceptibility artifact from surgical clips within the region of the pancreatic head is noted. There is no pancreatic ductal dilatation. No peripancreatic fluid collection is present. No common bile duct c alculi are identified although sensitivity is diminished given motion artifact on this exam. Left nanette al atrophy is incidentally noted. There is no hydronephrosis. The caliber of visualized small and lar ge bowel are normal. IMPRESSION: 1. No intra or extra hepatic biliary ductal dilatation. Proximal to mid common bile duct obscured, po ssibly due to postsurgical change. No common bile duct calculi within the distal common bile duct. No pancreatic ductal dilatation. 2. Evidence for volume overload with bilateral pleural effusions, anasarca and ascites. 3. Findings raising the possibility of passive hepatic congestion, better depicted on CT of July 15, 2020. ACT 112: Negative or not required by law. Electronically signed by: Terrence Kenney M.D. 07/16/2020 11:34 AM
[2020-07-16] MEDS: ASPIRIN 325 MG ECTAB PO SCH (12:26)
[2020-07-16] MEDS: SACUBITRIL-VALSARTAN 24-26 MG TAB PO SCH ×2 (13:57→22:26)
[2020-07-16] MEDS ORDERED: diphenhydrAMINE Capsule 25 MG CAP PO STA (21:30)
[2020-07-16] MEDS: CHOLESTYRAMINE LIGHT 4 GM PKT PO SCH (22:27)
--- NOTE | 2020-07-17 07:18 | Hospitalist Progress Note ---
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 HFrEF - Dyspnea on exertion and orthopnea x several weeks (following surgery in May). - BNP 31,000. - CXR with cardiomegaly, CT with bilaterally pleural effusions/ascites/body wall edema - TTE showing EF 35-40% with severe MR, elevated RVSP, right heart dysfunction - acute HFrEF. - Received Lasix 40mg IV x1 in the ED - Cardiology consulted - appreciate recs - Will order Lasix 40mg IV x1 today and reevaluate tomorrow - Continue Entresto 24/26mg PO BID - will hold off on Lasix and further med optimization for now, as patient recently stopped taking Fludrocortisone 3 weeks ago to maintain high BPs after cerebral bypass surgery 1.5 months ago - contacted Dr. Waller ([facility] Neurosurgeon) via PowerChart for further recs - pending response - daily weights, strict I/Os, heart-healthy diet S/p Intracranial Revascularization (05/31/2020) - well-tolerated without post-operative complications, finished Fludrocortisone taper 3 weeks ago - f/u on Powerchart communication with Dr. Waller, as mentioned above Paroxysmal Atrial Fibrillation - First appearance after surgery - Was in normal sinus rhythm until this morning when she did go into A. fib - As above cardiology is consulted and aware of this new change, will follow recs - Initially was on Eliquis but stopped. Did not tolerate BB due to rash/hives - Start Amiodarone 200mg PO TID - continue tele monitoring Elevated Troponin - EKGs without ST/T wave changes. - Troponin peaked at .102, now downtrending- suspect demand ischemia 2/2 acute HFrEF. - Cardiology consulted as mentioned above - continue Aspirin - A1c 5.0 this AM Transaminitis/Thrombocytopenia/Elevated INR - CT abd/pelv and MRCP showing enlarged liver, periportal edema, IVC/hepatic venous engorgement. No hepatobiliary/pancreatic masses or intra/extra-biliary obstruction. - Suspect severe back-flow due to HFrEF caused vascular engorgement and resultant pseudo-obstruction of biliary tree as well as intra-hepatic vascular pseudo-obstruction. - Suspect will improve with treatment of HFrEF. - trend PT/INR/CMP Generalized Pruritus - Occurring for 3 weeks - Suspect this is likely scabies - Discontinue cholestyramine - Ordered permethrin cream once - continue to monitor Weight Loss - 40-lb weight loss over course of 1 year, with 10-pound weight loss in last month - Suspect cardiac cachexia - encourage PO intake Elevated Lactate - Lactate 2.2 in context of above - suspect 2/2 poor end-organ perfusion. IRIS - Creatinine downtrending today - Baseline 1-1.1 - Suspect pre-renal injury 2/2 poor perfusion (see above) - Suspect will improve once acute HFrEF treated. - trend BMP daily HTN - Was told by Neurosurgery to maintain BP of 150-170. Message sent to Dr. Waller as stated above. - Entresto started as stated above, will hold on further med optimization for now HLD - Had myalgias with rosuvastatin and atorvastatin - Lipid profile this morning with LDL of 56, triglycerides of 129, HDL low at 15 FEN/GI: heart-healthy diet DVT Prophylaxis: SCDs Code Status: Full code Disposition: med/surg with tele (2) Transaminitis: (3) Elevated troponin: (4) History of brain surgery: (5) Dyslipidemia: (6) Hypertension: (7) Paroxysmal atrial fibrillation: Admission and Anticipated Discharge Date Admission Date: July 16, 2020 Supervising Physician Co-Signing Physician Notes I personally examined the patient and verified all sanchez points of history and exam, discussed case, and agree with decision making with Dr John. Breathing feels better than whenever she came in. Only other major complaint is itching all over. Notes this started about 3 weeks ago as intense, Benadryl seem to help some but not a lot else has helped. Vitals noted, in general she is awake and alert pleasant no distress. HEENT normocephalic atraumatic mucous membranes moist. Lungs show diminished air entry bibasilar with very faint rales. Skin shows petechiae on her legs, elsewhere she shows punctate lesions and excoriations fairly consistent with scabies. Combined left and right-sided CHFleft with systolic/HFrEF, right-sided probably from left-sided with severe pulmonary hypertension, and subsequent passive hepatic congestioncontinue cautiously diuresing. Blood pressures are certainly adequate, still waiting to hear back from her neurosurgeon at [place] in regards to current range for safe blood pressure, but given that she is volume overloaded, she does require ongoing diuresiswe will just try to do it as gent ly as possible. I suspect her postop Florinef was largely what led to current fluid retention. Atrial fibrillationrate reasonably controlled, many fairly strong relative contraindications to anticoagulation. Because of this cardiology would like to try rhythm control strategy, sotalol versus amiodaroneI suspect her liver numbers will improve with diuresis and improvement of her hepatic congestion and discussed with cardiology who would be okay with proceeding with either. Pruritus/rashher bilirubin is not high enough to really fit with the pruritus typically seen with liver disease, and her exam is fairly consistent with scabies. Permethrin, then as needed steroid creams and antihistamines. Otherwise as above Subjective Patient seen laying supine in bed this morning, having just finished breakfast. Tolerated her meal well, denied nausea or vomiting. She says that her breathing is better and she is not feeling short of breath this morning. Her only complaint is continued generalized itching, which she says is better this morning than last night. However, she does say that this is a fairly normal pattern during the day she tends to do better but the itching gets significantly worse at night. She does not feel the cholestyramine helped much. Review of Systems Review of Systems: All systems reviewed & are unremarkable except as noted in Subjective Physical Exam Physical Exam: General: patient resting comfortably, NAD, chronically ill in appearance, AA&O x 3 Skin: warm, dry, flaking, intact, multiple small, erythematous excoriations in various parts of her body including forearms, lower legs, and lower back HEENT: NC/AT, PERRL, EOMI, anicteric sclera, conjunctiva without injection, external ear normal to inspection, no JVD Heart: Irregularly irregular, normal S1 and S2, no gallops, no rubs, no murmurs Lungs: equal air entry bilaterally, no rales/rhonchi/wheezes, diminished in right base Abd: +BS, soft, tender in RUQ, no masses/organomegaly/ascites Ext: warm, 2+ pulses in UE/LE bilaterally, no clubbing/cyanosis or edema Neuro: nonfocal, patient AA&O x 3, speech intact, no facial droop, moving all extremities on command with equal strength 5/5 Results & Data Results & Data ([facility]) Vital Signs (Past 12 Hours) Vital Signs Temp Pulse Pulse Resp BP Pulse Ox 07/17/20 06:46 36.4 C L 86 20 159/84 H 98 07/17/20 05:00 153/78 H 07/17/20 03:50 36.4 C L 89 20 171/91 H 97 07/17/20 01:00 80 07/16/20 23:41 36.8 C 81 16 165/73 H 92 07/16/20 22:57 36.6 C 78 20 148/72 H 94 Resident Activity Tracking Resident Involvement: Resident Care Provided Care Provided: Adult Hospital Medicine (1) Hypertension Hypertension type: essential hypertension Qualified Code(s): I10 - Essential (primary) hypertension
[2020-07-17 07:32] LABS: Mean Corpuscular Hgb Conc 32.5 g/dL (32-36)
[2020-07-17 07:45] LABS: INR 1.3 (0.9-1.1); Prothrombin Time 12.7 Seconds (9.0-12.0)
[2020-07-17 07:51] LABS: Hematocrit (blood only) 34.2 % (37-47); Hemoglobin 11.1 g/dL (12.0-16.0); Mean Corpuscular Hemoglobin 30.3 pg (25-34); Mean Corpuscular Volume 93.4 fL (80-100); RDW Coefficient of Variation 24.6 % (11.5-14.5); RDW Standard Deviation 81.8 fL (36.4-46.3); Red Blood Count 3.66 M/uL (4.2-5.4); White Blood Count 5.16 K/uL (4.8-10.8)
[2020-07-17 07:53] LABS: Mean Platelet Volume 11.5 fL (7.4-10.4); Platelet Count 108 K/uL (130-400)
[2020-07-17 07:55] LABS: Anisocytosis Present; Basophils # (auto) 0.01 K/uL (0-0.2); Basophils % (auto) 0.2 %; Eosinophils # (auto) 0.05 K/uL (0-0.5); Immature Granulocytes # (auto) 0.01 K/uL (0.00-0.02); Immature Granulocytes % (auto) 0.2 %; Lymphocytes # (auto) 1.45 K/uL (1.2-3.4); Lymphocytes % (auto) 28.1 %; Monocytes # (auto) 0.64 K/uL (0.11-0.59); Monocytes % (auto) 12.4 %; Neutrophils % (auto) 58.1 %; Platelet Estimate Decreased (Normal); Target Cells 1+
[2020-07-17 08:12] LABS: Albumin Level 2.4 gm/dl (3.4-5.0); BUN Creatinine Ratio 18.3 (10-20); Bilirubin Direct 0.7 mg/dl (0-0.2); Calcium 8.1 mg/dl (8.5-10.1); Creatinine Clr Calc Pharmacy 34.1 ml/min; Est GFR (African American) 51.2; Est GFR (Non-African American) 44.2
[2020-07-17 08:18] LABS: Bilirubin,Total 1.3 mg/dl (0.2-1); Troponin I 0.089 ng/ml (0-0.045)
[2020-07-17 08:30] LABS: Estimated Average Glucose 97 mg/dl
[2020-07-17] MEDS: ASPIRIN 325 MG ECTAB PO SCH (08:51)
[2020-07-17] MEDS: ENOXAPARIN INJ 40 MG/0.4 ML SYR SQ SCH (08:51)
[2020-07-17] MEDS: FLUTICASONE/VILANTEROL 200/25MCG 14 PUFFS/INHALER INH SCH (08:51)
[2020-07-17] MEDS: SACUBITRIL-VALSARTAN 24-26 MG TAB PO SCH ×2 (08:52→20:49)
[2020-07-17] MEDS: CHOLESTYRAMINE LIGHT 4 GM PKT PO SCH (08:52)
--- NOTE | 2020-07-17 10:22 | Cardiology Consultation ---
Date of Consultation July 17, 2020 Assessment & Plan (1) Systolic CHF, acute: She has a difficult exam, but appears clinically hypervolemic based on labs and imaging. Her Pro-BNP is significantly elevated at 31,022. Abdomen/pelvis CT shows sings of fluid overload with ascites, body wall edema, periportal edema, engorgement of IVC and hepatic veins, and pleural effusions. LFTs are elevated. Echo also shows reduced LV systolic function, MR/TR, and moderate to severe pulmonary hypertension. Would therefore recommend diuresis with IV Lasix. She has only received one dose thus far. Recommend initiating 40 mg IV Lasix daily with close monitoring of PRP. Recommend low sodium diet and close monitoring of I's&O's. (2) Cardiomyopathy: Etiology unclear. Could consider ischemic evaluation in the future, but as she is not experiencing angina, will hold off at this time. Recommend diuresis, as noted above. She has been initiated on Entresto, and this can be up-titrated as tolerated in the future. (3) Paroxysmal atrial fibrillation: She previously was noted to have post-op atrial fibrillation, but has now developed atrial fibrillation this admission. Her rate is reasonably well controlled, and she appears asymptomatic with the arrhythmia. She does not appear to be a good candidate for long-term anticoagulation therapy given significant anemia in the setting of prior gastric bypass surgery, celiac disease, and history of gastric ulcers. She follows with Hem/Onc and has required regular blood transfusions as well as intermittent iron infusions. It would therefore be ideal to convert her to sinus rhythm and try to maintain sinus rhythm moving forward. There are limited options for antiarrhythmic therapy given her reduced LV systolic function as well as transaminitis. Would therefore recommend utilizing Sotalol. Would start Sotalol at 80 mg PO BID. QT interval will need to be closely monitored with at least daily ECGs, though, especially given her borderline QT prolongation on ECG. (4) Mitral regurgitation: Moderate to severe MR and severe TR with recent echo. Valvular abnormalities could appear worse in the setting of hypervolemia. Can reevaluate after diuresis. (5) Elevated troponin: Her presentation is not consistent with ACS. She denies angina. ECG shows no acute ischemic changes. Appears secondary to demand ischemia. Patient was discussed with Dr. Wiley, and the plan was made in collaboration with him. History of Present Illness Reason for Consultation: Elevated troponin, new heart failure with reduced EF Requesting Physician: Dr. Thurston History of Present Illness Mrs. Kilgore is a very pleasant 69-year-old female with history significant for paroxysmal atrial fibrillation, multiple CVAs, right ICA aneurysm status post embolization, carotid artery stenosis (occluded left), right subclavian artery stenosis, peripheral arterial disease, hypertension, dyslipidemia, tobacco abuse, COPD, peptic ulcer disease s/p multiple resections, prior gastric bypass surgery, celiac disease, and iron deficiency anemia (GI and Hematology). She underwent left subclavian to left carotid artery bypass in April of 2019 with occlusion of the bypass graft within 48 hours. She then had another stroke in February 2020 and subsequently underwent left STA-MCA bypass in May 2020. She follows with vascular surgery and neurosurgery through [facility] [place]. She underwent left subclavian artery to left carotid artery bypass on 05/19/2019, which subsequently occluded within 48 hours an complicated by stroke. She was then instructed to maintain a systolic blood pressure in the 150-170 range based on documentation. Following her occluded bypass graft, she developed atrial fibrillation at which point beta-salvador and anticoagulation therapy were initiated. She later discontinued both of these medications as she believed that they reduced her blood pressure. She had another stroke in February 2020, and it was subsequently decided to perform left craniotomy and indirect STA extracranial-intracranial bypass. The procedure took place on 05/31/20 at [facility]. The procedure was completed successfully. She developed shortness of breath postoperatively, but symptoms responded to supplemental O2 and one dose Lasix. She had episodes of garbled speech and difficulty with word finding post-op which was felt to be due to hypoperfusion. She was initially started on midodrine but then developed a fib with RVR. She converted to sinus after fluid bolus and a dose of diltiazem. Midodrine was then switched to fludrocortisone. She was discharged on the fludrocortisone, but this was later weaned off by Neurosurgery. She has had the following studies/procedures: 1. Stress echo 12/14/2010 [facility]: Mild hypokinesis of the inferolateral base following exercise. Normal LV systolic function. Normal wall motion and systolic function at rest. Up to [address] depression with exercise. No chest pain. Exercise terminated due to dyspnea. 7 0.83 minutes on standard [place] protocol. 9 Mets. 2. Echo 04/20/2019: Normal LV size with low-normal systolic function. EF 50- 55%. Basal inferior wall mildly hypokinetic. Moderate LVH. Mild left atrial dilation. Sclerotic aortic valve without significant stenosis. Mild to moderate MR. 3. Left subclavian artery to left carotid artery bypass 05/19/2019 (Dr. Oliveira at [facility]): Bypass graft occluded within 48 hours. 4. Left STA-MCA bypass 05/31/2020 (Dr. Arsenio Waller [facility] [place]) She presented to [address] on 07/15/20, with complaints of nausea, dry heaving, pruritus, and dyspnea. She reports that she has had increased shortness of breath over the last 4 weeks or so. During the initial part of the interview today, she reports that she was short of breath when lying down and had occasional PND. After further discussion, she denies any orthopnea, stating that she has difficulty with pruritus at night, which keeps her awake, not shortness of breath. She reports that her exercise tolerance has been diminished, and she noted increased shortness of breath with ambulating. Her breathing has improved a small degree since admission. She denies any lower extremity edema and states that her weight has been trending down. She denies chest pain. She notes occasional palpitations, which are brief in duration and not bothersome to her. She notes lightheadedness upon initially standing, but she denies syncope or near syncope. She continues to note nausea, but has improvement in the nausea since admission. She was noting some abdominal discomfort, but this has also improved. She continues to note itching all over her entire body. She denies hematuria, hematochezia, or melena. She continues to follow closely with Hem/Onc for her iron deficiency anemia. She reports that she requires blood transfusions about every 3 months, as well as intermittent iron transfusions. She states that her last blood transfusion was about 6 weeks ago. She denies cerebrovascular symptoms. Family history: Father had [place] x3 and in his 50s from stroke. Mother in her 90s from CHF. Social history: She has smoked since the age of 14 and is currently smoking about 6 cigarettes daily. No alcohol. No illicit drugs. She has 3 children, 2 daughters and 1 son. She has grandchildren. She is and lives at home with her . Allergies Allergy/AdvReac Type Severity Reaction Status Date / Time amoxicillin Allergy Intermediate HIVES Verified 07/15/20 21:04 clavulanic acid Allergy Intermediate Hives Verified 07/15/20 21:04 [From Augmentin] lisinopril Allergy Intermediate CAUSED BP Verified 07/15/20 21:04 TO DROP TOO LOW atenolol Allergy Mild GI Verified 07/15/20 21:04 SYMPTOMS/light headed atorvastatin Allergy Mild myalgia Verified 07/15/20 21:04 fluoxetine Allergy Mild RASH/leg Verified 07/15/20 21:04 cramps propranolol Allergy Mild HIVES/body Verified 07/15/20 21:04 aches meloxicam AdvReac Mild Diarrhea Verified 07/15/20 21:04 rosuvastatin [From Crestor] AdvReac Mild Muscle Pain Verified 07/15/20 21:04 Home Medications Medication Instructions Recorded Confirmed Type cyanocobalamin (vitamin B-12) 1,000 mcg IM MONTHLY 12/07/18 07/15/20 History acetaminophen [Tylenol] 1,000 mg PO Q4H PRN 05/06/19 07/15/20 History aspirin 325 mg tablet 325 mg PO QAM 08/26/19 07/15/20 History iron dextran 50 mg/mL injection 50 mg IM PRN ml 06/06/20 07/15/20 History solution budesonide-formoterol HFA 160 2 puff INHALATION BID #10.2 g 06/29/20 07/15/20 Rx mcg-4.5 mcg/actuation aerosol inhaler inhalational spacing device #1 ea 06/29/20 07/04/20 Rx Patient History Medical History Anxiety Elevated sed rate follows with rheumatology (Dr. Fay/[facility]) Generalized pain Medical marijuana prn GERD (gastroesophageal reflux disease) High cholesterol History of anemia Hx of blood transfusion 11/2019 Iron deficient- most recent iron infusion 02/2019 History of migraine headaches History of stroke last one was 04/2019 after left subclavian artery bypass--no deficits afterwards, no neurologist S/P intracranial aneurysm repair (01/2019)- no residual effects Hypertension per patient, systolic BP goal currently between 150-180 Intracranial aneurysm 01/2019 s/p stent and/or coil (Dr. Simpson/[facility]) Left carotid artery occlusion S/p left subclavian/left carotid bypass 04/2019 - graft occluded 48 hours post op PAD (peripheral artery disease) Paroxysmal atrial fibrillation F/U DR MCALLISTER Pulmonary nodule Seasonal allergies Surgical History H/O abdominal surgery STOMACH ULCERS REMOVED (3 TOTAL SURGERIES) History of brain surgery indirect bypass History of breast biopsy RT/LEFT (BENIGN) History of cholecystectomy History of colonoscopy History of esophagogastroduodenoscopy (EGD) MULTIPLE History of temporal artery biopsy (12/09/18) Left Temporal Artery Biopsy (11/2018) and right History of tooth extraction Intracranial aneurysm 01/2019 - STENT AND/OR COIL PLACED, [place] S/P cholecystectomy S/P vascular bypass left subclavian carotid artery bypass 05/19/2019 Family History Father Acute myocardial infarction Cardiovascular disease Stroke syndrome Myocardial infarction Mother Hypertension Brother Acute myocardial infarction Daughter Family history of reaction to anesthesia Daughter- "quit breathing" with anesthesia emergence after use of fentanyl- needed to reintubate Other Patient's brother is Stroke Denies family history of Ovarian cancer Prostate cancer Breast cancer Lung cancer Colorectal cancer Social History Smoking Status: Current every day smoker Tobacco Type: Cigarettes Cigarettes Per Day: 10; Second Hand Exposure: Yes (FATHER SMOKED); Hx Alcohol Use: No Hx Substance Use: No Preferred Language: Senegalese Communication Ability: Effective Visual Impairment: No Limitations Hearing Ability: Normal Waterworks Chief Engineer Required: No Beliefs That Will Affect Care: None marital status: Current Living Situation: Spouse Current Living Situation Comment: Lives with and daughter 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 EOMs intact. Sclera non-icteric. Face is symmetric. No perioral cyanosis. Mucous membranes moist Neck: Supple, prominent V wave Pulmonary: Normal respiratory effort, clear to auscultation throughout Cardiac: Irregularly irregular, normal S1 and S2, no gallops, no rubs, no murmurs Extremities: No edema. No clubbing or cyanosis. 2+ radial pulses Abdomen: Normal bowel sounds, soft, +tender over right upper quadrant, no abdominal masses palpated Skin: Normal skin color, turgor, and pigmentation. No rash or skin lesions Neurological: Oriented to person, place, and time Results & Data ([facility]) Vital Signs (Past 12 Hours) Vital Signs Temp Pulse Pulse Resp BP Pulse Ox 07/17/20 07:30 83 07/17/20 06:46 97.5 F L 86 20 159/84 H 98 07/17/20 05:00 153/78 H 07/17/20 03:50 97.5 F L 89 20 171/91 H 97 07/17/20 01:00 80 07/16/20 23:41 98.2 F 81 16 165/73 H 92 07/16/20 22:57 97.9 F 78 20 148/72 H 94 Laboratory Results Laboratory Results WBC 5.16 K/uL (4.8-10.8) 07/17/20 07:03 RBC 3.66 M/uL (4.2-5.4) L 07/17/20 07:03 Hgb 11.1 g/dL (12.0-16.0) L 07/17/20 07:03 Hct 34.2 % (37-47) L 07/17/20 07:03 MCV 93.4 fL (80-100) 07/17/20 07:03 MCH 30.3 pg (25-34) 07/17/20 07:03 MCHC 32.5 g/dL (32-36) 07/17/20 07:03 RDW Std Deviation 81.8 fL (36.4-46.3) H 07/17/20 07:03 RDW Coeff of Sly 24.6 % (11.5-14.5) H 07/17/20 07:03 Plt Count 108 K/uL (130-400) L 07/17/20 07:03 MPV 11.5 fL (7.4-10.4) H 07/17/20 07:03 Immature Gran % (Auto) 0.2 % 07/17/20 07:03 Neut % (Auto) 58.1 % 07/17/20 07:03 Lymph % (Auto) 28.1 % 07/17/20 07:03 Ross % (Auto) 12.4 % 07/17/20 07:03 Eos % (Auto) 1.0 % 07/17/20 07:03 Baso % (Auto) 0.2 % 07/17/20 07:03 Neut # (Auto) 3.00 K/uL (1.4-6.5) 07/17/20 07:03 Lymph # (Auto) 1.45 K/uL (1.2-3.4) 07/17/20 07:03 Ross # (Auto) 0.64 K/uL (0.11-0.59) H 07/17/20 07:03 Eos # (Auto) 0.05 K/uL (0-0.5) 07/17/20 07:03 Baso # (Auto) 0.01 K/uL (0-0.2) 07/17/20 07:03 Immature Gran # (Auto) 0.01 K/uL (0.00-0.02) 07/17/20 07:03 Absolute Nucleated RBC 0.03 K/uL (0-0) H 07/15/20 Unknown Nucleated RBC % (auto) 0.5 % 07/15/20 Unknown Platelet Estimate Decreased (Normal) L 07/17/20 07:03 Anisocytosis Present 07/17/20 07:03 Target Cells 1+ 07/17/20 07:03 [place] Bodies 1+ 07/15/20 Unknown Echinocytes 1+ 07/15/20 Unknown Acanthocytes (Spur) 1+ 07/15/20 Unknown Schistocytes 1+ 07/15/20 Unknown PT 12.7 Seconds (9.0-12.0) H 07/17/20 07:03 INR 1.3 (0.9-1.1) H 07/17/20 07:03 APTT 29.5 Seconds (21.0-31.0) 07/15/20 Unknown PTT Ratio 1.1 07/15/20 Unknown Sodium 137 mmol/L (136-145) 07/17/20 07:03 Potassium 4.0 mmol/L (3.5-5.1) 07/17/20 07:03 Chloride 107 mmol/L (98-107) 07/17/20 07:03 Carbon Dioxide 21 mmol/L (21-32) 07/17/20 07:03 Anion Gap 9.0 (3-11) 07/17/20 07:03 BUN 23 mg/dl (7-18) H 07/17/20 07:03 Creatinine 1.25 mg/dl (0.6-1.2) H 07/17/20 07:03 Est Cr Clr Drug Dosing 34.1 ml/min 07/17/20 07:03 Est GFR ( Amer) 51.2 07/17/20 07:03 Est GFR (Non-Af Amer) 44.2 07/17/20 07:03 BUN/Creatinine Ratio 18.3 (10-20) 07/17/20 07:03 Glucose 100 mg/dl (70-99) H 07/17/20 07:03 Estimat Average Glucose 97 mg/dl 07/17/20 07:03 Hemoglobin A1c 5.0 % (4.5-5.6) 07/17/20 07:03 Lactate 2.2 mmol/L (0.4-2.0) H* 07/15/20 Unknown Calcium 8.1 mg/dl (8.5-10.1) L 07/17/20 07:03 Magnesium 2.3 mg/dl (1.8-2.4) 07/15/20 Unknown Ferritin 870.6 ng/ml (8-388) H 07/16/20 04:06 Total Bilirubin 1.3 mg/dl (0.2-1) H 07/17/20 07:03 Direct Bilirubin 0.7 mg/dl (0-0.2) H 07/17/20 07:03 AST 315 U/L (15-37) H 07/17/20 07:03 ALT 332 U/L (12-78) H 07/17/20 07:03 Alkaline Phosphatase 445 U/L (45-117) H 07/17/20 07:03 Ammonia 19.0 umol/L (11-32) 07/16/20 04:06 Troponin I 0.089 ng/ml (0-0.045) H* 07/17/20 07:03 NT-Pro-B Natriuret Pep 52492 pg/ml (0-900) H 07/16/20 04:06 Total Protein 6.0 gm/dl (6.4-8.2) L 07/17/20 07:03 Albumin 2.4 gm/dl (3.4-5.0) L 07/17/20 07:03 Triglycerides 129 mg/dl (0-150) 07/17/20 07:03 Cholesterol 97 mg/dl (0-200) 07/17/20 07:03 LDL Cholesterol, Calc 56 mg/dl 07/17/20 07:03 VLDL Cholesterol, Calc 26 mg/dl 07/17/20 07:03 HDL Cholesterol 15 mg/dl 07/17/20 07:03 Cholesterol/HDL Ratio 7 07/17/20 07:03 Lipase 80 U/L (73-393) 07/15/20 Unknown Urine Color Yellow 07/16/20 Unknown Urine Appearance Clear (Clear) 07/16/20 Unknown Urine pH 5.5 (4.5-7.5) 07/16/20 Unknown Ur Specific [place] > 1.045 (1.000-1.030) H 07/16/20 Unknown Urine Protein 2+ (Negative) H 07/16/20 Unknown Urine Glucose (UA) Negative (Negative) 07/16/20 Unknown Urine Ketones Negative (Negative) 07/16/20 Unknown Urine Blood 1+ (Negative) H 07/16/20 Unknown Urine Nitrite Negative (Negative) 07/16/20 Unknown Urine Bilirubin Negative (Negative) 07/16/20 Unknown Urine Urobilinogen Negative (Negative) 07/16/20 Unknown Ur Leukocyte Esterase Negative (Negative) 07/16/20 Unknown Urine WBC (Auto) 1-5 /hpf (0-5) 07/16/20 Unknown Urine RBC (Auto) 0-4 /hpf (0-4) 07/16/20 Unknown U Hyaline Cast (Auto) 5-10 /lpf (0-5) H 07/16/20 Unknown U Epithel Cells (Auto) 10-20 /lpf (0-5) H 07/16/20 Unknown Urine Bacteria (Auto) Negative (Negative) 07/16/20 Unknown Acetaminophen 13 ug/ml (10-30) 07/16/20 04:06 COVID-19 Eval Order CovFluRsv at [facility] 07/15/20 Unknown SARS-CoV-2 (PCR) NEGATIVE (Negative) 07/15/20 Unknown Hep Bs Antigen Neg (Neg) 07/16/20 04:06 Hepatitis C Antibody Neg (Neg) 07/16/20 04:06 Influenza Type A (PCR) Negative (Neg) 07/15/20 Unknown Influenza Type B (PCR) Negative (Neg) 07/15/20 Unknown RSV (RT-PCR) Negative (Neg) 07/15/20 Unknown Impressions Abdomen/Pelvis CT 07/15/20 20:13 1. Cardiomegaly and emphysema. 2. Bilateral pleural effusions, a small volume of abdominopelvic ascites, and body wall edema indicate fluid overload. 3. The liver is enlarged and heterogeneous. There is periportal edema as well as engorgement of the IVC and hepatic veins. These findings are nonspecific and could represent congestive hepatopathy. 4. The pancreas is atrophic and there is nonspecific peripancreatic fluid. This may simply represent abdominal ascites. Correlate clinically and with serum lipase levels for evidence of superimposed pancreatitis. 5. Postoperative change is noted involving the stomach. No bowel obstruction is identified. 6. Colonic diverticulosis without CT evidence of acute diverticulitis. 7. The adrenal glands appear hyperemic, which is nonspecific and can be seen with hypotension. Correlate clinically. 8. Additional findings as above. Chest X-Ray 07/15/20 20:13 1. Cardiomegaly and emphysema without radiographic evidence of congestive failure. 2. Left pleural effusion with associated left basilar consolidation. Correlate c linically for evidence of pneumonia/aspiration pneumonitis. Radiographic follow- up to resolution is recommended. Head/Neck CTA 07/15/20 20:15 1. Chronic and postoperative changes as above with no hemorrhage, mass effect, or evidence of acute territorial ischemia by CT criteria. 2. 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 This is unchanged from 05/21/2019. 3. The right carotid arterial system is patent. Atherosclerotic plaque causes less than 50% narrowing of the distal common carotid and the proximal internal carotid artery in the right. 4. The right internal carotid artery demonstrate a beaded appearance suggesting fibromuscular dysplasia. 5. There is high-grade stenosis at the origin of the right vertebral artery. The vertebral arteries are otherwise clear. 6. The intracranial vessels are patent, including a stent within the right ca vernous carotid artery. 7. Left larger than right pleural effusions. 8. Advanced emphysema. 9. Additional findings as above. Cholangiopancreatography MRI 07/16/20 03:01 1. No intra or extra hepatic biliary ductal dilatation. Proximal to mid common bile duct obscured, possibly due to postsurgical change. No common bile duct calculi within the distal common bile duct. No pancreatic ductal dilatation. 2. Evidence for volume overload with bilateral pleural effusions, anasarca and ascites. 3. Findings raising the possibility of passive hepatic congestion, better depicted on CT of July 15, 2020. Echo 07/16/2020: 1. Grossly normal LV size. 2. Moderate LVH. 3. Moderate LV dysfunction, EF 35-40%, with basal to mid inferior septum severe hypokinesis, anterior septum dyskinesis, and other hypokinesis of other myocardial segments. 4. Mild RV dysfunction. 5. Restriction of posterior mitral valve leaflet with moderate to severe MR. 6. Severe TR. 7. Moderate to severe pulmonary hypertension. 8. Large left pleural effusion. 9. Grade II diastolic dysfunction. ECG 07/15/2020: Normal sinus rhythm at 95 bpm. Possible left atrial enlargement. Poor R wave progression. Nonspecific ST abnormality. Prolonged QT with QTc 487. ECG 07/16/2020: Normal sinus rhythm at 93 bpm with PACs. Nonspecific T wave abnormality. Prolonged QT with QTc 479. Telemetry: She developed atrial fibrillation around 8:54 am today. Atrial fibrillation rate is 90s - 100s. Prior to developing atrial fibrillation, she was in sinus in the 70s-80s bpm. PG Care Time/CCT Total # of Minutes Spent Total Time Spent with Patient: Total time spent is greater than 50% in coordination of care (as documented) at patient's floor/unit and/or counseling patient: Coding Level of Care Code 50584 Initial Inpt Care Lvl 3 Diagnoses Systolic CHF, acute I50.21 Cardiomyopathy I42.9 Paroxysmal atrial fibrillation I48.0 Mitral regurgitation I34.0 Elevated troponin R77.8
--- NOTE | 2020-07-17 14:06 | Electrocardiogram Report ---
Test Reason : Blood Pressure : / mmHG Vent. Rate : 093 BPM Atrial Rate : 093 BPM P-R Int : 152 ms QRS Dur : 104 ms QT Int : 386 ms P-R-T Axes : 066 085 046 degrees QTc Int : 479 ms Sinus rhythm with Premature atrial complexes Nonspecific T wave abnormality Prolonged QT Abnormal ECG When compared with ECG of 15-JUL-2020 20:31, Premature atrial complexes are now Present Confirmed by Royce Wiley ([id number]) on 07/17/2020 2:06:30 PM Referred By: REFERRED SELF Confirmed By:Royce Wiley
--- NOTE | 2020-07-17 14:49 | Electrocardiogram Report ---
Test Reason : Blood Pressure : / mmHG Vent. Rate : 094 BPM Atrial Rate : 088 BPM P-R Int : 000 ms QRS Dur : 106 ms QT Int : 382 ms P-R-T Axes : 000 070 -13 degrees QTc Int : 477 ms Atrial fibrillation with premature ventricular or aberrantly conducted complexes Nonspecific T wave abnormality Prolonged QT Abnormal ECG When compared with ECG of 16-JUL-2020 10:14, (unconfirmed) Atrial fibrillation has replaced Sinus rhythm Confirmed by Royce Wiley ([id number]) on 07/17/2020 2:49:40 PM Referred By: REFERRED SELF Confirmed By:Royce Wiley
[2020-07-17] MEDS ORDERED: FUROSEMIDE 40 MG in SYRINGE 0 ML IV ONE (15:15)
[2020-07-17] MEDS: MoRPHine SULFATE 2 MG/ML CARP IV PRN (15:28)
[2020-07-17] MEDS ORDERED: PERMETHRIN 5% CR 60 GM TUBE EXT ONE (16:21)
[2020-07-17] MEDS: AMIODARONE 200 MG TAB PO SCH (16:48)
--- NOTE | 2020-07-17 17:30 | Billing Data ---
Date of Service July 17, 2020 Coding Level of Care Code 17663 Subseq Hosp Care Lvl 3
[2020-07-18] MEDS: MoRPHine SULFATE 2 MG/ML CARP IV PRN ×2 (06:21→23:18)
--- NOTE | 2020-07-18 07:36 | Hospitalist Progress Note ---
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 HFrEF - Dyspnea on exertion and orthopnea x several weeks (following surgery in May). - BNP 31,000. - CXR with cardiomegaly, CT with bilaterally pleural effusions/ascites/body wall edema - TTE showing EF 35-40% with severe MR, elevated RVSP, right heart dysfunction - acute HFrEF. - Received Lasix 40mg IV x1 in the ED - Cardiology consulted - appreciate recs - Giving Lasix as tolerated in the setting of her fluid overload versus maintaining adequate blood pressure for her recent brain surgery - Continue Entresto 24/26mg PO BID - Patient stopped taking Fludrocortisone 3 weeks ago to maintain high BPs after cerebral bypass surgery 1.5 months ago - Contacted Dr. Waller ([facility] [place]) via PowerChart for further recs - pending response -Given a single 250 cc normal saline bolus in the setting of watershed ischemia monitor for any signs of fluid overload and need for more diuresis - daily weights, strict I/Os, heart-healthy diet Paroxysmal Atrial Fibrillation - First appearance after surgery - Cardiology is consulted, appreciate recs - Initially was on Eliquis but stopped. Did not tolerate BB due to rash/hives -Attempted amiodarone bolus and drip this afternoon but patient had decrease in blood pressure and resulting watershed ischemia - Continue Amiodarone 200mg PO TID - continue tele monitoring S/p Intracranial Revascularization (05/31/2020) - well-tolerated without post-operative complications, finished Fludrocortisone taper 3 weeks ago - f/u on Powerchart communication with Dr. Waller, as mentioned above -Had episode of watershed ischemia following amio bolus. As such, amiodarone kept at oral dosing. Elevated Troponin - EKGs without ST/T wave changes. - Troponin peaked at .102, now downtrending- suspect demand ischemia 2/2 acute HFrEF. - continue Aspirin - A1c 5.0 Transaminitis/Thrombocytopenia/Elevated INR - CT abd/pelv and MRCP showing enlarged liver, periportal edema, IVC/hepatic venous engorgement. No hepatobiliary/pancreatic masses or intra/extra-biliary obstruction. - Suspect severe back-flow due to HFrEF caused vascular engorgement and resultant pseudo-obstruction of biliary tree as well as intra-hepatic vascular pseudo-obstruction. - Liver enzymes trending down - Suspect will continue to improve with treatment of HFrEF. - trend PT/INR/CMP Generalized Pruritus - Occurring for 3 weeks - Suspect this is likely scabies - Received permethrin cream once - Benadryl and triamcinolone prn - continue to monitor Weight Loss - 40-lb weight loss over course of 1 year, with 10-pound weight loss in last month - Suspect cardiac cachexia - encourage PO intake Elevated Lactate - Lactate 2.2 in context of above - suspect 2/2 poor end-organ perfusion. IRIS - Creatinine stable around 1.2-1.3 - Baseline 1-1.1 - Suspect pre-renal injury 2/2 poor perfusion (see above) - Suspect will improve once acute HFrEF treated. - trend BMP daily HTN - Was told by Neurosurgery to maintain BP of 150-170. Message sent to Dr. Waller as stated above. - Entresto started as stated above, will hold on further med optimization for now HLD - Had myalgias with rosuvastatin and atorvastatin - Lipid profile this morning with LDL of 56, triglycerides of 129, HDL low at 15 FEN/GI: heart-healthy diet DVT Prophylaxis: SCDs Code Status: Full code Disposition: med/surg with tele Admission and Anticipated Discharge Date Admission Date: July 16, 2020 Supervising Physician Co-Signing Physician Notes I personally examined the patient and verified all sanchez points of history and exam, discussed case, and agree with decision making with Dr John. Called to the bedside due to her having sudden onset of strokelike symptoms. Right-sided weakness and difficulty with word finding, this was right after her amiodarone bolus was givenshe then quickly had improvement in symptoms as her blood pressure joana. After the amnio bolus her pressure was about 90/50 transiently, but quickly improved. By the time we get to the bedside she has no focal weakness, has a little bit of difficulty word finding that quickly resolve s over about 5 minutes of talking with her. Otherwise she is tearful and mostly wants to go home and does not really want anything else done to her. Vitals noted, in general she is awake and alert pleasant no distress. HEENT normocephalic atraumatic mucous membranes moist. No focal neuro weakness, initially a little bit of difficulty with word finding that quickly resolves. Breathing unlabored no accessory muscle use lungs are clear to auscultation no rales rhonchi or wheezes Transient strokelike symptoms/cerebrovascular diseaseunmasked due to drop in blood pressure related to amiodarone. Because of risk-benefit balance, amiodarone IV stopped to allow blood pressures to rise given unmasking/recrudescence of strokelike symptoms. Fortunately this resolved with improvement in blood pressure (very small 250 mL fluid bolus given) Combined left and right-sided CHFleft with systolic/HFrEF, right-sided probably from left-sided with severe pulmonary hypertension, and subsequent passive hepatic congestionhas been cautiously diuresed, lungs are clear, breathing is good, LFTs are trending down. Watch closely. Atrial fibrillationrate reasonably controlled, many fairly strong relative contraindications to anticoagulation. To try to protect as best as possible, rhythm control was attempted, unfortunately amnio bolus drip had to be stopped due to relative hypotension unmasking strokelike symptoms. Will defer to cardiology expertise in regards to sotalol, although I do harbor some concerns that this may cause the same problems. Pruritus/rashher bilirubin is not high enough to really fit with the pruritus typically seen with liver disease, and her exam is fairly consistent with scabies. Permethrin, and as needed steroid creams and antihistamines. Otherwise as above Subjective Patient doing well this morning, has no real complaints. States that she is breathing even better. Her itching has improved, though does remain to a certain extent. Continues to be in atrial fibrillation overnight on telemetry with rates in the 90s to low 100s. This morning rate controlled with a pulse of 65. Patient denies palpitations, skipped beats, chest pain, nausea, vomiting. Patient was reevaluated after neuro symptoms following amiodarone bolus administration. She was initially having mild word finding difficulties and per RN had some right-sided weakness. However, this did resolve after few minutes and with improvement of her blood pressure. Review of Systems Review of Systems: All systems reviewed & are unremarkable except as noted in Subjective Physical Exam Physical Exam: General: patient resting comfortably, NAD, chronically ill in appearance, AA&O x 3 Skin: warm, dry, flaking, intact, multiple small, erythematous excoriations on various parts of her body including forearms, lower legs, and lower back HEENT: NC/AT, PERRL, EOMI, anicteric sclera, conjunctiva without injection, external ear normal to inspection, no JVD Heart: Irregularly irregular, normal S1 and S2, no gallops, no rubs, no murmurs Lungs: equal air entry bilaterally, no rales/rhonchi/wheezes, diminished in right base Abd: +BS, soft, tender in RUQ, no masses/organomegaly/ascites Ext: warm, 2+ pulses in UE/LE bilaterally, no clubbing/cyanosis or edema Neuro: nonfocal, patient AA&O x 3, speech intact, no facial droop, moving all extremities on command with equal strength 5/5 Results & Data Results & Data ([facility]) Vital Signs (Past 12 Hours) Vital Signs Temp Pulse Pulse Resp BP Pulse Ox 07/18/20 07:34 36.7 C 65 18 136/83 93 07/18/20 03:12 36.8 C 97 H 17 144/79 H 95 07/18/20 00:00 106 H 07/17/20 22:54 36.9 C 99 H 16 152/79 H 94 Resident Activity Tracking Resident Involvement: Resident Care Provided Care Provided: Adult [facility] Medicine
[2020-07-18 08:31] LABS: Basophils # (auto) 0.01 K/uL (0-0.2); Basophils % (auto) 0.2 %; Eosinophils # (auto) 0.03 K/uL (0-0.5); Eosinophils % (auto) 0.6 %; Hematocrit (blood only) 35.1 % (37-47); Hemoglobin 11.1 g/dL (12.0-16.0); Immature Granulocytes # (auto) 0.01 K/uL (0.00-0.02); Immature Granulocytes % (auto) 0.2 %; Lymphocytes # (auto) 1.21 K/uL (1.2-3.4); Lymphocytes % (auto) 22.7 %; Mean Corpuscular Hemoglobin 30.3 pg (25-34); Mean Corpuscular Hgb Conc 31.6 g/dL (32-36); Mean Corpuscular Volume 95.9 fL (80-100); Mean Platelet Volume 10.6 fL (7.4-10.4); Monocytes # (auto) 0.62 K/uL (0.11-0.59); Monocytes % (auto) 11.6 %; Neutrophils # (auto) 3.46 K/uL (1.4-6.5); Neutrophils % (auto) 64.7 %; Platelet Count 124 K/uL (130-400); RDW Coefficient of Variation 25.4 % (11.5-14.5); RDW Standard Deviation 85.7 fL (36.4-46.3); Red Blood Count 3.66 M/uL (4.2-5.4); White Blood Count 5.34 K/uL (4.8-10.8)
[2020-07-18 09:00] LABS: Anisocytosis Present; Polychromasia 1+
[2020-07-18 09:04] LABS: Albumin Level 2.4 gm/dl (3.4-5.0); BUN Creatinine Ratio 15.3 (10-20); Calcium 8.4 mg/dl (8.5-10.1); Creatinine Clr Calc Pharmacy 31.5 ml/min; Est GFR (African American) 46.6; Est GFR (Non-African American) 40.2; Potassium 4.1 mmol/L (3.5-5.1)
[2020-07-18 09:06] LABS: Albumin Globulin Ratio 0.6 (0.9-2); Bilirubin,Total 1.1 mg/dl (0.2-1); Globulin 3.8 gm/dl (2.5-4.0); Total Protein 6.2 gm/dl (6.4-8.2)
[2020-07-18] MEDS ORDERED: diphenhydrAMINE Capsule 25 MG CAP PO PRN (09:16)
[2020-07-18] MEDS ORDERED: TRIAMCINOLONE ACET 0.025% CR 15 GM TUBE EXT PRN (09:17)
[2020-07-18] MEDS: ENOXAPARIN INJ 40 MG/0.4 ML SYR SQ SCH (09:54)
[2020-07-18] MEDS: SACUBITRIL-VALSARTAN 24-26 MG TAB PO SCH ×2 (09:54→20:41)
[2020-07-18] MEDS: ASPIRIN 325 MG ECTAB PO SCH (09:55)
[2020-07-18] MEDS: FLUTICASONE/VILANTEROL 200/25MCG 14 PUFFS/INHALER INH SCH (09:55)
[2020-07-18] MEDS: AMIODARONE 200 MG TAB PO SCH ×3 (09:55→16:57)
[2020-07-18] MEDS ORDERED: 0.2 MICRON FILTER SET 1 EA IV ONE (12:00)
[2020-07-18] MEDS ORDERED: STAT IV Infusion **Titration per Protocol STA (12:00)
[2020-07-18] MEDS ORDERED: AMIODARONE IV BOLUS & DRIP IV STA (12:00)
[2020-07-18] MEDS ORDERED: AMIODARONE / D5W 150 MG/100 ML BAG IV STA (12:00)
[2020-07-18 12:06] LABS: Hepatitis A Antibody IgM NON-REACTIVE (NON-REACTIVE); Hepatitis B Core Antibody IgM NON-REACTIVE (NON-REACTIVE)
[2020-07-18] MEDS ORDERED: AMIODARONE / D5W 360 MG/200 ML BAG IV ONE (12:20)
--- NOTE | 2020-07-18 13:20 | Cardiology Progress Note ---
Date of Service July 18, 2020 Assessment & Plan (1) Systolic CHF, acute: -improving with diuresis. -continue IV diuretics until BUN and creatinine increase. -continue Entresto. (2) Cardiomyopathy: -LVEF 35-40% with an inferior wall motion abnormality. -consider ischemic workup as an outpatient. (3) Paroxysmal atrial fibrillation: -remains in atrial fibrillation this morning. -she is a poor anticoagulation candidate due to her history of GI bleeding. -would convert amiodarone to IV hoping to convert her to sinus rhythm within the next 24 hours. (4) Mitral regurgitation: -moderate to severe MR and severe TR on current echocardiogram. -consider re-evaluation once she has diuresed. (5) Elevated troponin: -suspect a supply demand mismatch. Admission and Anticipated Discharge Date Admission Date: July 16, 2020 Subjective The patient is resting comfortably in bed without complaints of chest pain or dyspnea. Was able to sleep completely flat last evening. Physical Exam Physical Exam: In general this is a thin white female seated at the bedside without complaints. HEENT exam is negative. Neck is supple with full carotid upstrokes. No carotid bruits. A prominent V-wave is noted in the jugular vein. Cardiovascular exam reveals a regular rhythm with distant heart sounds. A 2/6 holosystolic murmur is noted along the left sternal border. Lungs are clear without rales, rhonchi or wheezes. Abdomen is soft without bruits extremities reveal intact radial pulses bilaterally. There is no peripheral edema. Results & Data ([facility]) Vital Signs (Past 12 Hours) Vital Signs Temp Pulse Pulse Resp BP Pulse Ox 07/18/20 11:08 36.9 C 89 20 150/80 H 96 07/18/20 08:00 112 H 07/18/20 07:34 36.7 C 65 18 136/83 93 07/18/20 03:12 36.8 C 97 H 17 144/79 H 95 Diagnostic Findings monitoring manager notes rate controlled atrial fibrillation. PG Care Time/CCT Total # of Minutes Spent Total Time Spent with Patient: Total time spent is greater than 50% in coordination of care (as documented) at patient's floor/unit and/or counseling patient: Coding Level of Care Code 81208 Subseq Hosp Care Lvl 3 Diagnoses Systolic CHF, acute I50.21 Cardiomyopathy I42.9 Paroxysmal atrial fibrillation I48.0 Mitral regurgitation I34.0 Elevated troponin R77.8
[2020-07-18] MEDS ORDERED: SODIUM CHLORIDE 0.9% 1000ML 250 ML IV ONE (14:21)
--- NOTE | 2020-07-18 15:43 | Billing Data ---
Date of Service July 18, 2020 Coding Level of Care Code 37890 Subseq Hosp Care Lvl 3
[2020-07-18] MEDS ORDERED: AMIODARONE / D5W 360 MG/200 ML BAG IV SCH (18:20)
[2020-07-19] MEDS: MoRPHine SULFATE 2 MG/ML CARP IV PRN ×2 (03:52→18:50)
[2020-07-19] MEDS: ONDANSETRON INJ 2 MG/ML 2 ML VIAL IV PRN ×2 (06:10→12:43)
[2020-07-19 07:13] LABS: Eosinophils # (auto) 0.01 K/uL (0-0.5); Eosinophils % (auto) 0.2 %; Hematocrit (blood only) 37.4 % (37-47); Hemoglobin 11.9 g/dL (12.0-16.0); Immature Granulocytes # (auto) 0.02 K/uL (0.00-0.02); Immature Granulocytes % (auto) 0.3 %; Lymphocytes # (auto) 0.87 K/uL (1.2-3.4); Lymphocytes % (auto) 14.2 %; Mean Corpuscular Hemoglobin 30.7 pg (25-34); Mean Corpuscular Hgb Conc 31.8 g/dL (32-36); Mean Corpuscular Volume 96.4 fL (80-100); Mean Platelet Volume 11.3 fL (7.4-10.4); Monocytes # (auto) 0.76 K/uL (0.11-0.59); Monocytes % (auto) 12.4 %; Neutrophils # (auto) 4.46 K/uL (1.4-6.5); Neutrophils % (auto) 72.9 %; Nucleated RBC # (auto) 0.02 K/uL (0-0); Nucleated RBC % (auto) 0.2 %; Platelet Count 145 K/uL (130-400); RDW Coefficient of Variation 25.7 % (11.5-14.5); RDW Standard Deviation 86.5 fL (36.4-46.3); Red Blood Count 3.88 M/uL (4.2-5.4); White Blood Count 6.12 K/uL (4.8-10.8)
[2020-07-19 07:40] LABS: Albumin Level 2.5 gm/dl (3.4-5.0); BUN Creatinine Ratio 17.3 (10-20); Est GFR (African American) 43.9; Est GFR (Non-African American) 37.9; Potassium 4.9 mmol/L (3.5-5.1)
[2020-07-19 07:42] LABS: Schistocytes Occasional
[2020-07-19 07:43] LABS: Albumin Globulin Ratio 0.6 (0.9-2); Bilirubin,Total 1.2 mg/dl (0.2-1); Total Protein 6.5 gm/dl (6.4-8.2)
[2020-07-19 08:16] LABS: Echinocytes 1+; Hypochromasia Present; Macrocytosis Present
[2020-07-19 09:04] LABS: INR 1.1 (0.9-1.1); Prothrombin Time 11.5 Seconds (9.0-12.0)
--- NOTE | 2020-07-19 09:14 | Hospitalist Progress Note ---
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 HFrEF - Dyspnea on exertion and orthopnea x several weeks (following surgery in May). - BNP 31,000. - CXR with cardiomegaly, CT with bilaterally pleural effusions/ascites/body wall edema - TTE showing EF 35-40% with severe MR, elevated RVSP, right heart dysfunction - acute HFrEF. - Received Lasix 40mg IV x1 in the ED - Cardiology consulted - appreciate recs - Giving Lasix as tolerated in the setting of her fluid overload versus maintaining adequate blood pressure for her recent brain surgery - Continue Entresto 24/26mg PO BID - Patient stopped taking Fludrocortisone 3 weeks ago to maintain high BPs after cerebral bypass surgery 1.5 months ago - Contacted Dr. Waller ([facility] [place]) via PowerChart for further recs - pending response -Given a single 250 cc normal saline bolus in the setting of watershed ischemia monitor for any signs of fluid overload and need for more diuresis - daily weights, strict I/Os, heart-healthy diet Paroxysmal Atrial Fibrillation - First appearance after surgery - Cardiology is consulted, appreciate recs - Initially was on Eliquis but stopped. Did not tolerate BB due to rash/hives -Attempted amiodarone bolus and drip but patient had decrease in blood pressure and resulting watershed ischemia - Continue Amiodarone 200mg PO TID - continue tele monitoring Transaminitis/Thrombocytopenia/Elevated INR - CT abd/pelv and MRCP showing enlarged liver, periportal edema, IVC/hepatic venous engorgement. No hepatobiliary/pancreatic masses or intra/extra-biliary obstruction. - Suspect severe back-flow due to HFrEF causing vascular engorgement and resultant pseudo-obstruction of biliary tree as well as intra-hepatic vascular pseudo-obstruction. - Liver enzymes trending down except for alkaline phosphatase -Likely alk phos will decrease as we continue to treat on the current course - Suspect will continue to improve with treatment of HFrEF. - Trend PT/INR/CMP Nausea -Patient continues to have nausea and did have one episode of vomiting today -Receiving Zofran as needed, still having some nausea so added Phenergan 12.5 mg p.o. -May be related to some level of gastritis versus constipation (no BM in 5-6 days) versus remaining liver inflammation - Added Miralax, oantoprazole, and famotidine -Continue to monitor S/p Intracranial Revascularization (05/31/2020) - Well-tolerated without post-operative complications, finished Fludrocortisone taper 3 weeks ago - F/u on Powerchart communication with Dr. Waller, as mentioned above - Had episode of watershed ischemia following amio bolus. As such, amiodarone kept at oral dosing Elevated Troponin - EKGs without ST/T wave changes - Troponin peaked at .102, now downtrending- suspect demand ischemia 2/2 acute HFrEF - Continue Aspirin - A1c 5.0 Generalized Pruritus - Occurring for 3 weeks - Suspect this is likely scabies - Received permethrin cream once - Benadryl and triamcinolone PRN - Continue to monitor Weight Loss - 40-lb weight loss over course of 1 year, with 10-pound weight loss in last month - Suspect cardiac cachexia - Encourage PO intake Elevated Lactate - Lactate 2.2 in context of above - suspect 2/2 poor end-organ perfusion. IRIS - Creatinine stable around 1.2-1.3 - Baseline 1-1.1 - Suspect pre-renal injury 2/2 poor perfusion (see above) - Suspect will improve once acute HFrEF treated. - Trend BMP daily HTN - Was told by Neurosurgery to maintain BP of 150-170. Message sent to Dr. Waller as stated above. - Entresto started as stated above, will hold on further med optimization for now HLD - Had myalgias with rosuvastatin and atorvastatin - Lipid profile this morning with LDL of 56, triglycerides of 129, HDL low at 15 FEN/GI: heart-healthy diet DVT Prophylaxis: SCDs Code Status: Full code Disposition: PCU/Telemetry Admission and Anticipated Discharge Date Admission Date: July 16, 2020 Supervising Physician Co-Signing Physician Notes I personally examined the patient and verified all sanchez points of history and exam, discussed case, and agree with decision making with Dr John. No further strokelike symptoms and breathing is okay. Itching is better. Biggest complaint today is nausea. It is a little bit ill described spontaneously, but on directed questioning it sounds like it started sometime after dinner in the middle of the night last night, fairly spontaneous, is accompanied by a degree of epigastric pain everything gets worse whenever she lays flat. She has significant food aversion (later on a revisit she had difficulty after eating as well) she is vomited a few timesno blood. She also notes she has not had a bowel movement in about 5 days. On revisit she had had Pepcid and Protonix, with sipping it MiraLAX but had yet to have a bowel movement, but otherwise was feeling about the same. Vitals noted, in general she is awake and alert pleasant appears mildly distressed due to nausea but no other physical distress or respiratory distress. HEENT normocephalic atraumatic mucous membranes moist. Breathing unlabored no accessory muscle use good effort. Abdomen is soft she has epigastric and right upper quadrant tenderness feels about the same to her both places, although it is notable that when she describes the pain she only points epigastricno guardi ng no rebound no rigidity. Extremities show no cyanosis or clubbing. Skin shows no rashes no pallor or icterus. No focal neuro deficits. Nauseathe differential is fairly broad, but the most likely is very combination of constipation and upper GI mucosal disease given her prior history. I doubt she has true peptic ulcer disease, but certainly stress-induced gastritis would be highly likely. Acid suppression and bowel regimen. Also on the differential would be related to her liver swellingalthough this seems unlikely given that overall her liver numbers seem to be improving even as the nausea is appearing and worsening, and side effect to morphine or amiodarone (because of this amiodarone has been held) Transient strokelike symptoms/cerebrovascular diseaseunmasked due to drop in b lood pressure related to amiodarone. Because of risk-benefit balance, amiodarone stopped. Combined left and right-sided CHFleft with systolic/HFrEF, right-sided probably from left-sided with severe pulmonary hypertension, and subsequent passive hepatic congestionhas been cautiously diuresed, lungs are clear, breathing is good, LFTs are trending down overall, I suspect the alk phos will start to trend down, if not we may need to work-up further versus try to diurese a little further. Watch closely, but moving slowly with diuresis given her hypotension yesterday unmasking strokelike deficits. Atrial fibrillationrate reasonably controlled, many fairly strong relative contraindications to anticoagulation. To try to protect as best as possible, rhythm control was attempted, unfortunately due to hypotension and nausea amiodarone has been stopped. I would be concerned about sotalol with blood pressure as well, although will defer to cardiology expertise Pruritus/rashher bilirubin is not high enough to really fit with the pruritus typically seen with liver disease, and her exam is fairly consistent with scabies. Permethrin, and as needed steroid creams and antihistamines. Otherwise as above Subjective Patient seen this morning at bedside. Received reports from RN patient had been nauseous overnight and early this morning. Upon seeing the patient she reports that she did vomit once and is now feeling much better. Has some abdominal discomfort specifically localized to the upper right quadrant. No fever, no chills, no shortness of breath, no chest pain, no palpitations. Review of Systems Review of Systems: All systems reviewed & are unremarkable except as noted in Subjective Physical Exam Physical Exam: General: patient resting comfortably, NAD, chronically ill in appearance, AA&O x 3 Skin: warm, dry, flaking, intact, multiple small, erythematous excoriations on various parts of her body including forearms, lower legs, and lower back HEENT: NC/AT, PERRL, EOMI, anicteric sclera, conjunctiva without injection, external ear normal to inspection, no JVD Heart: Irregularly irregular, normal S1 and S2, no gallops, no rubs, no murmurs Lungs: equal air entry bilaterally, no rales/rhonchi/wheezes, diminished in right base Abd: +BS, soft, tender in RUQ and epigastrium, no masses/organomegaly/ascites Ext: warm, 2+ pulses in UE/LE bilaterally, no clubbing/cyanosis or edema Neuro: nonfocal, patient AA&O x 3, speech intact, no facial droop, moving all extremities on command with equal strength 5/5 Results & Data Results & Data ([facility]) Vital Signs (Past 12 Hours) Vital Signs Temp Pulse Pulse Resp BP Pulse Ox 07/19/20 07:52 36.5 C 76 17 135/76 91 07/19/20 03:54 36.6 C 106 H 18 138/90 95 07/18/20 23:45 37 C 91 H 18 164/73 H 95 07/18/20 23:37 99 H Resident Activity Tracking Resident Involvement: Resident Care Provided Care Provided: Adult [facility] Medicine
[2020-07-19] MEDS: ASPIRIN 325 MG ECTAB PO SCH (09:28)
[2020-07-19] MEDS: ENOXAPARIN INJ 40 MG/0.4 ML SYR SQ SCH (09:28)
[2020-07-19] MEDS: SACUBITRIL-VALSARTAN 24-26 MG TAB PO SCH ×2 (09:28→20:24)
[2020-07-19] MEDS: FLUTICASONE/VILANTEROL 200/25MCG 14 PUFFS/INHALER INH SCH (09:28)
[2020-07-19] MEDS ORDERED: PROMETHAZINE HCL 12.5 MG/10 ML UDP PO PRN (09:46)
[2020-07-19] MEDS ORDERED: FAMOTIDINE 20 MG in SYRINGE 3 ML IV SCH (12:00)
--- NOTE | 2020-07-19 12:31 | Cardiology Progress Note ---
Date of Service July 19, 2020 Assessment & Plan (1) Systolic CHF, acute: -improved with diuresis. -appears euvolemic. -continue Entresto. (2) Cardiomyopathy: -LVEF 35-40% with an inferior wall motion abnormality. -consider ischemic workup as an outpatient. (3) Paroxysmal atrial fibrillation: -remains in atrial fibrillation. -poor anticoagulation candidate due to her history of GI bleeding. -failed a trial of intravenous amiodarone due to hypotension and [employer] complaints. (4) Mitral regurgitation: -moderate to severe MR and severe TR on echocardiogram. -consider re-evaluation once she has diuresed. (5) Elevated troponin: -suspect a supply demand mismatch. Admission and Anticipated Discharge Date Admission Date: July 16, 2020 Subjective The patient is resting comfortably at the bedside without complaints of chest pain, dyspnea, or palpitations. She does note some nausea. She is anxious for hospital discharge. Physical Exam Physical Exam: In general this is a thin white female seated at the bedside without complaints. HEENT exam is negative. Neck is supple with full carotid upstrokes. No carotid bruits. A prominent V-wave is noted in the jugular vein. Cardiovascular exam reveals an irregularly irregular rhythm with distant heart sounds. A 2/6 holosystolic murmur is noted along the left sternal border. Lungs are clear without rales, rhonchi or wheezes. Abdomen is soft without bruits extremities reveal intact radial pulses bilaterally. There is no peripheral edema. Results & Data ([facility]) Vital Signs (Past 12 Hours) Vital Signs Temp Pulse Resp BP Pulse Ox 07/19/20 11:15 36.4 C L 83 17 153/75 H 99 07/19/20 07:52 36.5 C 76 17 135/76 91 07/19/20 03:54 36.6 C 106 H 18 138/90 95 Diagnostic Findings quality assurance monitor body notes rate controlled atrial fibrillation. PG Care Time/CCT Total # of Minutes Spent Total Time Spent with Patient: Total time spent is greater than 50% in coordination of care (as documented) at patient's floor/unit and/or counseling patient: Coding Level of Care Code 02901 Subseq Hosp Care Lvl 3 Diagnoses Systolic CHF, acute I50.21 Cardiomyopathy I42.9 Paroxysmal atrial fibrillation I48.0 Mitral regurgitation I34.0 Elevated troponin R77.8
[2020-07-19] MEDS ORDERED: FAMOTIDINE 20 MG in SYRINGE 3 ML IV ONE (13:00)
[2020-07-19] MEDS: PANTOprazole 40 MG TAB PO SCH ×3 (13:10→20:25)
[2020-07-19] MEDS: POLYETHYLENE (MIRALAX) 17 GM PACK PO SCH ×2 (13:11→14:02)
[2020-07-19] MEDS: AMIODARONE 200 MG TAB PO SCH (14:02)
[2020-07-19] MEDS ORDERED: ALUMINUM/MAGNESIUM SUSP 18 ML, LIDOCAINE HCL VISCOUS 2% 6 ML, BARCODE IDENTIFIER 1 EA PO ONE (15:00)
--- NOTE | 2020-07-19 16:58 | Billing Data ---
Date of Service July 19, 2020 Coding Level of Care Code 39893 Subseq Hosp Care Lvl 3
[2020-07-19] MEDS ORDERED: POLYETHYLENE (MIRALAX) 17 GM PACK PO ONE (19:46)
[2020-07-20 06:37] LABS: Basophils # (auto) 0.01 K/uL (0-0.2); Basophils % (auto) 0.2 %; Eosinophils # (auto) 0.07 K/uL (0-0.5); Eosinophils % (auto) 1.2 %; Hematocrit (blood only) 36.9 % (37-47); Hemoglobin 11.7 g/dL (12.0-16.0); Immature Granulocytes # (auto) 0.02 K/uL (0.00-0.02); Immature Granulocytes % (auto) 0.4 %; Lymphocytes # (auto) 1.05 K/uL (1.2-3.4); Lymphocytes % (auto) 18.4 %; Mean Corpuscular Hemoglobin 30.5 pg (25-34); Mean Corpuscular Hgb Conc 31.7 g/dL (32-36); Mean Corpuscular Volume 96.3 fL (80-100); Mean Platelet Volume 10.3 fL (7.4-10.4); Monocytes # (auto) 0.84 K/uL (0.11-0.59); Monocytes % (auto) 14.7 %; Neutrophils # (auto) 3.71 K/uL (1.4-6.5); Neutrophils % (auto) 65.1 %; Platelet Count 145 K/uL (130-400); RDW Standard Deviation 89.7 fL (36.4-46.3); Red Blood Count 3.83 M/uL (4.2-5.4)
[2020-07-20 06:45] LABS: INR 1.2 (0.9-1.1); Prothrombin Time 11.9 Seconds (9.0-12.0)
[2020-07-20 07:19] LABS: Albumin Level 2.6 gm/dl (3.4-5.0); BUN Creatinine Ratio 18.6 (10-20); Calcium 8.1 mg/dl (8.5-10.1); Est GFR (African American) 49.3; Est GFR (Non-African American) 42.5; Potassium 4.5 mmol/L (3.5-5.1)
[2020-07-20 07:21] LABS: Albumin Globulin Ratio 0.7 (0.9-2); Anisocytosis Present; Bilirubin,Total 1.2 mg/dl (0.2-1); Globulin 3.6 gm/dl (2.5-4.0); Hypochromasia Present; Total Protein 6.2 gm/dl (6.4-8.2)
[2020-07-20] MEDS: POLYETHYLENE (MIRALAX) 17 GM PACK PO SCH (07:54)
[2020-07-20] MEDS: ASPIRIN 325 MG ECTAB PO SCH (07:55)
[2020-07-20] MEDS: PANTOprazole 40 MG TAB PO SCH (07:55)
[2020-07-20] MEDS: SACUBITRIL-VALSARTAN 24-26 MG TAB PO SCH (07:55)
[2020-07-20] MEDS: FLUTICASONE/VILANTEROL 200/25MCG 14 PUFFS/INHALER INH SCH (07:56)
[2020-07-20] MEDS: ENOXAPARIN INJ 40 MG/0.4 ML SYR SQ SCH (07:56)
[2020-07-20] MEDS: MoRPHine SULFATE 2 MG/ML CARP IV PRN (08:02)
[2020-07-20] MEDS ORDERED: FAMOTIDINE 20 MG TAB PO SCH (09:00)
--- NOTE | 2020-07-20 10:31 | Discharge Summary ---
Date of Service July 20, 2020 Admission HPI Per Admitting Provider 69yo female presenting with 2 weeks of nausea, vomiting and abdominal discomfort, mostly in RUQ. 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 She had direct left sided cerebral bypass surgery performed at [facility] on 05/31/20. Patient did well with the surgery with no complications identified. She developed upper abdominal pain 3 weeks ago as well as nausea and dry heaving. Pain is constant, 7/10 in severity, non- radiating and not associated with meals. She has been itching as well and more short of breath. And has had diminished appetite and decreased PO intake. Constipation lately for which she has been taking Miralax. She denies fever/chills/cough/chest pain/diarrhea. She denies jaundice/icterus. Has had some light colored stools. Patient takes Tylenol every 4 hours at recommended dosage. She does not drink EtOH. No prior tattoos or history of IVDU. She has had blood transfusions in the past. Principal Diagnosis Acute CHF Discharge Exam General: patient resting comfortably, NAD, chronically ill in appearance, AA&O x 3 Skin: warm, dry, flaking, intact, multiple small, erythematous excoriations on various parts of her body including forearms, lower legs, and lower back HEENT: NC/AT, PERRL, EOMI, anicteric sclera, conjunctiva without injection, external ear normal to inspection, no JVD Heart: Irregularly irregular, normal S1 and S2, no gallops, no rubs, no murmurs Lungs: equal air entry bilaterally, no rales/rhonchi/wheezes, diminished in right base Abd: +BS, soft, nontender, no masses/organomegaly/ascites Ext: warm, 2+ pulses in UE/LE bilaterally, no clubbing/cyanosis or edema Neuro: nonfocal, patient AA&O x 3, speech intact, no facial droop, moving all extremities on command with equal strength 5/5 Discharge Data Allergies Allergy/AdvReac Type Severity Reaction Status Date / Time amoxicillin Allergy Intermediate HIVES Verified 07/15/20 21:04 clavulanic acid Allergy Intermediate Hives Verified 07/15/20 21:04 [From Augmentin] lisinopril Allergy Intermediate CAUSED BP Verified 07/15/20 21:04 TO DROP TOO LOW atenolol Allergy Mild GI Verified 07/15/20 21:04 SYMPTOMS/light headed atorvastatin Allergy Mild myalgia Verified 07/15/20 21:04 fluoxetine Allergy Mild RASH/leg Verified 07/15/20 21:04 cramps propranolol Allergy Mild HIVES/body Verified 07/15/20 21:04 aches meloxicam AdvReac Mild Diarrhea Verified 07/15/20 21:04 rosuvastatin [From Crestor] AdvReac Mild Muscle Pain Verified 07/15/20 21:04 Consultations 07/15/20 23:27 ED Decision to Admit Stat 07/16/20 10:40 Consult Cardiology Routine Ordered Studies 07/15/20 20:13 CT abd pelvis IV con only Stat CT head/brain wo con Stat 07/15/20 20:15 CT angio head w con Stat CT angio neck with con Stat 07/16/20 03:01 MR MRCP Routine Hospital Course (1) Nausea: 69 yo female with h/o L carotid arteria occlusion with multiple left CVAs, history of left cerebral bypass at [facility] on 05/31/2020, paroxysmal a-fib (was on Eliquis but stopped taking, does not tolerate BB), and h/o gastric bypass who was admitted to [facility] on 07/16/2020 for nausea/vomiting/weight loss/abdominal pain in the context of acute HFrEF. HFrEF - Dyspnea on exertion and orthopnea x several weeks (following surgery in May). - BNP 31,000. - CXR with cardiomegaly, CT with bilaterally pleural effusions/ascites/body wall edema - TTE showing EF 35-40% with severe MR, elevated RVSP, right heart dysfunction - acute HFrEF. - Received Lasix 40mg IV x1 in the ED - Giving Lasix as tolerated in the setting of her fluid overload versus maintaining adequate blood pressure for her recent brain surgery - Continue Entresto 24/26mg PO BID - Patient stopped taking Fludrocortisone 3 weeks ago to maintain high BPs after cerebral bypass surgery 1.5 months ago - Contacted Dr. Waller ([facility] Neurosurgeon) via PowerChart for further recs - pending response - daily weights, strict I/Os, heart-healthy diet Transaminitis/Thrombocytopenia/Elevated INR - CT abd/pelv and MRCP showing enlarged liver, periportal edema, IVC/hepatic venous engorgement. No hepatobiliary/pancreatic masses or intra/extra-biliary obstruction. - Suspect severe back-flow due to HFrEF causing vascular engorgement and resultant pseudo-obstruction of biliary tree as well as intra-hepatic vascular pseudo-obstruction. - Liver enzymes trending down at discharge - Consider rechecking LFTs within 1 week after discharge Paroxysmal Atrial Fibrillation - First appearance after surgery - Initially was on Eliquis but stopped. Did not tolerate BB due to rash/hives - Cardiology consulted throughout admission -Attempted amiodarone bolus and drip but patient had decrease in blood pressure and resulting watershed ischemia - Given Amiodarone 200mg PO TID during admission but remained in afib Nausea -Received Zofran & Phenergan PRN -Possibly related to some level of gastritis versus constipation (no BM in 5-6 days) versus remaining liver inflammation -Received Miralax, famotidine and pantoprazole during admission -Continue pantoprazole at discharge for a limited time for GI protection in the setting of recent physical stress S/p Intracranial Revascularization (05/31/2020) - Well-tolerated without post-operative complications, finished Fludrocortisone taper 3 weeks ago - Attempted Powerchart communication re: blood pressure with [facility] Neurosurgery, as mentioned above - Had episode of watershed ischemia following amio bolus. As such, amiodarone kept at oral dosing during admission Elevated Troponin - EKGs without ST/T wave changes - Troponin peaked at .102, then downtrended -- suspect demand ischemia 2/2 acute HFrEF - Continue Aspirin - A1c 5.0 Generalized Pruritus - Occurring for 3 weeks - Suspect this is likely scabies - Received permethrin cream once - Benadryl and triamcinolone PRN - COnsider repeat permethrin if not fully resolved about 2 weeks after discharge Weight Loss - 40-lb weight loss over course of 1 year, with 10-pound weight loss in last month - Suspect cardiac cachexia - Encourage PO intake Elevated Lactate - Lactate 2.2 in context of above - suspect 2/2 poor end-organ perfusion. IRIS - Creatinine stable - Baseline 1-1.1 - Suspect pre-renal injury 2/2 poor perfusion (see above) HTN - Was told by Neurosurgery to maintain BP of 150-170. Message sent to Dr. Waller as stated above. - Entresto started as stated above HLD - Had myalgias with rosuvastatin and atorvastatin - Lipid profile with LDL of 56, triglycerides of 129, HDL low at 15 FEN/GI: heart-healthy diet Disposition: Home -- Self Care Total Time Total Time Spent Total Time Spent (In Minutes): <30 Discharge Plan Discharge Items Patient Disposition: Home - Self-Care Reason For Visit: NAUSEA,ABNORMAL LIVER STUDIES Discharge Diagnosis: Acute systolic CHF Activity: Per Instructions section Non-emergency contact: Primary Care Provider Call non-emergency contact if: your symptoms worsen Follow-up/Referrals: Anjel Eid MD [Primary Care Provider] - (appt requested) Lori Gaston PA-C [Physician Soft Sugar Operator Head] - 07/21/20 10:00 am (Congestive Heart Failure Program Appointment Information Early follow up is essential to managing your heart failure. An appointment has been scheduled for you with the [facility] Heart Failure [facility] within 7 days of discharge. Anticipate this visit to be 30-60 minutes long. Please expect a occupational therapy asst phone call from one of our nurses approximately 48 hours from discharge. They will also be placing an order for lab work to be completed 1-2 days prior to your heart failure follow up appointment. Please be sure to have this done so we can go over the results when you come in. Office Location The cardiology office building is located in front of the hospital at [address] Bring the following with you to your follow-up doctor appointments: Please bring your daily weight log any discharge paperwork all of your medication bottles with you to this visit. ) Diet: Heart Healthy Addtl Attending Provider Instructions: You were admitted to [facility] due to upper abdominal pain and nausea with dry heaving about 3 weeks prior to your arrival. You were found to have elevated liver enzymes which were most likely causing the symptoms that brought you in. This elevation was found to be secondary to acute heart failure with resulting fluid buildup causing hepatic obstruction. As such, you were treated with gentle diuretics in the setting of your recent brain surgery. For your heart failure we have started you on a medication called Entresto. Please continue to take this medication at home and follow with your primary care provider and cardiology for discussion of continued treatment. You also developed atrial fibrillation and were treated with a medication called amiodarone to try to control your abnormal heart rhythm. Ideally, you would be put on anticoagulation for the atrial fibrillation but your history of ga strointestinal bleeding and recent brain surgery make it unsafe to do so. As above, we recommend that you follow-up with your primary care provider and a coil winding machines set up mechanic for continued work-up and treatment of your atrial fibrillation, congestive heart failure, and cardiomyopathy. You also had a complaint of generalized itching, which was found to most likely be related to scabies. You were treated in the hospital with the appropriate skin cream. As we discussed, it is possible that you might continue to have itching for some time after this while your body clears the organisms causing this. We recommend that you follow with your primary care provider for discussion of your hospitalization and continued management of your chronic conditions. We also recommend that you follow-up with your neurosurgeon as scheduled regarding your recent surgery. If you develop worsening symptoms or any new concerning symptoms please contact your healthcare provider or seek emergency medical care. Addtl Collar Fuser Provider Instructions: Call your Primary Care doctor if any of the following symptoms or problems start or get worse: * Shortness of breath or difficulty breathing * Wake up at night short of breath * Chest pain * Cough * Swelling of your hands, feet, or legs * More fatigued or tired with your normal activity * Palpitations - sudden fast heart beats WEIGHT * Weigh yourself every morning after using the bathroom. * Use the same scale. * Wear the same amount of clothing. * Write your weight down on a chart. * Call your Primary Care doctor if you gain more than 2-3 pounds in 1-2 days. MEDICATIONS * Use this discharge instruction sheet for medication instructions. * Take your medications at the time your doctor ordered. * Do not skip a dose of your medicines. * If you miss a dose of medicine, take it as soon as possible, but DO NOT DOUBLE A DOSE. * Read your medicine information when you get home. * Know all of the side effects of your medicine. If in doubt, ask your pharmacist * Call your Primary Care doctor's office if you have any side effects. * Be sure all of your doctors know what medicine and herbs you take (including cold, flu, and herbal medicine). Take the following with you to your follow-up doctor appointments: * Weight Chart * Medication List * List of questions Do not drink excessive alcohol, beer or wine. Pending Studies at Discharge: No Stand-Alone Forms: My [facility], Smoking Cessation Medications and DC Order Prescriptions: New pantoprazole 40 mg Tablet,Delayed Release (Dr/Ec) 40 mg PO DAILY 30 Days Qty: 30 RF: 0 Entresto 24-26 mg Tablet 1 tab PO BID 30 Days Qty: 60 RF: 0 triamcinolone acetonide 0.025 % Cream 1 applic EXT BID PRN (Reason: Rash or itching) 14 Days Qty: 15 RF: 0 Continued iron dextran 50 mg/mL solution 50 mg IM PRN RF: 0 budesonide-formoterol 160-4.5 mcg/actuation HFA aerosol inhaler 2 puff inhalation BID Qty: 10.2 RF: 3 (DME) Aerochamber Plus Z Stat Spacer See Rx Instructions .ROUTE .MEDSUPPLY Qty: 1 RF: 0 aspirin 325 mg tablet 325 mg PO QAM RF: 0 cyanocobalamin (vitamin B-12) 1,000 mcg/mL Kit 1,000 mcg IM MONTHLY RF: 0 acetaminophen [Tylenol] 325 mg tablet 1,000 mg PO Q4H PRN (Reason: Pain) RF: 0 Discharge Orders: Discharge Order (Routine); Ordered 07/20/20 Ordered By: Johan Per[facility]Virgin[facility] Ad[facility] Data Admit Date/Time: 07/16/20 00:37 Attending Provider: Walker Quevedo Admit Provider: Sandra Portillo Primary Care Provider: Anjel Eid Other Providers: Sandra Portillo ; Keyur Melton Other Interventions: Discharge Summary Assessment (RN) Last Done: 07/20/20 12:21 Supervising Physician Co-Signing Physician Notes I personally examined the patient and verified all sanchez points of history and exam, discussed case, and agree with decision making with Dr John. Feeling better, nausea gone. Eating okay. Very much wants to go home, feeling up to going home. Vitals noted, in general she is awake and alert pleasant appears mildly distressed due to nausea but no other physical distress or respiratory distress. HEENT normocephalic atraumatic mucous membranes moist. Breathing unlabored no accessory muscle use good effort, lungs are clear bilaterally no significant rales rhonchi or wheezes (she has faint scattered rales that sound more consistent with atelectasis than pulmonary edema) good effort. Abdomen is soft nondistended nontender. Extremities show no cyanosis or clubbing. Skin shows no rashes no pallor or icterus. No focal neuro deficits. Nauseathe differential is fairly broad, but the most likely is very combination of constipation and upper GI mucosal disease given her prior history. Has improved Transient strokelike symptoms/cerebrovascular diseaseunmasked due to drop in blood pressure related to amiodarone. Because of risk-benefit balance, amiodarone stopped. Combined left and right-sided CHFleft with systolic/HFrEF, right-sided probably from left-sided with severe pulmonary hypertension, and subsequent passive hepatic congestionhas been cautiously diuresed, lungs are generally clear, breathing is good, LFTs are trending down overall. Appears to be improving, wants to go home, appears safe to go home. May need ongoing diuresisdiscussed with patient, but given her MANAGER INTERMEDIATE disease this will need to be done slowly and cautiously. Discussed the case with heart failure clinic PAC today who is seeing the patient in clinic tomorrow. Serial labs (including LFTs) serial exams, and ongoing dosing of diuretic when/if clinically warranted Atrial fibrillationrate reasonably controlled, many fairly strong relative contraindications to anticoagulation. To try to protect as best as possible, rhythm control was attempted, unfortunately due to hypotension and nausea amiodarone has been stopped. Rate controlled, stable for home. Pruritus/rashher bilirubin is not high enough to really fit with the pruritus typically seen with liver disease, and her exam is fairly consistent with scabies. Permethrin given a few days ago, and as needed steroid creams and antihistamines can be continued to help w itching, which has improved. Otherwise as above Resident Activity Tracking Resident Involvement: Resident Care Provided Care Provided: Adult Hospital Medicine
--- NOTE | 2020-07-20 16:26 | Billing Data ---
Date of Service July 20, 2020 Coding Level of Care Code D/C Day Management <30 mins
--- NOTE | 2020-07-31 14:00 | Coding Query ---
CODING QUERY To promote full compliance with coding requirements relating to patient care, provider participation is requested in all cases of web developer programmer uncertainty. Please assist us with the question(s) below: Coding Question(s): "Possible moderate protein, severe calorie malnutrition" is documented but does not make discharge. Please clarify below: (x ) possible severe Calore Malnutrition (x ) possible moderate Protein Malnutrition ( ) Both Conditions Ruled Out ( ) Other Please Explain: Thank you Walter Dowell Principal Diagnosis: "that condition established after study, to be chiefly responsible for occasioning the admission of the patient to the hospital for care." Co-Existing Principal Diagnosis: "when two or more diagnoses equally meet the criteria for principal diagnosis as determined by the circumstances of admission, diagnostic work up, and/or therapy provided, and the Alphabetic Index, Tabular List, or another coding guideline does not provide sequencing direction, any one of the diagnoses may be sequenced first." "When the physician has documented what appears to be a current diagnosis in the body of the record, but has not included the diagnosis in the final diagnostic statement, the physician should be asked whether the diagnosis should be added." (Source [facility]oding [facility] 2 QTR90. p3-4) KIMBERLY
== END 2020-07-20 13:46 | disposition home or self-care (01) | DRG 291 ==
LOC: ED 19:52 → SUATTDRO 07-16 00:37 → EDINP 07-16 00:37 → 2N 07-16 11:41 → 1E 07-18 13:34 → 2S 07-18 13:35

== ENCOUNTER 2020-07-28 12:52 | Observation (INO) ==
[2020-07-28 13:48] LABS: Basophils # (auto) 0.01 K/uL (0-0.2); Basophils % (auto) 0.3 %; Eosinophils # (auto) 0.03 K/uL (0-0.5); Eosinophils % (auto) 0.8 %; Hematocrit (blood only) 42.2 % (37-47); Immature Granulocytes # (auto) 0.01 K/uL (0.00-0.02); Immature Granulocytes % (auto) 0.3 %; Lymphocytes # (auto) 0.87 K/uL (1.2-3.4); Lymphocytes % (auto) 21.9 %; Mean Corpuscular Hemoglobin 30.7 pg (25-34); Mean Corpuscular Hgb Conc 30.8 g/dL (32-36); Mean Corpuscular Volume 99.8 fL (80-100); Monocytes # (auto) 0.32 K/uL (0.11-0.59); Neutrophils # (auto) 2.74 K/uL (1.4-6.5); Neutrophils % (auto) 68.7 %; Platelet Count 243 K/uL (130-400); RDW Coefficient of Variation 25.4 % (11.5-14.5); RDW Standard Deviation 93.2 fL (36.4-46.3); Red Blood Count 4.23 M/uL (4.2-5.4); White Blood Count 3.98 K/uL (4.8-10.8)
[2020-07-28 13:58] LABS: INR 1.1 (0.9-1.1); Partial Thromboplastin Ratio 0.9; Partial Thromboplastin Time 24.7 Seconds (21.0-31.0); Prothrombin Time 11.1 Seconds (9.0-12.0)
[2020-07-28 14:17] LABS: Albumin Globulin Ratio 0.7 (0.9-2); Albumin Level 2.7 gm/dl (3.4-5.0); BUN Creatinine Ratio 13.1 (10-20); Bilirubin,Total 0.6 mg/dl (0.2-1); Calcium 8.2 mg/dl (8.5-10.1); Creatinine Clr Calc Pharmacy 29.2 ml/min; Est GFR (African American) 41.4; Est GFR (Non-African American) 35.7; Magnesium 2.3 mg/dl (1.8-2.4); Phosphorus 3.7 mg/dl (2.5-4.9); Potassium 4.4 mmol/L (3.5-5.1); Total Protein 6.7 gm/dl (6.4-8.2)
[2020-07-28 14:24] LABS: Troponin I 1.35 ng/ml (0-0.045)
[2020-07-28 14:29] LABS: Anisocytosis Present; Spherocytes Occasional; Target Cells 1+
--- NOTE | 2020-07-28 14:35 | XRay Report ---
SINGLE VIEW CHEST CLINICAL HISTORY: Right upper extremity weakness. FINDINGS: An AP, portable, upright chest radiograph is compared to study dated 07/15/2020 and correlat ed with chest CT dated 04/21/2020. The heart is enlarged noting atherosclerotic calcification of the t horacic aorta. The pulmonary vasculature is noncongested. Emphysema and chronic interstitial thickeni ng is similar to previous. There are left larger than right pleural effusions with bibasilar consolid ation. These have modestly increased in size as compared to 07/15/2020. No pneumothorax is seen. The s keletal structures are osteopenic. The bony thorax is grossly intact. IMPRESSION: 1. Cardiomegaly and emphysema with no radiographic evidence of congestive failure. 2. Left larger than right pleural effusions with bibasilar consolidation. These have modestly increas ed in size as compared to 07/15/2020. ACT 112: Negative or not required by law. Electronically signed by: Matias Monroe M.D. 07/28/2020 2:33 PM
--- NOTE | 2020-07-28 15:06 | CT Scan Report ---
CT head/brain wo con CLINICAL HISTORY: 69 years-old Female with Stroke Like Symptoms. Acute strokelike symptoms TECHNIQUE: Multiple axial CT images of the head were obtained without contrast. A dose lowering tech nique was utilized adhering to the principles of ALARA. CT DOSE: 537.48 mGy.cm COMPARISON: Head CT 07/15/2020 FINDINGS: No acute intracranial hemorrhage, midline shift, intracranial mass, hydrocephalus, territorial ischem ia or abnormal extra-axial collection. Left sided craniotomy changes with left calvarial pj hole. C hronic encephalomalacia of the left parietal lobe near the vertex with additional unchanged encephalo malacia of the left frontal, occipital lobes and right cerebellar hemisphere. Chronic lacunar infarct of the right caudate nucleus. White matter hypodensities suggestive of chronic microvascular ischemi c disease. Age-related involutional changes. Cerebral vascular calcifications. The calvarium is intact. The paranasal sinuses, mastoid air cells, and middle ear cavities are clear . IMPRESSION: Chronic findings as above without acute intracranial abnormality. ACT 112: Negative or not required by law. The above report was generated using voice recognition software. It may contain grammatical, syntax o r spelling errors. Electronically signed by: Maninder Penny M.D. 07/28/2020 3:05 PM
--- NOTE | 2020-07-28 15:24 | Emergency Department Note ---
Impression & Plan Stroke-like symptom, Atrial fibrillation, Elevated troponin, CKD (chronic kidney disease) ED Provider Note NAME: MELL AUGUSTIN AGE: 69 SEX: F ARRIVES VIA: Walk-In INFORMANT: Patient, ED PROVIDER(S): Gio Panda MD CHIEF COMPLAINT: RUE weakness PLAN: Disposition: Admit MEDICAL DECISION MAKING: The patient is a pleasant 69-year-old woman with a complicated past medical history including left carotid artery occlusion with history of multiple left hemispheric CVA, status post left-sided cerebral bypass surgery performed at [facility] on 05/31 with no complications, iron deficiency anemia with history of required iron infusions in the past, history of gastric bypass with associated malabsorption, chronic pain syndrome, CHF, atrial fibrillation not on anticoagulation due to history of GI bleeding who presents to the emergency department accompanied by her for evaluation of right upper extremity weakness which actually began yesterday morning and was more severe at that time though was not noticed by the and the patient did not mention it until today as it was improving but concerned given her history of stroke and brought to emergency department for evaluation. Otherwise they deny fevers, chills, cough, congestion, GI or symptoms. She recently had blood work yesterday through the CHF clinic for evaluation of her CHF and admits to having had several pound weight gain over the past week. On arrival the patient is in no acute distress, afebrile with stable vital signs. On exam she does not appear significantly fluid overloaded. Her neurologic exam is unremarkable with no notable objective weakness of the right upper extremity. EKG demonstrates atrial fibrillation without overt acute ischemia. Chest x-ray demonstrates left larger than right pleural effusions with bibasilar co nsolidation chest progressed since the end of June. However patient denies any respiratory symptoms. WBC 3.9K H/H 13/42, within normal limits. Platelets within normal limits. Chemistry without metabolic acidosis. Creatinine is 1.49 which is improved from 1.7 yesterday. Troponin 1.3 in the setting of the patient's chronic troponin elevations but increased from prior range. CTA deferred given the patient's worsening renal function however CT of the head without contrast was negative for acute process. Given the patient's complicated cerebrovascular history in the setting of her neurologic symptoms which have essentially resolved reasonable admit the patient for further evaluation possible MRI given her renal insufficiency. The patient and her at the bedside are in agreement with this plan. Case was d/w [facility] admitting resident Dr. Nava with CLAIR Grier hospitalist who will evaluate the patient for admission. Triage Nursing notes reviewed and agree them. Prior medical records reviewed Vital Signs: reviewed and remarkable for no significant abnormalities Differential diagnosis: Infection, dehydration, metabolic abnormality, hypo/hyperglycemia, electrolyte disturbance, anemia, hypoxia, cardiac sources, intracerebral event, toxicologic, neurologic, as well as other pathologies. ER treatment provided: See below. Diagnostics interpreted by me: ECG: Atrial fibrillation, 104 bpm, pvcs, TWA, no overt ST elevation or depression. Cardiac Monitoring: An order for continuous cardiac monitoring was placed and demonstrated Atrial fibrillation, 104 bpm, pvcs. Laboratory studies: See below Imaging studies: See below Consultation(s): Case was d/w [facility] admitting resident Dr. Nava with [facility] Grier hospitalist who will evaluate the patient for admission. HPI: The patient is a pleasant 69-year-old woman with a complicated past medical history including left carotid artery occlusion with history of multiple left hemispheric CVA, status post left-sided cerebral bypass surgery performed at [facility] on 05/31 with no complications, iron deficiency anemia w ith history of required iron infusions in the past, history of gastric bypass with associated malabsorption, chronic pain syndrome, CHF, atrial fibrillation not on anticoagulation due to history of GI bleeding who presents to the emergency department accompanied by her for evaluation of right upper extremity weakness which actually began yesterday morning and was more severe at that time though was not noticed by the and the patient did not mention it until today as it was improving but concerned given her history of stroke and brought to emergency department for evaluation. Otherwise they deny fevers, chills, cough, congestion, GI or symptoms. She recently had blood work yesterday through the CHF clinic for evaluation of her CHF and admits to having had several pound weight gain over the past week. ROS: See above HPI for pertinent positives & negatives. A total of 10 systems reviewed and were otherwise negative. PAST MEDICAL HISTORY:See Below PAST SURGICAL HISTORY:See Below FAMILY HISTORY:See Below SOCIAL HISTORY:See Below HOME MEDICATIONS:See Below ALLERGIES:See Below VITALS:See Below PHYSICAL EXAMINATION: GENERAL: Awake, alert, well-appearing, in no distress HENT: Normocephalic, atraumatic. Oropharynx unremarkable. EYES: Normal conjunctiva. Sclera non-icteric. EOMI. No nystamgus. PEARRL. NECK: Supple. No nuchal rigidity. FROM. No JVD. RESPIRATORY: Clear to auscultation. CARDIAC: Regular rate, irregular rhythm. Extremities warm and well perfused. Pulses equal. ABDOMEN: Soft, non-distended. No tenderness to palpation. No rebound or guarding. No masses. RECTAL: Deferred. MUSCULOSKELETAL: Chest examination reveals no tenderness. The back is symmetrical on inspection without obvious abnormality. There is no CVA te nderness to palpation. No joint edema. LOWER EXTREMITIES: Calves are equal size bilaterally and non-tender. No edema. No discoloration. NEURO: No focal sensory or motor deficits noted. Speech is fluent. 5/5 strength and SILT x 4 extremities. Cerebellar function intact including [id number], alternating palms, [id number]. SKIN: No rash or jaundice noted. Gio Panda MD Past Med/Surg History Medical History Anxiety Elevated sed rate follows with rheumatology (Dr. Fay/[facility]) Elevated troponin Generalized pain Medical marijuana prn GERD (gastroesophageal reflux disease) High cholesterol History of anemia Hx of blood transfusion 11/2019 Iron deficient- most recent iron infusion 02/2019 History of migraine headaches History of stroke last one was 04/2019 after left subclavian artery bypass--no deficits afterwards, no neurologist S/P intracranial aneurysm repair (01/2019)- no residual effects Hypertension per patient, systolic BP goal currently between 150-180 Intracranial aneurysm 01/2019 s/p stent and/or coil (Dr. Simpson/[place] [facility]) Jaundice Lactic acidemia Left carotid artery occlusion S/p left subclavian/left carotid bypass 04/2019 - graft occluded 48 hours post op PAD (peripheral artery disease) Paroxysmal atrial fibrillation F/U DR MCALLISTER Pulmonary nodule Seasonal allergies Transaminitis Surgical History H/O abdominal surgery STOMACH ULCERS REMOVED (3 TOTAL SURGERIES) History of brain surgery indirect bypass History of breast biopsy RT/LEFT (BENIGN) History of cholecystectomy History of colonoscopy History of esophagogastroduodenoscopy (EGD) MULTIPLE History of temporal artery biopsy (12/09/18) Left Temporal Artery Biopsy (11/2018) and right History of tooth extraction Intracranial aneurysm 01/2019 - STENT AND/OR COIL PLACED, SEVERINO S/P cholecystectomy S/P vascular bypass left subclavian carotid artery bypass 05/19/2019 Family History Father Acute myocardial infarction Cardiovascular disease Stroke syndrome Myocardial infarction Mother Hypertension Brother Acute myocardial infarction Daughter Family history of reaction to anesthesia Daughter- "quit breathing" with anesthesia emergence after use of fentanyl- needed to reintubate Other Patient's brother is Stroke Denies family history of Ovarian cancer Prostate cancer Breast cancer Lung cancer Colorectal cancer Social History Smoking Status: Current every day smoker Tobacco Type: Cigarettes Cigarettes Per Day: 10; Second Hand Exposure: No; Do You Dip or Chew Tobacco: No; Tobacco Cessation Education Requested by Patient: No Hx Alcohol Use: No Hx Substance Use: No Preferred Language: Macedonian Communication Ability: Effective Visual Impairment: No Limitations Hearing Ability: Normal Genetic Scientist Required: No Beliefs That Will Affect Care: None marital status: Current Living Situation: Spouse Current Living Situation Comment: Lives with and daughter current occupation: [employer] Other Information That Helps Us Care for You: No Feels Safe at Home: Yes Safety Concerns: Feels Safe At This Time Childhood Exposure to Second-Hand Smoke: Yes caffeine: No Dental Care, Regularly: No Physical Activity Frequency: Does not Exercise Seatbelt Use: always Sunscreen Use: No Assistive Devices: Denture - Upper, Denture - Lower and Glasses Allergies Allergies Allergy/AdvReac Type Severity Reaction Status Date / Time codeine Allergy Severe STROKE Unverified 07/28/20 15:23 SYMPTOMS amoxicillin Allergy Intermediate HIVES Verified 07/28/20 15:23 clavulanic acid Allergy Intermediate Hives Verified 07/28/20 15:23 [From Augmentin] lisinopril Allergy Intermediate CAUSED BP Verified 07/28/20 15:23 TO DROP TOO LOW atenolol Allergy Mild GI Verified 07/28/20 15:23 SYMPTOMS/light headed atorvastatin Allergy Mild myalgia Verified 07/28/20 15:23 fluoxetine Allergy Mild RASH/leg Verified 07/28/20 15:23 cramps propranolol Allergy Mild HIVES/body Verified 07/28/20 15:23 aches meloxicam AdvReac Mild Diarrhea Verified 07/28/20 15:23 rosuvastatin [From Crestor] AdvReac Mild Muscle Pain Verified 07/28/20 15:23 Home Meds Home Medications Medication Instructions Recorded Confirmed cyanocobalamin (vitamin B-12) 1,000 mcg IM MONTHLY 12/07/18 07/28/20 iron dextran 50 mg/mL injection 50 mg IM PRN ml 06/06/20 07/28/20 solution sacubitril-valsartan [Entresto] 1 tab PO BID 07/28/20 07/28/20 Previous Rx's Medication Instructions Recorded budesonide-formoterol HFA 160 2 puff INHALATION BID #10.2 g 06/29/20 mcg-4.5 mcg/actuation aerosol inhaler inhalational spacing device #1 ea 06/29/20 pantoprazole 40 mg PO DAILY 30 Days #30 tab 07/20/20 triamcinolone acetonide 1 applic EXT BID PRN 14 Days #15 g 07/20/20 ondansetron 4 mg disintegrating 4 mg PO Q8H PRN #30 tab 07/21/20 tablet spironolactone 25 mg tablet 12.5 mg PO DAILY #30 tab 07/21/20 Results & Data (ED) Vital Signs Vital Signs - 24 hr 07/28/20 12:54 07/28/20 15:27 07/28/20 16:50 Temperature 36.5 C Temperature Source Temporal Artery Scan Pulse Rate 87 Pulse Rate [Apical] 98 H 101 H Pulse Rhythm Regular Pulse Strength Normal Respiratory Rate 20 20 20 Respiratory Effort / Characteristics Non-Labored Spontaneous Respiratory Depth Normal Respiratory Pattern Regular Blood Pressure 140/81 Blood Pressure [Left Arm] 126/87 123/85 Blood Pressure Mean 100 Blood Pressure Mean [Left Arm] 100 97 Blood Pressure Position Sitting Pulse Oximetry 98 97 97 Oxygen Delivery Method Room Air Room Air Room Air Sepsis Recent Fever Within 48 Hours No Sepsis New/Unexplained Change in Mental Status No Sepsis Action Taken by Nursing No Action Required Laboratory Data Attestation: I reviewed the patient's lab results. Result diagrams: 07/28/20 13:34 07/28/20 13:34 Lab Results 07/28/20 07/28/2021 Range/Units 13:34 13:34 13:34 WBC 3.98 L (4.8-10.8) K/uL RBC 4.23 (4.2-5.4) M/uL Hgb 13.0 (12.0-16.0) g/dL Hct 42.2 (37-47) % MCV 99.8 (80-100) fL MCH 30.7 (25-34) pg MCHC 30.8 L (32-36) g/dL RDW Std Deviation 93.2 H (36.4-46.3) fL RDW Coeff of Sly 25.4 H (11.5-14.5) % Plt Count 243 (130-400) K/uL MPV 10.0 (7.4-10.4) fL Immature Gran % (Auto) 0.3 % Neut % (Auto) 68.7 % Lymph % (Auto) 21.9 % [place] % (Auto) 8.0 % Eos % (Auto) 0.8 % Baso % (Auto) 0.3 % Neut # (Auto) 2.74 (1.4-6.5) K/uL Lymph # (Auto) 0.87 L (1.2-3.4) K/uL [place] # (Auto) 0.32 (0.11-0.59) K/uL Eos # (Auto) 0.03 (0-0.5) K/uL Baso # (Auto) 0.01 (0-0.2) K/uL Immature Gran # (Auto) 0.01 (0.00-0.02) K/uL Anisocytosis Present Spherocytes Occasional Target Cells 1+ PT 11.1 (9.0-12.0) Seconds INR 1.1 (0.9-1.1) APTT 24.7 (21.0-31.0) Seconds PTT Ratio 0.9 Sodium 144 (136-145) mmol/L Potassium 4.4 (3.5-5.1) mmol/L Chloride 113 H (98-107) mmol/L Carbon Dioxide 24 (21-32) mmol/L Anion Gap 7.0 (3-11) BUN 19 H (7-18) mg/dl Creatinine 1.49 H (0.6-1.2) mg/dl Est Cr Clr Drug Dosing 29.2 ml/min Est GFR ( Amer) 41.4 Est GFR (Non-Af Amer) 35.7 BUN/Creatinine Ratio 13.1 (10-20) Glucose 82 (70-99) mg/dl Calcium 8.2 L (8.5-10.1) mg/dl Phosphorus 3.7 (2.5-4.9) mg/dl Magnesium 2.3 (1.8-2.4) mg/dl Total Bilirubin 0.6 (0.2-1) mg/dl AST 26 (15-37) U/L ALT 48 (12-78) U/L Alkaline Phosphatase 337 H (45-117) U/L Troponin I 1.350 H* (0-0.045) ng/ml Total Protein 6.7 (6.4-8.2) gm/dl Albumin 2.7 L (3.4-5.0) gm/dl Globulin 4.0 (2.5-4.0) gm/dl Albumin/Globulin Ratio 0.7 L (0.9-2) Specimen Hemolysis COVID-19 Eval Order SARS-CoV-2 (PCR) (Negative) Influenza Type A (PCR) (Neg) Influenza Type B (PCR) (Neg) RSV (RT-PCR) (Neg) 07/28/20 07/28/20 Range/Units 15:12 15:12 WBC (4.8-10.8) K/uL RBC (4.2-5.4) M/uL Hgb (12.0-16.0) g/dL Hct (37-47) % MCV (80-100) fL MCH (25-34) pg MCHC (32-36) g/dL RDW Std Deviation (36.4-46.3) fL RDW Coeff of Sly (11.5-14.5) % Plt Count (130-400) K/uL MPV (7.4-10.4) fL Immature Gran % (Auto) % Neut % (Auto) % Lymph % (Auto) % [place] % (Auto) % Eos % (Auto) % Baso % (Auto) % Neut # (Auto) (1.4-6.5) K/uL Lymph # (Auto) (1.2-3.4) K/uL [place] # (Auto) (0.11-0.59) K/uL Eos # (Auto) (0-0.5) K/uL Baso # (Auto) (0-0.2) K/uL Immature Gran # (Auto) (0.00-0.02) K/uL Anisocytosis Spherocytes Target Cells PT (9.0-12.0) Seconds INR (0.9-1.1) APTT (21.0-31.0) Seconds PTT Ratio Sodium (136-145) mmol/L Potassium (3.5-5.1) mmol/L Chloride (98-107) mmol/L Carbon Dioxide (21-32) mmol/L Anion Gap (3-11) BUN (7-18) mg/dl Creatinine (0.6-1.2) mg/dl Est Cr Clr Drug Dosing ml/min Est GFR ( Amer) Est GFR (Non-Af Amer) BUN/Creatinine Ratio (10-20) Glucose (70-99) mg/dl Calcium (8.5-10.1) mg/dl Phosphorus (2.5-4.9) mg/dl Magnesium (1.8-2.4) mg/dl Total Bilirubin (0.2-1) mg/dl AST (15-37) U/L ALT (12-78) U/L Alkaline Phosphatase (45-117) U/L Troponin I (0-0.045) ng/ml Total Protein (6.4-8.2) gm/dl Albumin (3.4-5.0) gm/dl Globulin (2.5-4.0) gm/dl Albumin/Globulin Ratio (0.9-2) Specimen Hemolysis COVID-19 Eval Order CovFluRsv at [facility] SARS-CoV-2 (PCR) NEGATIVE (Negative) Influenza Type A (PCR) Negative (Neg) Influenza Type B (PCR) Negative (Neg) RSV (RT-PCR) Negative (Neg) Administered Medications Fluticasone/Vilanterol (Fluticasone/Vilanterol 200/25mcg 14 Puffs/Inhaler) 2 puffs INH BID CANDIDO Stop: 08/27/20 20:59 Last Admin: 07/28/20 22:03 Dose: 2 puffs Documented by: [id number] Discontinued Medications Gadobutrol (Gadobutrol 65ml Vial) 5.5 ml IV ONCE ONE Stop: 07/28/20 20:57 Last Admin: 07/28/20 20:57 Dose: 5.5 ml Documented by: [id number] Imaging Data Radiologist's Impression: Head CT 07/28/20 13:04 CT head/brain wo con CLINICAL HISTORY: 69 years-old Female with Stroke Like Symptoms. Acute strokelike symptoms TECHNIQUE: Multiple axial CT images of the head were obtained without contrast. A dose lowering technique was utilized adhering to the principles of ALARA. CT DOSE: 537.48 mGy.cm COMPARISON: Head CT 07/15/2020 FINDINGS: No acute intracranial hemorrhage, midline shift, intracranial mass, hydrocephalus, territorial ischemia or abnormal extra-axial collection. Left sided craniotomy changes with left calvarial pj hole. Chronic encephalomalacia of the left parietal lobe near the vertex with additional unchanged encephalomalacia of the left frontal, occipital lobes and right cerebellar hemisphere. Chronic lacunar infarct of the right caudate nucleus. White matter hypodensities suggestive of chronic microvascular ischemic disease. Age-related involutional changes. Cerebral vascular calcifications. The calvarium is intact. The paranasal sinuses, mastoid air cells, and middle ear cavities are clear. IMPRESSION: Chronic findings as above without acute intracranial abnormality. ACT 112: Negative or not required by law. The above report was generated using voice recognition software. It may contain grammatical, syntax or spelling errors. Electronically signed by: Maninder Penny M.D. 07/28/2020 3:05 PM Chest X-Ray 07/28/20 13:11 SINGLE VIEW CHEST CLINICAL HISTORY: Right upper extremity weakness. FINDINGS: An AP, portable, upright chest radiograph is compared to study dated 07/15/2020 and correlated with chest CT dated 04/21/2020. The heart is enlarged noting atherosclerotic calcification of the thoracic aorta. The pulmonary vasculature is noncongested. Emphysema and chronic interstitial thickening is similar to previous. There are left larger than right pleural effusions with bibasilar consolidation. These have modestly increased in size as compared to . No pneumothorax is seen. The skeletal structures are osteopenic. The bony thorax is grossly intact. IMPRESSION: 1. Cardiomegaly and emphysema with no radiographic evidence of congestive failure. 2. Left larger than right pleural effusions with bibasilar consolidation. These have modestly increased in size as compared to 07/15/2020. ACT 112: Negative or not required by law. Electronically signed by: Matias Monroe M.D. 07/28/2020 2:33 PM Discharge Plan Visit Data Chief Complaint: Neuro Symptoms/Deficit Stated Complaint: STROKE SYMPTOMS, NUMBNESS IN ARM ED Provider: Gio Panda Discharge Problem: Stroke-like symptom, Atrial fibrillation, Elevated troponin, CKD (chronic kidney disease) Patient Disposition: Admitted As Inpatient Discharge Instructions Interventions: ED Discharge Assessment Last Done: 07/28/20 18:45 Discharge Problem: Atrial fibrillation Qualifiers: Atrial fibrillation type: unspecified Qualified Code(s): I48.91 - Unspecified atrial fibrillation CKD (chronic kidney disease) Qualifiers: Chronic kidney disease stage: unspecified stage Qualified Code(s): N18.9 - Chronic kidney disease, unspecified
--- NOTE | 2020-07-28 15:43 | Electrocardiogram Report ---
Test Reason : Blood Pressure : / mmHG Vent. Rate : 104 BPM Atrial Rate : 394 BPM P-R Int : 000 ms QRS Dur : 090 ms QT Int : 304 ms P-R-T Axes : 000 049 027 degrees QTc Int : 399 ms Atrial fibrillation with rapid ventricular response with premature ventricular or aberrantly conducte d complexes Low voltage QRS Diffuse Minor Nonspecific T wave abnormality Abnormal ECG When compared with ECG of 17-JUL-2020 10:54, No significant change Confirmed by He De La Fuente ([id number]) on 07/28/2020 3:42:58 PM Referred By: REFERRED SELF Confirmed By:He De La Fuente
[2020-07-28 16:18] LABS: Influenza A virus by PCR Negative (Neg); Influenza B virus by PCR Negative (Neg); RSV by PCR Negative (Neg); SARS CoV2 RNA(COVID-19) InHosp NEGATIVE (Negative)
[2020-07-28] MEDS ORDERED: PHARMACIST DISCHARGE MED REC CONSULT PRN (17:22)
--- NOTE | 2020-07-28 18:31 | History & Physical Report ---
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 Right upper extremity weakness s/p Intracranial Revascularization likely watershed ischemia related to lower than ideal blood pressure in the setting of her recent cerebral bypass, however will rule out acute stroke -Contacted patient's [facility] neurosurgeon, Dr. Waller, who suggested that current symptoms may be due to patient not having formed collateral vascularization yet after her surgery (done on 05/31/2020) -Negative head CT in ED -Admit to PCU -Stroke protocol initiated, patient not a TPA candidate as her symptoms have been present for longer than 4 hours -Brain MRI ordered for further evaluation -Neurology consulted -Neuro checks per protocol -Fall precautions -Not on statin due to myalgia. -Not on antiplatelet - will need to initiate. -Encourage quitting smoking. HFrEF patient does not seem overtly fluid overloaded and not complaining of respiratory symptoms or edema - BNP >35,000. - CXR with cardiomegaly and left greater than right pleural effusions with bibasilar consolidation - TTE on 425 showing EF 35-40% with severe MR, elevated RVSP, right heart dysfunction -Follows with heart failure clinic, last seen yesterday - Cardiology consulted - appreciate recs - Hold Entresto due to possibility that her neuro symptoms are related to lower blood pressure -Patient had not yet been taking the spironolactone discussed at her heart failure clinic visit, will hold this medication for now - daily weights, strict I/Os, heart-healthy diet Paroxysmal Atrial Fibrillation/Flutter - Initially was on Eliquis but stopped secondary to history of GI bleeds. Did not tolerate BB due to rash/hives -Cardiology consulted as above -Attempted amiodarone bolus and drip during previous admission but patient had decrease in blood pressure resulting in watershed ischemia Goals of Care -Patient discussed palliative care referral yesterday at heart failure visit -She and her are open to further discussions regarding options moving forward in the setting of her difficult to manage heart failure due to her multiple comorbidities -At this time she is choosing to pursue all treatment, but does prefer to be DNR/DNI for code status -Palliative care consult placed Elevated Troponin patient not complaining of chest pain or any other cardiac symptoms at this time -Elevated at 1.350 -Had elevated troponin at last admission as well, though lower than this - EKGs without ST/T wave changes - A1c 5.0 on 07/17 -Not on antiplatelet and statin. will initiate plavix in setting of acute CVA -Will need to look for alternative to statin. Renal Insufficiency creatinine trending down from yesterday at heart failure clinic -Creatinine at 1.49 -Baseline 1-1.1, though it was elevated at her last admission -Defer fluids for now in the setting of her HFrEF -Trend BMP daily HLD -Not on statins as she had myalgias with rosuvastatin and atorvastatin -Lipid profile in a.m. 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 Patient was recently admitted [facility] from 07/16/2020 2 07/20/2020 for treatment of of acute exacerbation of heart failure with reduced ejection fraction and was started on Entresto at discharge. The patient reports that her right upper extremity weakness had actually been present since her recent discharge from our hospital. But she says it started to be more noticeable yesterday. Her mentions that he did not notice weakness and she was actually using her right hand for daily tasks as usual. The patient states that she feels this has been an issue since her blood pressure has been lower than her neurosurgeon had recommended after her recent cerebral bypass. She had been on fludrocortisone for 3 weeks after her surgery to keep her blood pressure elevated. Due to the above symptoms, she has not been taking her prescribed Entresto because she feels it decreases her blood pressure too much. She denies facial droop, confusion, fever, chills, cough, congestion, chest pain, palpitations, nausea, vomiting. Of note, during her recent admission the patient did have an episode of watershed ischemia when chemical cardioversion was attempted with amiodarone bolus and drip for her paroxysmal atrial fibrillation. She is not a good candidate for anticoagulation due to prior GI bleeds and iron deficiency anemia, she has also tried a beta-salvador in the past which she was not able to tolerate. Since her previous discharge she has followed with [facility] heart failure clinic where it was recommended that she start spironolactone 12.5 mg daily for gentle diuresis but the patient has not taken this medication yet. Due to the difficulty in managing and optimizing her heart failure due to her complicated comorbidities, the patient discussed palliative care referral at her heart failure visit yesterday. Referral was placed but they have not yet communicated with anyone from palliative care. The patient does state that she is open to this, but for now would like to seek all available treatment. She does state that she would like to be made DNR/DNI on admission. ED course: Patient had negative head CT. EKG demonstrating atrial fibrillation without signs of acute ischemia. Chest x-ray demonstrated left larger than right pleural effusions with bibasilar consolidation that had slightly progressed since her previous chest image. W BC of 3.98, hemoglobin 13, platelets 243. Mild elevation of her creatinine to 1.49, which is higher than at discharge but lower than at her heart failure visit yesterday. Patient has had chronic elevation in troponin, however her troponin is higher today than previously at 1.3. Allergies Allergy/AdvReac Type Severity Reaction Status Date / Time codeine Allergy Severe STROKE Unverified 07/28/20 15:23 SYMPTOMS amoxicillin Allergy Intermediate HIVES Verified 07/28/20 15:23 clavulanic acid Allergy Intermediate Hives Verified 07/28/20 15:23 [From Augmentin] lisinopril Allergy Intermediate CAUSED BP Verified 07/28/20 15:23 TO DROP TOO LOW atenolol Allergy Mild GI Verified 07/28/20 15:23 SYMPTOMS/light headed atorvastatin Allergy Mild myalgia Verified 07/28/20 15:23 fluoxetine Allergy Mild RASH/leg Verified 07/28/20 15:23 cramps propranolol Allergy Mild HIVES/body Verified 07/28/20 15:23 aches meloxicam AdvReac Mild Diarrhea Verified 07/28/20 15:23 rosuvastatin [From Crestor] AdvReac Mild Muscle Pain Verified 07/28/20 15:23 Home Medications Medication Instructions Recorded Confirmed Type cyanocobalamin (vitamin B-12) 1,000 mcg IM MONTHLY 12/07/18 07/28/20 History iron dextran 50 mg/mL injection 50 mg IM PRN ml 06/06/20 07/28/20 History solution budesonide-formoterol HFA 160 2 puff INHALATION BID #10.2 g 06/29/20 07/28/20 Rx mcg-4.5 mcg/actuation aerosol inhaler inhalational spacing device #1 ea 06/29/20 07/25/20 Rx pantoprazole 40 mg PO DAILY 30 Days #30 tab 07/20/20 07/28/20 Rx triamcinolone acetonide 1 applic EXT BID PRN 14 Days #15 g 07/20/20 07/28/20 Rx ondansetron 4 mg disintegrating 4 mg PO Q8H PRN #30 tab 07/21/20 07/28/20 Rx tablet spironolactone 25 mg tablet 12.5 mg PO DAILY #30 tab 07/21/20 07/28/20 Rx sacubitril-valsartan [Entresto] 1 tab PO BID 07/28/20 07/28/20 History Past Med/Surg History Medical History Anxiety Elevated sed rate follows with rheumatology (Dr. Fay/[facility]) Elevated troponin Generalized pain Medical marijuana prn GERD (gastroesophageal reflux disease) High cholesterol History of anemia Hx of blood transfusion 11/2019 Iron deficient- most recent iron infusion 02/2019 History of migraine headaches History of stroke last one was 04/2019 after left subclavian artery bypass--no deficits afterwards, no neurologist S/P intracranial aneurysm repair (01/2019)- no residual effects Hypertension per patient, systolic BP goal currently between 150-180 Intracranial aneurysm 01/2019 s/p stent and/or coil (Dr. Simpson/[facility]) Jaundice Lactic acidemia Left carotid artery occlusion S/p left subclavian/left carotid bypass 04/2019 - graft occluded 48 hours post op PAD (peripheral artery disease) Paroxysmal atrial fibrillation F/U DR MCALLISTER Pulmonary nodule Seasonal allergies Transaminitis Surgical History H/O abdominal surgery STOMACH ULCERS REMOVED (3 TOTAL SURGERIES) History of brain surgery indirect bypass History of breast biopsy RT/LEFT (BENIGN) History of cholecystectomy History of colonoscopy History of esophagogastroduodenoscopy (EGD) MULTIPLE History of temporal artery biopsy (12/09/18) Left Temporal Artery Biopsy (11/2018) and right History of tooth extraction Intracranial aneurysm 01/2019 - STENT AND/OR COIL PLACED, [facility] S/P cholecystectomy S/P vascular bypass left subclavian carotid artery bypass 05/19/2019 Family History Father , age 57 of a massive stroke Acute myocardial infarction Cardiovascular disease Stroke syndrome Myocardial infarction Mother , age 92 of heart issues Hypertension Brother Acute myocardial infarction Daughter Family history of reaction to anesthesia Daughter- "quit breathing" with anesthesia emergence after use of fentanyl- needed to reintubate Other Patient's brother is Stroke Denies family history of Ovarian cancer Prostate cancer Breast cancer Lung cancer Colorectal cancer Social History Smoking Status: Current every day smoker Tobacco Type: Cigarettes Age Started Using Tobacco: 14; Cigarettes Per Day: 10; Second Hand Exposure: No; Do You Dip or Chew Tobacco: No; Tobacco Cessation Education Requested by Patient: No Hx Alcohol Use: No Hx Substance Use: No Preferred Language: Arabic Communication Ability: Effective Visual Impairment: No Limitations Hearing Ability: Normal Locomotive Driver Required: No Beliefs That Will Affect Care: None marital status: Current Living Situation: Spouse Current Living Situation Comment: Lives with and daughter current occupational status: employed 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 Other Information That Helps Us Care for You: No Feels Safe at Home: Yes Safety Concerns: Feels Safe At This Time Childhood Exposure to Second-Hand Smoke: Yes caffeine: No Dental Care, Regularly: No Physical Activity Frequency: Does not Exercise Seatbelt Use: always Sunscreen Use: No Assistive Devices: Denture - Upper, Denture - Lower and Glasses Review of Systems Constitutional: no fever, no chills and no sweats Eyes: no blind spots and no diplopia Respiratory: no cough and no dyspnea Cardiovascular: no chest pain, no dyspnea, no palpitations and no edema Gastrointestinal: no abdominal pain, no nausea and no vomiting Musculoskeletal: no problem reported Integumentary: no problem reported Neurologic: as per Subjective / HPI Psychiatric: no problem reported Physical Exam Constitutional: + thin; no acute distress Eyes: PERRL, conjunctivae normal, anicteric sclerae ENMT: external ear and nose normal, oropharynx normal Neck: normal visual inspection Respiratory: normal respiratory effort, lungs clear to auscultation Auscultation: no crackles, no rales, no rhonchi and no wheezes Cardiovascular: Rate/Rhythm: + irregularly irregular Heart Sounds: no murmur and no cardiac rub Gastrointestinal (Abdomen): normal bowel sounds, soft, nontender, no hepatosplenomegaly Musculoskeletal: Extremities: no cyanosis and no clubbing RUE with 4/5 strength on flexion, extension, and 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 Skin: no rashes, warm and dry Neurologic: CN's II-XI intact bilaterally Psychiatric: A+Ox3, euthymic affect Lymphatic: no cervical or axillary lymphadenopathy Results & Data Results & Data ([facility]) Vital Signs (Past 12 Hours) Vital Signs Temp Pulse Pulse Resp BP BP Pulse Ox 07/28/20 16:50 101 H 20 123/85 97 07/28/20 15:27 98 H 20 126/87 97 07/28/20 12:54 36.5 C 87 20 140/81 98 Code Status & VTE Plan VTE Prophylaxis Plan VTE Prophylaxis will be ordered: Yes Supervising Physician Co-Signing Physician Notes Resident Physician Supervision Note: I independently interviewed and examined the patient and verified the sanchez history and physical, reviewed labs and image studies and agree with resident Dr. John findings and care plan. initated antiplatelet. will need to look for alternative to statin encourage quitting smoking. consult neuro/cardio/palliative care considering inability to maintain higher systolic pressure to maintain perfusion due to cardiomyopathy and atrial dysr hythmia. Resident Activity Tracking Resident Involvement: Resident Care Provided Care Provided: Adult [facility] Medicine (1) Anemia Anemia type: iron deficiency Iron deficiency anemia type: other iron deficiency Qualified Code(s): D50.8 - Other iron deficiency anemias
[2020-07-28] MEDS ORDERED: ONDANSETRON 4 MG OD TAB PO PRN (19:16)
[2020-07-28] MEDS ORDERED: GADOBUTROL 65ML VIAL IV ONE (20:56)
[2020-07-28] MEDS ORDERED: FLUTICASONE/VILANTEROL 200/25MCG 14 PUFFS/INHALER INH SCH (21:00)
[2020-07-28] MEDS ORDERED: IRON DEXTRAN 50 MG/ML IM PRN (21:00)
[2020-07-28] MEDS ORDERED: TRIAMCINOLONE ACET 0.025% CR 15 GM TUBE EXT PRN (21:00)
--- NOTE | 2020-07-28 21:13 | Magnetic Resonance Report ---
MRI OF THE BRAIN COMBO CLINICAL HISTORY: Right upper extremity weakness. COMPARISON STUDY: CT of the brain dated 07/28/2020 MRI of the brain dated 12/10/2018. CT angiogram of th e brain dated 07/15/2020. TECHNIQUE: MRI of the brain was performed utilizing various T1 and T2-weighted sequences in the axial , sagittal, and coronal planes. Contrast-enhanced sequences were acquired following the administratio n of 5.5 cc of Gadavist. FINDINGS: Brain parenchyma: There are numerous foci of restricted diffusion identified in the left-sided subcor tical and periventricular white matter. The largest is in the subfrontal white matter and measures up to 12 mm. This shows nonspecific postcontrast enhancement, likely related to acute ischemia. These a re consistent with acute to subacute lacunar infarcts. No foci of restricted diffusion are seen throu ghout the right hemisphere. There is age-related involutional change noting mild subcortical and betty ventricular microangiopathic disease. There are chronic right cerebellar infarcts, as well as chronic infarcts in the left frontal, occipital, and parietal lobes. A punctate focus of hemosiderin is note d in the left posterior parietal lobe. There is no acute hemorrhage Or mass effect. No enhancing mass lesion is identified on the postcontrast images. No extra-axial fluid collection is seen. The cerebe llar tonsils are normal in configuration. Ventricles, sulci, and cisterns: Prominent secondary to involutional change. Pituitary and sella: Unremarkable. Intracranial vasculature: There is loss of the left carotid artery flow-void at the skull base. The r emaining flow voids are maintained. Orbits: The bony orbits are grossly intact. Orbital contents are normal in appearance. Sinuses and mastoids: Clear. Calvarium: There is evidence of previous left-sided craniotomy. No destructive calvarial lesion is id entified. Cervical cord: Partially visualized cervical spinal cord is normal in morphology and signal intensity . IMPRESSION: 1. There are numerous acute to subacute lacunar infarcts identified within the left-sided subcortical and periventricular white matter. 2. There is no acute hemorrhage or mass effect. 3. Numerous chronic infarcts are similar to previous. 4. There is chronic occlusion of the left internal carotid artery to the skull base. 5. Additional findings as above. ACT 112: Negative or not required by law. Electronically signed by: Matias Monroe M.D. 07/28/2020 9:12 PM
[2020-07-29] MEDS: ACETAMINOPHEN 325 MG TAB PO PRN ×5 (00:55→23:49)
[2020-07-29 01:19] LABS: Basophils # (auto) 0.02 K/uL (0-0.2); Basophils % (auto) 0.5 %; Eosinophils # (auto) 0.06 K/uL (0-0.5); Eosinophils % (auto) 1.4 %; Hematocrit (blood only) 37.1 % (37-47); Hemoglobin 11.7 g/dL (12.0-16.0); Immature Granulocytes # (auto) 0.01 K/uL (0.00-0.02); Immature Granulocytes % (auto) 0.2 %; Lymphocytes # (auto) 1.07 K/uL (1.2-3.4); Lymphocytes % (auto) 24.7 %; Mean Corpuscular Hemoglobin 31.1 pg (25-34); Mean Corpuscular Hgb Conc 31.5 g/dL (32-36); Mean Corpuscular Volume 98.7 fL (80-100); Mean Platelet Volume 10.3 fL (7.4-10.4); Monocytes # (auto) 0.39 K/uL (0.11-0.59); Neutrophils # (auto) 2.78 K/uL (1.4-6.5); Neutrophils % (auto) 64.2 %; Platelet Count 225 K/uL (130-400); RDW Coefficient of Variation 25.1 % (11.5-14.5); RDW Standard Deviation 90.1 fL (36.4-46.3); Red Blood Count 3.76 M/uL (4.2-5.4); White Blood Count 4.33 K/uL (4.8-10.8)
[2020-07-29 01:35] LABS: BUN Creatinine Ratio 14.4 (10-20); Calcium 8.2 mg/dl (8.5-10.1); Creatinine Clr Calc Pharmacy 32.5 ml/min; Est GFR (African American) 48.4; Est GFR (Non-African American) 41.7; Potassium 4.1 mmol/L (3.5-5.1)
[2020-07-29 01:37] LABS: Anisocytosis Present; Giant Platelets 1+; Poikilocytosis Present
[2020-07-29 01:55] LABS: Troponin I 1.52 ng/ml (0-0.045)
[2020-07-29] MEDS ORDERED: SODIUM CHLORIDE 0.9% 1000ML 500 ML IV ONE (04:15)
[2020-07-29] MEDS ORDERED: traMADol HCL 50 MG TABLET PO STA (04:25)
[2020-07-29] MEDS ORDERED: SODIUM CHLORIDE 0.9% 1000ML 250 ML IV ONE (04:37)
[2020-07-29 06:42] LABS: Estimated Average Glucose 105 mg/dl; Hemoglobin A1C 5.3 % (4.5-5.6)
[2020-07-29] MEDS: FLUTICASONE/VILANTEROL 200/25MCG 14 PUFFS/INHALER INH SCH (07:55)
[2020-07-29] MEDS: PANTOprazole 40 MG TAB PO SCH (07:56)
--- NOTE | 2020-07-29 08:22 | Neurology Consultation ---
Date of Consultation July 29, 2020 Assessment & Plan (1) Acute CVA (cerebrovascular accident): (2) Right arm weakness: (3) Atrial fibrillation: (4) Intracranial aneurysm: (5) Left carotid artery occlusion: this complicated patient has had acute /subacute stroke like events scattered in the middle cerebral artery territory on the left resulting in some right upper extremity weakness of a mild nature. She has a history of atrial fibrillation In addition, she has, left carotid and subclavian occlusion, and a history of a left subclavian to internal carotid artery bypass graft April of 2019 which included by 48 hours. She is post superior temporal artery to left middle cerebral artery intracranial bypass graft May of 2020 which is still patent. 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 this is stable as well. Unfortunately she has small vessel ischemic disease risk factors for stroke including cigarette smoking and hypertension. Her lipid levels are excellent currently. Atrial fibrillation puts her at risk for embolization , although at this point any possible embolus from the heart would most likely only be able to travel up the right internal carotid artery or left vertebral (the right ve rtebral has high-grade stenosis and the left internal carotid artery is occluded). Recommendations: 1. Discontinue cigarette smoking. 2. since she is at so high risk for stroke I would recommend antiplatelet medication, such as clopidogrel 75 mg daily. 3. However, I would check with the stroke service at [facility] since they have followed her and she is complicated. 4. Normally she would need anticoagulation for the atrial fibrillation, but she has declined this and has had significant iron deficiency anemia and GI bleeding noted. Therefore hold on anticoagulant. 5. Increase activity as able. 6. Otherwise follow-up with [facility] stroke program. Overall, I spent a total of 90 minutes with this case including review of records, review of MRI films, direct evaluation the patient at bedside, and discussion of the case with the patient and RN at bedside, and Dr. Jones, including differential diagnosis and treatment options. History of Present Illness Reason for Consultation: Patient is a 69-year-old, who I was asked to see at the request of Dr. Abdalla, for neurologic consultation regarding right upper extremity weakness. Requesting Physician: Dr. Abdalla Attending Physician: Tabby Monge MD History of Present Illness This patient has a complicated history. In the past she had a [place] 1 and 2 gastric bypass surgery with gastric j ejunostomy. Following this she had celiac disease and peptic ulcers with iron deficiency and B12 deficiency.She received iron and B12. She has a history of migraine headaches, hypertension, coronary artery disease, peripheral arterial disease, dyslipidemia, anxiety, and peripheral neuropathy. Because of headache and left eye symptoms, Dr. Jack did a left temporal artery biopsy on April 10, 2018. in November of 2018 she had vision symptoms consistent with left amaurosis fugax. she was noted to have a 4 mm aneurysm outpouching in the ophthalmic segment of the right internal carotid artery CT angiography also showed an occlusion of the left common carotid artery as well as subclavian stenosis and possible left vertebral artery stenosis. She had a pipeline embolization of the right internal carotid artery aneurysm on 01/18/[address] Simpson at [facility]. Following this she had ischemic events referable to her left middle cerebral artery territory ( and the left carotid occlusion) consisting of dysarthria and right-sided weakness. She was put on Brilinta and aspirin On May 19, 2019 patient underwent a left subclavian to carotid prosthetic bypass by Dr. Oliveira. 1-2 days postop she had the onset of expressive aphasia and right des paresis. she had an acute left hemispheric stroke in the middle cerebral artery distribution and new onset atrial fibrillation. It was discovered that the bypass graft was occluded. By the fall she was having profound anemia and was found to have iron deficiency anemia in the setting of celiac disease history of gastric ulcers and previous gastric bypass surgery. Anticoagulation was discontinued. By February of 2020 she had another stroke involving the watershed area between the left [employer]GE IRON[employer]ER and MCA territories. She was felt to be at significant stroke risk and on May 31, 2020 she had a left craniotomy with indirect left superior temporal artery to middle cerebral artery intracranial bypass at [facility] by Dr. Waller. On July 15, 2020, CT angiography of the head and neck revealed chronic and postoperative changes with the thrombosis of the left common carotid artery and left internal carotid artery. There was the left subclavian to internal carotid artery bypass occlusion as well. This was unchanged. The distal common carotid artery on the right was less than 50% stenosis. There is high-grade stenosis in the origin of the right vertebral artery. The intracranial stent is patent. She was doing well but over the last few weeks has had some intermittent right upper extremity weakness. She denied speech issues or leg weakness. on July 27 she had significant right upper extremity weakness but did not inform her . The next day on July 28 she told him about the weakness although it had improved. She arrived to the emergency room July 28 at 1254, with a temperature of 36.5, pulse 87 and irregular, respiratory rate 20, blood pressure 140/81, and O2 saturation 98%. Neurologic examination revealed no focal signs or weakness. She was in chronic atrial fibrillation. Chest x-ray showed left greater than right pleural effusions. CBC showed a low white count and some very mild anemia. Chemistry profile revealed mild elevated BUN and creatinine with a low calcium of 8.2. Triglycerides were 138 and total cholesterol 92. Troponin was elevated at 1.5 MRI of the brain revealed numerous scattered small subacute and acute infarcts in the left middle cerebral artery territory subcortical and periventricular white matter. The patient has no complaint of pain or headache, vision problems, weakness or numbness, or dizziness. Allergies Allergy/AdvReac Type Severity Reaction Status Date / Time codeine Allergy Severe STROKE Unverified 07/28/20 15:23 SYMPTOMS amoxicillin Allergy Intermediate HIVES Verified 07/28/20 15:23 clavulanic acid Allergy Intermediate Hives Verified 07/28/20 15:23 [From Augmentin] lisinopril Allergy Intermediate CAUSED BP Verified 07/28/20 15:23 TO DROP TOO LOW atenolol Allergy Mild GI Verified 07/28/20 15:23 SYMPTOMS/light headed atorvastatin Allergy Mild myalgia Verified 07/28/20 15:23 fluoxetine Allergy Mild RASH/leg Verified 07/28/20 15:23 cramps propranolol Allergy Mild HIVES/body Verified 07/28/20 15:23 aches meloxicam AdvReac Mild Diarrhea Verified 07/28/20 15:23 rosuvastatin [From Crestor] AdvReac Mild Muscle Pain Verified 07/28/20 15:23 Home Medications Medication Instructions Recorded Confirmed Type cyanocobalamin (vitamin B-12) 1,000 mcg IM MONTHLY 12/07/18 07/28/20 History iron dextran 50 mg/mL injection 50 mg IM PRN ml 06/06/20 07/28/20 History solution budesonide-formoterol HFA 160 2 puff INHALATION BID #10.2 g 06/29/20 07/28/20 Rx mcg-4.5 mcg/actuation aerosol inhaler inhalational spacing device #1 ea 06/29/20 07/25/20 Rx pantoprazole 40 mg PO DAILY 30 Days #30 tab 07/20/20 07/28/20 Rx triamcinolone acetonide 1 applic EXT BID PRN 14 Days #15 g 07/20/20 07/28/20 Rx ondansetron 4 mg disintegrating 4 mg PO Q8H PRN #30 tab 07/21/20 07/28/20 Rx tablet spironolactone 25 mg tablet 12.5 mg PO DAILY #30 tab 07/21/20 07/28/20 Rx sacubitril-valsartan [Entresto] 1 tab PO BID 07/28/20 07/28/20 History Patient History Medical History Anxiety Elevated sed rate follows with rheumatology (Dr. Fay/[facility]) Elevated troponin Generalized pain Medical marijuana prn GERD (gastroesophageal reflux disease) High cholesterol History of anemia Hx of blood transfusion 11/2019 Iron deficient- most recent iron infusion 02/2019 History of migraine headaches History of stroke last one was 04/2019 after left subclavian artery bypass--no deficits afterwards, no neurologist S/P intracranial aneurysm repair (01/2019)- no residual effects Hypertension per patient, systolic BP goal currently between 150-180 Intracranial aneurysm 01/2019 s/p stent and/or coil (Dr. Simpson/[facility]) Jaundice Lactic acidemia Left carotid artery occlusion S/p left subclavian/left carotid bypass 04/2019 - graft occluded 48 hours post op PAD (peripheral artery disease) Paroxysmal atrial fibrillation F/U DR MCALLISTER Pulmonary nodule Seasonal allergies Transaminitis Surgical History H/O abdominal surgery STOMACH ULCERS REMOVED (3 TOTAL SURGERIES) History of brain surgery indirect bypass History of breast biopsy RT/LEFT (BENIGN) History of cholecystectomy History of colonoscopy History of esophagogastroduodenoscopy (EGD) MULTIPLE History of temporal artery biopsy (12/09/18) Left Temporal Artery Biopsy (11/2018) and right History of tooth extraction Intracranial aneurysm 01/2019 - STENT AND/OR COIL PLACED, [facility] S/P cholecystectomy S/P vascular bypass left subclavian carotid artery bypass 05/19/2019 Family History Father , age 57 of a massive stroke Acute myocardial infarction Cardiovascular disease Stroke syndrome Myocardial infarction Mother , age 92 of heart issues Hypertension Brother Acute myocardial infarction Daughter Family history of reaction to anesthesia Daughter- "quit breathing" with anesthesia emergence after use of fentanyl- needed to reintubate Other Patient's brother is Stroke Denies family history of Ovarian cancer Prostate cancer Breast cancer Lung cancer Colorectal cancer Social History Smoking Status: Current every day smoker Tobacco Type: Cigarettes Age Started Using Tobacco: 14; Cigarettes Per Day: 10; Second Hand Exposure: No; Do You Dip or Chew Tobacco: No; Tobacco Cessation Education Requested by Patient: No Hx Alcohol Use: No Hx Substance Use: No Preferred Language: Ukrainian Communication Ability: Effective Visual Impairment: No Limitations Hearing Ability: Normal 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: No Beliefs That Will Affect Care: None marital status: Current Living Situation: Spouse Current Living Situation Comment: Lives with and daughter current occupational status: employed current occupation: [employer] Other Information That Helps Us Care for You: No Feels Safe at Home: Yes Safety Concerns: Feels Safe At This Time Childhood Exposure to Second-Hand Smoke: Yes caffeine: No Dental Care, Regularly: No Physical Activity Frequency: Does not Exercise Seatbelt Use: always Sunscreen Use: No Assistive Devices: Denture - Upper, Denture - Lower and Glasses Review of Systems Constitutional: no fever, no fatigue and no weakness Eyes: no diplopia, no eye pain and no worsening vision Ear, Nose, Mouth, Throat: no ear pain, no tinnitus, no hearing loss, no dizziness, no hoarseness and no dysphagia Respiratory: no cough and no dyspnea Cardiovascular: no chest pain, no palpitations and no lightheadedness Gastrointestinal: no abdominal pain, no nausea and no vomiting Genitourinary: no dysuria, no urinary frequency and no urinary incontinence Musculoskeletal: no back pain, no neck pain, no radicular pain, no joint pain and no myalgia Integumentary: no rash and no lesions Neurologic: no gait abnormality, no localized weakness, no generalized weakness, no tingling, no numbness, no tremor(s), no abnormal movements, no headache(s), no abnormal speech, no confusion and no memory loss Psychiatric: no depression, no irritability, no anxiety, no difficulty concentrating, no confusion and no hallucinations Endocrine: no fatigue and no flushing Hematologic / Lymphatic: no easy bleeding and no easy bruising Allergy / Immunological: no urticaria and no problem reported Exam (Neuro) Physical Exam: The patient is right-handed. The patient is awake, alert, and attentive. Speech is normal without any aphasia or dysarthria. She can name objects, repeat phrases, and has normal spontaneous speech. Mentation and thought processes are intact, with orientation to person, place and time, and normal fund of knowledge. Attention and concentration are normal. Mood and affect are normal and appropriate. General appearance and grooming are normal. Short and long-term memory are intact. Pupils are 4 mm bilaterally and reactive to light. Extraocular eye muscles are intact without nystagmus. Visual acuity and visual pearson seem normal grossly to confrontation. There are no deficits to sensation in the face in all 3 distributions of the fifth cranial nerve bilaterally. Corneal reflexes are positive bilaterally. Facial strength and symmetry was normal bilaterally. Hearing seems normal to whisper and finger rub bilaterally. Palate moves well without asymmetry. There is normal sternocleidomastoid and trapezius (shoulder shrug) strength bilaterally. Tongue is midline with good strength bilaterally. Neck has a full range of motion without discomfort. patient is in atrial fibrillation. Cervical, thoracic, and lumbar spine are nontender to palpation. Gait is narrow based but cautious, with good arm swing, turns, and stance. With outstretched arms there is no drift. There are no resting, postural, or action tremors. There is no ataxia with finger to nose testing. There is good facility in the hands. No other abnormal involuntary movements are noted. Motor strength is 5/5 diffusely in the left upper extremity including deltoids, biceps, triceps, brachioradialis, wrist flexors and extensors, investor relations analyst, and intrinsic hand muscles. motor strength is 4/5 diffusely in the right upper extremity. Motor strength is 5/5 diffusely in the legs bilaterally including hip flexors, quadriceps, hamstrings, gastrocnemius, tibialis anterior, tibialis posterior, and Peroneii muscles. Toe extensors are normal and there is good bulk in the extensor digitorum brevis muscles bilaterally. The limbs have good tone without rigidity or spasticity. There is no atrophy noted in the muscles. Muscle bulk is normal, there is no tenderness to palpation, no myotonia to percussion, and no fasciculations seen. Sensory examination is intact to touch and pin throughout all 4 limbs diffusely. Reflexes are 1/4 in the biceps, triceps, brachioradialis, and quadriceps tendons bilaterally. Achilles tendon reflexes are absent bilaterally. There is no clonus bilaterally. Toes are downgoing with plantar stimulation bilaterally. Peripheral pulses are present and of normal quality distally in all 4 limbs. There is no peripheral edema noted in the limbs. Results & Data ([facility]) Vital Signs (Past 12 Hours) Vital Signs Temp Pulse Resp BP Pulse Ox 07/29/20 07:56 36.4 C L 100 H 18 144/80 H 97 07/29/20 04:08 36.6 C 101 H 18 111/54 L 94 07/28/20 23:31 36.8 C 99 H 16 132/80 95 PG Care Time/CCT Total # of Minutes Spent Total Time Spent with Patient: Total time spent is greater than 50% in coordination of care (as documented) at patient's floor/unit and/or counseling patient: Coding Level of Care Code 30097 OBS Care - Level 3 Diagnoses Acute CVA (cerebrovascular accident) I63.9 Right arm weakness R29.898 Atrial fibrillation I48.91 Atrial fibrillation type: unspecified Intracranial aneurysm I67.1 Left carotid artery occlusion I65.22 Time Spent (min) 90 Comment At modifiers as necessary (1) Atrial fibrillation Atrial fibrillation type: unspecified Qualified Code(s): I48.91 - Unspecified atrial fibrillation
[2020-07-29] MEDS ORDERED: CYANOCOBALAMIN 1000 MCG/ML VIAL IM ONE (09:00)
[2020-07-29] MEDS: CLOPIDOGREL BISULFATE 75 MG TAB PO SCH (10:19)
[2020-07-29] MEDS ORDERED: FLUDROCORTISONE ACETATE 0.1 MG TAB PO SCH ×2 (10:45→11:00)
--- NOTE | 2020-07-29 10:52 | Hospitalist Progress Note ---
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 Acute CVA Left: - s/p Intracerebral revascularization at [facility] [place] (05/31/2020) - admission team contacted patient's [facility] [place] [place] neurosurgeon, Dr. Waller, who suggested that current symptoms may be due to patient not having formed collateral vascularization yet after her surgery - Negative head CT in ED - Stroke protocol initiated on admission, not a TPA candidate as symptoms have been present for > 4 hours - Brain MRI demonstrating numerous acute/subacute left sided lacunar infarct - Neurology consulted - recommended initiation of plavix and - repeat discussions with [facility] [place] Neurology regarding MRI findings - Discussed changes demonstrated on MRI with Dr. Silva of [facility] [place] Neurosurgery (deferred to him by [facility] [place] stroke centre) who recommended maintenance of SBP>150, and initiation of fludrocortisone - given the patient's tentative heart failure as below discussed recommendation with Cardiology - Cardiology recommended trial of Midodrine for improvement in BP to goal in place of persistent fludrocortisone for concerns of worsening volume overload - started Midodrine 2.5mg TID, following receiving 0.05mg of Fludrocortisone - Neuro checks per protocol - Not on statin due to myalgia. - encourage quitting smoking Heart failure with reduced ejection fraction: - BNP >35,000 on admission - CXR with cardiomegaly and left greater than right pleural effusions with bibasilar consolidation - TTE on 07/16 showing EF 35-40% with severe MR, elevated RVSP, right heart dysfunction - Follows with heart failure clinic, last seen yesterday - Cardiology consulted - Holding Entresto due to possibility that her neuro symptoms are related to lower blood pressure - daily weights, strict I/Os, heart-healthy diet Paroxysmal Atrial Fibrillation/Flutter: - Initially was on Eliquis but stopped secondary to history of GI bleeds. - Did not tolerate BB due to rash/hives - Attempted amiodarone bolus and drip during previous admission but patient had decrease in blood pressure resulting in watershed ischemia -Cardiology consulted as above Elevated Troponin: - Elevated on admission with up-trend overnight - Had elevated troponin at last admission as well, though lower than this - EKGs without ST/T wave changes - likely secondary to demand ischemia - continue to monitor troponin q8h at this time History of recurrent GI bleeding and blood transfusion - h/o multiple GI surgeries - continue protonix. Renal Insufficiency: -Creatinine at 1.31 this AM, with apparent downtrend since in HF clinic -Baseline 1-1.1, though it was elevated at her last admission Hyperlipidemia: -Not on statins as she had myalgias with rosuvastatin and atorvastatin -Lipid profile this AM unimpressive Goals of Care: - Patient discussed palliative care referral at recent heart failure clinic visit - She and her are open to further discussions regarding options moving forward in the setting of her difficult to manage heart failure due to her multiple comorbidities - At this time she is choosing to pursue all treatment, but does prefer to be DNR/DNI for code status Diet: heart-healthy diet DVT Prophylaxis: SCDs Code Status: DNR/DNI (2) Right heart failure due to pulmonary hypertension: (3) COPD (chronic obstructive pulmonary disease): (4) Iron deficiency: (5) Anemia: (6) Right arm weakness: Admission and Anticipated Discharge Date Admission Date: July 28, 2020 Supervising Physician Co-Signing Physician Notes Resident Physician Supervision Note: I independently interviewed and examined the patient and verified the sanchez history and physical, reviewed labs and image studies and agree with resident Dr. Jones findings and care plan. Subjective Patient has had feeling of improvement in her right arm weakness since being admitted last night. Re-affirms that while she thinks she would not desire tons of intervention in the futuer she would want to pursue interventions for now if they are needed. Review of Systems Review of Systems: All systems reviewed & are unremarkable except as noted in Subjective Physical Exam Constitutional: WD/WN, vitals as above Eyes: PERRL, conjunctivae normal, anicteric sclerae Respiratory: normal respiratory effort; no respiratory distress, no labored breathing and no cough Cardiovascular: Rate/Rhythm: + irregularly irregular Heart Sounds: no gallop, no murmur and no cardiac rub Gastrointestinal (Abdomen): Percussion/Palpation: abdomen soft; abdomen nontender, no guarding and no hepatosplenomegaly Neurologic: deep tendon reflexes 2+ bilaterally, normal sensation to monofilament, moves all extremities and awake Speech / Cognition: normal speech Motor/Sensory: no tremor and normal movement Cranial Nerves: sense of smell intact, PERRL, EOM intact bilaterally, normal facial strength, tongue midline, able to rotate head bilaterally, able to elevate shoulders bilaterally and no nystagmus Psychiatric: Orientation: alert and oriented x 3 Results & Data Results & Data ([facility]) Vital Signs (Past 12 Hours) Vital Signs Temp Pulse Resp BP Pulse Ox 07/29/20 07:56 36.4 C L 100 H 18 144/80 H 97 07/29/20 04:08 36.6 C 101 H 18 111/54 L 94 07/28/20 23:31 36.8 C 99 H 16 132/80 95 Laboratory Results 07/29/20 07/29/20 07/29/20 Range/Units 01:08 01:08 01:08 WBC 4.33 L (4.8-10.8) K/uL RBC 3.76 L (4.2-5.4) M/uL Hgb 11.7 L (12.0-16.0) g/dL Hct 37.1 (37-47) % MCV 98.7 (80-100) fL MCH 31.1 (25-34) pg MCHC 31.5 L (32-36) g/dL RDW Std Deviation 90.1 H (36.4-46.3) fL RDW Coeff of Sly 25.1 H (11.5-14.5) % Plt Count 225 (130-400) K/uL MPV 10.3 (7.4-10.4) fL Immature Gran % (Auto) 0.2 % Neut % (Auto) 64.2 % Lymph % (Auto) 24.7 % [place] % (Auto) 9.0 % Eos % (Auto) 1.4 % Baso % (Auto) 0.5 % Neut # (Auto) 2.78 (1.4-6.5) K/uL Lymph # (Auto) 1.07 L (1.2-3.4) K/uL [place] # (Auto) 0.39 (0.11-0.59) K/uL Eos # (Auto) 0.06 (0-0.5) K/uL Baso # (Auto) 0.02 (0-0.2) K/uL Immature Gran # (Auto) 0.01 (0.00-0.02) K/uL Giant Platelets 1+ Poikilocytosis Present Anisocytosis Present Sodium 143 (136-145) mmol/L Potassium 4.1 (3.5-5.1) mmol/L Chloride 114 H (98-107) mmol/L Carbon Dioxide 25 (21-32) mmol/L Anion Gap 4.0 (3-11) BUN 19 H (7-18) mg/dl Creatinine 1.31 H (0.6-1.2) mg/dl Est Cr Clr Drug Dosing 32.5 ml/min Est GFR ( Amer) 48.4 Est GFR (Non-Af Amer) 41.7 BUN/Creatinine Ratio 14.4 (10-20) Glucose 105 H (70-99) mg/dl Estimat Average Glucose 105 mg/dl Hemoglobin A1c 5.3 (4.5-5.6) % Calcium 8.2 L (8.5-10.1) mg/dl Troponin I 1.520 H* (0-0.045) ng/ml Triglycerides 138 (0-150) mg/dl Cholesterol 92 (0-200) mg/dl LDL Cholesterol, Calc 37 mg/dl VLDL Cholesterol, Calc 28 mg/dl HDL Cholesterol 27 mg/dl Cholesterol/HDL Ratio 3 COVID-19 Eval Order SARS-CoV-2 (PCR) (Negative) Influenza Type A (PCR) (Neg) Influenza Type B (PCR) (Neg) RSV (RT-PCR) (Neg) 07/29/20 07/28/20 07/28/20 Range/Units 01:08 19:41 15:12 WBC (4.8-10.8) K/uL RBC (4.2-5.4) M/uL Hgb (12.0-16.0) g/dL Hct (37-47) % MCV (80-100) fL MCH (25-34) pg MCHC (32-36) g/dL RDW Std Deviation (36.4-46.3) fL RDW Coeff of Sly (11.5-14.5) % Plt Count (130-400) K/uL MPV (7.4-10.4) fL Immature Gran % (Auto) % Neut % (Auto) % Lymph % (Auto) % [place] % (Auto) % Eos % (Auto) % Baso % (Auto) % Neut # (Auto) (1.4-6.5) K/uL Lymph # (Auto) (1.2-3.4) K/uL [place] # (Auto) (0.11-0.59) K/uL Eos # (Auto) (0-0.5) K/uL Baso # (Auto) (0-0.2) K/uL Immature Gran # (Auto) (0.00-0.02) K/uL Giant Platelets Poikilocytosis Anisocytosis Sodium (136-145) mmol/L Potassium (3.5-5.1) mmol/L Chloride (98-107) mmol/L Carbon Dioxide (21-32) mmol/L Anion Gap (3-11) BUN (7-18) mg/dl Creatinine (0.6-1.2) mg/dl Est Cr Clr Drug Dosing ml/min Est GFR ( Amer) Est GFR (Non-Af Amer) BUN/Creatinine Ratio (10-20) Glucose (70-99) mg/dl Estimat Average Glucose mg/dl Hemoglobin A1c (4.5-5.6) % Calcium (8.5-10.1) mg/dl Troponin I Cancelled 1.300 H* (0-0.045) ng/ml Triglycerides (0-150) mg/dl Cholesterol (0-200) mg/dl LDL Cholesterol, Calc mg/dl VLDL Cholesterol, Calc mg/dl HDL Cholesterol mg/dl Cholesterol/HDL Ratio COVID-19 Eval Order SARS-CoV-2 (PCR) NEGATIVE (Negative) Influenza Type A (PCR) Negative (Neg) Influenza Type B (PCR) Negative (Neg) RSV (RT-PCR) Negative (Neg) 07/28/20 Range/Units 15:12 WBC (4.8-10.8) K/uL RBC (4.2-5.4) M/uL Hgb (12.0-16.0) g/dL Hct (37-47) % MCV (80-100) fL MCH (25-34) pg MCHC (32-36) g/dL RDW Std Deviation (36.4-46.3) fL RDW Coeff of Sly (11.5-14.5) % Plt Count (130-400) K/uL MPV (7.4-10.4) fL Immature Gran % (Auto) % Neut % (Auto) % Lymph % (Auto) % [place] % (Auto) % Eos % (Auto) % Baso % (Auto) % Neut # (Auto) (1.4-6.5) K/uL Lymph # (Auto) (1.2-3.4) K/uL [place] # (Auto) (0.11-0.59) K/uL Eos # (Auto) (0-0.5) K/uL Baso # (Auto) (0-0.2) K/uL Immature Gran # (Auto) (0.00-0.02) K/uL Giant Platelets Poikilocytosis Anisocytosis Sodium (136-145) mmol/L Potassium (3.5-5.1) mmol/L Chloride (98-107) mmol/L Carbon Dioxide (21-32) mmol/L Anion Gap (3-11) BUN (7-18) mg/dl Creatinine (0.6-1.2) mg/dl Est Cr Clr Drug Dosing ml/min Est GFR ( Amer) Est GFR (Non-Af Amer) BUN/Creatinine Ratio (10-20) Glucose (70-99) mg/dl Estimat Average Glucose mg/dl Hemoglobin A1c (4.5-5.6) % Calcium (8.5-10.1) mg/dl Troponin I (0-0.045) ng/ml Triglycerides (0-150) mg/dl Cholesterol (0-200) mg/dl LDL Cholesterol, Calc mg/dl VLDL Cholesterol, Calc mg/dl HDL Cholesterol mg/dl Cholesterol/HDL Ratio COVID-19 Eval Order CovFluRsv at [facility] SARS-CoV-2 (PCR) (Negative) Influenza Type A (PCR) (Neg) Influenza Type B (PCR) (Neg) RSV (RT-PCR) (Neg) Medications Administered Current Inpatient Medications Acetaminophen (Acetaminophen 325 Mg Tab) 650 mg PO Q4H PRN PRN Reason: Pain Stop: 08/28/20 00:38 Last Admin: 07/29/20 12:12 Dose: 650 mg Documented by: Clopidogrel Bisulfate (Clopidogrel Bisulfate 75 Mg Tab) 75 mg PO QAM CANDIDO Stop: 08/28/20 09:59 Last Admin: 07/29/20 10:19 Dose: 75 mg Documented by: Fluticasone/Vilanterol (Fluticasone/Vilanterol 200/25mcg 14 Puffs/Inhaler) 2 puffs INH DAILY REPLACED BY [facility] Stop: 08/28/20 08:59 Last Admin: 07/29/20 07:55 Dose: 2 puffs Documented by: Midodrine (Midodrine Hcl 2.5 Mg Tab) 2.5 mg PO TID@0800,1200,1700 REPLACED BY [facility] Stop: 08/28/20 16:59 Miscellaneous Information (Pharmacist Discharge Med Rec Consult) 1 ea N/A UD P RN PRN Reason: Consult Stop: 08/27/20 17:21 Ondansetron HCl (Ondansetron 4 Mg Od Tab) 4 mg PO Q8H PRN PRN Reason: Nausea And Vomiting Stop: 08/27/20 19:15 Pantoprazole Sodium (Pantoprazole 40 Mg Tab) 40 mg PO DAILY REPLACED BY [facility] Stop: 08/28/20 08:59 Last Admin: 07/29/20 07:56 Dose: 40 mg Documented by: Triamcinolone Acetonide (Triamcinolone Acet 0.025% Cr 15 Gm Tube) 1 appln EXT BID PRN PRN Reason: Rash or itching Stop: 08/27/20 20:59 Resident Activity Tracking Resident Involvement: Resident Care Provided Care Provided: Adult Hospital Medicine (1) Anemia Anemia type: iron deficiency Iron deficiency anemia type: other iron deficiency Qualified Code(s): D50.8 - Other iron deficiency anemias
--- NOTE | 2020-07-29 13:47 | Cardiology Progress Note ---
Date of Service July 29, 2020 Assessment & Plan (1) Acute CVA (cerebrovascular accident): -acute event prompting her admission. -may have been secondary to hypoperfusion from her low blood pressure. -consider trial of midodrine. (2) Chronic systolic (congestive) heart failure: -compensated at this time. -Entresto currently on hold due to the above. -diuretics currently on hold. (3) Cardiomyopathy: -LVEF of 35-40% with an inferior wall motion abnormality on her echocardiogram 07/16/2020. -consider ischemic workup as an outpatient. (4) Paroxysmal atrial fibrillation: -has been present since her last hospitalization in June. 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 -poor anticoagulation candidate due to her history of significant GI bleeding. Admission and Anticipated Discharge Date Admission Date: July 28, 2020 Subjective The patient is resting comfortably in bed without complaints of chest pain, dyspnea or palpitations. She is anxious for hospital discharge. Physical Exam Physical Exam: In general this is a thin white female seated at the bedside without complaints. HEENT exam is negative. Neck is supple with full carotid upstrokes. No carotid bruits. A prominent V-wave is noted in the jugular vein. Cardiovascular exam reveals an irregularly irregular rhythm with distant heart sounds. A 2/6 holosystolic murmur is noted along the left sternal border. Lungs are clear without rales, rhonchi or wheezes. Abdomen is soft without bruits extremities reveal intact radial pulses bilaterally. There is no peripheral edema. 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 PG Care Time/CCT Total # of Minutes Spent Total Time Spent with Patient: Total time spent is greater than 50% in coordination of care (as documented) at patient's floor/unit and/or counseling patient: Coding Level of Care Code 90219 Subseq Hosp Care Lvl 3 Diagnoses Acute CVA (cerebrovascular accident) I63.9 Chronic systolic (congestive) heart failure I50.22 Cardiomyopathy I42.9 Paroxysmal atrial fibrillation I48.0
--- NOTE | 2020-07-29 15:26 | Electrocardiogram Report ---
Test Reason : Blood Pressure : / mmHG Vent. Rate : 100 BPM Atrial Rate : 127 BPM P-R Int : 000 ms QRS Dur : 090 ms QT Int : 306 ms P-R-T Axes : 000 048 009 degrees QTc Int : 394 ms Poor data quality, interpretation may be adversely affected Atrial fibrillation with premature ventricular or aberrantly conducted complexes Possible Anterior infarct , age undetermined Abnormal ECG When compared with ECG of 28-JUL-2020 13:58, Nonspecific T wave abnormality, improved in Lateral leads Confirmed by Royce Wiley [id number]) on 07/29/2020 3:26:03 PM Referred By: REFERRED SELF Confirmed By:Royce Wiley
[2020-07-29] MEDS: MIDODRINE HCL 2.5 MG TAB PO SCH (17:08)
[2020-07-30] MEDS: ACETAMINOPHEN 325 MG TAB PO PRN (04:32)
[2020-07-30 06:07] LABS: Basophils # (auto) 0.02 K/uL (0-0.2); Basophils % (auto) 0.4 %; Eosinophils # (auto) 0.06 K/uL (0-0.5); Eosinophils % (auto) 1.1 %; Hematocrit (blood only) 38.6 % (37-47); Hemoglobin 12.1 g/dL (12.0-16.0); Immature Granulocytes # (auto) 0.02 K/uL (0.00-0.02); Immature Granulocytes % (auto) 0.4 %; Lymphocytes # (auto) 1.05 K/uL (1.2-3.4); Lymphocytes % (auto) 18.6 %; Mean Corpuscular Hemoglobin 30.5 pg (25-34); Mean Corpuscular Hgb Conc 31.3 g/dL (32-36); Mean Corpuscular Volume 97.2 fL (80-100); Mean Platelet Volume 9.7 fL (7.4-10.4); Monocytes # (auto) 0.57 K/uL (0.11-0.59); Monocytes % (auto) 10.1 %; Neutrophils # (auto) 3.93 K/uL (1.4-6.5); Neutrophils % (auto) 69.4 %; Platelet Count 221 K/uL (130-400); RDW Coefficient of Variation 24.9 % (11.5-14.5); RDW Standard Deviation 88.4 fL (36.4-46.3); Red Blood Count 3.97 M/uL (4.2-5.4); White Blood Count 5.65 K/uL (4.8-10.8)
[2020-07-30 06:31] LABS: Giant Platelets 1+
[2020-07-30 06:36] LABS: Anisocytosis Present; Target Cells 1+
[2020-07-30 06:37] LABS: BUN Creatinine Ratio 16.4 (10-20); Calcium 8.6 mg/dl (8.5-10.1); Creatinine Clr Calc Pharmacy 31.8 ml/min; Est GFR (African American) 47.1; Est GFR (Non-African American) 40.6; Potassium 4.3 mmol/L (3.5-5.1)
[2020-07-30] MEDS ORDERED: LORazepam 0.5 MG TAB PO STA (07:31)
[2020-07-30] MEDS: FLUTICASONE/VILANTEROL 200/25MCG 14 PUFFS/INHALER INH SCH (07:31)
[2020-07-30] MEDS: MIDODRINE HCL 2.5 MG TAB PO SCH ×3 (07:32→16:02)
[2020-07-30] MEDS: CLOPIDOGREL BISULFATE 75 MG TAB PO SCH (07:32)
[2020-07-30] MEDS: PANTOprazole 40 MG TAB PO SCH (07:32)
--- NOTE | 2020-07-30 10:37 | Hospitalist Progress Note ---
Date of Service July 30, 2020 Assessment & Plan Admission and Anticipated Discharge Date Admission Date: July 28, 2020 Results & Data Results & Data ([facility]) Vital Signs (Past 12 Hours) Vital Signs Temp Pulse Resp BP Pulse Ox 07/30/20 09:45 88 146/84 H 07/30/20 07:15 36.5 C 86 20 147/94 H 97 07/30/20 04:05 36.7 C 103 H 18 144/87 H 95 07/29/20 23:34 36.8 C 97 H 18 128/84 97
--- NOTE | 2020-07-30 10:41 | Cardiology Progress Note ---
Date of Service July 30, 2020 Assessment & Plan (1) Acute CVA (cerebrovascular accident): -may have been secondary to hypoperfusion from her low blood pressure. -tolerating midodrine. -blood pressure improved. (2) Chronic systolic (congestive) heart failure: -compensated at this time. -Entresto and diuretics on hold secondary to symptomatic hypotension. (3) Cardiomyopathy: -LVEF of 35-40% with inferior wall kinesis on her echocardiogram, 07/16/2020. -consider ischemic workup as an outpatient. (4) Paroxysmal atrial fibrillation: -has been present since her last hospitalization in June. 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 -poor anticoagulation candidate due to her history of significant GI bleeding. Admission and Anticipated Discharge Date Admission Date: July 28, 2020 Subjective The patient is resting comfortably in bed complaints of chest pain, dyspnea, palpitations. Her neurologic symptoms have completely resolved. Physical Exam Physical Exam: In general this is a thin white female seated at the bedside without complaints. HEENT exam is negative. Neck is supple with full carotid upstrokes. No carotid bruits. A prominent V-wave is noted in the jugular vein. Cardiovascular exam reveals an irregularly irregular rhythm with distant heart sounds. A 2/6 holosystolic murmur is noted along the left sternal border. Lungs are clear without rales, rhonchi or wheezes. Abdomen is soft without bruits extremities reveal intact radial pulses bilaterally. There is no peripheral edema. Results & Data ([facility]) Vital Signs (Past 12 Hours) Vital Signs Temp Pulse Resp BP Pulse Ox 07/30/20 09:45 88 146/84 H 07/30/20 07:15 36.5 C 86 20 147/94 H 97 07/30/20 04:05 36.7 C 103 H 18 144/87 H 95 07/29/20 23:34 36.8 C 97 H 18 128/84 97 Diagnostic Findings school lunch monitor notes rate controlled atrial fibrillation. PG Care Time/CCT Total # of Minutes Spent Total Time Spent with Patient: Total time spent is greater than 50% in coordination of care (as documented) at patient's floor/unit and/or counseling patient: Coding Level of Care Code 92663 Subseq Hosp Care Lvl 3 Diagnoses Acute CVA (cerebrovascular accident) I63.9 Chronic systolic (congestive) heart failure I50.22 Cardiomyopathy I42.9 Paroxysmal atrial fibrillation I48.0
--- NOTE | 2020-07-30 15:03 | Discharge Summary ---
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 Patient was recently admitted [facility] from 07/16/2020 2 07/20/2020 for treatment of of acute exacerbation of heart failure with reduced ejection fraction and was started on Entresto at discharge. The patient reports that her right upper extremity weakness had actually been present since her recent discharge from our hospital. But she says it started to be more noticeable yesterday. Her mentions that he did not notice weakness and she was actually using her right hand for daily tasks as usual. The patient states that she feels this has been an issue since her blood pressure has been lower than her neurosurgeon had recommended after her recent cerebral bypass. She had been on fludrocortisone for 3 weeks after her surgery to keep her blood pressure elevated. Due to the above symptoms, she has not been taking her prescribed Entresto because she feels it decreases her blood pressure too much. She denies facial droop, confusion, fever, chills, cough, congestion, chest pain, palpitations, nausea, vomiting. Of note, during her recent admission the patient did have an episode of watershed ischemia when chemical cardioversion was attempted with amiodarone bolus and drip for her paroxysmal atrial fibrillation. She is not a good candidate for anticoagulation due to prior GI bleeds and iron deficiency anemia, she has also tried a beta-salvador in the past which she was not able to tolerate. Since her previous discharge she has followed with [facility] heart failure clinic where it was recommended that she start spironolactone 12.5 mg daily for gentle diuresis but the patient has not taken this medication yet. Due to the difficulty in managing and optimizing her heart failure due to her complicated comorbidities, the patient discussed palliative care referral at her heart failure visit yesterday. Referral was placed but they have not yet communicated with anyone from palliative care. The patient does state that she is open to this, but for now would like to seek all available treatment. She does state that she would like to be made DNR/DNI on admission. ED course: Patient had negative head CT. EKG demonstrating atrial fibrillation without signs of acute ischemia. Chest x-ray demonstrated left larger than right pleural effusions with bibasilar consolidation that had slightly progressed since her previous chest image. W BC of 3.98, hemoglobin 13, platelets 243. Mild elevation of her creatinine to 1.49, which is higher than at discharge but lower than at her heart failure visit yesterday. Patient has had chronic elevation in troponin, however her troponin is higher today than previously at 1.3. Principal Diagnosis Acute/Sub-acute lacunar infarcts secondary to hypotension Discharge Exam Constitutional WD/WN, vitals as above Eyes PERRL, conjunctivae normal, anicteric sclerae Respiratory normal respiratory effort; no respiratory distress, no labored breathing and no cough Cardiovascular Rate/Rhythm: + irregularly irregular Heart Sounds: no gallop, no murmur and no cardiac rub Gastrointestinal (Abdomen) Percussion/Palpation: abdomen soft; abdomen nontender, no guarding and no hepatosplenomegaly Neurologic deep tendon reflexes 2+ bilaterally, normal sensation to monofilament, moves all extremities and awake Cranial Nerves: PERRL, normal accommodation, EOM intact bilaterally, normal facial strength, tongue midline, normal hearing, able to rotate head bilaterally, able to elevate shoulders bilaterally, no nystagmus and symmetric palate elevation Psychiatric Orientation: alert and oriented x 3 Discharge Data Allergies Allergy/AdvReac Type Severity Reaction Status Date / Time codeine Allergy Severe STROKE Unverified 07/28/20 15:23 SYMPTOMS amoxicillin Allergy Intermediate HIVES Verified 07/28/20 15:23 clavulanic acid Allergy Intermediate Hives Verified 07/28/20 15:23 [From Augmentin] lisinopril Allergy Intermediate CAUSED BP Verified 07/28/20 15:23 TO DROP TOO LOW atenolol Allergy Mild GI Verified 07/28/20 15:23 SYMPTOMS/light headed atorvastatin Allergy Mild myalgia Verified 07/28/20 15:23 fluoxetine Allergy Mild RASH/leg Verified 07/28/20 15:23 cramps propranolol Allergy Mild HIVES/body Verified 07/28/20 15:23 aches meloxicam AdvReac Mild Diarrhea Verified 07/28/20 15:23 rosuvastatin [From Crestor] AdvReac Mild Muscle Pain Verified 07/28/20 15:23 Consultations 07/28/20 15:16 ED Decision to Admit Stat 07/28/20 17:24 Consult Neurology Routine 07/28/20 17:27 Consult Cardiology Stat Consult Palliative Care Stat Ordered Studies 07/28/20 13:04 CT head/brain wo con Stat 07/28/20 17:27 MR brain wo/w con Routine Hospital Course (1) HFrEF (heart failure with reduced ejection fraction): Julia Kilgore is a 69 yo female with h/o 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 Acute CVA Left: - s/p Intracerebral revascularization at [facility] (05/31/2020) - admission team contacted patient's [facility] neurosurgeon, Dr. Waller, who suggested that current symptoms may be due to patient not having formed collateral vascularization yet after her surgery - Negative head CT in ED - Stroke protocol initiated on admission, not a TPA candidate as symptoms have been present for > 4 hours - Brain MRI demonstrating numerous acute/subacute left sided lacunar infarct - Neurology consulted - recommended initiation of plavix - Discussed changes demonstrated on MRI with Dr. Silva of [facility] Neurosurgery (deferred to him by [facility] stroke centre) who recommended maintenance of SBP>150, and initiation of fludrocortisone - given the patient's tentative heart failure as below discussed recommendation with Cardiology - Cardiology recommended trial of Midodrine for improvement in BP to goal in place of persistent fludrocortisone for concerns of worsening volume overload - continue Midodrine 2.5mg TID - added Plavix 75mg daily - Not on statin due to myalgia. - encourage quitting smoking Chronic Heart failure with reduced ejection fraction: - BNP >35,000 on admission - CXR with cardiomegaly and left greater than right pleural effusions with bibasilar consolidation - TTE on 07/16 showing EF 35-40% with severe MR, elevated RVSP, right heart dysfunction - Follows with heart failure clinic, - Discontinued Entresto to avoid drop in BP leading to CVA - continue Midodrine 2.5mg TID Paroxysmal Atrial Fibrillation/Flutter: - Initially was on Eliquis but stopped secondary to history of GI bleeds. - Did not tolerate BB due to rash/hives - Attempted amiodarone bolus and drip during previous admission but patient had decrease in blood pressure resulting in watershed ischemia Elevated Troponin: - Elevated on admission with subsequent downtrend - Had elevated troponin at last admission as well - EKGs without ST/T wave changes - likely secondary to demand ischemia History of recurrent GI bleeding and blood transfusion - h/o multiple GI surgeries - continue protonix Renal Insufficiency: -Creatinine at 1.34 this AM, with apparent downtrend since in HF clinic -Baseline 1-1.1, though it was elevated at her last admission Hyperlipidemia: - Not on statins as she had myalgias with rosuvastatin and atorvastatin - Lipid profile with acceptable range. Goals of Care: As discussed at the time of admission - Patient discussed palliative care referral at recent heart failure clinic visit - She and her are open to further discussions regarding options moving forward in the setting of her difficult to manage heart failure due to her multiple comorbidities - At this time she is choosing to pursue all treatment, but does prefer to be DNR/DNI for code status (2) Right heart failure due to pulmonary hypertension: (3) COPD (chronic obstructive pulmonary disease): (4) Iron deficiency: (5) Anemia: (6) Right arm weakness: Total Time Total Time Spent Total Time Spent (In Minutes): >30 Discharge Plan Discharge Items Patient Disposition: Home - Self-Care Reason For Visit: RIGHT UPPER EXTREMITY WEAKNESS Discharge Diagnosis: numerous lacunar infarcts Activity: Per Instructions section Non-emergency contact: Primary Care Provider, Surgeon, Senior Net Engineer and Neurologist Call non-emergency contact if: you have any medication questions and your symptoms worsen Follow-up/Referrals: Anjel Eid MD [Primary Care Provider] - Diet: Heart Healthy Addtl Attending Provider Instructions: You were seen and admitted for concerns of new onset right upper extremity weakness. During this admission, it was discovered that this weakness was likely the result of new strokes that had occurred. These strokes were discussed both with our Neurologist and with your Neurosurgeon in [place]. As a result of these conversations, you are being started on two new medications and having changes to one of your medications. You have been started on Plavix that you should continue to take once a day, and Midodrine that you should take three times a day. Pending Studies at Discharge: No Stand-Alone Forms: Medications to Prevent Stroke, [facility], Smoking Cessation Medications and DC Order Prescriptions: New clopidogrel 75 mg Tablet 75 mg PO QAM 30 Days Qty: 30 RF: 0 midodrine 2.5 mg Tablet 2.5 mg PO TID@0800,1200,1700 30 Days Qty: 90 RF: 0 Continued iron dextran 50 mg/mL solution 50 mg IM PRN RF: 0 ondansetron 4 mg tablet,disintegrating 4 mg PO Q8H PRN (Reason: nausea and vomiting) Qty: 30 RF: 0 budesonide-formoterol 160-4.5 mcg/actuation HFA aerosol inhaler 2 puff inhalation BID Qty: 10.2 RF: 3 (DME) Aerochamber Plus Z Stat Spacer See Rx Instructions .ROUTE .MEDSUPPLY Qty: 1 RF: 0 spironolactone 25 mg tablet 12.5 mg PO DAILY Qty: 30 RF: 2 cyanocobalamin (vitamin B-12) 1,000 mcg/mL Kit 1,000 mcg IM MONTHLY RF: 0 pantoprazole 40 mg Tablet,Delayed Release (Dr/Ec) 40 mg PO DAILY 30 Days Qty: 30 RF: 0 triamcinolone acetonide 0.025 % Cream 1 applic EXT BID PRN (Reason: Rash or itching) 14 Days Qty: 15 RF: 0 Discontinued Entresto 24-26 mg tablet 1 tab PO BID RF: 0 Discharge Orders: Discharge Order (Routine); Ordered 07/30/20 Ordered By: Anthony Lan/Other Patient Handouts: Stroke: Self-Care, Hypertension Stroke Link, Discharge Instructions for Stroke, Risk Factors for Stroke, Healthy Lifestyle to Prevent ... Admission Data Admit Date/Time: 07/28/20 17:22 Attending Provider: Tabby Monge Admit Provider: Johan Chavis Primary Care Provider: Anjel Eid Other Providers: Idania Abdalla ; Richi Gomes ; Royce Wiley ; Mere Cameron Other Interventions: Discharge Summary Assessment (RN) Last Done: 07/30/20 16:25 Supervising Physician Co-Signing Physician Notes Resident Physician Supervision Note: I independently interviewed and examined the patient and verified the sanchez history and physical, reviewed labs and image studies and agree with resident Dr. Jones findings and care plan. Resident Activity Tracking Resident Involvement: Resident Care Provided Care Provided: Adult [facility] Medicine
[2020-07-30] MEDS ORDERED: STROKE PATIENT DISCHARGE STA (16:22)
--- NOTE | 2020-07-30 16:44 | Pharmacy Report ---
Pharmacist Stroke Counseling - Date of Service July 30, 2020 - Scope: Pharmacy has been consulted to provide medication discharge counseling for this patient admitted with acute/subacute stroke as per the Pharmacist Discharge Counseling for Stroke Patients Protocol. - Medications on Discharge: Home Medications Medication Instructions Recorded Confirmed cyanocobalamin (vitamin B-12) 1,000 mcg IM MONTHLY 12/07/18 07/28/20 iron dextran 50 mg/mL injection 50 mg IM PRN ml 06/06/20 07/28/20 solution New Rx's Medication Instructions Recorded budesonide-formoterol HFA 160 2 puff INHALATION BID #10.2 g 06/29/20 mcg-4.5 mcg/actuation aerosol inhaler inhalational spacing device #1 ea 06/29/20 pantoprazole 40 mg PO DAILY 30 Days #30 tab 07/20/20 triamcinolone acetonide 1 applic EXT BID PRN 14 Days #15 g 07/20/20 ondansetron 4 mg disintegrating 4 mg PO Q8H PRN #30 tab 07/21/20 tablet spironolactone 25 mg tablet 12.5 mg PO DAILY #30 tab 07/21/20 clopidogrel 75 mg PO QAM 30 Days #30 tab 07/30/20 midodrine 2.5 mg PO TID@0800,1200,1700 30 07/30/20 Days #90 tab - Action: The above medications, specifically ones for stroke treatment/prophylaxis, have been reviewed in detail with the patient and/or patient self pay representative(s) prior to discharge. This includes indication, common adverse reactions, drug interactions, and medication administration. Medication counseling has been employed using the teach-back method to ensure understanding. - Outcome: The patient and/or patient self pay representative(s) have demonstrated understanding of the medications. Additional comments: I spoke with Julia regarding the new medications she would be starting on upon discharge. She knew of the two new medications(Plavix/Midodrine) and the one medication she was to stop taking upon discharge (Entresto). She plans to shredder picker her new medications and begin taking them tomorrow. Rxs have been sent. Thank you for allowing pharmacy to be involved in the care of this patient. Please call [phone] with any additional questions
[2020-07-31] MEDS ORDERED: FLUTICASONE/VILANTEROL 200/25MCG 14 PUFFS/INHALER INH SCH (09:00)
== END 2020-07-30 18:08 | disposition home or self-care (01) ==
LOC: 2S 12:52 → ED 12:52 → 2S 18:45

== ENCOUNTER 2020-08-03 16:10 | Inpatient (IN) ==
[2020-08-03 18:20] LABS: Basophils # (auto) 0.02 K/uL (0-0.2); Basophils % (auto) 0.3 %; Eosinophils # (auto) 0.02 K/uL (0-0.5); Eosinophils % (auto) 0.3 %; Hematocrit (blood only) 39.5 % (37-47); Hemoglobin 12.7 g/dL (12.0-16.0); Immature Granulocytes # (auto) 0.02 K/uL (0.00-0.02); Immature Granulocytes % (auto) 0.3 %; Lymphocytes # (auto) 1.34 K/uL (1.2-3.4); Lymphocytes % (auto) 20.8 %; Mean Corpuscular Hemoglobin 31.1 pg (25-34); Mean Corpuscular Hgb Conc 32.2 g/dL (32-36); Mean Corpuscular Volume 96.6 fL (80-100); Monocytes # (auto) 0.62 K/uL (0.11-0.59); Monocytes % (auto) 9.6 %; Neutrophils # (auto) 4.43 K/uL (1.4-6.5); Neutrophils % (auto) 68.7 %; Platelet Count 230 K/uL (130-400); RDW Coefficient of Variation 24.1 % (11.5-14.5); RDW Standard Deviation 85.5 fL (36.4-46.3); Red Blood Count 4.09 M/uL (4.2-5.4); White Blood Count 6.45 K/uL (4.8-10.8)
[2020-08-03 18:28] LABS: INR 1.2 (0.9-1.1); Prothrombin Time 11.7 Seconds (9.0-12.0)
[2020-08-03] MEDS ORDERED: fentaNYL citrate 100 MCG/2 ML VIAL IV STA (18:32)
--- NOTE | 2020-08-03 18:36 | XRay Report ---
XR chest 1V portable CLINICAL HISTORY: Shortness of breath COMPARISON STUDY: 07/28/2020 FINDINGS: The heart is enlarged. There are bilateral pleural effusions with interval increase in the size of the right pleural effusion. There is mild elevation of interstitium suggesting mild pulmonary vascular congestion/fluid overload. There are basilar parenchymal opacities, likely atelectatic.[ IMPRESSION: 1. Cardiomegaly and bilateral pleural effusions with interval increase in the size the right pleural effusion 2. Probable mild pulmonary vascular congestion/fluid overload. ACT 112: Negative or not required by law. Electronically signed by: Harmeet Izquierdo M.D. 08/03/2020 6:35 PM
[2020-08-03 18:43] LABS: Alanine Aminotransferase 32 U/L (12-78); Albumin Level 2.8 gm/dl (3.4-5.0); Aspartate Aminotransferase 29 U/L (15-37); BUN Creatinine Ratio 18.2 (10-20); Blood Urea Nitrogen 26 mg/dl (7-18); Calcium 8.6 mg/dl (8.5-10.1); Carbon Dioxide 20 mmol/L (21-32); Chloride 112 mmol/L (98-107); Est GFR (African American) 42.8 ml/min; Est GFR (Non-African American) 36.9 ml/min; Glucose 86 mg/dl (70-99); Lipase 49 U/L (73-393); Magnesium 2.2 mg/dl (1.8-2.4); Potassium 4.6 mmol/L (3.5-5.1); Sodium 140 mmol/L (136-145)
[2020-08-03 18:49] LABS: Anisocytosis Present; Echinocytes 1+
[2020-08-03 18:56] LABS: Albumin Globulin Ratio 0.8 (0.9-2); Alkaline Phosphatase 298 U/L (45-117); Bilirubin,Total 0.8 mg/dl (0.2-1); Globulin 3.7 gm/dl (2.5-4.0); Total Protein 6.5 gm/dl (6.4-8.2); Troponin I 0.194 ng/ml (0-0.045)
[2020-08-03 19:27] LABS: T4 Free Thyroxine 0.91 ng/dl (0.8-1.6)
--- NOTE | 2020-08-03 19:40 | CT Scan Report ---
CT SCAN OF THE ABDOMEN AND PELVIS WITHOUT CONTRAST CLINICAL HISTORY: abdominal pain, swelling, back pain COMPARISON STUDY: CT scan dated 07/15/2020 TECHNIQUE: CT scan of the abdomen and pelvis was performed from the lung bases to the proximal femurs . Images are reviewed in the axial, sagittal, and coronal planes. IV contrast was not administered fo r this examination. A dose lowering technique was utilized adhering to the principles of ALARA. CT DOSE: 409.90 mGy.cm FINDINGS: Lower chest: There are moderate bilateral pleural effusions. Basilar parenchymal opacities statistica lly representing compressive atelectasis. The heart is enlarged. There is no significant pericardial fluid. Liver: The serosal surface of the liver is somewhat serrated. Underlying cirrhosis was be considered. Gallbladder: Surgically absent. Spleen: Normal in size and attenuation. Pancreas: Unremarkable. Adrenal glands: Unremarkable. Kidneys: Left kidney appears somewhat atrophic. No renal, ureteral, or bladder calculi are visualized . Bowel: There are no transition zones indicate bowel obstruction. No acute inflammatory changes are vi sualized. There are postsurgical changes of a gastric bypass and Berny-en-Y anastomosis Peritoneum: There is a [id number] volume of ascites. There is no free intraperitoneal air. Vasculature: The abdominal aorta is normal in course and caliber. Adenopathy: None. Pelvic viscera: The bladder, and pelvic viscera are unremarkable. Skeletal structures: There is generalized body wall edema. No destructive skeletal lesions are visual ized. IMPRESSION: 1. Study limited by the absence of intravenous and oral contrast 2. Moderate bilateral pleural effusions 3. Slight increase in the volume of ascites 4. Generalized body wall edema 5. Possible hepatic cirrhosis 6. No evidence of bowel obstruction. No evidence of free air 7. No renal, ureteral, or bladder calculi identified ACT 112: Negative or not required by law. Electronically signed by: Harmeet Izquierdo M.D. 08/03/2020 7:38 PM
[2020-08-03] MEDS ORDERED: MAGNESIUM SULFATE / D5W 1 GM/100 ML BAG IV SCH (19:45)
--- NOTE | 2020-08-03 20:09 | Emergency Department Note ---
Impression & Plan Breathlessness, Fluid overload, Atrial fibrillation, Acute exacerbation of CHF (congestive heart failure), Elevated troponin I level, Leg swelling, Abdominal pain, Back pain ED Provider Note Provider: Donell Chi MD DATE OF SERVICE: 08/03/2020 CHIEF COMPLAINT: Shortness of breath, back and abdominal pain HISTORY OF PRESENT ILLNESS: Patient is a 69-year-old female history of CVA status post cerebellar bypass in May of this year, paroxysmal atrial fibrillation, gastric bypass, PAD, hypertension, history of occult GI bleed thus not on anticoagulation, CHF with an EF of 35 to 40% presented today stating that over the past approximate 5 to 6 days she has had worsening swelling of her lower legs and now some abdominal and mid back pain. States her breathing become very short as well and this is her primary complaint. Denies any syncope or falls. Denies trauma. States she has been eating and drinking okay. Reports that she is not had new numbness or weakness but that her neurosurgeon and her she wants her blood pressure to be elevated. Has been following at the heart failure clinic. States she does not wear self at home. Is not on diuretics beyond spironolactone. Patient states she has pain in her legs as well. Patient and states she is not doing well at home and is to be using a least 4 pillows to help sleep due to the difficulty breathing when trying to lie flat. Patient does report some abdominal bloating. REVIEW OF SYSTEMS: A total of 10 review of systems was obtained and negative except as stated above in the HPI. PAST MEDICAL HISTORY: As noted above MEDICATIONS: Reviewed home medication list SOCIAL HISTORY: Smoker, lives at home with PHYSICAL EXAM: GENERAL: alert and oriented in no acute distress on stretcher sitting very upri ght. Head: normocephalic and atraumatic EYES: No injection, discharge or icterus. NECK: Trachea midline. ENT: Mucous membranes pink and moist LUNGS: Airway patent. No retractions. Breath sounds with decreased air movement with diminished bases bilaterally. HEART: Irregular tachycardic rate and rhythm. No chest wall tenderness ABDOMEN: Soft with some slight upper abdominal/epigastric discomfort. No peritonitis. BACK: No significant midline tenderness with some slight upper lumbar paraspinal tenderness. SKIN: Acyanotic, warm, dry, without rashes EXTREMITIES: Mild diffuse lower extremity tenderness without erythema and 2+ edema through the thighs. NEUROLOGICAL: No focal deficits. No aphasia. No facial droop or slurred speech. Normal strength and tone in the extremities. Sensation to gross touch normal. Ambulatory. EK bpm atrial fibrillation with rapid ventricular response. No PVC noted. No acute ST segment elevation noted with rightward axis and some slightly depressed lateral T waves. Inverted anterior T waves are noted as well in comparison to previous from July 28 of this year the lateral ST and anterior T wave changes are new. CONTINUOUS CARDIAC MONITORING: was ordered and showed a heart rate of 80s to 120s bpm in atrial fibrillation Patient's laboratory studies and imaging reviewed. Differential includes Reactive airway disease, pneumonia, pneumothorax, COPD, CHF, infections, cardiac ischemia, pulmonary embolism, musculoskeletal, gastrointestinal, as well as other pathologies. IMPRESSION/MEDICAL DECISION MAKING: Patient presents with evidence of lower extremity and some abdominal swelling reporting worsening shortness of breath. Negative Covid. No fevers reported. X-ray not consistent with pneumonia. No significant anemia or leukocytosis today. Ultrasound lower extremities complete exclude DVT given the swelling here and this is likely negative. Given some fentanyl for pain to the pain likely related the swelling of the legs. Believe this is fluid overload likely from CHF exacerbation and right-sided heart failure. Troponin somewhat elevated but decreased from previous. Some slight lateral and anterior T wave changes noted though the patient's not having significant chest pain. Lower suspicion for acute ACS believe there is some component of demand here secondary to some fluid overload. Patient's blood pressure has been recommended to be elevated to help with her cerebral perfusion however she appears somewhat fluid overloaded. Pleural effusions are noted in the x-ray. Given her complaint of abdominal discomfort and mid lower back discomfort a CT scan of the abdomen pelvis was completed especially in light of her history without significant findings beyond some pleural effusions and ascites and body wall edema. Patient given a slight dose of Lasix to help with some diuresis although we want to have elevated blood pressure again for her cerebral perfusion with her neurological issues. 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 Patient gives magnesium with her elevated heart rate for A. fib and had improvement of her heart rate and better rate control. Would be careful with additional rate control medications as again we want to maintain a elevated blood pressure. Patient's pain does not seem to be spinal cord related and doubt acute cauda equina. Given her shortness of breath and difficulty with ADLs feel that to monitor diuresis with her blood pressure requirements and chronic kidney issues would be beneficial. The patient was in agreement and the hospitalist was contacted. DIAGNOSIS: Shortness of breath, fluid overload, CHF exacerbation, elevated troponin, atrial fibrillation, back pain, leg swelling, abdominal pain DISPOSITION: Hospitalist will evaluate Patient was agreeable with this plan. Past Med/Surg History Medical History Anxiety Elevated sed rate follows with rheumatology (Dr. Fay/[facility]) Elevated troponin Generalized pain Medical marijuana prn GERD (gastroesophageal reflux disease) High cholesterol History of anemia Hx of blood transfusion 11/2019 Iron deficient- most recent iron infusion 02/2019 History of migraine headaches History of stroke last one was 04/2019 after left subclavian artery bypass--no deficits afterwards, no neurologist S/P intracranial aneurysm repair (01/2019)- no residual effects Hypertension per patient, systolic BP goal currently between 150-180 Intracranial aneurysm 01/2019 s/p stent and/or coil (Dr. Simpson/[facility]) Jaundice Lactic acidemia Left carotid artery occlusion S/p left subclavian/left carotid bypass 04/2019 - graft occluded 48 hours post op PAD (peripheral artery disease) Paroxysmal atrial fibrillation F/U DR MCALLISTER Pulmonary nodule Seasonal allergies Transaminitis Surgical History H/O abdominal surgery STOMACH ULCERS REMOVED (3 TOTAL SURGERIES) History of brain surgery indirect bypass History of breast biopsy RT/LEFT (BENIGN) History of cholecystectomy History of colonoscopy History of esophagogastroduodenoscopy (EGD) MULTIPLE History of temporal artery biopsy (12/09/18) Left Temporal Artery Biopsy (11/2018) and right History of tooth extraction Intracranial aneurysm 01/2019 - STENT AND/OR COIL PLACED, [facility] S/P cholecystectomy S/P vascular bypass left subclavian carotid artery bypass 05/19/2019 Family History Father , age 57 of a massive stroke Acute myocardial infarction Cardiovascular disease Stroke syndrome Myocardial infarction Mother , age 92 of heart issues Hypertension Brother Acute myocardial infarction Daughter Family history of reaction to anesthesia Daughter- "quit breathing" with anesthesia emergence after use of fentanyl- needed to reintubate Other Patient's brother is Stroke Denies family history of Ovarian cancer Prostate cancer Breast cancer Lung cancer Colorectal cancer Social History Smoking Status: Current every day smoker Tobacco Type: Cigarettes Age Started Using Tobacco: 14; Cigarettes Per Day: 10; Second Hand Exposure: No; Do You Dip or Chew Tobacco: No; Tobacco Cessation Education Requested by Patient: No Hx Alcohol Use: No Hx Substance Use: No Preferred Language: Greenlandic Communication Ability: Effective Visual Impairment: No Limitations Hearing Ability: Normal Property Maintenance Technician Required: No Beliefs That Will Affect Care: None marital status: Current Living Situation: Spouse Current Living Situation Comment: Lives with and daughter current occupational status: employed current occupation: [employer] Other Information That Helps Us Care for You: No Feels Safe at Home: Yes Safety Concerns: Feels Safe At This Time Childhood Exposure to Second-Hand Smoke: Yes caffeine: No Dental Care, Regularly: No Physical Activity Frequency: Does not Exercise Seatbelt Use: always Sunscreen Use: No Assistive Devices: Denture - Upper, Denture - Lower and Glasses Allergies Allergies Allergy/AdvReac Type Severity Reaction Status Date / Time codeine Allergy Severe STROKE Verified 08/03/20 16:58 SYMPTOMS amoxicillin Allergy Intermediate HIVES Verified 08/03/20 16:58 clavulanic acid Allergy Intermediate Hives Verified 08/03/20 16:58 [From Augmentin] lisinopril Allergy Intermediate CAUSED BP Verified 08/03/20 16:58 TO DROP TOO LOW atenolol Allergy Mild GI Verified 08/03/20 16:58 SYMPTOMS/light headed atorvastatin Allergy Mild myalgia Verified 08/03/20 16:58 fluoxetine Allergy Mild RASH/leg Verified 08/03/20 16:58 cramps propranolol Allergy Mild HIVES/body Verified 08/03/20 16:58 aches meloxicam AdvReac Mild Diarrhea Verified 08/03/20 16:58 rosuvastatin [From Crestor] AdvReac Mild Muscle Pain Verified 08/03/20 16:58 Home Meds Home Medications Medication Instructions Recorded Confirmed cyanocobalamin (vitamin B-12) 1,000 mcg IM MONTHLY 12/07/18 08/03/20 iron dextran 50 mg/mL injection 50 mg IM DIRECTED ml 06/06/20 08/03/20 solution midodrine 2.5 mg PO TID 08/03/20 08/03/20 Previous Rx's Medication Instructions Recorded budesonide-formoterol HFA 160 2 puff INHALATION BID #10.2 g 06/29/20 mcg-4.5 mcg/actuation aerosol inhaler inhalational spacing device #1 ea 06/29/20 pantoprazole 40 mg PO DAILY 30 Days #30 tab 07/20/20 ondansetron 4 mg disintegrating 4 mg PO Q8H PRN #30 tab 07/21/20 tablet spironolactone 25 mg tablet 12.5 mg PO DAILY #30 tab 07/21/20 clopidogrel 75 mg PO QAM 30 Days #30 tab 07/30/20 Results & Data (ED) Vital Signs Vital Signs - 24 hr 08/03/20 16:15 08/03/20 16:53 08/03/20 17:00 Temperature 36.6 C Temperature Source Oral Pulse Rate 108 H 102 H 122 H Pulse Rate [Apical] Pulse Rate from SpO2 Sensor 106 H 115 H Respiratory Rate 20 18 18 Respiratory Effort / Characteristics Non-Labored Spontaneous Respiratory Depth Normal Respiratory Pattern Regular Blood Pressure 141/96 H 149/103 H 149/115 H Blood Pressure Mean 111 118 126 Pulse Oximetry 95 99 99 Oxygen Delivery Method Room Air Sepsis Recent Fever Within 48 Hours No Sepsis New/Unexplained Change in Mental Status No Sepsis Action Taken by Nursing No Action Required 08/03/20 17:10 08/03/20 17:20 08/03/20 17:30 Temperature Temperature Source Pulse Rate 100 H 110 H 112 H Pulse Rate [Apical] Pulse Rate from SpO2 Sensor 111 H 108 H 110 H Respiratory Rate 19 18 19 Respiratory Effort / Characteristics Respiratory Depth Respiratory Pattern Blood Pressure 150/129 H Blood Pressure Mean 136 Pulse Oximetry 100 99 96 Oxygen Delivery Method Sepsis Recent Fever Within 48 Hours Sepsis New/Unexplained Change in Mental Status Sepsis Action Taken by Nursing 08/03/20 17:40 08/03/20 17:50 08/03/20 18:00 Temperature Temperature Source Pulse Rate 114 H 106 H 95 H Pulse Rate [Apical] Pulse Rate from SpO2 Sensor 133 H 112 H 103 H Respiratory Rate 20 20 18 Respiratory Effort / Characteristics Non-Labored Spontaneous Respiratory Depth Normal Respiratory Pattern Regular Blood Pressure 154/126 H Blood Pressure Mean 135 Pulse Oximetry 98 99 98 Oxygen Delivery Method Room Air Sepsis Recent Fever Within 48 Hours Sepsis New/Unexplained Change in Mental Status Sepsis Action Taken by Nursing 08/03/20 18:10 08/03/20 18:20 08/03/20 18:30 Temperature Temperature Source Pulse Rate 121 H 109 H 120 H Pulse Rate [Apical] Pulse Rate from SpO2 Sensor 125 H 116 H 110 H Respiratory Rate 20 19 21 Respiratory Effort / Characteristics Respiratory Depth Respiratory Pattern Blood Pressure Blood Pressure Mean Pulse Oximetry 97 98 97 Oxygen Delivery Method Sepsis Recent Fever Within 48 Hours Sepsis New/Unexplained Change in Mental Status Sepsis Action Taken by Nursing 08/03/20 18:31 08/03/20 18:40 08/03/20 18:50 Temperature Temperature Source Pulse Rate 114 H 107 H 105 H Pulse Rate [Apical] Pulse Rate from SpO2 Sensor 102 H 110 H Respiratory Rate 20 20 18 Respiratory Effort / Characteristics Respiratory Depth Respiratory Pattern Blood Pressure 155/95 H Blood Pressure Mean 115 Pulse Oximetry 99 98 Oxygen Delivery Method Sepsis Recent Fever Within 48 Hours Sepsis New/Unexplained Change in Mental Status Sepsis Action Taken by Nursing 08/03/20 19:00 08/03/20 19:10 08/03/20 19:20 Temperature Temperature Source Pulse Rate 118 H 111 H 113 H Pulse Rate [Apical] Pulse Rate from SpO2 Sensor 121 H 116 H 116 H Respiratory Rate 16 17 17 Respiratory Effort / Characteristics Respiratory Depth Respiratory Pattern Blood Pressure 151/107 H Blood Pressure Mean 121 Pulse Oximetry 97 96 94 Oxygen Delivery Method Sepsis Recent Fever Within 48 Hours Sepsis New/Unexplained Change in Mental Status Sepsis Action Taken by Nursing 08/03/20 19:31 08/03/20 19:40 08/03/20 19:50 Temperature Temperature Source Pulse Rate 101 H 120 H 117 H Pulse Rate [Apical] Pulse Rate from SpO2 Sensor 121 H 124 H Respiratory Rate 22 16 18 Respiratory Effort / Characteristics Respiratory Depth Respiratory Pattern Blood Pressure 134/101 H Blood Pressure Mean 112 Pulse Oximetry 97 96 Oxygen Delivery Method Sepsis Recent Fever Within 48 Hours Sepsis New/Unexplained Change in Mental Status Sepsis Action Taken by Nursing 08/03/20 20:00 08/03/20 20:01 08/03/20 20:10 Temperature Temperature Source Pulse Rate 96 H 104 H 94 H Pulse Rate [Apical] Pulse Rate from SpO2 Sensor 101 H 99 H 98 H Respiratory Rate 21 16 17 Respiratory Effort / Characteristics Respiratory Depth Respiratory Pattern Blood Pressure 136/107 H Blood Pressure Mean 116 Pulse Oximetry 95 96 96 Oxygen Delivery Method Sepsis Recent Fever Within 48 Hours Sepsis New/Unexplained Change in Mental Status Sepsis Action Taken by Nursing 08/03/20 20:57 08/03/20 21:00 08/03/20 21:40 Temperature Temperature Source Pulse Rate 110 H 108 H Pulse Rate [Apical] 102 H Pulse Rate from SpO2 Sensor 113 H 104 H Respiratory Rate 19 17 16 Respiratory Effort / Characteristics Non-Labored Spontaneous Respiratory Depth Respiratory Pattern Blood Pressure 144/93 H 163/108 H Blood Pressure Mean 110 126 Pulse Oximetry 98 99 95 Oxygen Delivery Method Room Air Sepsis Recent Fever Within 48 Hours Sepsis New/Unexplained Change in Mental Status Sepsis Action Taken by Nursing Laboratory Data Result diagrams: 08/03/20 17:39 08/03/20 18:00 Lab Results 08/03/20 08/03/20 08/03/20 Range/Units 17:39 17:39 18:00 WBC 6.45 (4.8-10.8) K/uL RBC 4.09 L (4.2-5.4) M/uL Hgb 12.7 (12.0-16.0) g/dL Hct 39.5 (37-47) % MCV 96.6 (80-100) fL MCH 31.1 (25-34) pg MCHC 32.2 (32-36) g/dL RDW Std Deviation 85.5 H (36.4-46.3) fL RDW Coeff of Sly 24.1 H (11.5-14.5) % Plt Count 230 (130-400) K/uL MPV 11.0 H (7.4-10.4) fL Immature Gran % (Auto) 0.3 % Neut % (Auto) 68.7 % Lymph % (Auto) 20.8 % [place] % (Auto) 9.6 % Eos % (Auto) 0.3 % Baso % (Auto) 0.3 % Neut # (Auto) 4.43 (1.4-6.5) K/uL Lymph # (Auto) 1.34 (1.2-3.4) K/uL [place] # (Auto) 0.62 H (0.11-0.59) K/uL Eos # (Auto) 0.02 (0-0.5) K/uL Baso # (Auto) 0.02 (0-0.2) K/uL Immature Gran # (Auto) 0.02 (0.00-0.02) K/uL Anisocytosis Present Echinocytes 1+ PT 11.7 (9.0-12.0) Seconds INR 1.2 H (0.9-1.1) Sodium 140 (136-145) mmol/L Potassium 4.6 (3.5-5.1) mmol/L Chloride 112 H (98-107) mmol/L Carbon Dioxide 20 L (21-32) mmol/L Anion Gap 8.0 (3-11) BUN 26 H (7-18) mg/dl Creatinine 1.45 H (0.6-1.2) mg/dl Est Cr Clr Drug Dosing Not Reportable Est GFR ( Amer) 42.8 ml/min Est GFR (Non-Af Amer) 36.9 ml/min BUN/Creatinine Ratio 18.2 (10-20) Glucose 86 (70-99) mg/dl Calcium 8.6 (8.5-10.1) mg/dl Magnesium 2.2 (1.8-2.4) mg/dl Total Bilirubin 0.8 (0.2-1) mg/dl AST 29 (15-37) U/L ALT 32 (12-78) U/L Alkaline Phosphatase 298 H (45-117) U/L Troponin I 0.194 H* (0-0.045) ng/ml Total Protein 6.5 (6.4-8.2) gm/dl Albumin 2.8 L (3.4-5.0) gm/dl Globulin 3.7 (2.5-4.0) gm/dl Albumin/Globulin Ratio 0.8 L (0.9-2) Lipase 49 L (73-393) U/L TSH 8.260 H (0.300-4.500) uIu/ml Free T4 0.91 (0.8-1.6) ng/dl COVID-19 Eval Order SARS-CoV-2 (PCR) (Negative) 08/03/20 08/03/20 Range/Units 18:05 18:05 WBC (4.8-10.8) K/uL RBC (4.2-5.4) M/uL Hgb (12.0-16.0) g/dL Hct (37-47) % MCV (80-100) fL MCH (25-34) pg MCHC (32-36) g/dL RDW Std Deviation (36.4-46.3) fL RDW Coeff of Sly (11.5-14.5) % Plt Count (130-400) K/uL MPV (7.4-10.4) fL Immature Gran % (Auto) % Neut % (Auto) % Lymph % (Auto) % [place] % (Auto) % Eos % (Auto) % Baso % (Auto) % Neut # (Auto) (1.4-6.5) K/uL Lymph # (Auto) (1.2-3.4) K/uL [place] # (Auto) (0.11-0.59) K/uL Eos # (Auto) (0-0.5) K/uL Baso # (Auto) (0-0.2) K/uL Immature Gran # (Auto) (0.00-0.02) K/uL Anisocytosis Echinocytes PT (9.0-12.0) Seconds INR (0.9-1.1) Sodium (136-145) mmol/L Potassium (3.5-5.1) mmol/L Chloride (98-107) mmol/L Carbon Dioxide (21-32) mmol/L Anion Gap (3-11) BUN (7-18) mg/dl Creatinine (0.6-1.2) mg/dl Est Cr Clr Drug Dosing Est GFR ( Amer) ml/min Est GFR (Non-Af Amer) ml/min BUN/Creatinine Ratio (10-20) Glucose (70-99) mg/dl Calcium (8.5-10.1) mg/dl Magnesium (1.8-2.4) mg/dl Total Bilirubin (0.2-1) mg/dl AST (15-37) U/L ALT (12-78) U/L Alkaline Phosphatase (45-117) U/L Troponin I (0-0.045) ng/ml Total Protein (6.4-8.2) gm/dl Albumin (3.4-5.0) gm/dl Globulin (2.5-4.0) gm/dl Albumin/Globulin Ratio (0.9-2) Lipase (73-393) U/L TSH (0.300-4.500) uIu/ml Free T4 (0.8-1.6) ng/dl COVID-19 Eval Order Covid19 at [facility] SARS-CoV-2 (PCR) NEGATIVE (Negative) Administered Medications Albumin Human (Albumin 25%) 12.5 gm in 50 mls @ 50 mls/hr IV Q1H CANDIDO Stop: 08/04/20 03:44 Last Admin: 08/04/20 00:48 Dose: 50 mls/hr Documented by: [id number] Discontinued Medications Albuterol (Albut/Ipratrop 3mg/0.5mg Neb 3 Ml Vial) 3 ml NEB NOW STA Stop: 08/03/20 21:20 Last Admin: 08/03/20 21:37 Dose: 3 ml Documented by: [id number] Fentanyl Citrate (Fentanyl Citrate 100 Mcg/2 Ml Vial) 50 mcg IV NOW STA Stop: 08/03/20 18:33 Last Admin: 08/03/20 18:50 Dose: 50 mcg Documented by: [id number] Furosemide (Furosemide 40 Mg/4 Ml Vial) 20 mg IV NOW STA Stop: 08/03/20 21:20 Last Admin: 08/03/20 21:46 Dose: 20 mg Documented by: [id number] Magnesium Sulfate/Dextrose (Magnesium Sulfate / D5w) 1 gm in 100 mls @ 400 mls/hr IV Q15M CANDIDO Stop: 08/03/20 19:59 Last Admin: 08/03/20 20:04 Dose: 400 mls/hr Documented by: [id number] Imaging Data Radiologist's Impression: Chest X-Ray 08/03/20 17:39 XR chest 1V portable CLINICAL HISTORY: Shortness of breath COMPARISON STUDY: 07/28/2020 FINDINGS: The heart is enlarged. There are bilateral pleural effusions with interval increase in the size of the right pleural effusion. There is mild elevation of interstitium suggesting mild pulmonary vascular congestion/fluid overload. There are basilar parenchymal opacities, likely atelectatic.[ IMPRESSION: 1. Cardiomegaly and bilateral pleural effusions with interval increase in the size the right pleural effusion 2. Probable mild pulmonary vascular congestion/fluid overload. ACT 112: Negative or not required by law. Electronically signed by: Harmeet Izquierdo M.D. 08/03/2020 6:35 PM Venous Doppler Study 08/03/20 17:39 US venous doppler LE BI CLINICAL HISTORY: Bilateral leg swelling COMPARISON STUDY: No previous studies for comparison. FINDINGS: Real-time and color flow Doppler imaging were performed. Flow was seen within the femoral, popliteal and calf veins with no intraluminal thrombus d emonstrated. The saphenous vein is patent. The waveforms demonstrate prominent pulsatility. This may indicate elevated right heart pressures. IMPRESSION: 1. No evidence of lower extremity DVT. 2. Venous waveform suggestive of elevated right heart pressures ACT 112: Negative or not required by law. Electronically signed by: Harmeet Izquierdo M.D. 08/03/2020 8:57 PM Abdomen/Pelvis CT 08/03/20 17:52 CT SCAN OF THE ABDOMEN AND PELVIS WITHOUT CONTRAST CLINICAL HISTORY: abdominal pain, swelling, back pain COMPARISON STUDY: CT scan dated 07/15/2020 TECHNIQUE: CT scan of the abdomen and pelvis was performed from the lung bases to the proximal femurs. Images are reviewed in the axial, sagittal, and coronal planes. IV contrast was not administered for this examination. A dose lowering technique was utilized adhering to the principles of ALARA. CT DOSE: 409.90 mGy.cm FINDINGS: Lower chest: There are moderate bilateral pleural effusions. Basilar parenchymal opacities statistically representing compressive atelectasis. The heart is enlarged. There is no significant pericardial fluid. Liver: The serosal surface of the liver is somewhat serrated. Underlying cirrhosis was be considered. Gallbladder: Surgically absent. Spleen: Normal in size and attenuation. Pancreas: Unremarkable. Adrenal glands: Unremarkable. Kidneys: Left kidney appears somewhat atrophic. No renal, ureteral, or bladder calculi are visualized. Bowel: There are no transition zones indicate bowel obstruction. No acute inflammatory changes are visualized. There are postsurgical changes of a gastric bypass and Berny-en-Y anastomosis Peritoneum: There is a [id number] volume of ascites. There is no free intraperitoneal air. Vasculature: The abdominal aorta is normal in course and caliber. Adenopathy: None. Pelvic viscera: The bladder, and pelvic viscera are unremarkable. Skeletal structures: There is generalized body wall edema. No destructive skeletal lesions are visualized. IMPRESSION: 1. Study limited by the absence of intravenous and oral contrast 2. Moderate bilateral pleural effusions 3. Slight increase in the volume of ascites 4. Generalized body wall edema 5. Possible hepatic cirrhosis 6. No evidence of bowel obstruction. No evidence of free air 7. No renal, ureteral, or bladder calculi identified ACT 112: Negative or not required by law. Electronically signed by: Harmeet Izquierdo M.D. 08/03/2020 7:38 PM Discharge Plan Visit Data Chief Complaint: Shortness of Breath/Dyspnea Stated Complaint: BACK PAIN DOWN LEGS AND FEET ED Provider: Donell Chi Discharge Problem: Breathlessness, Fluid overload, Atrial fibrillation, Acute exacerbation of CHF (congestive heart failure), Elevated troponin I level, Leg swelling, Abdominal pain, Back pain Patient Disposition: Admitted As Inpatient Discharge Instructions Interventions: ED Discharge Assessment Last Done: 08/04/20 00:36 Discharge Problem: Fluid overload Qualifiers: Hypervolemia type: unspecified Qualified Code(s): E87.70 - Fluid overload, unspecified Atrial fibrillation Qualifiers: Atrial fibrillation type: longstanding persistent Qualified Code(s): I48.11 - Longstanding persistent atrial fibrillation Acute exacerbation of CHF (congestive heart failure) Qualifiers: Heart failure type: systolic Qualified Code(s): I50.23 - Acute on chronic systolic (congestive) heart failure Abdominal pain Qualifiers: Abdominal location: upper abdomen, unspecified Qualified Code(s): R10.10 - Upper abdominal pain, unspecified Back pain Qualifiers: Back pain location: low back pain Chronicity: acute Back pain laterality: midline Sciatica presence: without sciatica Qualified Code(s): M54.5 - Low back pain
--- NOTE | 2020-08-03 20:58 | Ultrasound Report ---
US venous doppler LE BI CLINICAL HISTORY: Bilateral leg swelling COMPARISON STUDY: No previous studies for comparison. FINDINGS: Real-time and color flow Doppler imaging were performed. Flow was seen within the femoral, popliteal and calf veins with no intraluminal thrombus demonstrated. The saphenous vein is patent. Th e waveforms demonstrate prominent pulsatility. This may indicate elevated right heart pressures. IMPRESSION: 1. No evidence of lower extremity DVT. 2. Venous waveform suggestive of elevated right heart pressures ACT 112: Negative or not required by law. Electronically signed by: Harmeet Izquierdo M.D. 08/03/2020 8:57 PM
[2020-08-03] MEDS ORDERED: ALBUT/IPRATROP 3MG/0.5MG NEB 3 ML VIAL NEB STA (21:19)
[2020-08-03] MEDS ORDERED: FUROSEMIDE 40 MG/4 ML VIAL IV STA (21:19)
[2020-08-03] MEDS ORDERED: PATIENT'S HEIGHT AND/OR WEIGHT NEEDED SCH (23:45)
--- NOTE | 2020-08-03 23:47 | History & Physical Report ---
Date of Service August 03, 2020 Assessment & Plan (1) Acute on chronic HFrEF (heart failure with reduced ejection fraction): Acute on chronic HFrEF/right heart failure due to pulmonary hypertension/atrial fibrillation/cardiomyopathy/anasarca/ascites/increasing pleural effusions- The patient will be admitted to telemetry for serial cardiac enzymes, serial EKG's, cardiac rhythm monitoring Chronically elevated troponin, presently 0.194, 4 days ago 1.230 upon discharge of previous hospitalization, will follow serially Chest x-ray shows significantly increased pleural effusion on right compared to most recent x-ray, with left still larger than right. Consideration to thoracentesis and/or Pleurx catheter Continue spironolactone 12.5 mg p.o. daily and midodrine Will hold Plavix in the a.m. until determined whether thoracentesis will be performed. If no thoracentesis, then would resume in the a.m. Patient was given furosemide 20 mg IV by the ED. With albumin level 2.8, will give albumin 50 g IV this evening Consult cardiology. Present on Admission?: Yes (2) Right heart failure due to pulmonary hypertension: See above Present on Admission?: Yes (3) Atrial fibrillation: See above Present on Admission?: Yes (4) Cardiomyopathy: See above Present on Admission?: Yes (5) Anasarca: See above Present on Admission?: Yes (6) Cerebral vascular insufficiency: Be careful to not diurese too much too fast, as patient has been become symptomatic in the past Present on Admission?: Yes (7) Carotid artery occlusion syndrome: (8) Intracranial aneurysm: Underwent previous surgery with coiling Present on Admission?: Yes (9) Dyslipidemia: No active treatment listed due to intolerance of statins Present on Admission?: Yes (10) Panic disorder with agoraphobia: On no active treatment at this time Present on Admission?: Yes (11) COPD (chronic obstructive pulmonary disease): Continue budesonide-formoterol Present on Admission?: Yes (12) CKD (chronic kidney disease): Creatinine 1.45 upon admission, with range 1.25-1.73. Follow daily chemistry profile while being more aggressively diuresed Present on Admission?: Yes History of Present Illness Chief Complaint: The patient presents to the emergency department with complaint of 5 to 6 days worsening swelling in both legs, with abdominal and mid back pain, and progressively worsening shortness of breath. Primary Care Provider: Anjel Eid MD The patient is a 69-year-old female with a past medical history including atrial fibrillation, HFrEF, cardiomyopathy, chronic systolic heart failure with EF 35 to 40%, acute CVA, CKD, chronic passive congestion of liver, right heart failure secondary to pulmonary hypertension, COPD, cerebellar vascular insufficiency, vitamin B12 deficiency, vitamin D deficiency, cervicalgia, chronic pain syndrome, dyslipidemia, gluten sensitive enteropathy, migraine headache, pain disorder with agoraphobia, polyneuropathy, carotid artery occlusion syndrome, intracranial aneurysm, PAD, hypertension, status post cerebral bypass at [facility] on May 31, 2020, and history of left carotid artery occlusion with multiple left CVAs, and cerebral ischemia secondary to hypotension. Her most recent admissions to [facility] from 07/16-07/20/2020, and 07/28-07/30/2020. Allergies Allergy/AdvReac Type Severity Reaction Status Date / Time codeine Allergy Severe STROKE Verified 08/03/20 16:58 SYMPTOMS amoxicillin Allergy Intermediate HIVES Verified 08/03/20 16:58 clavulanic acid Allergy Intermediate Hives Verified 08/03/20 16:58 [From Augmentin] lisinopril Allergy Intermediate CAUSED BP Verified 08/03/20 16:58 TO DROP TOO LOW atenolol Allergy Mild GI Verified 08/03/20 16:58 SYMPTOMS/light headed atorvastatin Allergy Mild myalgia Verified 08/03/20 16:58 fluoxetine Allergy Mild RASH/leg Verified 08/03/20 16:58 cramps propranolol Allergy Mild HIVES/body Verified 08/03/20 16:58 aches meloxicam AdvReac Mild Diarrhea Verified 08/03/20 16:58 rosuvastatin [From Crestor] AdvReac Mild Muscle Pain Verified 08/03/20 16:58 Home Medications Medication Instructions Recorded Confirmed Type cyanocobalamin (vitamin B-12) 1,000 mcg IM MONTHLY 12/07/18 08/03/20 History iron dextran 50 mg/mL injection 50 mg IM DIRECTED ml 06/06/20 08/03/20 History solution budesonide-formoterol HFA 160 2 puff INHALATION BID #10.2 g 06/29/20 08/03/20 Rx mcg-4.5 mcg/actuation aerosol inhaler inhalational spacing device #1 ea 06/29/20 07/31/20 Rx pantoprazole 40 mg PO DAILY 30 Days #30 tab 07/20/20 08/03/20 Rx ondansetron 4 mg disintegrating 4 mg PO Q8H PRN #30 tab 07/21/20 08/03/20 Rx tablet spironolactone 25 mg tablet 12.5 mg PO DAILY #30 tab 07/21/20 08/03/20 Rx clopidogrel 75 mg PO QAM 30 Days #30 tab 07/30/20 08/03/20 Rx midodrine 2.5 mg PO TID 08/03/20 08/03/20 History Past Med/Surg History Medical History Anxiety Elevated sed rate follows with rheumatology (Dr. Fay/[facility]) Elevated troponin Generalized pain Medical marijuana prn GERD (gastroesophageal reflux disease) High cholesterol History of anemia Hx of blood transfusion 11/2019 Iron deficient- most recent iron infusion 02/2019 History of migraine headaches History of stroke last one was 04/2019 after left subclavian artery bypass--no deficits afterwards, no neurologist S/P intracranial aneurysm repair (01/2019)- no residual effects Hypertension per patient, systolic BP goal currently between 150-180 Intracranial aneurysm 01/2019 s/p stent and/or coil (Dr. Simpson/[place] [facility]) Jaundice Lactic acidemia Left carotid artery occlusion S/p left subclavian/left carotid bypass 04/2019 - graft occluded 48 hours post op PAD (peripheral artery disease) Paroxysmal atrial fibrillation F/U DR MCALLISTER Pulmonary nodule Seasonal allergies Transaminitis Surgical History H/O abdominal surgery STOMACH ULCERS REMOVED (3 TOTAL SURGERIES) History of brain surgery indirect bypass History of breast biopsy RT/LEFT (BENIGN) History of cholecystectomy History of colonoscopy History of esophagogastroduodenoscopy (EGD) MULTIPLE History of temporal artery biopsy (12/09/18) Left Temporal Artery Biopsy (11/2018) and right History of tooth extraction Intracranial aneurysm 01/2019 - STENT AND/OR COIL PLACED, [place] S/P cholecystectomy S/P vascular bypass left subclavian carotid artery bypass 05/19/2019 Family History Father , age 57 of a massive stroke Acute myocardial infarction Cardiovascular disease Stroke syndrome Myocardial infarction Mother , age 92 of heart issues Hypertension Brother Acute myocardial infarction Daughter Family history of reaction to anesthesia Daughter- "quit breathing" with anesthesia emergence after use of fentanyl- needed to reintubate Other Patient's brother is Stroke Denies family history of Ovarian cancer Prostate cancer Breast cancer Lung cancer Colorectal cancer Social History Smoking Status: Current every day smoker Tobacco Type: Cigarettes Age Started Using Tobacco: 14; Cigarettes Per Day: 10; Second Hand Exposure: No; Do You Dip or Chew Tobacco: No; Tobacco Cessation Education Requested by Patient: No Hx Alcohol Use: No Hx Substance Use: No Preferred Language: Dutch Communication Ability: Effective Visual Impairment: No Limitations Hearing Ability: Normal Ethnoarchaeology Professor Required: No Beliefs That Will Affect Care: None marital status: Current Living Situation: Spouse Current Living Situation Comment: Lives with and daughter current occupational status: employed current occupation: [employer] Other Information That Helps Us Care for You: No Feels Safe at Home: Yes Safety Concerns: Feels Safe At This Time Childhood Exposure to Second-Hand Smoke: Yes caffeine: No Dental Care, Regularly: No Physical Activity Frequency: Does not Exercise Seatbelt Use: always Sunscreen Use: No Assistive Devices: Denture - Upper, Denture - Lower and Glasses Review of Systems Review of Systems: The patient denies chest pain, palpitations, cough, sore throat, fevers, chills, sweats, nausea, vomiting, diarrhea , constipation, abdominal pain, pelvic pain, blood in urine or stool, dysuria, urinary frequency or urgency, loss of consciousness, rash, abnormal bruising or bleeding, imbalance, focal weakness, numbness or tingling in arms or legs, generalized arthralgias or myalgias, back or neck pain, or night sweats. The review of systems is otherwise negative other than for that already noted above, and at least 10 systems have been reviewed. Physical Exam Physical Exam: The patient is awake, alert and oriented 3, well developed and well nourished, normocephalic and atraumatic, lying in bed and in no acute distress. HEENT--PERRL, EOMI, mucous membranes and oropharynx normal. Neck--supple. No JVD. No bruits. Thyroid normal, trachea midline, no adenopathy. Heart--normal S1 and S2. No murmurs, rubs or gallops. Lungs--crackles at the bases bilaterally. No respiratory distress, no accessory muscle use. Abdomen--normal bowel sounds and soft. Nontender. Nondistended. Extremities--2+ bilateral pretibial pitting edema. Body wall edema. Dermatologic--normal skin turgor, normal color, no abnormal lymph nodes, no rash. Neurologic--cranial nerves II through XII grossly intact. Rheumatologic--normal range of motion. Psychiatric--normal affect. Results & Data Results & Data ([facility]) Vital Signs (Past 12 Hours) Vital Signs Temp Pulse Pulse Resp BP Pulse Ox 08/03/20 21:40 102 H 16 95 08/03/20 21:00 108 H 17 163/108 H 99 08/03/20 20:57 110 H 19 144/93 H 98 08/03/20 20:10 94 H 17 96 08/03/20 20:01 104 H 16 136/107 H 96 08/03/20 20:00 96 H 21 95 08/03/20 19:50 117 H 18 96 08/03/20 19:40 120 H 16 97 08/03/20 19:31 101 H 22 134/101 H 08/03/20 19:20 113 H 17 94 08/03/20 19:10 111 H 17 96 08/03/20 19:00 118 H 16 151/107 H 97 08/03/20 18:50 105 H 18 98 08/03/20 18:40 107 H 20 99 08/03/20 18:31 114 H 20 155/95 H 08/03/20 18:30 120 H 21 97 08/03/20 18:20 109 H 19 98 08/03/20 18:10 121 H 20 97 08/03/20 18:00 95 H 18 154/126 H 98 08/03/20 17:50 106 H 20 99 08/03/20 17:40 114 H 20 98 08/03/20 17:30 112 H 19 150/129 H 96 08/03/20 17:20 110 H 18 99 08/03/20 17:10 100 H 19 100 08/03/20 17:00 122 H 18 149/115 H 99 08/03/20 16:53 102 H 18 149/103 H 99 08/03/20 16:15 97.9 F 108 H 20 141/96 H 95 Laboratory Results Laboratory Results WBC 6.45 K/uL (4.8-10.8) 08/03/20 17:39 RBC 4.09 M/uL (4.2-5.4) L 08/03/20 17:39 Hgb 12.7 g/dL (12.0-16.0) 08/03/20 17:39 Hct 39.5 % (37-47) 08/03/20 17:39 MCV 96.6 fL (80-100) 08/03/20 17:39 MCH 31.1 pg (25-34) 08/03/20 17:39 MCHC 32.2 g/dL (32-36) 08/03/20 17:39 RDW Std Deviation 85.5 fL (36.4-46.3) H 08/03/20 17:39 RDW Coeff of Sly 24.1 % (11.5-14.5) H 08/03/20 17:39 Plt Count 230 K/uL (130-400) 08/03/20 17:39 MPV 11.0 fL (7.4-10.4) H 08/03/20 17:39 Immature Gran % (Auto) 0.3 % 08/03/20 17:39 Neut % (Auto) 68.7 % 08/03/20 17:39 Lymph % (Auto) 20.8 % 08/03/20 17:39 Deuel % (Auto) 9.6 % 08/03/20 17:39 Eos % (Auto) 0.3 % 08/03/20 17:39 Baso % (Auto) 0.3 % 08/03/20 17:39 Neut # (Auto) 4.43 K/uL (1.4-6.5) 08/03/20 17:39 Lymph # (Auto) 1.34 K/uL (1.2-3.4) 08/03/20 17:39 Deuel # (Auto) 0.62 K/uL (0.11-0.59) H 08/03/20 17:39 Eos # (Auto) 0.02 K/uL (0-0.5) 08/03/20 17:39 Baso # (Auto) 0.02 K/uL (0-0.2) 08/03/20 17:39 Immature Gran # (Auto) 0.02 K/uL (0.00-0.02) 08/03/20 17:39 Anisocytosis Present 08/03/20 17:39 Echinocytes 1+ 08/03/20 17:39 PT 11.7 Seconds (9.0-12.0) 08/03/20 17:39 INR 1.2 (0.9-1.1) H 08/03/20 17:39 Sodium 140 mmol/L (136-145) 08/03/20 18:00 Potassium 4.6 mmol/L (3.5-5.1) 08/03/20 18:00 Chloride 112 mmol/L (98-107) H 08/03/20 18:00 Carbon Dioxide 20 mmol/L (21-32) L 08/03/20 18:00 Anion Gap 8.0 (3-11) 08/03/20 18:00 BUN 26 mg/dl (7-18) H 08/03/20 18:00 Creatinine 1.45 mg/dl (0.6-1.2) H 08/03/20 18:00 Est Cr Clr Drug Dosing Not Reportable 08/03/20 18:00 Est GFR ( Amer) 42.8 ml/min 08/03/20 18:00 Est GFR (Non-Af Amer) 36.9 ml/min 08/03/20 18:00 BUN/Creatinine Ratio 18.2 (10-20) 08/03/20 18:00 Glucose 86 mg/dl (70-99) 08/03/20 18:00 Calcium 8.6 mg/dl (8.5-10.1) 08/03/20 18:00 Magnesium 2.2 mg/dl (1.8-2.4) 08/03/20 18:00 Total Bilirubin 0.8 mg/dl (0.2-1) 08/03/20 18:00 AST 29 U/L (15-37) 08/03/20 18:00 ALT 32 U/L (12-78) 08/03/20 18:00 Alkaline Phosphatase 298 U/L (45-117) H 08/03/20 18:00 Troponin I 0.194 ng/ml (0-0.045) H* 08/03/20 18:00 Total Protein 6.5 gm/dl (6.4-8.2) 08/03/20 18:00 Albumin 2.8 gm/dl (3.4-5.0) L 08/03/20 18:00 Globulin 3.7 gm/dl (2.5-4.0) 08/03/20 18:00 Albumin/Globulin Ratio 0.8 (0.9-2) L 08/03/20 18:00 Lipase 49 U/L (73-393) L 08/03/20 18:00 TSH 8.260 uIu/ml (0.300-4.500) H 08/03/20 18:00 Free T4 0.91 ng/dl (0.8-1.6) 08/03/20 18:00 COVID-19 Eval Order Covid19 at [facility] 08/03/20 18:05 SARS-CoV-2 (PCR) NEGATIVE (Negative) 08/03/20 18:05 Impressions Chest X-Ray 08/03/20 17:39 XR chest 1V portable CLINICAL HISTORY: Shortness of breath COMPARISON STUDY: 07/28/2020 FINDINGS: The heart is enlarged. There are bilateral pleural effusions with interval increase in the size of the right pleural effusion. There is mild elevation of interstitium suggesting mild pulmonary vascular congestion/fluid overload. There are basilar parenchymal opacities, likely atelectatic.[ IMPRESSION: 1. Cardiomegaly and bilateral pleural effusions with interval increase in the size the right pleural effusion 2. Probable mild pulmonary vascular congestion/fluid overload. ACT 112: Negative or not required by law. Electronically signed by: Harmeet Izquierdo M.D. 08/03/2020 6:35 PM Venous Doppler Study 08/03/20 17:39 US venous doppler LE CLINICAL HISTORY: Bilateral leg swelling COMPARISON STUDY: No previous studies for comparison. FINDINGS: Real-time and color flow Doppler imaging were performed. Flow was seen within the femoral, popliteal and calf veins with no intraluminal thrombus demonstrated. The saphenous vein is patent. The waveforms demonstrate prominent pulsatility. This may indicate elevated right heart pressures. IMPRESSION: 1. No evidence of lower extremity DVT. 2. Venous waveform suggestive of elevated right heart pressures ACT 112: Negative or not required by law. Electronically signed by: Harmeet Izquierdo M.D. 08/03/2020 8:57 PM Abdomen/Pelvis CT 08/03/20 17:52 CT SCAN OF THE ABDOMEN AND PELVIS WITHOUT CONTRAST CLINICAL HISTORY: abdominal pain, swelling, back pain COMPARISON STUDY: CT scan dated 07/15/2020 TECHNIQUE: CT scan of the abdomen and pelvis was performed from the lung bases to the proximal femurs. Images are reviewed in the axial, sagittal, and coronal planes. IV contrast was not administered for this examination. A dose lowering technique was utilized adhering to the principles of ALARA. CT DOSE: 409.90 mGy.cm FINDINGS: Lower chest: There are moderate bilateral pleural effusions. Basilar parenchymal opacities statistically representing compressive atelectasis. The heart is enlarged. There is no significant pericardial fluid. Liver: The serosal surface of the liver is somewhat serrated. Underlying cirrhosis was be considered. Gallbladder: Surgically absent. Spleen: Normal in size and attenuation. Pancreas: Unremarkable. Adrenal glands: Unremarkable. Kidneys: Left kidney appears somewhat atrophic. No renal, ureteral, or bladder calculi are visualized. Bowel: There are no transition zones indicate bowel obstruction. No acute inf lammatory changes are visualized. There are postsurgical changes of a gastric bypass and Berny-en-Y anastomosis Peritoneum: There is a [id number] volume of ascites. There is no free intraperitoneal air. Vasculature: The abdominal aorta is normal in course and caliber. Adenopathy: None. Pelvic viscera: The bladder, and pelvic viscera are unremarkable. Skeletal structures: There is generalized body wall edema. No destructive skeletal lesions are visualized. IMPRESSION: 1. Study limited by the absence of intravenous and oral contrast 2. Moderate bilateral pleural effusions 3. Slight increase in the volume of ascites 4. Generalized body wall edema 5. Possible hepatic cirrhosis 6. No evidence of bowel obstruction. No evidence of free air 7. No renal, ureteral, or bladder calculi identified ACT 112: Negative or not required by law. Electronically signed by: Harmeet Izquierdo M.D. 08/03/2020 7:38 PM Code Status & VTE Plan Code Status Full code VTE Prophylaxis Plan VTE Prophylaxis will be ordered: Yes PG Care Time/CCT Total # of Minutes Spent Total Time Spent with Patient: Total time spent is greater than 50% in coordination of care (as documented) at patient's floor/unit and/or counseling patient: Coding Level of Care Code 60833 Initial Inpt Care Lvl 3 Diagnoses Acute on chronic HFrEF (heart failure with reduced ejection fraction) I50.23 Right heart failure due to pulmonary hypertension I27.29; I50.810 Atrial fibrillation I48.11 Atrial fibrillation type: longstanding persistent Cardiomyopathy I42.9 Anasarca R60.1 Cerebral vascular insufficiency I67.9 Carotid artery occlusion syndrome G45.1 Intracranial aneurysm I67.1 Dyslipidemia E78.5 Panic disorder with agoraphobia F40.01 COPD (chronic obstructive pulmonary disease) J44.9 CKD (chronic kidney disease) N18.9 Chronic kidney disease stage: unspecified stage (1) Atrial fibrillation Atrial fibrillation type: longstanding persistent Qualified Code(s): I48.11 - Longstanding persistent atrial fibrillation (2) CKD (chronic kidney disease) Chronic kidney disease stage: unspecified stage Qualified Code(s): N18.9 - Chronic kidney disease, unspecified
[2020-08-04] MEDS: ALBUMIN 25% 12.5 GM/50 ML VIAL IV SCH ×4 (00:48→03:02)
[2020-08-04] MEDS ORDERED: ONDANSETRON INJ 2 MG/ML 2 ML VIAL IV PRN (01:34)
[2020-08-04] MEDS ORDERED: ACETAMINOPHEN 325 MG TAB PO PRN (01:34)
[2020-08-04] MEDS ORDERED: oxyCODONE/ACETAMINOPHEN 5mg/325mg TAB PO STA (01:51)
[2020-08-04 06:11] LABS: Appearance Urine Cloudy (Clear); Bacteria Urine Automated 4+ (Negative); Bilirubin Urine Negative (Negative); Blood Urine 1+ (Negative); Color Urine Yellow; Epithelial Cell Urine Auto >30 /lpf (0-5); Glucose Urine UA Negative (Negative); Ketones Urine Negative (Negative); Leukocyte Esterase Urine Trace (Negative); Nitrite Urine Negative (Negative); Protein Urine 2+ (Negative); RBC Urine Automated 0-4 /hpf (0-4); Specific Gravity Urine 1.021 (1.000-1.030); Urobilinogen Urine Negative (Negative)
[2020-08-04 07:16] LABS: Basophils # (auto) 0.02 K/uL (0-0.2); Basophils % (auto) 0.4 %; Eosinophils # (auto) 0.02 K/uL (0-0.5); Eosinophils % (auto) 0.4 %; Hematocrit (blood only) 38.8 % (37-47); Hemoglobin 12.1 g/dL (12.0-16.0); Immature Granulocytes # (auto) 0.01 K/uL (0.00-0.02); Immature Granulocytes % (auto) 0.2 %; Lymphocytes # (auto) 1.32 K/uL (1.2-3.4); Lymphocytes % (auto) 26.2 %; Mean Corpuscular Hemoglobin 30.7 pg (25-34); Mean Corpuscular Hgb Conc 31.2 g/dL (32-36); Mean Corpuscular Volume 98.5 fL (80-100); Mean Platelet Volume 11.3 fL (7.4-10.4); Monocytes # (auto) 0.53 K/uL (0.11-0.59); Monocytes % (auto) 10.5 %; Neutrophils # (auto) 3.14 K/uL (1.4-6.5); Neutrophils % (auto) 62.3 %; Platelet Count 212 K/uL (130-400); RDW Coefficient of Variation 24.1 % (11.5-14.5); Red Blood Count 3.94 M/uL (4.2-5.4); White Blood Count 5.04 K/uL (4.8-10.8)
[2020-08-04] MEDS ORDERED: FUROSEMIDE 40 MG in SYRINGE 0 ML IV ONE (07:27)
[2020-08-04] MEDS ORDERED: FUROSEMIDE 20 MG in SYRINGE 0 ML IV ONE (07:29)
[2020-08-04 07:42] LABS: Anisocytosis Present; Echinocytes 1+; Target Cells 1+
[2020-08-04 07:53] LABS: Albumin Globulin Ratio 1.1 (0.9-2); Albumin Level 3.5 gm/dl (3.4-5.0); BUN Creatinine Ratio 16.6 (10-20); Bilirubin,Total 1.1 mg/dl (0.2-1); Calcium 9.1 mg/dl (8.5-10.1); Creatinine Clr Calc Pharmacy 27.5 ml/min; Est GFR (African American) 39.5 ml/min; Est GFR (Non-African American) 34.1 ml/min; Globulin 3.1 gm/dl (2.5-4.0); Magnesium 2.3 mg/dl (1.8-2.4); Potassium 5.9 mmol/L (3.5-5.1); Total Protein 6.6 gm/dl (6.4-8.2); Troponin I 0.153 ng/ml (0-0.045)
[2020-08-04] MEDS ORDERED: FUROSEMIDE 40 MG/4 ML VIAL IV ONE (08:00)
[2020-08-04] MEDS: MIDODRINE HCL 2.5 MG TAB PO SCH ×3 (08:17→17:25)
[2020-08-04] MEDS: PANTOprazole 40 MG TAB PO SCH (08:17)
[2020-08-04] MEDS: FLUTICASONE/VILANTEROL 200/25MCG 14 PUFFS/INHALER INH SCH (08:18)
--- NOTE | 2020-08-04 08:45 | Cardiology Consultation ---
Date of Consultation August 04, 2020 Assessment & Plan (1) Acute on chronic HFrEF (heart failure with reduced ejection fraction): (2) Persistent atrial fibrillation: (3) Elevated troponin I level: (4) Cardiomyopathy: (5) Mitral regurgitation: (6) Tricuspid regurgitation: (7) PAD (peripheral artery disease): (8) Hypertension: ASSESSMENT/PLAN: 1. Acute on chronic heart failure with reduced EF: She appears hypervolemic. It has been challenging to treat her heart failure and cardiomyopathy given the fact that when her systolic blood pressure drops below 130-140 she has had recurrent stroke or stroke-like symptoms, thought to be due to watershed territories based on prior documentation. Given her worsening symptoms however, recommend more aggressive diuresis attempt. We discussed the fact that it could drop her blood pressure and cause ischemic/stroke-like symptoms. Will give smaller doses of Lasix more frequently throughout the day in an attempt for more gentle diuresis. Lasix 20 mg IV t.i.d. to start and can further titrate as needed. Low-sodium diet. Daily weights. Strict I&Os while hospitalized. Follows with heart failure program. Initiate digoxin which may help improve symptoms. 2. Cardiomyopathy: Given her documented peripheral arterial disease, concern that her cardiomyopathy may be ischemic in origin. Unfortunately, given her neurologic events that have been recurrent, cardiac catheterization will likely further increase her risk of stroke and if she is found to have multivessel CAD, she is not an optimal surgical candidate given her other multiple comorbidities including recurrent strokes. She did not tolerate Entresto as it reduced her b lood pressure below her neuro surgical target. Discontinue spironolactone today given hyperkalemia. She has not tolerated beta-blockers in the past. 3. Mitral regurgitation: Significant based on most recent echo report. She is not a good surgical candidate at this time. Can monitor over time as appropriate. 4. Tricuspid regurgitation: As above. Mitral and tricuspid regurgitation may appear worse in hypervolemic state. 5. Peripheral arterial disease: History of right subclavian artery stenosis and left subclavian to left carotid artery bypass which failed at 48 hours postop. She follows with vascular surgery and neurosurgery [facility]. She is on Plavix. 6. Hypertension: Blood pressure is persistently hypertensive as per nurse surgery recommendations to improve perfusion to her brain. She is on midodrine to help keep her blood pressure at goal. May need to increase midodrine while diuresing. 7. Elevated troponin: Troponin has been elevated the past several hospitalizations, peaking at 1.52 on 07/29/2020. She did not present with acute coronary syndrome. 8. Persistent atrial fibrillation: She apparently dropped her systolic blood pressure with IV amiodarone causing TIA symptoms. She has not tolerated several beta-blockers in the past. Will start digoxin 125 mcg today to improve heart rate as it has been mostly tachycardic when reviewing telemetry. Monitor digoxi n level in approximately 1 week. Sheis a poor anticoagulation candidate given anemia issues receiving blood transfusion in the past. She has declined anticoagulation therapy. 9. Disposition: Poor prognosis overall long-term. She has had recurrent hospitalizations in the past 2 months. Recommend palliative consultation. She was agreeable. She stated that she was tired and that she is suffering. She wants to feel better. Palliative care consultation placed. Patient care communicated with Dr. Singletary of the primary hospitalist service. I will be away from the hospital for the next several days. Please call Dr. Schafer who will be covering for any questions or concerns. Thank you for allowing me to participate in the care of your patient. Please call for any other questions or concerns. Sincerely, Boogie Lynch M.D. History of Present Illness Reason for Consultation: Dyspnea with exertion, pleural effusion, anasarca Requesting Physician: Dr. Pope Attending Physician: Buck Singletary, History of Present Illness Mrs. Kilgore is a very pleasant 69-year-old female with history significant for paroxysmal atrial fibrillation, right ICA aneurysm status post embolization, carotid artery stenosis (occluded left), right subclavian artery stenosis, peripheral arterial disease, hypertension, dyslipidemia, peptic ulcer disease s/p multiple resections, and iron deficiency anemia (GI and Hematology). She underwent left subclavian to left carotid artery bypass in April of 2019 with occlusion of the bypass graft within 48 hours. She follows with vascular surgery and neurosurgery through [facility]. She underwent left subclavian artery to left carotid artery bypass on 05/19/2019, which subsequently occluded within 48 hours an complicated by str susie. She has since been instructed to maintain a systolic blood pressure in the 150-170 range based on documentation however she reports that her goal is 150- 180 mmHg. Following her occluded bypass graft, she developed atrial fibrillation at which point beta-salvador and anticoagulation therapy were initiated. She later discontinued both of these medications as she believed that they reduced her blood pressure. After recurrent stroke in February of 2020, she underwent left STA-MCA bypass in May of 2020 at [facility]. She has had the following studies/procedures: 1. Stress echo 12/14/2010 [facility]: Mild hypokinesis of the inferolateral base following exercise. Normal LV systolic function. Normal wall motion and systolic function at rest. Up to [address] depression with exercise. No chest pa in. Exercise terminated due to dyspnea. 7 0.83 minutes on standard [place] protocol. 9 Mets. 2. Echo 04/20/2019: Normal LV size with low-normal systolic function. EF 50- 55%. Basal inferior wall mildly hypokinetic. Moderate LVH. Mild left atrial dilation. Sclerotic aortic valve without significant stenosis. Mild to moderate MR. 3. Left subclavian artery to left carotid artery bypass 05/19/2019 (Dr. Oliveira at [facility]): Bypass graft occluded within 48 hours. 4. Echo 07/16/2020 [facility]: Normal LV size with moderately reduced systolic function. EF 35-40%. Severely hypokinetic base to mid inferior and base to mid inferoseptal wall segments. Dyskinetic anteroseptum. Otherwise, global hypokinesis. Mildly reduced RV systolic function. Sclerotic aortic valve. Restricted posterior mitral leaflet with moderate to severe MR. Severe TR. RVSP 57. Large left pleural effusion. She was hospitalized on 08/03/2020 for leg pain, abdominal pain, back pain, and progressively worsening shortness of breath. She was also hospitalized on 07/16/2020 when she was diagnosed with cardiomyopathy and CHF. She developed atrial fibrillation during that hospitalization and while receiving intravenous amiodarone, her blood pressure dropped and she had stroke-like symptoms thought to be due to watershed ischemia. She then followed with a heart failure program and was readmitted on 07/28/2020 with acute/subacute lacunar infarcts, thought to be due to hypotension. Plavix was initiated after neurology consultation. Neurosurgery at [facility] was contacted during the hospital stay by the hospitalist service and it was recommended that systolic blood pressure remain greater than 150. She was seen by Cardiology at that time and midodrine 2.5 mg 3 times daily was recommended to help maintain adequate blood pressure. She was admitted this time due to her pain as described above. She denies chest discomfort, she has noted lower extremity swelling and maintains a low-sodium diet at home. She does not weigh herself. She has noted shortness of breath at rest, dyspnea with exertion, and orthopnea. She denies syncope, near-syncope, palpitations, or bleeding. Overall, she states that her worse symptom at this time is her abdominal/back/leg pain, compared to her shortness of breath. Overall, she believes that her shortness of breath is a bit better now than it was on presentation although she did not have any significant diuresis with 20 mg of IV Lasix on presentation. She reports that her blood pressure goal is 150-180 systolic based on her discussions with [facility]. She states that she is tired of this and that she is suffering." Review of systems: As above and otherwise negative/unremarkable. Family history: Father had TN x3 in his 50s and at the age of 57 from stroke. Social history: She has smoked approximately 1 pack per day since the age of 14, and continues to smoke. No illicit drugs. She has 3 children, 2 daughters and 1 son. She has grandchildren. 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 She is , ( [place]). Her has accompanied her in the past. She was alone in her hospital room. Allergies Allergy/AdvReac Type Severity Reaction Status Date / Time codeine Allergy Severe STROKE Verified 08/03/20 16:58 SYMPTOMS amoxicillin Allergy Intermediate HIVES Verified 08/03/20 16:58 clavulanic acid Allergy Intermediate Hives Verified 08/03/20 16:58 [From Augmentin] lisinopril Allergy Intermediate CAUSED BP Verified 08/03/20 16:58 TO DROP TOO LOW atenolol Allergy Mild GI Verified 08/03/20 16:58 SYMPTOMS/light headed atorvastatin Allergy Mild myalgia Verified 08/03/20 16:58 fluoxetine Allergy Mild RASH/leg Verified 08/03/20 16:58 cramps propranolol Allergy Mild HIVES/body Verified 08/03/20 16:58 aches meloxicam AdvReac Mild Diarrhea Verified 08/03/20 16:58 rosuvastatin [From Crestor] AdvReac Mild Muscle Pain Verified 08/03/20 16:58 Home Medications Medication Instructions Recorded Confirmed Type cyanocobalamin (vitamin B-12) 1,000 mcg IM MONTHLY 12/07/18 08/03/20 History iron dextran 50 mg/mL injection 50 mg IM DIRECTED ml 06/06/20 08/03/20 History solution budesonide-formoterol HFA 160 2 puff INHALATION BID #10.2 g 06/29/20 08/03/20 Rx mcg-4.5 mcg/actuation aerosol inhaler inhalational spacing device #1 ea 06/29/20 07/31/20 Rx pantoprazole 40 mg PO DAILY 30 Days #30 tab 07/20/20 08/03/20 Rx ondansetron 4 mg disintegrating 4 mg PO Q8H PRN #30 tab 07/21/20 08/03/20 Rx tablet spironolactone 25 mg tablet 12.5 mg PO DAILY #30 tab 07/21/20 08/03/20 Rx clopidogrel 75 mg PO QAM 30 Days #30 tab 07/30/20 08/03/20 Rx midodrine 2.5 mg PO TID 08/03/20 08/03/20 History Patient History Medical History Anxiety Elevated sed rate follows with rheumatology (Dr. Fay/[facility]) Elevated troponin Generalized pain Medical marijuana prn GERD (gastroesophageal reflux disease) High cholesterol History of anemia Hx of blood transfusion 11/2019 Iron deficient- most recent iron infusion 02/2019 History of migraine headaches History of stroke last one was 04/2019 after left subclavian artery bypass--no deficits afterwards, no neurologist S/P intracranial aneurysm repair (01/2019)- no residual effects Hypertension per patient, systolic BP goal currently between 150-180 Intracranial aneurysm 01/2019 s/p stent and/or coil (Dr. Simpson/[facility]) Jaundice Lactic acidemia Left carotid artery occlusion S/p left subclavian/left carotid bypass 04/2019 - graft occluded 48 hours post op PAD (peripheral artery disease) Paroxysmal atrial fibrillation F/U DR MCALLISTER Pulmonary nodule Seasonal allergies Transaminitis Surgical History H/O abdominal surgery STOMACH ULCERS REMOVED (3 TOTAL SURGERIES) History of brain surgery indirect bypass History of breast biopsy RT/LEFT (BENIGN) History of cholecystectomy History of colonoscopy History of esophagogastroduodenoscopy (EGD) MULTIPLE History of temporal artery biopsy (12/09/18) Left Temporal Artery Biopsy (11/2018) and right History of tooth extraction Intracranial aneurysm 01/2019 - STENT AND/OR COIL PLACED, [place] S/P cholecystectomy S/P vascular bypass left subclavian carotid artery bypass 05/19/2019 Family History Father , age 57 of a massive stroke Acute myocardial infarction Cardiovascular disease Stroke syndrome Myocardial infarction Mother , age 92 of heart issues Hypertension Brother Acute myocardial infarction Daughter Family history of reaction to anesthesia Daughter- "quit breathing" with anesthesia emergence after use of fentanyl- needed to reintubate Other Patient's brother is Stroke Denies family history of Ovarian cancer Prostate cancer Breast cancer Lung cancer Colorectal cancer Social History Smoking Status: Current every day smoker Tobacco Type: Cigarettes Age Started Using Tobacco: 14; Cigarettes Per Day: 10; Second Hand Exposure: No; Hx Alcohol Use: No Hx Substance Use: No Preferred Language: Vietnamese Communication Ability: Effective Visual Impairment: No Limitations Hearing Ability: Normal Brush Trimming Machine Setter Required: No Beliefs That Will Affect Care: None marital status: Current Living Situation: Spouse Current Living Situation Comment: Lives with and daughter current occupational status: employed 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 Alert and oriented. HEENT: Anicteric sclera. Neck: Mild JVD. Normal carotid upstrokes bilaterally. Cardiac: PMI was nondisplaced. No ventricular heave. Irregularly irregular. Normal S1-S2. 1/6 systolic murmur. No rubs, or gallops. Pulmonary: Clear to auscultation bilaterally without wheezes, rales, or rhonchi. Abdomen: Soft, nontender, nondistended, with normoactive bowel sounds. No bruits noted. Extremities: 2+ radial pulses bilaterally. 1+ bilateral dorsalis pedis pulse. 2 to 3+ bilateral lower extremity edema to just below the knees. No cyanosis. Psychiatric: Affect appears appropriate. Results & Data ([facility]) Vital Signs (Past 12 Hours) Vital Signs Temp Pulse Pulse Resp BP BP Pulse Ox 08/04/20 07:46 36.6 C 107 H 18 151/90 H 98 08/04/20 05:07 36.5 C 93 H 18 152/79 H 93 08/04/20 01:45 36.5 C 126 H 20 140/91 96 08/04/20 01:43 122 H 08/04/20 00:43 74 20 156/98 H 97 08/03/20 21:40 102 H 16 95 08/03/20 21:00 108 H 17 163/108 H 99 08/03/20 20:57 110 H 19 144/93 H 98 Intake & Output 08/02/20 08/03/20 08/04/20 08/05/20 06:59 06:59 06:59 06:59 Intake Total 235.0 / 235.0 Output Total 200 / 200 Balance 35.0 / 35.0 Weight 132 lb 4.438 oz Laboratory Results Laboratory Results - last 24 hr 08/03/20 08/03/20 08/03/20 17:39 17:39 18:00 WBC 6.45 RBC 4.09 L Hgb 12.7 Hct 39.5 MCV 96.6 MCH 31.1 MCHC 32.2 RDW Std Deviation 85.5 H RDW Coeff of Sly 24.1 H Plt Count 230 MPV 11.0 H Immature Gran % (Auto) 0.3 Neut % (Auto) 68.7 Lymph % (Auto) 20.8 [place] % (Auto) 9.6 Eos % (Auto) 0.3 Baso % (Auto) 0.3 Neut # (Auto) 4.43 Lymph # (Auto) 1.34 [place] # (Auto) 0.62 H Eos # (Auto) 0.02 Baso # (Auto) 0.02 Immature Gran # (Auto) 0.02 Anisocytosis Present Target Cells Echinocytes 1+ PT 11.7 INR 1.2 H Sodium 140 Potassium 4.6 Chloride 112 H Carbon Dioxide 20 L Anion Gap 8.0 BUN 26 H Creatinine 1.45 H Est Cr Clr Drug Dosing Not Reportable Est GFR ( Amer) 42.8 Est GFR (Non-Af Amer) 36.9 BUN/Creatinine Ratio 18.2 Glucose 86 Calcium 8.6 Magnesium 2.2 Total Bilirubin 0.8 AST 29 ALT 32 Alkaline Phosphatase 298 H Troponin I 0.194 H* Total Protein 6.5 Albumin 2.8 L Globulin 3.7 Albumin/Globulin Ratio 0.8 L Lipase 49 L TSH 8.260 H Free T4 0.91 Urine Color Urine Appearance Urine pH Ur Specific [place] Urine Protein Urine Glucose (UA) Urine Ketones Urine Blood Urine Nitrite Urine Bilirubin Urine Urobilinogen Ur Leukocyte Esterase Urine WBC (Auto) Urine RBC (Auto) U Hyaline Cast (Auto) U Epithel Cells (Auto) Urine Bacteria (Auto) COVID-19 Eval Order SARS-CoV-2 (PCR) 08/03/20 08/03/20 08/04/20 18:05 18:05 05:47 WBC RBC Hgb Hct MCV MCH MCHC RDW Std Deviation RDW Coeff of Sly Plt Count MPV Immature Gran % (Auto) Neut % (Auto) Lymph % (Auto) [place] % (Auto) Eos % (Auto) Baso % (Auto) Neut # (Auto) Lymph # (Auto) [place] # (Auto) Eos # (Auto) Baso # (Auto) Immature Gran # (Auto) Anisocytosis Target Cells Echinocytes PT INR Sodium Potassium Chloride Carbon Dioxide Anion Gap BUN Creatinine Est Cr Clr Drug Dosing Est GFR ( Amer) Est GFR (Non-Af Amer) BUN/Creatinine Ratio Glucose Calcium Magnesium Total Bilirubin AST ALT Alkaline Phosphatase Troponin I Total Protein Albumin Globulin Albumin/Globulin Ratio Lipase TSH Free T4 Urine Color Yellow Urine Appearance Cloudy A Urine pH 5.0 Ur Specific [place] 1.021 Urine Protein 2+ H Urine Glucose (UA) Negative Urine Ketones Negative Urine Blood 1+ H Urine Nitrite Negative Urine Bilirubin Negative Urine Urobilinogen Negative Ur Leukocyte Esterase Trace H Urine WBC (Auto) 10-30 H Urine RBC (Auto) 0-4 U Hyaline Cast (Auto) 1-5 U Epithel Cells (Auto) >30 H Urine Bacteria (Auto) 4+ H COVID-19 Eval Order Covid19 at [facility] SARS-CoV-2 (PCR) NEGATIVE 08/04/20 08/04/20 06:22 06:22 WBC 5.04 RBC 3.94 L Hgb 12.1 Hct 38.8 MCV 98.5 MCH 30.7 MCHC 31.2 L RDW Std Deviation 87.0 H RDW Coeff of Sly 24.1 H Plt Count 212 MPV 11.3 H Immature Gran % (Auto) 0.2 Neut % (Auto) 62.3 Lymph % (Auto) 26.2 [place] % (Auto) 10.5 Eos % (Auto) 0.4 Baso % (Auto) 0.4 Neut # (Auto) 3.14 Lymph # (Auto) 1.32 [place] # (Auto) 0.53 Eos # (Auto) 0.02 Baso # (Auto) 0.02 Immature Gran # (Auto) 0.01 Anisocytosis Present Target Cells 1+ Echinocytes 1+ PT INR Sodium 142 Potassium 5.9 H D Chloride 112 H Carbon Dioxide 23 Anion Gap 7.0 BUN 26 H Creatinine 1.55 H Est Cr Clr Drug Dosing 27.5 Est GFR ( Amer) 39.5 Est GFR (Non-Af Amer) 34.1 BUN/Creatinine Ratio 16.6 Glucose 86 Calcium 9.1 Magnesium 2.3 Total Bilirubin 1.1 H AST 23 ALT 24 Alkaline Phosphatase 250 H Troponin I 0.153 H* Total Protein 6.6 Albumin 3.5 Globulin 3.1 Albumin/Globulin Ratio 1.1 Lipase TSH Free T4 Urine Color Urine Appearance Urine pH Ur Specific [place] Urine Protein Urine Glucose (UA) Urine Ketones Urine Blood Urine Nitrite Urine Bilirubin Urine Urobilinogen Ur Leukocyte Esterase Urine WBC (Auto) Urine RBC (Auto) U Hyaline Cast (Auto) U Epithel Cells (Auto) Urine Bacteria (Auto) COVID-19 Eval Order SARS-CoV-2 (PCR) Diagnostic Findings Telemetry personally reviewed: Atrial fibrillation often with rapid ventricular response. ECG personally reviewed: ECG 08/03/2020: AFib with RVR 117 beats per minute. Poor R-wave progression. Nonspecific ST/T-wave abnormality. CT abdomen/pelvis 08/03/2020: Moderate bilateral pleural effusions. Slight in crease in ascites. Generalized body wall edema. Possible hepatic cirrhosis. Chest x-ray 08/03/2020 personally reviewed: Bilateral pleural effusions. Increased vascular markings suggest CHF. Medications Administered Current Inpatient Medications Acetaminophen (Acetaminophen 325 Mg Tab) 650 mg PO Q4H PRN PRN Reason: Pain or Fever Stop: 09/03/20 01:33 Clopidogrel Bisulfate (Clopidogrel Bisulfate 75 Mg Tab) 75 mg PO QAM [facility] Stop: 09/03/20 08:59 Last Admin: 08/04/20 08:17 Dose: 75 mg Documented by: Fluticasone/Vilanterol (Fluticasone/Vilanterol 200/25mcg 14 Puffs/Inhaler) 1 puffs INH DAILY [facility]; Protocol Stop: 09/03/20 08:59 Last Admin: 08/04/20 08:18 Dose: 1 puffs Documented by: Midodrine (Midodrine Hcl 2.5 Mg Tab) 2.5 mg PO TID@0800,1200,1700 [facility] Stop: 09/03/20 07:59 Last Admin: 08/04/20 08:17 Dose: 2.5 mg Documented by: Ondansetron HCl (Ondansetron Inj 2 Mg/Ml 2 Ml Vial) 4 mg IV Q6H PRN PRN Reason: Nausea Stop: 09/03/20 01:33 Pantoprazole Sodium (Pantoprazole 40 Mg Tab) 40 mg PO DAILY [facility] Stop: 09/03/20 08:59 Last Admin: 08/04/20 08:17 Dose: 40 mg Documented by: Spironolactone (Spironolactone 12.5 Mg Tab) 12.5 mg PO DAILY [facility] Stop: 09/03/20 08:59 Last Admin: 08/04/20 08:18 Dose: 12.5 mg Documented by: PG Care Time/CCT Total # of Minutes Spent Total Time Spent with Patient: Total time spent is greater than 50% in coordination of care (as documented) at patient's floor/unit and/or counseling patient: Coding Level of Care Code 17356 Initial Inpt Care Lvl 3 Diagnoses Acute on chronic HFrEF (heart failure with reduced ejection fraction) I50.23 Persistent atrial fibrillation I48.19 Elevated troponin I level R77.8 Cardiomyopathy I42.9 Mitral regurgitation I34.0 Tricuspid regurgitation I07.1 PAD (peripheral artery disease) I73.9 Hypertension I10 Hypertension type: essential hypertension (1) Hypertension Hypertension type: essential hypertension Qualified Code(s): I10 - Essential (primary) hypertension
[2020-08-04] MEDS ORDERED: SPIRONOLACTONE 12.5 MG TAB PO SCH (09:00)
[2020-08-04] MEDS ORDERED: CLOPIDOGREL BISULFATE 75 MG TAB PO SCH (09:00)
[2020-08-04] MEDS ORDERED: traMADol HCL 50 MG TABLET PO PRN (09:26)
[2020-08-04] MEDS ORDERED: MoRPHine SULFATE 4 MG/ML 1 ML CARP\\VIAL IV PRN (11:32)
[2020-08-04] MEDS: DULoxetine HCL 30 MG CAP PO SCH (11:51)
--- NOTE | 2020-08-04 12:09 | Palliative Care Consultation ---
Date of Consultation August 04, 2020 Assessment & Plan (1) Abdominal pain: with hepatic congestion. She is getting relief with IV morphine. Monitor use and can convert to regimen for home Abdominal location: upper abdomen, unspecified Qualified Code(s): R10.10 - Upper abdominal pain, unspecified (2) Breathlessness: with COPD and CHF. Will benefit from opioid use as well (3) Palliative care encounter: I talked with Julia about how she is coping. She feels like if the pain were better, she would be less depressed. We talked about the things that bring her tesha and she mentioned sewing and crocheting. She is not able to do either of this due to her illness. I asked her about limitations for her care and she confirms that she does not want CPR or intubation. She does not offer any other limitations at this time. We talked about her recent trips to the hospital and she talks about not wanting to return to the hospital. We discussed a shift to comfort rather that strict disease management with support, possibly hospice, to help manage her symptoms at home and allow her to remain at home. She is yolis mplating this but unsure of how she feels about it at this point. I called her to discuss but there was no answer. Palliative care will follow. (4) Acute on chronic HFrEF (heart failure with reduced ejection fraction): (5) Atrial fibrillation: Atrial fibrillation type: longstanding persistent Qualified Code(s): I48.11 - Longstanding persistent atrial fibrillation (6) Cardiomyopathy: (7) Pulmonary hypertension: (8) CKD (chronic kidney disease): Chronic kidney disease stage: unspecified stage Qualified Code(s): N18.9 - Chronic kidney disease, unspecified (9) Cerebral vascular insufficiency: History of Present Illness Reason for Consultation: goals of care Requesting Physician: Dr. Lynch Attending Physician: Buck Singletary DO History of Present Illness 69 yo lady with atrial fibrillation and cardiomyopathy with EF of 35-40%. This is her third hospitalization in the last month for heart failure exacerbation. She had been scheduled to see me in the office yesterday for palliative care but was feeling increased shortness of breath and went to the ER. She has chronic hepatic congestion and pulmonary hypertension. She also has comorbid COPD and cerebrovascular disease. Her heart failure management has been complicated by ongoing problems with hypotension. She has also been having problems with pain in her abdomen, legs and feet. She is feeling very tired today and tells me that for the last month or so she has been depressed. When I asked her more about that, she says that she's been feeling down about her poor health. She lives with her and her daughter and relies on them for care. She did get IV morphine for pain which was effective. She has taken tylenol and tramadol without relief. Allergies Allergy/AdvReac Type Severity Reaction Status Date / Time codeine Allergy Severe STROKE Verified 08/03/20 16:58 SYMPTOMS amoxicillin Allergy Intermediate HIVES Verified 08/03/20 16:58 clavulanic acid Allergy Intermediate Hives Verified 08/03/20 16:58 [From Augmentin] lisinopril Allergy Intermediate CAUSED BP Verified 08/03/20 16:58 TO DROP TOO LOW atenolol Allergy Mild GI Verified 08/03/20 16:58 SYMPTOMS/light headed atorvastatin Allergy Mild myalgia Verified 08/03/20 16:58 fluoxetine Allergy Mild RASH/leg Verified 08/03/20 16:58 cramps propranolol Allergy Mild HIVES/body Verified 08/03/20 16:58 aches meloxicam AdvReac Mild Diarrhea Verified 08/03/20 16:58 rosuvastatin [From Crestor] AdvReac Mild Muscle Pain Verified 08/03/20 16:58 Home Medications Medication Instructions Recorded Confirmed Type cyanocobalamin (vitamin B-12) 1,000 mcg IM MONTHLY 12/07/18 08/03/20 History iron dextran 50 mg/mL injection 50 mg IM DIRECTED ml 06/06/20 08/03/20 History solution budesonide-formoterol HFA 160 2 puff INHALATION BID #10.2 g 06/29/20 08/03/20 Rx mcg-4.5 mcg/actuation aerosol inhaler inhalational spacing device #1 ea 06/29/20 07/31/20 Rx pantoprazole 40 mg PO DAILY 30 Days #30 tab 07/20/20 08/03/20 Rx ondansetron 4 mg disintegrating 4 mg PO Q8H PRN #30 tab 07/21/20 08/03/20 Rx tablet spironolactone 25 mg tablet 12.5 mg PO DAILY #30 tab 07/21/20 08/03/20 Rx clopidogrel 75 mg PO QAM 30 Days #30 tab 07/30/20 08/03/20 Rx midodrine 2.5 mg PO TID 08/03/20 08/03/20 History Patient History Medical History (Updated 08/04/20 @ 14:51 by Pablito Lynch MD) Anxiety Elevated sed rate follows with rheumatology (Dr. Fay/[facility]) Elevated troponin Generalized pain Medical marijuana prn GERD (gastroesophageal reflux disease) High cholesterol History of anemia Hx of blood transfusion 11/2019 Iron deficient- most recent iron infusion 02/2019 History of migraine headaches History of stroke last one was 04/2019 after left subclavian artery bypass--no deficits afterwards, no neurologist S/P intracranial aneurysm repair (01/2019)- no residual effects Hypertension per patient, systolic BP goal currently between 150-180 Intracranial aneurysm 01/2019 s/p stent and/or coil (Dr. Simpson/[facility]) Jaundice Lactic acidemia Left carotid artery occlusion S/p left subclavian/left carotid bypass 04/2019 - graft occluded 48 hours post op PAD (peripheral artery disease) Paroxysmal atrial fibrillation F/U DR MCALLISTER Pulmonary nodule Seasonal allergies Transaminitis Tricuspid regurgitation Surgical History H/O abdominal surgery STOMACH ULCERS REMOVED (3 TOTAL SURGERIES) History of brain surgery indirect bypass History of breast biopsy RT/LEFT (BENIGN) History of cholecystectomy History of colonoscopy History of esophagogastroduodenoscopy (EGD) MULTIPLE History of temporal artery biopsy (12/09/18) Left Temporal Artery Biopsy (11/2018) and right History of tooth extraction Intracranial aneurysm 01/2019 - STENT AND/OR COIL PLACED, [place] S/P cholecystectomy S/P vascular bypass left subclavian carotid artery bypass 05/19/2019 Family History Father , age 57 of a massive stroke Acute myocardial infarction Cardiovascular disease Stroke syndrome Myocardial infarction Mother , age 92 of heart issues Hypertension Brother Acute myocardial infarction Daughter Family history of reaction to anesthesia Daughter- "quit breathing" with anesthesia emergence after use of fentanyl- needed to reintubate Other Patient's brother is Stroke Denies family history of Ovarian cancer Prostate cancer Breast cancer Lung cancer Colorectal cancer Social History Smoking Status: Current every day smoker Tobacco Type: Cigarettes Age Started Using Tobacco: 14; Cigarettes Per Day: 10; Second Hand Exposure: No; Hx Alcohol Use: No Hx Substance Use: No Preferred Language: Macedonian Communication Ability: Effective Visual Impairment: No Limitations Hearing Ability: Normal Manuscript Editor Required: No Beliefs That Will Affect Care: None marital status: Current Living Situation: Spouse Current Living Situation Comment: Lives with and daughter current occupational status: employed 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 Feels Safe at Home: Yes Childhood Exposure to Second-Hand Smoke: Yes caffeine: No Dental Care, Regularly: No Physical Activity Frequency: Does not Exercise Seatbelt Use: always Sunscreen Use: No Assistive Devices: Denture - Upper, Denture - Lower and Glasses Review of Systems Review of Systems: [place] Symptom Assessment Scale Pain 3/3 Dyspnea 2/3 Fatigue 3/3 Nausea 0/3 Anorexia 1/3 Drowsiness 1/3 Palliative Performance Score 50% Physical Exam Constitutional: + frail appearing; no acute distress Respiratory: normal respiratory effort; no labored breathing Neurologic: awake; not confused Psychiatric: Orientation: alert and oriented x 3 Results & Data ([facility]) Vital Signs (Past 12 Hours) Vital Signs Temp Pulse Pulse Resp BP Pulse Ox 08/04/20 11:44 97.5 F L 72 18 148/86 H 96 08/04/20 09:57 89 08/04/20 07:46 97.9 F 107 H 18 151/90 H 98 08/04/20 05:07 97.7 F 93 H 18 152/79 H 93 08/04/20 01:45 97.7 F 126 H 20 140/91 96 08/04/20 01:43 122 H 08/04/20 00:43 74 20 156/98 H 97 PG Care Time/CCT Total # of Minutes Spent Total Time Spent with Patient: Total time spent is greater than 50% in coordination of care (as documented) at patient's floor/unit and/or counseling patient: total time spent 60 minutes with more than 50% of time spent on symptom management, goals of care Coding Level of Care Code 63944 Inpt Consult Level 3 Diagnoses Abdominal pain R10.10 Abdominal location: upper abdomen, unspecified Breathlessness R06.81 Palliative care encounter Z51.5 Acute on chronic HFrEF (heart failure with reduced ejection fraction) I50.23 Atrial fibrillation I48.11 Atrial fibrillation type: longstanding persistent Cardiomyopathy I42.9 Pulmonary hypertension I27.20 CKD (chronic kidney disease) N18.9 Chronic kidney disease stage: unspecified stage Cerebral vascular insufficiency I67.9
[2020-08-04 13:04] LABS: BUN Creatinine Ratio 17.4 (10-20); Calcium 8.6 mg/dl (8.5-10.1); Creatinine Clr Calc Pharmacy 28.6 ml/min; Est GFR (African American) 41.4 ml/min; Est GFR (Non-African American) 35.7 ml/min
[2020-08-04] MEDS: FUROSEMIDE 20 MG in SYRINGE 0 ML IV SCH ×2 (14:16→20:16)
[2020-08-04] MEDS ORDERED: DIGOXIN 125 MCG in SYRINGE 9.5 ML IV STA (14:53)
[2020-08-04] MEDS ORDERED: METOCLOPRAMIDE HCL INJ 5 MG/ML 2 ML VIAL IV STA (15:25)
[2020-08-04] MEDS ORDERED: METOPROLOL TARTRATE 1 MG/ML VIAL IV PRN (15:25)
[2020-08-04] MEDS ORDERED: PROMETHAZINE HCL 12.5 MG in SODIUM CHLORIDE 0.9% 50 ML IV PRN (15:25)
[2020-08-04] MEDS ORDERED: METOCLOPRAMIDE HCL INJ 5 MG/ML 2 ML VIAL ONE (15:27)
--- NOTE | 2020-08-04 23:25 | Electrocardiogram Report ---
Test Reason : Blood Pressure : / mmHG Vent. Rate : 117 BPM Atrial Rate : 136 BPM P-R Int : 000 ms QRS Dur : 098 ms QT Int : 354 ms P-R-T Axes : 000 091 080 degrees QTc Int : 493 ms Atrial fibrillation with rapid ventricular response Rightward axis Possible Anterior infarct (cited on or before 28-JUL-2020) Nonspecific ST and T wave abnormality Abnormal ECG When compared with ECG of 28-JUL-2020 16:45, ST now depressed in Lateral leads Premature ventricular complexes are no longer Present Confirmed by Pablito Lynch ([id number]) on 08/04/2020 11:25:14 PM Referred By: REFERRED SELF Confirmed By:Pablito Lynch
--- NOTE | 2020-08-05 00:30 | Hospitalist Progress Note ---
Date of Service August 04, 2020 Assessment & Plan (1) Acute on chronic HFrEF (heart failure with reduced ejection fraction): Acute on chronic HFrEF/right heart failure due to pulmonary hypertension/atrial fibrillation/cardiomyopathy/anasarca/ascites/increasing pleural effusions- treat with Lasix 20mg IV TID, follow UO, Cr she is obviously volume overloaded palliative care is consulted, considering hospice very difficult situation with volume overload but being too aggressive decreases cerebral perfusion very sensitive with recent cerebral bypass follow BMP daily, UO, see how she responds to the Lasix (2) Right heart failure due to pulmonary hypertension: See above Lasix 20mg IV TID (3) Myalgia: main complaint is pain in legs bilaterally, throb all the time she just wants the pain to go away start Cymbalta 30mg daily gave her Ultram this AM, no relief Morphine 4mg IV gave her relief but caused nausea, treated nausea with Zofran and Reglan 10mg IV palliative care consulted for pain control, goals of care (4) Hyperkalemia: feel like this is likely false, elevated by hemolysis initial K was 4.6, she got Lasix which should drive it lower K this morning was 5.9? repeat at 12:22 showed hemolysis and could not be performed will be on Lasix 20mg IV TID which should lower K repeat BMP in the AM (5) Atrial fibrillation: tachycardia this afternoon when vomiting but that resolved with symptom control on Digoxin (6) Cardiomyopathy: See above (7) Anasarca: edema in legs, abdominal wall, ascites difficult to manage with right heart failure, liver congestion Lasix 20mg IV TID (8) Cerebral vascular insufficiency: Be careful to not diurese too much too fast, as patient has been become symptomatic in the past continue on Midodrine which she was taking at home (9) Carotid artery occlusion syndrome: (10) Intracranial aneurysm: Underwent previous surgery with coiling try to prevent drops in BP, on Midodrine chronically (11) Dyslipidemia: No active treatment listed due to intolerance of statins (12) Panic disorder with agoraphobia: On no active treatment at this time (13) COPD (chronic obstructive pulmonary disease): Continue budesonide-formoterol (14) CKD (chronic kidney disease): Creatinine stable at 1.4-1.5, monitor with diuresis, Cr may rise Admission and Anticipated Discharge Date Admission Date: August 03, 2020 Subjective patient sitting up in bed, leaning forward, rubbing legs she says she has pain in her legs all the time, throbbing also with pain in her abdomen that is intermittent she just wants relief from her pain, we tried Ultram in the AM, did not help gave her morphine 4mg IV, gave her relief from pain but made her nauseated and she vomited, had dry heaves appreciate cardiology consult, will give Lasix 20mg IV TID for volume overload, but ultimately she needs palliative care spoke with Dr. Lynch, he says she has declined a lot the past few weeks appreciate palliative consult, spoke with Dr. Cameron she brought up hospice with the patient, she was more accepting of the idea that she had been in the past Review of Systems Review of Systems: All systems reviewed & are unremarkable except as noted in Subjective Constitutional: + fatigue and + weakness; no fever Respiratory: + dyspnea on exertion; no cough and no dyspnea Cardiovascular: + edema (legs, abdomen); no chest pain Gastrointestinal: + abdominal pain, + nausea and + vomiting; no constipation and no diarrhea/loose stools Musculoskeletal: + myalgia (pain in legs, constant) Physical Exam Constitutional: well developed (appears older than age), + ill appearing, + frail appearing, + disheveled and + in distress (due to pain); + uncomfortable Neck: trachea midline, no thyromegaly Respiratory: normal respiratory effort; no labored breathing, no cough and not tachypneic Auscultation: lungs clear to auscultation bilaterally and + diminished lung sounds (bases) Cardiovascular: Rate/Rhythm: regular rate and regular rhythm Heart Sounds: normal S1 and normal S2; no murmur Vessels: + JVD Extremities: normal capillary refill and + edema (in legs and abdominal wall/buttocks) Gastrointestinal (Abdomen): Inspection/Auscultation: + abdomen distended, normal bowel sounds and + abdominal edema Percussion/Palpation: + abdomen tender, + ascites and + dullness to percussion Musculoskeletal: Head/Neck/Chest: normocephalic, head atraumatic and neck supple Extremities: extremities normal to inspection; no cyanosis, no clubbing and no petechiae Skin: no rashes, warm and dry Neurologic: patellar DTR's 2+ bilat, sensation intact and PERRL, EOMI, accommodation nl, no face palsy, no dysarthria Psychiatric: Orientation: alert and oriented x 3 Affect: + depressed affect and + tearful affect Lymphatic: no cervical or axillary lymphadenopathy Results & Data Results & Data ([facility]) Vital Signs (Past 12 Hours) Vital Signs Temp Pulse Pulse Pulse Resp BP BP 08/05/20 00:00 95 H 08/04/20 23:42 36.6 C 98 H 16 148/81 H 08/04/20 18:55 36.1 C L 112 H 20 164/107 H 08/04/20 17:31 147/96 H 08/04/20 16:41 122 H 08/04/20 16:00 130 H 08/04/20 15:28 36.7 C 131 H 22 162/112 H Pulse Ox 08/05/20 00:00 08/04/20 23:42 93 08/04/20 18:55 96 08/04/20 17:31 08/04/20 16:41 08/04/20 16:00 08/04/20 15:28 96 Laboratory Results Laboratory Results - last 24 hr 08/04/20 08/04/20 08/04/20 05:47 06:22 06:22 WBC 5.04 RBC 3.94 L Hgb 12.1 Hct 38.8 MCV 98.5 MCH 30.7 MCHC 31.2 L RDW Std Deviation 87.0 H RDW Coeff of Sly 24.1 H Plt Count 212 MPV 11.3 H Immature Gran % (Auto) 0.2 Neut % (Auto) 62.3 Lymph % (Auto) 26.2 [place] % (Auto) 10.5 Eos % (Auto) 0.4 Baso % (Auto) 0.4 Neut # (Auto) 3.14 Lymph # (Auto) 1.32 [place] # (Auto) 0.53 Eos # (Auto) 0.02 Baso # (Auto) 0.02 Immature Gran # (Auto) 0.01 Anisocytosis Present Target Cells 1+ Echinocytes 1+ Sodium 142 Potassium 5.9 H D Chloride 112 H Carbon Dioxide 23 Anion Gap 7.0 BUN 26 H Creatinine 1.55 H Est Cr Clr Drug Dosing 27.5 Est GFR ( Amer) 39.5 Est GFR (Non-Af Amer) 34.1 BUN/Creatinine Ratio 16.6 Glucose 86 Calcium 9.1 Magnesium 2.3 Total Bilirubin 1.1 H AST 23 ALT 24 Alkaline Phosphatase 250 H Troponin I 0.153 H* Total Protein 6.6 Albumin 3.5 Globulin 3.1 Albumin/Globulin Ratio 1.1 Urine Color Yellow Urine Appearance Cloudy A Urine pH 5.0 Ur Specific [place] 1.021 Urine Protein 2+ H Urine Glucose (UA) Negative Urine Ketones Negative Urine Blood 1+ H Urine Nitrite Negative Urine Bilirubin Negative Urine Urobilinogen Negative Ur Leukocyte Esterase Trace H Urine WBC (Auto) 10-30 H Urine RBC (Auto) 0-4 U Hyaline Cast (Auto) 1-5 U Epithel Cells (Auto) >30 H Urine Bacteria (Auto) 4+ H 08/04/20 08/04/20 08/04/20 12:22 12:22 21:06 WBC RBC Hgb Hct MCV MCH MCHC RDW Std Deviation RDW Coeff of Sly Plt Count MPV Immature Gran % (Auto) Neut % (Auto) Lymph % (Auto) [place] % (Auto) Eos % (Auto) Baso % (Auto) Neut # (Auto) Lymph # (Auto) [place] # (Auto) Eos # (Auto) Baso # (Auto) Immature Gran # (Auto) Anisocytosis Target Cells Echinocytes Sodium 140 Potassium Chloride 111 H Carbon Dioxide 20 L Anion Gap 9.0 BUN 26 H Creatinine 1.49 H Est Cr Clr Drug Dosing 28.6 Est GFR ( Amer) 41.4 Est GFR (Non-Af Amer) 35.7 BUN/Creatinine Ratio 17.4 Glucose 108 H Calcium 8.6 Magnesium Total Bilirubin AST ALT Alkaline Phosphatase Troponin I 0.132 H* 0.169 H* Total Protein Albumin Globulin Albumin/Globulin Ratio Urine Color Urine Appearance Urine pH Ur Specific [place] Urine Protein Urine Glucose (UA) Urine Ketones Urine Blood Urine Nitrite Urine Bilirubin Urine Urobilinogen Ur Leukocyte Esterase Urine WBC (Auto) Urine RBC (Auto) U Hyaline Cast (Auto) U Epithel Cells (Auto) Urine Bacteria (Auto) Medications Administered Current Inpatient Medications Acetaminophen (Acetaminophen 325 Mg Tab) 650 mg PO Q4H PRN PRN Reason: Pain or Fever Stop: 09/03/20 01:33 Clopidogrel Bisulfate (Clopidogrel Bisulfate 75 Mg Tab) 75 mg PO QAM PENDING SALE TO [facility] Stop: 09/03/20 08:59 Last Admin: 08/04/20 08:17 Dose: 75 mg Documented by: Digoxin (Digoxin 0.125 Mg Tab) 0.125 mg PO DAILY@1600 PENDING SALE TO [facility] Stop: 09/04/20 15:59 Duloxetine HCl (Duloxetine Hcl 30 Mg Cap) 30 mg PO QAM PENDING SALE TO [facility] Stop: 09/03/20 11:44 Last Admin: 08/04/20 11:51 Dose: 30 mg Documented by: Fluticasone/Vilanterol (Fluticasone/Vilanterol 200/25mcg 14 Puffs/Inhaler) 1 puffs INH DAILY PENDING SALE TO [facility]; Protocol Stop: 09/03/20 08:59 Last Admin: 08/04/20 08:18 Dose: 1 puffs Documented by: Furosemide 20 mg/ Syringe 2 mls @ 4 mls/min IV TID PENDING SALE TO [facility] Stop: 09/03/20 13:59 Last Admin: 08/04/20 20:16 Dose: 4 mls/min Documented by: Promethazine HCl 12.5 mg/ (Sodium Chloride) 50.5 mls @ 202 mls/hr IV Q6H PRN PRN Reason: Nausea And Vomiting Stop: 09/03/20 15:24 Last Infusion: 08/04/20 16:58 Dose: Infused Documented by: Metoprolol Tartrate (Metoprolol Tartrate 1 Mg/Ml Vial) 5 mg IV Q6 PRN PRN Reason: tachycardia Stop: 09/03/20 17:59 Midodrine (Midodrine Hcl 2.5 Mg Tab) 2.5 mg PO TID@0800,1200,1700 PENDING SALE TO [facility] Stop: 09/03/20 07:59 Last Admin: 08/04/20 17:25 Dose: 2.5 mg Documented by: Morphine Sulfate (Morphine Sulfate 2 Mg/Ml Carp) 2 mg IV Q4H PRN PRN Reason: Pain Stop: 08/18/20 11:31 Morphine Sulfate (Morphine Sulfate 4 Mg/Ml 1 Ml Carp\Vial) 4 mg IV Q4H PRN PRN Reason: Severe Pain Stop: 08/18/20 11:31 Last Admin: 08/04/20 11:49 Dose: 4 mg Documented by: Ondansetron HCl (Ondansetron Inj 2 Mg/Ml 2 Ml Vial) 4 mg IV Q6H PRN PRN Reason: Nausea Stop: 09/03/20 01:33 Last Admin: 08/04/20 14:17 Dose: 4 mg Documented by: Pantoprazole Sodium (Pantoprazole 40 Mg Tab) 40 mg PO DAILY CANDIDO Stop: 09/03/20 08:59 Last Admin: 08/04/20 08:17 Dose: 40 mg Documented by: Tramadol HCl (Tramadol Hcl 50 Mg Tablet) 50 mg PO Q4H PRN PRN Reason: Pain Stop: 09/03/20 09:25 Last Admin: 08/04/20 09:37 Dose: 50 mg Documented by: PG Care Time/CCT Total # of Minutes Spent Total Time Spent with Patient: Total time spent is greater than 50% in coordination of care (as documented) at patient's floor/unit and/or counseling patient: Coding Level of Care Code 99890 Subseq Hosp Care Lvl 3 Diagnoses Acute on chronic HFrEF (heart failure with reduced ejection fraction) I50.23 Right heart failure due to pulmonary hypertension I27.29; I50.810 Myalgia M79.10 Hyperkalemia E87.5 Atrial fibrillation I48.11 Atrial fibrillation type: longstanding persistent Cardiomyopathy I42.9 Anasarca R60.1 Cerebral vascular insufficiency I67.9 Carotid artery occlusion syndrome G45.1 Intracranial aneurysm I67.1 Dyslipidemia E78.5 Panic disorder with agoraphobia F40.01 COPD (chronic obstructive pulmonary disease) J44.9 CKD (chronic kidney disease) N18.9 Chronic kidney disease stage: unspecified stage (1) Atrial fibrillation Atrial fibrillation type: longstanding persistent Qualified Code(s): I48.11 - Longstanding persistent atrial fibrillation (2) CKD (chronic kidney disease) Chronic kidney disease stage: unspecified stage Qualified Code(s): N18.9 - Chronic kidney disease, unspecified
[2020-08-05 06:32] LABS: Basophils # (auto) 0.02 K/uL (0-0.2); Basophils % (auto) 0.4 %; Eosinophils # (auto) 0.03 K/uL (0-0.5); Eosinophils % (auto) 0.6 %; Hematocrit (blood only) 36.8 % (37-47); Hemoglobin 11.7 g/dL (12.0-16.0); Immature Granulocytes # (auto) 0.01 K/uL (0.00-0.02); Immature Granulocytes % (auto) 0.2 %; Lymphocytes % (auto) 26.3 %; Mean Corpuscular Hemoglobin 30.9 pg (25-34); Mean Corpuscular Hgb Conc 31.8 g/dL (32-36); Mean Corpuscular Volume 97.1 fL (80-100); Mean Platelet Volume 10.1 fL (7.4-10.4); Monocytes # (auto) 0.56 K/uL (0.11-0.59); Monocytes % (auto) 11.3 %; Neutrophils # (auto) 3.03 K/uL (1.4-6.5); Neutrophils % (auto) 61.2 %; Platelet Count 193 K/uL (130-400); RDW Standard Deviation 83.7 fL (36.4-46.3); Red Blood Count 3.79 M/uL (4.2-5.4); White Blood Count 4.95 K/uL (4.8-10.8)
[2020-08-05 07:09] LABS: Anisocytosis Present; Echinocytes 1+; Target Cells 1+
[2020-08-05 07:21] LABS: Albumin Globulin Ratio 1.1 (0.9-2); Albumin Level 3.2 gm/dl (3.4-5.0); BUN Creatinine Ratio 17.8 (10-20); Bilirubin,Total 1.2 mg/dl (0.2-1); Calcium 8.3 mg/dl (8.5-10.1); Est GFR (African American) 38.6 ml/min; Est GFR (Non-African American) 33.3 ml/min; Globulin 2.9 gm/dl (2.5-4.0); Magnesium 2.1 mg/dl (1.8-2.4); Potassium 4.2 mmol/L (3.5-5.1); Total Protein 6.1 gm/dl (6.4-8.2); Troponin I 0.186 ng/ml (0-0.045)
[2020-08-05] MEDS: FLUTICASONE/VILANTEROL 200/25MCG 14 PUFFS/INHALER INH SCH (08:35)
[2020-08-05] MEDS: MIDODRINE HCL 2.5 MG TAB PO SCH ×3 (08:35→16:37)
[2020-08-05] MEDS: DULoxetine HCL 30 MG CAP PO SCH (08:35)
[2020-08-05] MEDS: FUROSEMIDE 20 MG in SYRINGE 0 ML IV SCH ×3 (08:35→21:11)
[2020-08-05] MEDS: PANTOprazole 40 MG TAB PO SCH (08:35)
[2020-08-05] MEDS ORDERED: cefTRIAXone SODIUM 2,000 MG in DEXTROSE 5% 50 ML IV SCH (09:15)
--- NOTE | 2020-08-05 13:02 | Cardiology Progress Note ---
Date of Service August 05, 2020 Assessment & Plan (1) Acute on chronic HFrEF (heart failure with reduced ejection fraction): (2) Persistent atrial fibrillation: (3) Elevated troponin I level: (4) Cardiomyopathy: (5) Mitral regurgitation: (6) Tricuspid regurgitation: (7) PAD (peripheral artery disease): (8) Hypertension: ASSESSMENT/PLAN: 1. Acute on chronic heart failure with reduced EF: Her lung examination is not normal suggesting a continued element of pulmonary edema. As far as the effects of diuretics, her intake and output measurements have not been recorded accurately. She did not have symptoms of stroke or significant hemodynamic derangements with her current dosing of Lasix. I would consider continuing her current t.i.d. dosing. Symptomatic we improved. 2. Cardiomyopathy: Not currently on medical therapy due to intolerances. 3. Mitral regurgitation: Significant based on most recent echo report. She is not a good surgical candidate at this time. 4. Tricuspid regurgitation: 5. Peripheral arterial disease: History of right subclavian artery stenosis and left subclavian to left carotid artery bypass which failed at 48 hours postop. She follows with vascular surgery and neurosurgery [facility] [place]. She is on Plavix. 6. Hypertension: Blood pressure is persistently hypertensive as per nurse surgery recommendations to improve perfusion to her brain. She is on midodrine to help keep her blood pressure at goal. May need to increase midodrine while diuresing. 7. Elevated troponin: Chronic. No current symptoms suggestive of acute coronary syndrome or angina. 8. Persistent atrial fibrillation: Digoxin initiated. Overall heart rates appear reasonable though with activity the certainly escalate. Unclear if we will be able to attenuate this change in heart rate due to her prior intolerance is. Not currently on anticoagulation. 9. Disposition: Poor prognosis overall long-term. Admission and Anticipated Discharge Date Admission Date: August 03, 2020 Subjective This afternoon the patient claimed he feeling well. She primarily had some concerns about pain in the dorsal aspect of her left foot. She denies signi ficant breathing difficulty. She reports being ambulatory to the bathroom without dizziness, lightheadedness or dyspnea. No sense of palpitations. Review of Systems Review of Systems: Per HPI Physical Exam Physical Exam: Gen.: No acute distress. Alert and oriented. HEENT: Anicteric sclera. Cardiac: PMI was nondisplaced. No ventricular heave. Irregularly irregular. Pulmonary: Diffuse crackles in both lung pearson. Extremities: Moderate edema bilaterally. Psychiatric: Affect appears appropriate. Results & Data ([facility]) Vital Signs (Past 12 Hours) Vital Signs Temp Pulse Pulse Resp BP Pulse Ox 08/05/20 11:41 36.6 C 59 L 20 161/93 H 91 08/05/20 07:45 95 H 08/05/20 07:15 36.6 C 88 20 154/74 H 95 08/05/20 04:07 36.7 C 99 H 20 146/79 H 96 Laboratory Results Abnormal Lab Results 08/04/20 08/04/20 08/04/20 12:22 12:22 21:06 WBC RBC Hgb Hct MCV MCH MCHC RDW Std Deviation RDW Coeff of Sly Plt Count MPV Immature Gran % (Auto) Neut % (Auto) Lymph % (Auto) [place] % (Auto) Eos % (Auto) Baso % (Auto) Neut # (Auto) Lymph # (Auto) [place] # (Auto) Eos # (Auto) Baso # (Auto) Immature Gran # (Auto) Anisocytosis Target Cells Echinocytes ESR Sodium 140 Potassium Chloride 111 H Carbon Dioxide 20 L Anion Gap 9.0 BUN 26 H Creatinine 1.49 H Est Cr Clr Drug Dosing 28.6 Est GFR ( Amer) 41.4 Est GFR (Non-Af Amer) 35.7 BUN/Creatinine Ratio 17.4 Glucose 108 H Calcium 8.6 Magnesium Total Bilirubin AST ALT Alkaline Phosphatase Total Creatine Kinase Troponin I 0.132 H* 0.169 H* Total Protein Albumin Globulin Albumin/Globulin Ratio 08/05/20 08/05/20 08/05/20 06:00 06:00 06:00 WBC 4.95 RBC 3.79 L Hgb 11.7 L Hct 36.8 L MCV 97.1 MCH 30.9 MCHC 31.8 L RDW Std Deviation 83.7 H RDW Coeff of Sly 24.0 H Plt Count 193 MPV 10.1 Immature Gran % (Auto) 0.2 Neut % (Auto) 61.2 Lymph % (Auto) 26.3 [place] % (Auto) 11.3 Eos % (Auto) 0.6 Baso % (Auto) 0.4 Neut # (Auto) 3.03 Lymph # (Auto) 1.30 [place] # (Auto) 0.56 Eos # (Auto) 0.03 Baso # (Auto) 0.02 Immature Gran # (Auto) 0.01 Anisocytosis Present Target Cells 1+ Echinocytes 1+ ESR Sodium 141 Potassium 4.2 D Chloride 111 H Carbon Dioxide 23 Anion Gap 7.0 BUN 28 H Creatinine 1.58 H Est Cr Clr Drug Dosing 27.0 Est GFR ( Amer) 38.6 Est GFR (Non-Af Amer) 33.3 BUN/Creatinine Ratio 17.8 Glucose 80 Calcium 8.3 L Magnesium 2.1 Total Bilirubin 1.2 H AST 21 ALT 25 Alkaline Phosphatase 255 H Total Creatine Kinase 22 L Troponin I 0.186 H* Total Protein 6.1 L Albumin 3.2 L Globulin 2.9 Albumin/Globulin Ratio 1.1 08/05/20 08/05/20 09:00 12:23 WBC RBC Hgb Hct MCV MCH MCHC RDW Std Deviation RDW Coeff of Sly Plt Count MPV Immature Gran % (Auto) Neut % (Auto) Lymph % (Auto) [place] % (Auto) Eos % (Auto) Baso % (Auto) Neut # (Auto) Lymph # (Auto) [place] # (Auto) Eos # (Auto) Baso # (Auto) Immature Gran # (Auto) Anisocytosis Target Cells Echinocytes ESR 4 Sodium Potassium Chloride Carbon Dioxide Anion Gap BUN Creatinine Est Cr Clr Drug Dosing Est GFR ( Amer) Est GFR (Non-Af Amer) BUN/Creatinine Ratio Glucose Calcium Magnesium Total Bilirubin AST ALT Alkaline Phosphatase Total Creatine Kinase Troponin I 0.164 H* Total Protein Albumin Globulin Albumin/Globulin Ratio Diagnostic Findings Telemetry personally reviewed: Atrial fibrillation often with rapid ventricular response. ECG personally reviewed: ECG 08/03/2020: AFib with RVR 117 beats per minute. Poor R-wave progression. Nonspecific ST/T-wave abnormality. CT abdomen/pelvis 08/03/2020: Moderate bilateral pleural effusions. Slight increase in ascites. Generalized body wall edema. Possible hepatic cirrhosis. Chest x-ray 08/03/2020 personally reviewed: Bilateral pleural effusions. Increased vascular markings suggest CHF. PG Care Time/CCT Total # of Minutes Spent Total Time Spent with Patient: Total time spent is greater than 50% in coordination of care (as documented) at patient's floor/unit and/or counseling patient: Coding Level of Care Code 55060 Subseq Hosp Care Lvl 2 Diagnoses Acute on chronic HFrEF (heart failure with reduced ejection fraction) I50.23 Persistent atrial fibrillation I48.19 Elevated troponin I level R77.8 Cardiomyopathy I42.9 Mitral regurgitation I34.0 Tricuspid regurgitation I07.1 PAD (peripheral artery disease) I73.9 Hypertension I10 Hypertension type: essential hypertension (1) Hypertension Hypertension type: essential hypertension Qualified Code(s): I10 - Essential (primary) hypertension
[2020-08-05] MEDS ORDERED: methylPREDNISolone 40 MG in SYRINGE 0 ML IV ONE (16:33)
[2020-08-05] MEDS: DIGOXIN 0.125 MG TAB PO SCH (16:37)
[2020-08-05] MEDS ORDERED: methylPREDNISolone 30 MG in SYRINGE 0 ML IV ONE (17:00)
--- NOTE | 2020-08-05 19:20 | Hospitalist Progress Note ---
Date of Service August 05, 2020 Assessment & Plan (1) Rash: I am uncertain as to the etiology of the rash on her legs/feet. It has a petechial, vasculitic appearance to it. There are excoriation stark - especially on left foot - from prior scratching. Sed rate is 4 which would argue against leukocytoclastic vasculitis however. She also has significant pain over both feet in mid-portion (gout? CPPD?) - again sed rate of 4 would argue against both. A trial of steroid may help the rash and foot pain. Start solumedrol 30mg IV x 1 and reeval tomorrow. Given her a.fib and not being on anticoagulation - could the leg findings be embolic?? (2) Bilateral leg and foot pain: uncertain cause. inflammatory ? (gout, CPPD) infectious ? vascular (PAD) ? other ? see above in 'rash' check arterial dopplers - r/o significant PAD of LEs re-eval tomorrow (3) Myalgia: etiology uncertain. check CPK. check b12 level. neuropathic? myalgia? vascular? other? pain is in both legs. Cymbalta 30mg daily initiated by prior hospitalist - tolerating this so far (initial date - 08/04/20). (4) Acute on chronic HFrEF (heart failure with reduced ejection fraction): Volume status improving. Continue Lasix 20mg IV TID. BMP in am. Appreciate cardiology consultation. Recent echo 06/2020 -- EF 35-40%. Appears to be an ischemic cardiomyopathy. (5) Right heart failure due to pulmonary hypertension: Severe Pulmonary HTN (estimated pressures) based on echo on 07/12/20. Cont Lasix 20mg IV TID. Intolerant to beta blockers. (6) Atrial fibrillation: Permanent. Not a CCB candidate due to depressed LV function. Intolerant/allergic to BB. Starting digoxin 0.125mg daily by cardiology. dig level in 1 week. follow rates. (7) Cardiomyopathy: See above in "acute/chronic HFrEF" not an entresto or PETER/ARB candidate due to issues with hypotension (which recently led to a watershed stroke) (8) Anasarca: 2nd CHF diurese TSH this admission mildly high at 8 deserves repeat in 3-4 weeks and if still high would initiate synthroid (9) Cerebral vascular insufficiency: with resulting left-sided watershed stroke earlier this month. avoid hypotension. continue on Midodrine 2.5mg TID. (10) Carotid artery occlusion syndrome: (11) Intracranial aneurysm: Underwent previous surgery with coiling (12) Dyslipidemia: Intolerant to multiple statins (13) Panic disorder with agoraphobia: no issues at this time (14) COPD (chronic obstructive pulmonary disease): Continue budesonide-formoterol No exacerbation at this time (15) CKD (chronic kidney disease): stage 3b / stage 4 baseline CrCl low 30s/upper 20s daily bmp while being diuresed (16) UTI (urinary tract infection): start rocephin 2gm daily follow culture narrow abx when able (17) DVT prophylaxis: h/o GI bleeding, etc relative contraindication to anticoagulation left message for this evening Admission and Anticipated Discharge Date Admission Date: August 03, 2020 Subjective tele - a.fib, rates generally acceptable but >100 at times pt's main complaint is that of b/l foot/ankle pain, primarily the feet "burning sensation" for 1-2 weeks she also has b/l rash over the feet and ankles, present for 1-2 weeks the rash was pruritic early on when it first appeared but not now hurts to move the feet and also weight bear/walk on them no pain in calf muscles or thighs eating is fair at best no dyspnea no chest pain no fever Review of Systems Constitutional: no fever, no chills and no fatigue Respiratory: no cough, no dyspnea and no dyspnea on exertion Cardiovascular: no chest pain Gastrointestinal: no abdominal pain Physical Exam Constitutional: no acute distress and no altered mental status ENMT: external ear and nose normal, oropharynx normal Respiratory: no respiratory distress Auscultation: + diminished lung sounds (bases); no crackles and no wheezes Cardiovascular: Rate/Rhythm: regular rate and + irregularly irregular Heart Sounds: normal S1, normal S2 and + murmur (systolic, LSB) Vessels: posterior tibial pulses present (1+ b/l) and dorsalis pedis pulses present (1+ b/l ); no JVD and + popliteal pulses abnormal Extremities: + edema (1+ over feet/ankles ); + abnormal capillary refill (modestly prolonged, 2-3 sec; venous pooling of toes b/l ) Gastrointestinal (Abdomen): normal bowel sounds, soft, nontender, no hepatosplenomegaly Musculoskeletal: tender to palpation over b/l mid-foot Skin: petechial rash over distal shins b/l extending onto the dorsal surface of both feet, worse on left; dry skin on upper portions of legs Psychiatric: A+Ox3, euthymic affect Results & Data Results & Data ([facility]) Vital Signs (Past 12 Hours) Vital Signs Temp Pulse Pulse Resp BP Pulse Ox 08/05/20 16:37 105 H 08/05/20 16:18 36.3 C L 94 H 20 144/91 H 94 08/05/20 11:41 36.6 C 59 L 20 161/93 H 91 08/05/20 07:45 95 H Laboratory Results Laboratory Results - last 24 hr 08/04/20 08/05/20 08/05/20 21:06 06:00 06:00 WBC 4.95 RBC 3.79 L Hgb 11.7 L Hct 36.8 L MCV 97.1 MCH 30.9 MCHC 31.8 L RDW Std Deviation 83.7 H RDW Coeff of Sly 24.0 H Plt Count 193 MPV 10.1 Immature Gran % (Auto) 0.2 Neut % (Auto) 61.2 Lymph % (Auto) 26.3 [place] % (Auto) 11.3 Eos % (Auto) 0.6 Baso % (Auto) 0.4 Neut # (Auto) 3.03 Lymph # (Auto) 1.30 [place] # (Auto) 0.56 Eos # (Auto) 0.03 Baso # (Auto) 0.02 Immature Gran # (Auto) 0.01 Anisocytosis Present Target Cells 1+ Echinocytes 1+ ESR Sodium 141 Potassium 4.2 D Chloride 111 H Carbon Dioxide 23 Anion Gap 7.0 BUN 28 H Creatinine 1.58 H Est Cr Clr Drug Dosing 27.0 Est GFR ( Amer) 38.6 Est GFR (Non-Af Amer) 33.3 BUN/Creatinine Ratio 17.8 Glucose 80 Calcium 8.3 L Magnesium 2.1 Total Bilirubin 1.2 H AST 21 ALT 25 Alkaline Phosphatase 255 H Total Creatine Kinase Troponin I 0.169 H* 0.186 H* Total Protein 6.1 L Albumin 3.2 L Globulin 2.9 Albumin/Globulin Ratio 1.1 08/05/20 08/05/20 08/05/20 06:00 09:00 12:23 WBC RBC Hgb Hct MCV MCH MCHC RDW Std Deviation RDW Coeff of Sly Plt Count MPV Immature Gran % (Auto) Neut % (Auto) Lymph % (Auto) [place] % (Auto) Eos % (Auto) Baso % (Auto) Neut # (Auto) Lymph # (Auto) [place] # (Auto) Eos # (Auto) Baso # (Auto) Immature Gran # (Auto) Anisocytosis Target Cells Echinocytes ESR 4 Sodium Potassium Chloride Carbon Dioxide Anion Gap BUN Creatinine Est Cr Clr Drug Dosing Est GFR ( Amer) Est GFR (Non-Af Amer) BUN/Creatinine Ratio Glucose Calcium Magnesium Total Bilirubin AST ALT Alkaline Phosphatase Total Creatine Kinase 22 L Troponin I 0.164 H* Total Protein Albumin Globulin Albumin/Globulin Ratio PG Care Time/CCT Total # of Minutes Spent Total Time Spent with Patient: Total time spent is greater than 50% in coordination of care (as documented) at patient's floor/unit and/or counseling patient: Coding Level of Care Code 93114 Subseq Hosp Care Lvl 3 Diagnoses Rash R21 Bilateral leg and foot pain M79.604; M79.605; M79.671; M79.672 Myalgia M79.10 Acute on chronic HFrEF (heart failure with reduced ejection fraction) I50.23 Right heart failure due to pulmonary hypertension I27.29; I50.810 Atrial fibrillation I48.11 Atrial fibrillation type: longstanding persistent Cardiomyopathy I42.9 Anasarca R60.1 Cerebral vascular insufficiency I67.9 Carotid artery occlusion syndrome G45.1 Intracranial aneurysm I67.1 Dyslipidemia E78.5 Panic disorder with agoraphobia F40.01 COPD (chronic obstructive pulmonary disease) J44.9 CKD (chronic kidney disease) N18.9 Chronic kidney disease stage: unspecified stage UTI (urinary tract infection) N39.0 DVT prophylaxis Z29.9 (1) Atrial fibrillation Atrial fibrillation type: longstanding persistent Qualified Code(s): I48.11 - Longstanding persistent atrial fibrillation (2) CKD (chronic kidney disease) Chronic kidney disease stage: unspecified stage Qualified Code(s): N18.9 - Chronic kidney disease, unspecified
[2020-08-06] MEDS: MoRPHine SULFATE 2 MG/ML CARP IV PRN ×2 (02:11→20:52)
[2020-08-06 07:21] LABS: BUN Creatinine Ratio 18.8 (10-20); Calcium 8.8 mg/dl (8.5-10.1); Creatinine Clr Calc Pharmacy 29.6 ml/min; Est GFR (African American) 43.1 ml/min; Est GFR (Non-African American) 37.2 ml/min; Potassium 3.9 mmol/L (3.5-5.1)
[2020-08-06] MEDS: FLUTICASONE/VILANTEROL 200/25MCG 14 PUFFS/INHALER INH SCH (08:15)
[2020-08-06] MEDS: MIDODRINE HCL 2.5 MG TAB PO SCH ×3 (08:15→17:31)
[2020-08-06] MEDS: DULoxetine HCL 30 MG CAP PO SCH (08:15)
[2020-08-06] MEDS: PANTOprazole 40 MG TAB PO SCH (08:16)
--- NOTE | 2020-08-06 08:31 | Ultrasound Report ---
BILATERAL LOWER EXTREMITY ARTERIAL DOPPLER ULTRASOUND CLINICAL HISTORY: severe b/l leg pain; PAD?? COMPARISON STUDY: No previous studies for comparison. TECHNIQUE: Grayscale, color and duplex Doppler sonography of the arterial systems of both lower extre mities was performed. Ankle to brachial indices could not be obtained in this patient. FINDINGS: There was an elevated peak systolic velocity of 323 cm/s within the mid right superficial f emoral artery. This may reflect a stenosis. There is mild to moderate atherosclerotic plaque within t he lower extremities. Biphasic and triphasic flow was identified within both lower extremity. No vess el occlusion was identified by sonography. IMPRESSION: 1. Mild to moderate atherosclerotic plaque within the bilateral lower extremities. Patent vessels. Bi phasic and triphasic flow throughout both lower extremities. 2. Elevated peak systolic velocity within the mid right superficial femoral artery which may reflect a stenosis. ACT 112: Negative or not required by law. Electronically signed by: Terrence Kenney M.D. 08/06/2020 8:30 AM
[2020-08-06] MEDS: cephALEXin 500 MG CAP PO SCH ×2 (09:21→20:50)
[2020-08-06] MEDS: FUROSEMIDE 20 MG in SYRINGE 0 ML IV SCH ×3 (09:22→20:50)
[2020-08-06] MEDS: DIGOXIN 0.125 MG TAB PO SCH (16:28)
[2020-08-06] MEDS ORDERED: methylPREDNISolone 30 MG in SYRINGE 0 ML IV ONE (17:00)
--- NOTE | 2020-08-06 19:13 | XRay Report ---
XR foot RT min 3V routine CLINICAL HISTORY: mid-foot pain; assess for CPPD, etc COMPARISON: None FINDINGS: Alignment of the right foot is anatomic. Tarsometatarsal joints are intact. No acute fract ure is noted. No erosions are identified. No osseous lesions are identified. There is minimal posteri or and mild plantar calcaneal spurring. Minimal degenerative changes within the midfoot are present. There is mild to moderate osteoarthritis within several articulations within the toes. IMPRESSION: 1. No acute fracture or dislocation within the right foot. 2. Minimal degenerative changes within the right midfoot. 3. Mild to moderate osteoarthritis within several articulations of the toes. ACT 112: Negative or not required by law. Electronically signed by: Terrence Kenney M.D. 08/06/2020 7:11 PM
--- NOTE | 2020-08-06 19:16 | XRay Report ---
XR foot LT min 3V routine CLINICAL HISTORY: mid-foot pain; assess for CPPD, etc COMPARISON: None FINDINGS: Alignment of the left foot is anatomic. Tarsometatarsal joints are intact. There is mild p lantar calcaneal spurring. No fracture is noted. There are no suspicious osseous lesions. Mild to mod erate osteoarthritis is noted within several articulations of the toes. Accessory navicular is incide ntally noted. IMPRESSION: 1. No acute fracture or dislocation within the left foot. 2. No significant midfoot abnormality. 3. Mild to moderate osteoarthritis within several articulations of the toes. ACT 112: Negative or not required by law. Electronically signed by: Terrence Kenney M.D. 08/06/2020 7:14 PM
--- NOTE | 2020-08-06 22:59 | Hospitalist Progress Note ---
Date of Service August 06, 2020 Assessment & Plan (1) Rash: Etiology uncertain. Petechial, vasculitic appearance to it but sed rate/crp wnl making leukocytoclastic vasculitis unlikely. There are excoriation stark - especially on left foot - from prior scratching. Solumedrol given 08/05 with improvement in rash. Will give additional dose of solumedrol 30mg IV x 1 today. Given her a.fib and not being on anticoagulation - could the leg findings be embolic?? Doubt - would be unusual distribution & location for such. (2) Bilateral leg and foot pain: uncertain cause. checked arterial dopplers - no significant PAD of LEs foot x-rays b/l today - no CPPD changes. gout?? (difficulty weight-bearing on feet/legs argues for inflammatory arthropathy). check uric acid level am. solumedrol x 1 given again today. re-eval tomorrow. (3) Myalgia: etiology uncertain. B12, vitamin D, CPK, sed rate, crp -- all wnl. neuropathic? myalgia? vascular? other? pain is in both legs. Cymbalta 30mg daily initiated by prior hospitalist - tolerating this so far (initial date - 08/04/20). (4) Acute on chronic HFrEF (heart failure with reduced ejection fraction): Volume status improving. Continue Lasix 20mg IV TID. BMP in am. Recent echo 06/2020 -- EF 35-40%. Appears to have an ischemic cardiomyopathy. (5) Right heart failure due to pulmonary hypertension: Severe Pulmonary HTN (estimated pressures) based on echo on 07/12/20. Cont Lasix 20mg IV TID. Intolerant to beta blockers. Careful to NOT over-diurese. (6) Atrial fibrillation: Permanent. Not a CCB candidate due to depressed LV function. Intolerant/allergic to BB. Started digoxin 0.125mg daily by cardiology yesterday. dig level in 1 week. follow rates. (7) Cardiomyopathy: See above in "acute/chronic HFrEF" not an entresto or PETER/ARB candidate due to issues with hypotension (which recently led to a watershed stroke) (8) Anasarca: 2nd CHF cont diuresis TSH this admission mildly high at 8 deserves repeat in 3-4 weeks and if still high would initiate synthroid (9) Cerebral vascular insufficiency: with resulting left-sided watershed stroke earlier this month. avoid hypotension. continue on Midodrine 2.5mg TID although BPs have risen with steroids for feet. follow BPs. (10) Carotid artery occlusion syndrome: (11) Intracranial aneurysm: Underwent previous surgery with coiling (12) Dyslipidemia: Intolerant to multiple statins (13) Panic disorder with agoraphobia: no issues at this time (14) COPD (chronic obstructive pulmonary disease): Continue budesonide-formoterol No exacerbation at this time (15) CKD (chronic kidney disease): stage 3b / stage 4 baseline CrCl low 30s/upper 20s daily bmp while being diuresed (16) UTI (urinary tract infection): s/p rocephin 2gm daily urine cx w/ klebsiella stop rocephin; change to PO keflex 500mg BID for another 3-5 DAYS (17) DVT prophylaxis: h/o GI bleeding, etc relative contraindication to anticoagulation updated pt's by phone this evening; questions answered needs PT, OT evals Admission and Anticipated Discharge Date Admission Date: August 03, 2020 Subjective feet/ankles/distal legs feeling some better can weight bear more easily rash is not worse than previous - slightly better today denies orthopnea, cough continues with mild [place] tele - a.fib eating - poor (has been poor at home as well) Review of Systems Constitutional: + fatigue and + anorexia; no fever and no chills Respiratory: no wheezing Cardiovascular: no chest pain Gastrointestinal: no abdominal pain Physical Exam Constitutional: + thin; no acute distress and no altered mental status ENMT: external ear and nose normal, oropharynx normal Respiratory: no respiratory distress Auscultation: + diminished lung sounds (bases); no crackles and no wheezes Cardiovascular: Rate/Rhythm: regular rate and + irregularly irregular Heart Sounds: normal S1, normal S2 and + murmur (systolic, LSB) Vessels: posterior tibial pulses present (1+ b/l) and dorsalis pedis pulses present (1+ b/l ); no JVD and + popliteal pulses abnormal Extremities: + edema (<1+ feet/ankles bilaterally ); + abnormal capillary refill (modestly prolonged, 2-3 sec; venous pooling of toes b/l ) Gastrointestinal (Abdomen): normal bowel sounds, soft, nontender, no hepatosplenomegaly Musculoskeletal: less tenderness to palpation over b/l mid-foot Skin: rash - distal legs extending onto dorsal surface both feet, much worse on left. rash is petechial in several locations. there is healing, pinpoint scabs over [id number] count erythematous rash left foot. excoriations left foot. Psychiatric: A+Ox3, euthymic affect Results & Data Results & Data ([facility]) Vital Signs (Past 12 Hours) Vital Signs Temp Pulse Pulse Resp BP Pulse Ox 08/06/20 18:58 36.6 C 105 H 18 169/92 H 93 08/06/20 16:28 91 H 08/06/20 15:41 36.6 C 80 18 157/79 H 93 08/06/20 12:01 37.0 C 90 20 143/87 H 95 Laboratory Results Laboratory Results - last 24 hr 08/06/20 06:25 Sodium 138 Potassium 3.9 Chloride 104 Carbon Dioxide 23 Anion Gap 11.0 BUN 27 H Creatinine 1.44 H Est Cr Clr Drug Dosing 29.6 Est GFR ( Amer) 43.1 Est GFR (Non-Af Amer) 37.2 BUN/Creatinine Ratio 18.8 Glucose 149 H Calcium 8.8 PG Care Time/CCT Total # of Minutes Spent Total Time Spent with Patient: Total time spent is greater than 50% in coordinat ion of care (as documented) at patient's floor/unit and/or counseling patient: Coding Level of Care Code 39017 Subseq Hosp Care Lvl 3 Diagnoses Rash R21 Bilateral leg and foot pain M79.604; M79.605; M79.671; M79.672 Myalgia M79.10 Acute on chronic HFrEF (heart failure with reduced ejection fraction) I50.23 Right heart failure due to pulmonary hypertension I27.29; I50.810 Atrial fibrillation I48.11 Atrial fibrillation type: longstanding persistent Cardiomyopathy I42.9 Anasarca R60.1 Cerebral vascular insufficiency I67.9 Carotid artery occlusion syndrome G45.1 Intracranial aneurysm I67.1 Dyslipidemia E78.5 Panic disorder with agoraphobia F40.01 COPD (chronic obstructive pulmonary disease) J44.9 CKD (chronic kidney disease) N18.9 Chronic kidney disease stage: unspecified stage UTI (urinary tract infection) N39.0 DVT prophylaxis Z29.9 (1) Atrial fibrillation Atrial fibrillation type: longstanding persistent Qualified Code(s): I48.11 - Longstanding persistent atrial fibrillation (2) CKD (chronic kidney disease) Chronic kidney disease stage: unspecified stage Qualified Code(s): N18.9 - Chronic kidney disease, unspecified
[2020-08-07 07:42] LABS: BUN Creatinine Ratio 19.8 (10-20); Calcium 8.3 mg/dl (8.5-10.1); Creatinine Clr Calc Pharmacy 29.4 ml/min; Est GFR (African American) 42.8 ml/min; Est GFR (Non-African American) 36.9 ml/min; Potassium 4.3 mmol/L (3.5-5.1); Uric Acid 8.3 mg/dl (2.6-7.2)
[2020-08-07] MEDS: MIDODRINE HCL 2.5 MG TAB PO SCH ×3 (08:26→16:41)
[2020-08-07] MEDS: cephALEXin 500 MG CAP PO SCH ×2 (08:27→20:17)
[2020-08-07] MEDS: FLUTICASONE/VILANTEROL 200/25MCG 14 PUFFS/INHALER INH SCH (08:27)
[2020-08-07] MEDS: FUROSEMIDE 20 MG in SYRINGE 0 ML IV SCH ×3 (08:27→20:17)
[2020-08-07] MEDS: PANTOprazole 40 MG TAB PO SCH (08:27)
[2020-08-07] MEDS: DULoxetine HCL 30 MG CAP PO SCH (08:27)
--- NOTE | 2020-08-07 14:34 | Palliative Care Progress Note ---
Date of Service August 07, 2020 Assessment & Plan (1) Palliative care encounter: Julia tells me that she is planning to go home today. We talked about support for her at home. She has previously said that she would not want to return to the hospital. We had talked about hospice support for her at home to manage symptoms and avoid return to hospital. She tells me that she is not ready for that. "I don't think that I need that yet". She is not certain about when she would know that she needs it. We talked about home care nurses checking on her to help manage her heart failure. I asked her about return to the hospital and she says that she is ok with hospitalization. She is agreeable to palliative care followup as an outpatient. (2) Acute on chronic HFrEF (heart failure with reduced ejection fraction): (3) Atrial fibrillation: (4) Pulmonary hypertension: (5) COPD (chronic obstructive pulmonary disease): Admission and Anticipated Discharge Date Admission Date: August 03, 2020 Subjective Sleeping but easily arousable. Sits on edge of bed. No dizziness. She has been ambulating to bathroom and denies pain or dyspnea. Review of Systems Review of Systems: [place] Symptom Assessment Scale Pain 1/3 Dyspnea 1/3 Fatigue 2/3 Anxiety 1/3 Nausea 0/3 Palliative Performance Score 50% Physical Exam Constitutional: + thin; no acute distress Respiratory: normal respiratory effort; no labored breathing Cardiovascular: Rate/Rhythm: + irregularly irregular Gastrointestinal (Abdomen): Inspection/Auscultation: abdomen not distended Neurologic: awake; not confused Results & Data ([facility]) Vital Signs (Past 12 Hours) Vital Signs Temp Pulse Resp BP BP Pulse Ox 08/07/20 11:02 97.3 F L 86 18 158/113 H 91 08/07/20 07:06 98.2 F 89 18 177/106 H 94 08/07/20 04:00 97.5 F L 85 18 179/90 H 92 PG Care Time/CCT Total # of Minutes Spent Total Time Spent with Patient: Total time spent is greater than 50% in coordination of care (as documented) at patient's floor/unit and/or counseling patient: Coding Level of Care Code 00659 Subseq Hosp Care Lvl 2 Diagnoses Palliative care encounter Z51.5 Acute on chronic HFrEF (heart failure with reduced ejection fraction) I50.23 Atrial fibrillation I48.11 Atrial fibrillation type: longstanding persistent Pulmonary hypertension I27.20 COPD (chronic obstructive pulmonary disease) J44.9 (1) Atrial fibrillation Atrial fibrillation type: longstanding persistent Qualified Code(s): I48.11 - Longstanding persistent atrial fibrillation
[2020-08-07] MEDS: DIGOXIN 0.125 MG TAB PO SCH (16:03)
[2020-08-07] MEDS ORDERED: predniSONE 10 MG TABLET PO STA (18:03)
--- NOTE | 2020-08-07 20:52 | Hospitalist Progress Note ---
Date of Service August 07, 2020 Assessment & Plan (1) Rash: Etiology uncertain. Petechial, vasculitic appearance to it but sed rate/crp wnl making leukocytoclastic vasculitis unlikely. There are excoriation stark - especially on left foot - from prior scratching. Local contact dermatitis?? other? RASH is resolving with steroids. Give 10mg po x 1 of prednisone today. s/p solumedrol 08/05 and 08/06. (2) Bilateral leg and foot pain: uncertain cause. checked arterial dopplers - no significant PAD of LEs foot x-rays b/l - no CPPD changes. gout?? (difficulty weight-bearing on feet/legs argues for inflammatory arthropathy). uric acid level >8. swelling of b/l mid-foot has improved with steroids. give prednisone 10mg x 1 today. then 5mg tomorrow. (3) Myalgia: etiology uncertain. B12, vitamin D, CPK, sed rate, crp -- all wnl. neuropathic? myalgia? vascular? other? pain is in both legs. Cymbalta 30mg daily initiated by prior hospitalist - tolerating this so far (initial date - 08/04/20). (4) Acute on chronic HFrEF (heart failure with reduced ejection fraction): Volume status continues to improve; approaching euvolemia. Continue Lasix 20mg IV TID then stop after tonight's dose. Lasix 20mg BID by mouth thereafter? BMP in am. Recent echo 06/2020 -- EF 35-40%. Appears to have an ischemic cardiomyopathy. (5) Right heart failure due to pulmonary hypertension: Severe Pulmonary HTN (estimated pressures) based on echo on 07/12/20. Cont Lasix 20mg IV TID then stop after tonight's dose. Intolerant to beta blockers. (6) Atrial fibrillation: Permanent. Not a CCB candidate due to depressed LV function. Intolerant/allergic to BB. Started digoxin 0.125mg daily by cardiology this week. dig level in 1 week. follow rates. (7) Cardiomyopathy: See above in "acute/chronic HFrEF" not an entresto or PETER/ARB candidate due to issues with hypotension (which recently led to a watershed stroke) (8) Anasarca: 2nd CHF cont diuresis marked improvement TSH this admission mildly high at 8 deserves repeat in 3-4 weeks and if still high would initiate synthroid (9) Cerebral vascular insufficiency: with resulting left-sided watershed stroke earlier this month. avoid hypotension. BPs now high w/ steroid - can hold midodrine temporarily. (10) Carotid artery occlusion syndrome: (11) Intracranial aneurysm: Underwent previous surgery with coiling (12) Dyslipidemia: Intolerant to multiple statins (13) Panic disorder with agoraphobia: no issues at this time (14) COPD (chronic obstructive pulmonary disease): Continue budesonide-formoterol No exacerbation at this time (15) CKD (chronic kidney disease): stage 3b / stage 4 baseline CrCl low 30s/upper 20s daily bmp while being diuresed (16) UTI (urinary tract infection): s/p rocephin 2gm daily urine cx w/ klebsiella PO keflex 500mg BID x 5 days (17) DVT prophylaxis: h/o GI bleeding, etc relative contraindication to anticoagulation updated pt's by phone yesterday and again today cleared by PT and OT to return home appreciate palliative care consultation Admission and Anticipated Discharge Date Admission Date: August 03, 2020 Subjective b/l feet and ankles feel better rash improved no pruritis able to weight bear comfortably on both feet dyspnea and orthopnea improved eating - fair tele - a.fib PT, OT saw patient - cleared for home Review of Systems Constitutional: no fever, no chills and no body aches Respiratory: no cough Cardiovascular: no chest pain Gastrointestinal: no abdominal pain Physical Exam Constitutional: + thin; no acute distress and no altered mental status ENMT: external ear and nose normal, oropharynx normal Respiratory: no respiratory distress Auscultation: + diminished lung sounds (bases); no crackles and no wheezes Cardiovascular: Rate/Rhythm: regular rate and + irregularly irregular Heart Sounds: normal S1, normal S2 and + murmur (systolic, LSB) Vessels: posterior tibial pulses present (1+ b/l) and dorsalis pedis pulses present (1+ b/l ); no JVD Extremities: + edema (trace feet/ankles bilaterally ); + abnormal capillary refill (modestly prolonged, 2-3 sec; venous pooling of toes b/l ) Gastrointestinal (Abdomen): normal bowel sounds, soft, nontender, no hepatosplenomegaly Musculoskeletal: b/l feet - NO tenderness to palpation over mid-foot region; no tenderness of either ankle with palpation or passive ROM Skin: rash, L foot >R foot - IMPROVED today; fading erythema; no new lesions Psychiatric: A+Ox3, euthymic affect Results & Data Results & Data ([facility] [place]) Vital Signs (Past 12 Hours) Vital Signs Temp Pulse Pulse Pulse Resp BP BP 08/07/20 20:05 36.6 C 91 H 18 173/96 H 08/07/20 16:08 90 174/94 H 08/07/20 16:03 90 08/07/20 15:22 90 08/07/20 15:02 36.5 C 82 19 179/95 H 08/07/20 11:02 36.3 C L 86 18 158/113 H Pulse Ox 08/07/20 20:05 94 08/07/20 16:08 08/07/20 16:03 08/07/20 15:22 08/07/20 15:02 94 08/07/20 11:02 91 Laboratory Results BMP wnl - Cr 1.45 PG Care Time/CCT Total # of Minutes Spent Total Time Spent with Patient: Total time spent is greater than 50% in coordination of care (as documented) at patient's floor/unit and/or counseling patient: Coding Level of Care Code 37641 Subseq Hosp Care Lvl 3 Diagnoses Rash R21 Bilateral leg and foot pain M79.604; M79.605; M79.671; M79.672 Myalgia M79.10 Acute on chronic HFrEF (heart failure with reduced ejection fraction) I50.23 Right heart failure due to pulmonary hypertension I27.29; I50.810 Atrial fibrillation I48.11 Atrial fibrillation type: longstanding persistent Cardiomyopathy I42.9 Anasarca R60.1 Cerebral vascular insufficiency I67.9 Carotid artery occlusion syndrome G45.1 Intracranial aneurysm I67.1 Dyslipidemia E78.5 Panic disorder with agoraphobia F40.01 COPD (chronic obstructive pulmonary disease) J44.9 CKD (chronic kidney disease) N18.9 Chronic kidney disease stage: unspecified stage UTI (urinary tract infection) N39.0 DVT prophylaxis Z29.9 (1) Atrial fibrillation Atrial fibrillation type: longstanding persistent Qualified Code(s): I48.11 - Longstanding persistent atrial fibrillation (2) CKD (chronic kidney disease) Chronic kidney disease stage: unspecified stage Qualified Code(s): N18.9 - Chronic kidney disease, unspecified
[2020-08-08] MEDS: MoRPHine SULFATE 2 MG/ML CARP IV PRN (02:06)
[2020-08-08] MEDS ORDERED: hydrOXYzine HCl 10 MG TAB PO PRN (02:36)
[2020-08-08] MEDS: PANTOprazole 40 MG TAB PO SCH (07:59)
[2020-08-08] MEDS: cephALEXin 500 MG CAP PO SCH (07:59)
[2020-08-08] MEDS: FLUTICASONE/VILANTEROL 200/25MCG 14 PUFFS/INHALER INH SCH (07:59)
[2020-08-08] MEDS: DULoxetine HCL 30 MG CAP PO SCH (07:59)
[2020-08-08 08:16] LABS: BUN Creatinine Ratio 20.6 (10-20); Calcium 8.8 mg/dl (8.5-10.1); Creatinine Clr Calc Pharmacy 30.2 ml/min; Est GFR (African American) 44.3 ml/min; Est GFR (Non-African American) 38.2 ml/min; Potassium 3.5 mmol/L (3.5-5.1)
[2020-08-08] MEDS ORDERED: POTASSIUM CHLORIDE CRTAB 20 MEQ TABCR PO STA (09:15)
[2020-08-08] MEDS ORDERED: FUROSEMIDE 20 MG TAB PO SCH (09:15)
[2020-08-08] MEDS ORDERED: predniSONE 5 MG TAB PO ONE (09:30)
--- NOTE | 2020-08-08 13:50 | Discharge Summary ---
Date of Service date of admission - August 03, 2020 date of discharge - August 08, 2020 Admission HPI Per Admitting Provider The patient is a 69-year-old female with a past medical history including atrial fibrillation, cardiomyopathy, chronic systolic heart failure with EF 35 to 40%, prior CVA, CKD, chronic passive congestion of liver, right heart failure secondary to pulmonary hypertension, COPD, cerebellar vascular insufficiency, vitamin B12 deficiency, vitamin D deficiency, cervicalgia, chronic pain syndrome, dyslipidemia, gluten sensitive enteropathy, migraine headache, pain disorder with agoraphobia, polyneuropathy, carotid artery occlusion syndrome, intracranial aneurysm, PAD, hypertension, status post cerebral bypass at [facility] on May 31, 2020, history of left carotid artery occlusion with multiple left CVAs, and cerebral ischemia secondary to hypotension. Her most recent a dmissions to [facility] were from 07/16-07/20/2020, and 07/28-07/30/2020. She presents with 5-6 days of worsening LE edema, shortness of breath, and back pain. She also complained of bilateral foot and ankle pain. Principal Diagnosis 1. acute/chronic systolic CHF 2. b/l mid-foot pain, ?gout or other inflammatory arthropathy Discharge Exam Constitutional + thin; no acute distress and no altered mental status ENMT external ear and nose normal, oropharynx normal Respiratory no respiratory distress Auscultation: + diminished lung sounds (bases); no crackles and no wheezes Cardiovascular Rate/Rhythm: regular rate and + irregularly irregular Heart Sounds: normal S1, normal S2 and + murmur (systolic, LSB) Vessels: posterior tibial pulses present (1+ b/l) and dorsalis pedis pulses present (1+ b/l ); no JVD Extremities: + edema (trace feet/ankles bilaterally ); + abnormal capillary refill (modestly prolonged, 2-3 sec; venous pooling of toes b/l ) Gastrointestinal (Abdomen) normal bowel sounds, soft, nontender, no hepatosplenomegaly Musculoskeletal no tenderness to palpation over b/l mid-foot Skin resolving rash b/l distal shins /ankles extending onto dorsum b/l feet Psychiatric A+Ox3, euthymic affect Discharge Data Allergies Allergy/AdvReac Type Severity Reaction Status Date / Time codeine Allergy Severe STROKE Verified 08/03/20 16:58 SYMPTOMS amoxicillin Allergy Intermediate HIVES Verified 08/03/20 16:58 clavulanic acid Allergy Intermediate Hives Verified 08/03/20 16:58 [From Augmentin] lisinopril Allergy Intermediate CAUSED BP Verified 08/03/20 16:58 TO DROP TOO LOW atenolol Allergy Mild GI Verified 08/03/20 16:58 SYMPTOMS/light headed atorvastatin Allergy Mild myalgia Verified 08/03/20 16:58 fluoxetine Allergy Mild RASH/leg Verified 08/03/20 16:58 cramps propranolol Allergy Mild HIVES/body Verified 08/03/20 16:58 aches meloxicam AdvReac Mild Diarrhea Verified 08/03/20 16:58 rosuvastatin [From Crestor] AdvReac Mild Muscle Pain Verified 08/03/20 16:58 Consultations [facility] Cardiology [facility] Palliative Care PT, OT Ordered Studies Chest X-Ray 08/03/20 17:39 XR chest 1V portable CLINICAL HISTORY: Shortness of breath COMPARISON STUDY: 07/28/2020 FINDINGS: The heart is enlarged. There are bilateral pleural effusions with interval increase in the size of the right pleural effusion. There is mild elevation of interstitium suggesting mild pulmonary vascular congestion/fluid overload. There are basilar parenchymal opacities, likely atelectatic.[ IMPRESSION: 1. Cardiomegaly and bilateral pleural effusions with interval increase in the size the right pleural effusion 2. Probable mild pulmonary vascular congestion/fluid overload. ACT 112: Negative or not required by law. Electronically signed by: Harmeet Izquierdo M.D. 08/03/2020 6:35 PM Venous Doppler Study 08/03/20 17:39 US venous doppler LE CLINICAL HISTORY: Bilateral leg swelling COMPARISON STUDY: No previous studies for comparison. FINDINGS: Real-time and color flow Doppler imaging were performed. Flow was seen within the femoral, popliteal and calf veins with no intraluminal thrombus demonstrated. The saphenous vein is patent. The waveforms demonstrate prominent pulsatility. This may indicate elevated right heart pressures. IMPRESSION: 1. No evidence of lower extremity DVT. 2. Venous waveform suggestive of elevated right heart pressures ACT 112: Negative or not required by law. Electronically signed by: Harmeet Izquierdo M.D. 08/03/2020 8:57 PM Abdomen/Pelvis CT 08/03/20 17:52 CT SCAN OF THE ABDOMEN AND PELVIS WITHOUT CONTRAST CLINICAL HISTORY: abdominal pain, swelling, back pain COMPARISON STUDY: CT scan dated 07/15/2020 TECHNIQUE: CT scan of the abdomen and pelvis was performed from the lung bases to the proximal femurs. Images are reviewed in the axial, sagittal, and coronal planes. IV contrast was not administered for this examination. A dose lowering technique was utilized adhering to the principles of ALARA. CT DOSE: 409.90 mGy.cm FINDINGS: Lower chest: There are moderate bilateral pleural effusions. Basilar parenchymal opacities statistically representing compressive atelectasis. The heart is enlarged. There is no significant pericardial fluid. Liver: The serosal surface of the liver is somewhat serrated. Underlying cirrhosis was be considered. Gallbladder: Surgically absent. Spleen: Normal in size and attenuation. Pancreas: Unremarkable. Adrenal glands: Unremarkable. Kidneys: Left kidney appears somewhat atrophic. No renal, ureteral, or bladder calculi are visualized. Bowel: There are no transition zones indicate bowel obstruction. No acute inflammatory changes are visualized. There are postsurgical changes of a gastric bypass and Berny-en-Y anastomosis Peritoneum: There is a kummt-[id number]-zbkauojq volume of ascites. There is no free intraperitoneal air. Vasculature: The abdominal aorta is normal in course and caliber. Adenopathy: None. Pelvic viscera: The bladder, and pelvic viscera are unremarkable. Skeletal structures: There is generalized body wall edema. No destructive skeletal lesions are visualized. IMPRESSION: 1. Study limited by the absence of intravenous and oral contrast 2. Moderate bilateral pleural effusions 3. Slight increase in the volume of ascites 4. Generalized body wall edema 5. Possible hepatic cirrhosis 6. No evidence of bowel obstruction. No evidence of free air 7. No renal, ureteral, or bladder calculi identified ACT 112: Negative or not required by law. Electronically signed by: Harmeet Izquierdo M.D. 08/03/2020 7:38 PM Duplex Scan Lower Extremity Artery 08/05/20 19:21 BILATERAL LOWER EXTREMITY ARTERIAL DOPPLER ULTRASOUND CLINICAL HISTORY: severe b/l leg pain; PAD?? COMPARISON STUDY: No previous studies for comparison. TECHNIQUE: Grayscale, color and duplex Doppler sonography of the arterial systems of both lower extremities was performed. Ankle to brachial indices could not be obtained in this patient. FINDINGS: There was an elevated peak systolic velocity of 323 cm/s within the mid right superficial femoral artery. This may reflect a stenosis. There is mild to moderate atherosclerotic plaque within the lower extremities. Biphasic and triphasic flow was identified within both lower extremity. No vessel occlusion was identified by sonography. IMPRESSION: 1. Mild to moderate atherosclerotic plaque within the bilateral lower extremities. Patent vessels. Biphasic and triphasic flow throughout both lower extremities. 2. Elevated peak systolic velocity within the mid right superficial femoral artery which may reflect a stenosis. ACT 112: Negative or not required by law. Electronically signed by: Terrence Kenney M.D. 08/06/2020 8:30 AM Foot X-Ray 08/06/20 16:45 XR foot LT min 3V routine CLINICAL HISTORY: mid-foot pain; assess for CPPD, etc COMPARISON: None FINDINGS: Alignment of the left foot is anatomic. Tarsometatarsal joints are intact. There is mild plantar calcaneal spurring. No fracture is noted. There are no suspicious osseous lesions. Mild to moderate osteoarthritis is noted within several articulations of the toes. Accessory navicular is incidentally noted. IMPRESSION: 1. No acute fracture or dislocation within the left foot. 2. No significant midfoot abnormality. 3. Mild to moderate osteoarthritis within several articulations of the toes. ACT 112: Negative or not required by law. Electronically signed by: Terrence Kenney M.D. 08/06/2020 7:14 PM Foot X-Ray 08/06/20 16:45 XR foot RT min 3V routine CLINICAL HISTORY: mid-foot pain; assess for CPPD, etc COMPARISON: None FINDINGS: Alignment of the right foot is anatomic. Tarsometatarsal joints are intact. No acute fracture is noted. No erosions are identified. No osseous lesions are identified. There is minimal posterior and mild plantar calcaneal spurring. Minimal degenerative changes within the midfoot are present. There is mild to moderate osteoarthritis within several articulations within the toes. IMPRESSION: 1. No acute fracture or dislocation within the right foot. 2. Minimal degenerative changes within the right midfoot. 3. Mild to moderate osteoarthritis within several articulations of the toes. ACT 112: Negative or not required by law. Electronically signed by: Terrence Kenney M.D. 08/06/2020 7:11 PM Hospital Course (1) Acute on chronic HFrEF (heart failure with reduced ejection fraction): Volume status improved nicely while here with use of IV lasix TID during the visit. Patient appeared euvolemic at discharge. Discharge weight 52.8kg (116 pounds). Recent echo 06/2020 -- EF 35-40%. Appears to have an ischemic cardiomyopathy. [facility] cardiology/CHF clinic provided sanchez cardiac recommendations for her care. Discharge meds - * lasix 20mg BID * digoxin 0.125mg daily (added for a.fib rate control; cannot take beta blockers due to allergy) * not on PETER or ARB due to recent issues with hypotension * potassium 20meq daily (2) Right heart failure due to pulmonary hypertension: Severe Pulmonary HTN (estimated pressures) based on echo on 07/12/20. Intolerant to beta blockers. (3) Rash: Etiology uncertain. Petechial, vasculitic appearance to it but sed rate/crp wnl making leukocytoclastic vasculitis unlikely. There were excoriation stark - especially on left foot - from prior scratching. Local contact dermatitis?? other? RASH improved/resolved with steroids. s/p solumedrol 08/05 and 08/06. D/c with 2 days of low-dose prednisone. (4) Bilateral leg and foot pain: uncertain cause. checked arterial dopplers - no significant PAD of legs. foot x-rays b/l - no CPPD changes, no fractures; mild OA only. gout?? (difficulty weight-bearing on feet/legs argues for inflammatory arthropathy). uric acid level >8. swelling and pain of b/l mid-foot improved with steroids. 2 additional days of oral prednisone to be used at discharge. (5) Myalgia: etiology uncertain. B12, vitamin D, CPK, sed rate, crp -- all wnl. neuropathic? myalgia? vascular? other? pain was b/l legs. Cymbalta 30mg daily initiated on 08/04/20 and tolerated such during her hospital stay. (6) Atrial fibrillation: Permanent. Not a CCB candidate due to depressed LV function. Intolerant/allergic to BB. Started digoxin 0.125mg daily by cardiology this week. dig level needed in 1 week. Rates controlled during her hospital stay. (7) Cardiomyopathy: See above in "acute/chronic HFrEF" not an entresto or PETER/ARB candidate due to issues with hypotension (which recently led to a watershed stroke) (8) Anasarca: 2nd CHF marked improvement with diuresis TSH this admission mildly high at 8 deserves repeat level in 3-4 weeks and if still high would initiate synthroid (9) Cerebral vascular insufficiency: with resulting left-sided watershed strokes as seen on MRI brain 07/28/2020. avoid hypotension. BPs were actually high w/ steroids during the hospitalization. midodrine was held in the latter portion of the hospital visit. can hold midodrine at discharge and resume once oral prednisone course is completed. (10) Carotid artery occlusion syndrome: (11) Intracranial aneurysm: Underwent previous surgery with coiling (12) Dyslipidemia: Intolerant to multiple statins (13) Panic disorder with agoraphobia: no issues while here (14) COPD (chronic obstructive pulmonary disease): Continue budesonide-formoterol No exacerbation during the visit (15) CKD (chronic kidney disease): stage 3b / stage 4 baseline CrCl low 30s/upper 20s discharge Creatinine 1.4 (16) UTI (urinary tract infection): s/p rocephin 2gm daily urine cx w/ klebsiella PO keflex 500mg BID x 5 days following rocephin (17) Goals of care, counseling/discussion: Seen by Dr Mere Cameron from palliative care. In light of complex medical history & numerous medical problems along with multiple recent hospital stays Dr Cameron met with patient to discuss goals of care. Patient was not ready to initiate any hospice care. Home Health Attestation I certify that this patient is under my care and that I, or a physicians chris valladares working with me, had a face to-face encounter that meets the home health kajd-nc-oukz encounter requirements with this patient. The encounter with the patient was in whole, or in part, for the following medical condition, which is the primary reason for home health care (list medical condition): Pleural Effusions. I certify that, based on my findings, the following services are medically necessary home health services: My clinical findings support the need for the above services because: Skilled Nsg Assessment Further, I certify that my clinical findings support that this patient is homebound (i.e. absences from home require considerable and taxing effort and are for medical reasons or mu-ism services or infrequently or of short duration when for other reasons) because: Transportation Assistance/Unable to Leave Home Unassisted Certification for Home Health Services: Based on the above findings, I certify that this patient is confined to the home and needs intermittent correction care, physical therapy and/or speech therapy or continues to need occupational therapy. The patient is under my care, and I have initiated the establishment of the plan of care. This patient will be followed by a physician who will periodically review the plan of care. Total Time Total Time Spent Total Time Spent (In Minutes): 45 Total Time Includes: Examination of the Patient, Discharge Planning, Medication Reconciliation and Communication With Other Providers Discharge Plan Discharge Items Patient Disposition: Home - Home Health Services Reason For Visit: Shortness of breath, bilateral foot pain, rash Discharge Diagnosis: 1. shortness of breath due to congestive heart failure - shortness of breath largely resolved. 2. bilateral foot pain - largely resolved; due to gout? 3. rash - resolving; exact cause not certain. 4. recent stroke. 5. atrial fibrillation. 6. urinary tract infection. Activity: As commented below Activity Comment: gradually increase your activities over the next 5-7 days Non-emergency contact: Primary Care Provider and Skate Hop Call non-emergency contact if: you have any medication questions, your symptoms worsen, your pain is not controlled and you have a fever Follow-up/Referrals: Anjel Eid MD [Primary Care Provider] - 08/11/20 9:30 am (within 7-10 days ) Lori Gaston PA-C [Physician Curator Of Collections] - 08/11/20 12:00 pm (within 5 days in the CHF clinic.) Diet: Heart Healthy Fluids: 1500ml (6 cups) Ambulatory Orders: Basic Metabolic Panel (Routine) Timeframe: 4 Days Location: Determined by Patient Ordered By: Zenon Pollard (Routine) Timeframe: 4 Days Location: None Selected Ordered By: Zenon Quach Addtl Attending Provider Instructions: Mrs Kilgore, You were treated for the problems listed above in "discharge diagnoses." The main issue was that of fluid build-up from your congestive heart failure. This improved nicely with intravenous diuretics. You lost a considerable amount of weight while here; your weight on 08/08 was 116 pounds. You also complained of pain in both feet as well as your ankles. I was uncertain what caused this. Your x-rays of the feet were largely normal. It is possible that you had gout in the feet. Your foot symptoms improved with steroids. You complained of an itchy rash on both feet. The cause of this, too, was uncertain but improved while here. The rotary envelope machine operator saw you in the hospital for your congestive heart. Recommendations - 1. for fluid build-up prevention take - * furosemide (lasix) 20mg twice daily (take about 8am and 4pm each & every day) 2. weigh yourself every morning on the same scale. Upon awakening please empty your bladder, then check your weight. Write your weights down on a pad of paper. If you gain more than 2-3 pounds in 1-2 days please contact the rotary envelope machine operator right away. 3. for your foot pain - take prednisone 5mg x 1 on 08/09/20, then take another 5mg dose on 08/10/20, then stop. 4. for the rash - nothing specific to do for it. If it is itchy you can purchase ykif-rth-vmfgucq hydrocortisone 1% and spread the cream on twice or three times each day. 5. PLEASE HOLD YOUR MIDODRINE UNTIL FRIDAY OF THIS WEEK. OK TO RESUME THE MIDODRINE AT THAT TIME. 6. for your urinary tract infection - take cephalexin 500mg twice daily for 3 more days. 7. my partner Dr Singletary initiated you on a medication called "cymbalta" (duloxetine). This medication is for nerve pain as well as depression. Take 30mg once daily. Take your first dose tomorrow on 08/09/20. 8. take a potassium supplement every day. 9. take digoxin heart medication -- 0.125mg once daily about 4 or 5pm every afternoon; this is for your heart and atrial fibrillation; it was started by the heart doctors while here. Follow-up - * see Ms Lori Gaston, CHF clinic, within 1 week of discharge * you will need repeat blood work -- ideally this blood work is done BEFORE your visit with Ms Gaston * be sure to bring the order sheets with you to the lab when having your blood drawn Return to [facility] if - * you have fevers * you have worsening foot and/or ankle pain making it hard to walk * you have shortness of breath * you have chest pains * you are feeling lightheaded or dizzy * any other concerns It was my pleasure caring for you! -Dr Quach Addtl Combo Welder Provider Instructions: Call 911 and go to the Emergency Room if: * You have tightness or pain in your chest that does not go away with rest or Nitroglycerin * You are very short of breath even with rest Call your doctor if any of the following symptoms or problems start or get worse: * Shortness of breath or difficulty breathing * Wake up at night short of breath * Chest pain * Cough * Swelling of your hands, fee, or legs * More fatigued or tired with your normal activity * Palpitations - sudden fast heart beats WEIGHT * Weigh yourself every morning after using the bathroom. * Use the same scale. * Wear the same amount of clothing. * Write your weight down on your chart. * Call your doctor if you gain more than 2-3 pounds in 1-2 days. This is usually a sign of fluid weight gain from your heart. Don't delay - call your heart doctors. MEDICATIONS * Use this discharge instruction sheet for instructions. * Take your medications at the time your doctor ordered. * Do not skip a dose of your medicines. * If you miss a dose of medicine, take as soon as possible, but DO NOT DOUBLE A DOSE. * Read your medicine information when you get home. * Know all of the side effects of your medicine. * Call your doctor's office if you have any side effects. * Be sure all of your doctors know what medicine and herbs you take (including cold, flu, and herbal medicine). * Pain Medicine: If you do not get relief from your pain, please call your doctor for help. Take the following with you to your follow-up doctor appointments: * Weight Chart * Medication List * List of questions Do not drink excessive alcohol, beer or wine. Pending Studies at Discharge: No Stand-Alone Forms: My [facility], Smoking Cessation Medications and DC Order Prescriptions: New potassium chloride [Klor-Con M20] 20 mEq Tablet,Er Particles/Crystals 20 meq PO QAM Qty: 30 RF: 2 digoxin [Digitek] 125 mcg (0.125 mg) Tablet 0.125 mg PO DAILY@1600 Qty: 30 RF: 2 furosemide 20 mg Tablet 20 mg PO BID Qty: 60 RF: 2 duloxetine 30 mg Capsule,Delayed Release(Dr/Ec) 30 mg PO QAM Qty: 30 RF: 2 prednisone 5 mg tablet 5 mg PO DIRECTED Qty: 2 RF: 0 Continued iron dextran 50 mg/mL solution 50 mg IM DIRECTED RF: 0 ondansetron 4 mg tablet,disintegrating 4 mg PO Q8H PRN (Reason: nausea and vomiting) Qty: 30 RF: 0 budesonide-formoterol 160-4.5 mcg/actuation HFA aerosol inhaler 2 puff inhalation BID Qty: 10.2 RF: 3 (DME) Aerochamber Plus Z Stat Spacer See Rx Instructions .ROUTE .MEDSUPPLY Qty: 1 RF: 0 cyanocobalamin (vitamin B-12) 1,000 mcg/mL Kit 1,000 mcg IM MONTHLY RF: 0 pantoprazole 40 mg Tablet,Delayed Release (Dr/Ec) 40 mg PO DAILY 30 Days Qty: 30 RF: 0 clopidogrel 75 mg Tablet 75 mg PO QAM 30 Days Qty: 30 RF: 0 midodrine 2.5 mg tablet 2.5 mg PO TID RF: 0 Discontinued spironolactone 25 mg tablet 12.5 mg PO DAILY Qty: 30 RF: 2 Discharge Orders: Discharge Order (Routine); Ordered 08/08/20 Ordered By: Zenon Quach Admission Data Admit Date/Time: 08/03/20 23:46 Attending Provider: Zenon Quach Admit Provider: Reggie Pope Primary Care Provider: Anjel Eid Other Providers: Mere Cameron ; Pablito Lynch ; Basim Schafer Other Interventions: Discharge Summary Assessment (RN) Last Done: 08/08/20 14:22 Coding Level of Care Code D/C Day Management >30 mins Diagnoses Acute on chronic HFrEF (heart failure with reduced ejection fraction) I50.23 Right heart failure due to pulmonary hypertension I27.29; I50.810 Rash R21 Bilateral leg and foot pain M79.604; M79.605; M79.671; M79.672 Myalgia M79.10 Atrial fibrillation I48.11 Atrial fibrillation type: longstanding persistent Cardiomyopathy I42.9 Anasarca R60.1 Cerebral vascular insufficiency I67.9 Carotid artery occlusion syndrome G45.1 Intracranial aneurysm I67.1 Dyslipidemia E78.5 Panic disorder with agoraphobia F40.01 COPD (chronic obstructive pulmonary disease) J44.9 CKD (chronic kidney disease) N18.9 Chronic kidney disease stage: unspecified stage UTI (urinary tract infection) N39.0 Goals of care, counseling/discussion Z71.89
[2020-08-09] MEDS ORDERED: POTASSIUM CHLORIDE CRTAB 20 MEQ TABCR PO SCH (09:00)
== END 2020-08-08 15:45 | disposition home health service (06) | DRG 291 ==
LOC: ED 16:10 → SUATTDRO 23:46 → 2S 23:46